=== PATIENT | male | born 1985 | race Two or more races ===

== ENCOUNTER 2024-11-11 22:11 | Inpatient (IN) | payer OTHER, SELFPAY ==
[2024-11-11] VITALS (7 sets, daily range): BP systolic 96–107; BP diastolic 12–71
[2024-11-11] MEDS: TYLENOL 650 MG PO (15:06)
[2024-11-11 15:10] LABS: % Basophils 1.2 % (0-2); % Eosinophils 0.6 % (0-6); % Immature Granulocytes 0.3 % (0-0.5); % Lymphocytes 24.6 % (20.5-51.1); % Monocytes 8.5 % (1.7-9.3); % Neutrophils 64.8 % (42.2-75.2); Absolute Lymphocytes 0.8 10^3/uL (1.2-3.4); Absolute Monocytes 0.3 10^3/uL (0.1-0.6); Absolute Neutrophils 2.1 10^3/uL (1.4-6.5); Hematocrit 39.1 % (39.0-52.0); Hemoglobin 14.1 g/dL (13.0-18.0); Mean Corp Hgb Conc. 36.1 g/dL (33.0-37.0); Mean Corpuscular Hgb 29.3 pg (27.0-31.0); Mean Corpuscular Volume 81.3 fL (80.0-94.0); Mean Platelet Volume 10.3 fL (7.4-10.4); Nucleated Red Blood Cells % 0 % (-); Platelet Count 162 10^3/uL (130-400); Red Blood Cell Count 4.81 10^6/uL (4.70-6.10); Red Cell Dist. Width 14.9 % (11.5-14.5); White Blood Cell Count 3.3 10^3/uL (4.8-10.8)
[2024-11-11 15:26] LABS: COVID-19 Antigen Negative (Negative)
[2024-11-11 15:28] LABS: Lactic Acid 1.8 mmol/L (0.7-2.0)
[2024-11-11 15:40] LABS: Troponin I < 0.012 ng/ml
[2024-11-11 15:45] LABS: Albumin 3.5 g/dl (3.5-5.0); Blood Urea Nitrogen 5 mg/dl (9-20); Carbon Dioxide 25 mmol/L (22-30); Total Bilirubin 0.8 mg/dl (0.2-1.3); Total Protein 7.7 g/dl (6.3-8.2); eGFR > 60.00
[2024-11-11 15:55] LABS: ALT (SGPT) 35 U/L (0-50); AST (SGOT) 35 U/L (17-59); Alkaline Phosphatase 83 U/L (38-126); Calcium 8.8 mg/dl (8.4-10.2); Chloride 102 mmol/L (98-107); Glucose 85 mg/dl (70-99); Potassium 3.8 mmol/L (3.5-5.1); Sodium 137 mmol/L (135-145)
--- NOTE | 2024-11-11 17:02 | ED.GENMED ---
History of Present Illness
<Samia Almonte ELECTROTYPE SERVICER - Last Filed: 11/12/24 15:08>
General
Chief Complaint: Pneumonia Symptoms
Source: patient and family
Exam Limitations: none
Time Seen by Provider: 11/11/24 16:32
Nursing documentation reviewed up to this point in time: agreed with
History of Present Illness
History of Present Illness:
39 yo male [place] only speaking with relative at bedside helping to interpret presents for shortness of breath, worse with exertion, chest pressure, feels like he can't take a deep breath. Fatigue, last few days has had a dry cough, fever.
He was seen at [facility] on 10/10 for a rash and DC'd from ED told he had 'Covid like symptoms' although tested Covid neg.
Followed up a week later at [facility] where there was a 'very mean [place] doctor' that reportedly told him all the [place] from [place] come and bring disease, she said he is very sick and should make arrangements as he will most likely
soon. She has him so scared he lost a lot of weight and doesn't feel like eating. He thinks he's dying.
He has records from 09/14/24 from [facility] with neg MMR results, negative flu, RSV and COVID results
He was given out pt lab slip for numerous non emergent tests that he hasn't done due to his fear from the doctor at the clinic
Past History
<Samia Almonte, ELECTROTYPE SERVICER - Last Filed: 11/12/24 15:08>
Past History
ED Past Medical History: None
ED Past Surgical History: None
Social History
Tobacco: Non-smoker
Alcohol: None
Personal:
Living: with family
Phy Exam
<Samia Almonte, ELECTROTYPE SERVICER - Last Filed: 11/12/24 15:08>
Physical Exam
Physical Exam:
GENERAL: No acute distress. A&Ox3.
CONSTITUTIONAL: Afebrile.
EYES: clear, conjunctivae normal
ENMT: moist mucus membranes, Pharynx nl
RESPIRATORY: Regular respirations, nonlabored, lungs clear.
CARDIOVASCULAR: Regular rate and rhythm, no murmurs, no rubs.
GI: Soft, nontender, normal BS
MUSCULOSKELETAL: Moves with ease. Well perfused. No edema
SKIN: Warm, dry, pink
PSYCH: Normal mood and affect. Well kept, interactive and appropriate
NEUROLOGIC: Awake, alert and oriented. No focal neurological deficits
Sepsis
<Samia Almonte, ELECTROTYPE SERVICER - Last Filed: 11/12/24 15:08>
Sepsis Screening
Sepsis Assessment: Sepsis Ruled Out
Sepsis Screen
Sepsis Screen: Sepsis Ruled Out
Date: 11/12/24
Time: 15:08
<Altaf Lozano Jr., PA-C - Last Filed: 11/12/24 18:24>
Sepsis Screen
Sepsis Screen: Sepsis Ruled Out
Date: 11/12/24
Time: 18:23
Course
<Samia Almonte, ELECTROTYPE SERVICER - Last Filed: 11/12/24 15:08>
Orders/Labs/Results
Orders:
Orders
11/11/24 14:41
EKG [Electrocardiogram (*1)] Urgent
Reason for Study: Chest Pain
11/11/24 14:45
CXR2 [CR Chest - 2 Views ] Urgent
Comment:
Reason For Exam: cough/chest pain
11/11/24 Dinner
Regular
At Your Request: Full Participation
11/11/24 15:02
CMP [Comprehensive Metabolic Panel] Urgent
COVID-19 Antigen Urgent
Source: Nasal Swab
Complete Blood Count/With Diff Urgent
Lactate Level [Lactic Acid] Urgent
Troponin I Urgent
Blood Culture Urgent
NATALI Source: Blood/Venous
Specimen Description:
Influenza A+B Rapid Molecular Urgent
NATALI Source: Nasal Swab
Specimen Description:
11/11/24 15:04
Acetaminophen [Tylenol] 650 mg .ROUTE .STK-MED ONE
11/11/24 15:05
Acetaminophen [Tylenol] 650 mg PO NOW STA
11/11/24 16:30
Add On- LAB Urgent
Tests Added?: BNP
11/11/24 17:14
CT Chest PE Study Urgent
Comment:
Reason For Exam: PATEL, SOB
11/11/24 17:19
Add On- LAB Urgent
Tests Added?: TSH
11/11/24 19:27
Add On- LAB Urgent
Tests Added?: tsh
11/11/24 20:11
NT-proBNP Routine
TSH Routine
11/11/24 21:09
Azithromycin 500 mg/250 ml [Zithromax Infusion] 500 mg in 250 ml IV NOW
CefTRIAXone [Rocephin] 2,000 mg IV NOW STA
11/11/24 21:35
Sterile Water [Sterile Water For Injection] 20 ml .ROUTE .STK-MED
11/11/24 22:00
Flush (0.9% Sodium Chloride) [Flush (Nss)] See Dose Instructions IV PER PROTOCOL
11/11/24 22:01
Admit/Transfer Patient As Directed
Co-Sign Provider:
Level of Care: Inpatient admission
Assign to:: Medical/Surgical
Physician / Group: kaylie,mauricio
Diagnosis: Sepsis secondary to bilateral pneumonia, acute leukopenia
Reason for Hospitalization: Sepsis secondary to bilateral pneumonia, acute leukopenia
Expected length of stay greater than two midnights?: Yes
ELOS- Estimated Length of Stay in days: 4
I certify the patient meets the requirements for IP care: Yes
Code Status As Directed
Resuscitation Status: Full Code
04/26/25 22:04
PRN Pain Medication Management As Directed
May give lesser potent ordered pain med per pt: Yes
preference::
Protocol:: Medication orders for pain may be administered in a
manner that supports deferring to patient preference
when the pt is:
- Requesting an ordered lesser potent pain medication.
Least to most potent pain medications are defined
as: acetaminophen < NSAID < tramadol < opioids
(morphine, oxycodone, hydromorphone).
- Requesting a lesser dose of the same medication IF
ORDERED.
- Requesting a less intrusive route of administration
if both routes are prescribed by the provider (PO <
IV).
11/11/24 22:05
PRN Pain Medication Management As Directed
May give lesser potent ordered pain med per pt: Yes
preference::
Protocol:: Medication orders for pain may be administered in a
manner that supports deferring to patient preference
when the pt is:
- Requesting an ordered lesser potent pain medication.
Least to most potent pain medications are defined
as: acetaminophen < NSAID < tramadol < opioids
(morphine, oxycodone, hydromorphone).
- Requesting a lesser dose of the same medication IF
ORDERED.
- Requesting a less intrusive route of administration
if both routes are prescribed by the provider (PO <
IV).
11/11/24 22:06
Blood Culture Urgent
NATALI Source: Blood/Venous
Specimen Description:
11/11/24 22:08
Consult Notification Routine
Specialty to Notify: Infectious Disease
Date consulting provider notified: 11/12/24
Time consulting provider notified: 08:51
Notified:: Provider
INFECTIOUS DISEASE CONSULT Routine
Consulting Provider: Gloria Frank
Was physician already notified: No
Reason for consult: Bilateral pneumonia
11/11/24 22:09
Consult Notification Routine
Specialty to Notify: Pulmonary
Date consulting provider notified: 11/12/24
Time consulting provider notified: 08:51
Notified:: Provider
PULMONARY CONSULT Routine
Consulting Provider: Nae Serna
Was physician already notified: No
Reason for consult: Bilateral pneumonia
11/11/24 22:58
0.9% Sodium Chloride 1000 ml [Nss] 1,000 ml IV 100 mls/hr
Acetaminophen [Tylenol] 650 mg PO Q4HPRN PRN
Ibuprofen [Motrin] 600 mg PO Q6HPRN PRN
Ondansetron Injectable [Zofran] 4 mg IV Q6HPRN PRN
11/11/24 22:58
Sputum Culture [Respiratory Culture/Gram Stain] Routine
NATALI Source: Sputum
Specimen Description:
Activity As Directed
Activity Level: As Tolerated
Vital Signs As Directed
Frequency: Per unit guidelines
Pulse Ox/spot Check [RESP] Routine
Quantity: 1
Pt Eval And Treat Routine
Activity Level: As Tolerated
DX Deep Vein Thrombosis Video Routine
11/12/24 05:57
Complete Blood Count/With Diff IN AM
Comprehensive Metabolic Panel IN AM
QuantiFERON-TB Gold Plus [S] IN AM
11/12/24 18:00
Enoxaparin Sodium [Lovenox] 40 mg SC QPM
11/12/24 22:00
Azithromycin 500 mg/250 ml [Zithromax Infusion] 500 mg in 250 ml IV Q24H
CefTRIAXone [Rocephin] 1,000 mg IV Q24H
11/13/24 06:00
Complete Blood Count/With Diff IN AM
Comprehensive Metabolic Panel IN AM
11/14/24 06:00
Complete Blood Count/With Diff IN AM
Comprehensive Metabolic Panel IN AM
11/14/24 11:00
DC Protocol for Telemetry ONCE
11/15/24 06:00
Complete Blood Count/With Diff IN AM
Comprehensive Metabolic Panel IN AM
Abnormal Lab Results
11/11/24
15:02
WBC 3.3 L 10^3/uL
(4.8-10.8)
RDW 14.9 H %
(11.5-14.5)
Absolute Lymphs (auto) 0.8 L 10^3/uL
(1.2-3.4)
BUN 5 L mg/dl
(9-20)
11/11/24 15:02
11/11/24 15:02
Vital Signs
Initial and Last Documented VS:
Initial Vital Signs
Temp Pulse Resp BP Pulse Ox
100.7 F H 98 20 107/70 98
11/11/24 14:33 11/11/24 14:33 11/11/24 14:33 11/11/24 14:33 11/11/24 14:33
Last Documented Vital Signs
Temp Pulse Resp BP Pulse Ox
97.6 F 89 24 89/62 94
11/12/24 15:40 11/12/24 16:05 11/12/24 16:05 11/12/24 15:40 11/12/24 16:05
<Brittney Calle MD - Last Filed: 11/11/24 17:52>
Orders/Labs/Results
Orders:
Orders
11/11/24 14:41
EKG [Electrocardiogram (*1)] Urgent
Reason for Study: Chest Pain
11/11/24 14:45
CXR2 [CR Chest - 2 Views ] Urgent
Comment:
Reason For Exam: cough/chest pain
11/11/24 Dinner
Regular
At Your Request: Full Participation
11/11/24 15:02
CMP [Comprehensive Metabolic Panel] Urgent
COVID-19 Antigen Urgent
Source: Nasal Swab
Complete Blood Count/With Diff Urgent
Lactate Level [Lactic Acid] Urgent
Troponin I Urgent
Blood Culture Urgent
NATALI Source: Blood/Venous
Specimen Description:
Influenza A+B Rapid Molecular Urgent
NATALI Source: Nasal Swab
Specimen Description:
11/11/24 15:04
Acetaminophen [Tylenol] 650 mg .ROUTE .STK-MED ONE
11/11/24 15:05
Acetaminophen [Tylenol] 650 mg PO NOW STA
11/11/24 16:30
Add On- LAB Urgent
Tests Added?: BNP
11/11/24 17:14
CT Chest PE Study Urgent
Comment:
Reason For Exam: PATEL, SOB
11/11/24 17:19
Add On- LAB Urgent
Tests Added?: TSH
11/11/24 19:27
Add On- LAB Urgent
Tests Added?: tsh
11/11/24 20:11
NT-proBNP Routine
TSH Routine
11/11/24 21:09
Azithromycin 500 mg/250 ml [Zithromax Infusion] 500 mg in 250 ml IV NOW
CefTRIAXone [Rocephin] 2,000 mg IV NOW STA
11/11/24 21:35
Sterile Water [Sterile Water For Injection] 20 ml .ROUTE .STK-MED
11/11/24 22:00
Flush (0.9% Sodium Chloride) [Flush (Nss)] See Dose Instructions IV PER PROTOCOL
11/11/24 22:01
Admit/Transfer Patient As Directed
Co-Sign Provider:
Level of Care: Inpatient admission
Assign to:: Medical/Surgical
Physician / Group: mauricio lott
Diagnosis: Sepsis secondary to bilateral pneumonia, acute leukopenia
Reason for Hospitalization: Sepsis secondary to bilateral pneumonia, acute leukopenia
Expected length of stay greater than two midnights?: Yes
ELOS- Estimated Length of Stay in days: 4
I certify the patient meets the requirements for IP care: Yes
Code Status As Directed
Resuscitation Status: Full Code
11/11/24 22:04
PRN Pain Medication Management As Directed
May give lesser potent ordered pain med per pt: Yes
preference::
Protocol:: Medication orders for pain may be administered in a
manner that supports deferring to patient preference
when the pt is:
- Requesting an ordered lesser potent pain medication.
Least to most potent pain medications are defined
as: acetaminophen < NSAID < tramadol < opioids
(morphine, oxycodone, hydromorphone).
- Requesting a lesser dose of the same medication IF
ORDERED.
- Requesting a less intrusive route of administration
if both routes are prescribed by the provider (PO <
IV).
11/11/24 22:05
PRN Pain Medication Management As Directed
May give lesser potent ordered pain med per pt: Yes
preference::
Protocol:: Medication orders for pain may be administered in a
manner that supports deferring to patient preference
when the pt is:
- Requesting an ordered lesser potent pain medication.
Least to most potent pain medications are defined
as: acetaminophen < NSAID < tramadol < opioids
(morphine, oxycodone, hydromorphone).
- Requesting a lesser dose of the same medication IF
ORDERED.
- Requesting a less intrusive route of administration
if both routes are prescribed by the provider (PO <
IV).
11/11/24 22:06
Blood Culture Urgent
NATALI Source: Blood/Venous
Specimen Description:
11/11/24 22:08
Consult Notification Routine
Specialty to Notify: Infectious Disease
Date consulting provider notified: 11/12/24
Time consulting provider notified: 08:51
Notified:: Provider
INFECTIOUS DISEASE CONSULT Routine
Consulting Provider: Gloria Frank
Was physician already notified: No
Reason for consult: Bilateral pneumonia
11/11/24 22:09
Consult Notification Routine
Specialty to Notify: Pulmonary
Date consulting provider notified: 11/12/24
Time consulting provider notified: 08:51
Notified:: Provider
PULMONARY CONSULT Routine
Consulting Provider: Nae Serna
Was physician already notified: No
Reason for consult: Bilateral pneumonia
11/11/24 22:58
0.9% Sodium Chloride 1000 ml [Nss] 1,000 ml IV 100 mls/hr
Acetaminophen [Tylenol] 650 mg PO Q4HPRN PRN
Ibuprofen [Motrin] 600 mg PO Q6HPRN PRN
Ondansetron Injectable [Zofran] 4 mg IV Q6HPRN PRN
11/11/24 22:58
Sputum Culture [Respiratory Culture/Gram Stain] Routine
NATALI Source: Sputum
Specimen Description:
Activity As Directed
Activity Level: As Tolerated
Vital Signs As Directed
Frequency: Per unit guidelines
Pulse Ox/spot Check [RESP] Routine
Quantity: 1
Pt Eval And Treat Routine
Activity Level: As Tolerated
DX Deep Vein Thrombosis Video Routine
11/12/24 05:57
Complete Blood Count/With Diff IN AM
Comprehensive Metabolic Panel IN AM
QuantiFERON-TB Gold Plus [S] IN AM
11/12/24 18:00
Enoxaparin Sodium [Lovenox] 40 mg SC QPM
11/12/24 22:00
Azithromycin 500 mg/250 ml [Zithromax Infusion] 500 mg in 250 ml IV Q24H
CefTRIAXone [Rocephin] 1,000 mg IV Q24H
11/13/24 06:00
Complete Blood Count/With Diff IN AM
Comprehensive Metabolic Panel IN AM
11/14/24 06:00
Complete Blood Count/With Diff IN AM
Comprehensive Metabolic Panel IN AM
11/14/24 11:00
DC Protocol for Telemetry ONCE
11/15/24 06:00
Complete Blood Count/With Diff IN AM
Comprehensive Metabolic Panel IN AM
Abnormal Lab Results
11/11/24
15:02
WBC 3.3 L 10^3/uL
(4.8-10.8)
RDW 14.9 H %
(11.5-14.5)
Absolute Lymphs (auto) 0.8 L 10^3/uL
(1.2-3.4)
BUN 5 L mg/dl
(9-20)
11/11/24 15:02
11/11/24 15:02
Vital Signs
Initial and Last Documented VS:
Initial Vital Signs
Temp Pulse Resp BP Pulse Ox
100.7 F H 98 20 107/70 98
11/11/24 14:33 11/11/24 14:33 11/11/24 14:33 11/11/24 14:33 11/11/24 14:33
Last Documented Vital Signs
Temp Pulse Resp BP Pulse Ox
97.6 F 89 24 89/62 94
11/12/24 15:40 11/12/24 16:05 11/12/24 16:05 11/12/24 15:40 11/12/24 16:05
<Altaf Lozano Jr., PA-C - Last Filed: 11/12/24 18:24>
Orders/Labs/Results
Orders:
Orders
11/11/24 14:41
EKG [Electrocardiogram (*1)] Urgent
Reason for Study: Chest Pain
11/11/24 14:45
CXR2 [CR Chest - 2 Views ] Urgent
Comment:
Reason For Exam: cough/chest pain
11/11/24 Dinner
Regular
At Your Request: Full Participation
11/11/24 15:02
CMP [Comprehensive Metabolic Panel] Urgent
COVID-19 Antigen Urgent
Source: Nasal Swab
Complete Blood Count/With Diff Urgent
Lactate Level [Lactic Acid] Urgent
Troponin I Urgent
Blood Culture Urgent
NATALI Source: Blood/Venous
Specimen Description:
Influenza A+B Rapid Molecular Urgent
NATALI Source: Nasal Swab
Specimen Description:
11/11/24 15:04
Acetaminophen [Tylenol] 650 mg .ROUTE .STK-MED ONE
11/11/24 15:05
Acetaminophen [Tylenol] 650 mg PO NOW STA
11/11/24 16:30
Add On- LAB Urgent
Tests Added?: BNP
11/11/24 17:14
CT Chest PE Study Urgent
Comment:
Reason For Exam: PATEL, SOB
11/11/24 17:19
Add On- LAB Urgent
Tests Added?: TSH
11/11/24 19:27
Add On- LAB Urgent
Tests Added?: tsh
11/11/24 20:11
NT-proBNP Routine
TSH Routine
11/11/24 21:09
Azithromycin 500 mg/250 ml [Zithromax Infusion] 500 mg in 250 ml IV NOW
CefTRIAXone [Rocephin] 2,000 mg IV NOW STA
11/11/24 21:35
Sterile Water [Sterile Water For Injection] 20 ml .ROUTE .STK-MED
11/11/24 22:00
Flush (0.9% Sodium Chloride) [Flush (Nss)] See Dose Instructions IV PER PROTOCOL
11/11/24 22:01
Admit/Transfer Patient As Directed
Co-Sign Provider:
Level of Care: Inpatient admission
Assign to:: Medical/Surgical
Physician / Group: mauricio lott
Diagnosis: Sepsis secondary to bilateral pneumonia, acute leukopenia
Reason for Hospitalization: Sepsis secondary to bilateral pneumonia, acute leukopenia
Expected length of stay greater than two midnights?: Yes
ELOS- Estimated Length of Stay in days: 4
I certify the patient meets the requirements for IP care: Yes
Code Status As Directed
Resuscitation Status: Full Code
11/11/24 22:04
PRN Pain Medication Management As Directed
May give lesser potent ordered pain med per pt: Yes
preference::
Protocol:: Medication orders for pain may be administered in a
manner that supports deferring to patient preference
when the pt is:
- Requesting an ordered lesser potent pain medication.
Least to most potent pain medications are defined
as: acetaminophen < NSAID < tramadol < opioids
(morphine, oxycodone, hydromorphone).
- Requesting a lesser dose of the same medication IF
ORDERED.
- Requesting a less intrusive route of administration
if both routes are prescribed by the provider (PO <
IV).
11/11/24 22:05
PRN Pain Medication Management As Directed
May give lesser potent ordered pain med per pt: Yes
preference::
Protocol:: Medication orders for pain may be administered in a
manner that supports deferring to patient preference
when the pt is:
- Requesting an ordered lesser potent pain medication.
Least to most potent pain medications are defined
as: acetaminophen < NSAID < tramadol < opioids
(morphine, oxycodone, hydromorphone).
- Requesting a lesser dose of the same medication IF
ORDERED.
- Requesting a less intrusive route of administration
if both routes are prescribed by the provider (PO <
IV).
11/11/24 22:06
Blood Culture Urgent
NATALI Source: Blood/Venous
Specimen Description:
11/11/24 22:08
Consult Notification Routine
Specialty to Notify: Infectious Disease
Date consulting provider notified: 11/12/24
Time consulting provider notified: 08:51
Notified:: Provider
INFECTIOUS DISEASE CONSULT Routine
Consulting Provider: Gloria Frank
Was physician already notified: No
Reason for consult: Bilateral pneumonia
11/11/24 22:09
Consult Notification Routine
Specialty to Notify: Pulmonary
Date consulting provider notified: 11/12/24
Time consulting provider notified: 08:51
Notified:: Provider
PULMONARY CONSULT Routine
Consulting Provider: Nae Serna
Was physician already notified: No
Reason for consult: Bilateral pneumonia
11/11/24 22:58
0.9% Sodium Chloride 1000 ml [Nss] 1,000 ml IV 100 mls/hr
Acetaminophen [Tylenol] 650 mg PO Q4HPRN PRN
Ibuprofen [Motrin] 600 mg PO Q6HPRN PRN
Ondansetron Injectable [Zofran] 4 mg IV Q6HPRN PRN
11/11/24 22:58
Sputum Culture [Respiratory Culture/Gram Stain] Routine
NATALI Source: Sputum
Specimen Description:
Activity As Directed
Activity Level: As Tolerated
Vital Signs As Directed
Frequency: Per unit guidelines
Pulse Ox/spot Check [RESP] Routine
Quantity: 1
Pt Eval And Treat Routine
Activity Level: As Tolerated
DX Deep Vein Thrombosis Video Routine
11/12/24 05:57
Complete Blood Count/With Diff IN AM
Comprehensive Metabolic Panel IN AM
QuantiFERON-TB Gold Plus [S] IN AM
11/12/24 18:00
Enoxaparin Sodium [Lovenox] 40 mg SC QPM
11/12/24 22:00
Azithromycin 500 mg/250 ml [Zithromax Infusion] 500 mg in 250 ml IV Q24H
CefTRIAXone [Rocephin] 1,000 mg IV Q24H
11/13/24 06:00
Complete Blood Count/With Diff IN AM
Comprehensive Metabolic Panel IN AM
11/14/24 06:00
Complete Blood Count/With Diff IN AM
Comprehensive Metabolic Panel IN AM
11/14/24 11:00
DC Protocol for Telemetry ONCE
11/15/24 06:00
Complete Blood Count/With Diff IN AM
Comprehensive Metabolic Panel IN AM
Abnormal Lab Results
11/11/24
15:02
WBC 3.3 L 10^3/uL
(4.8-10.8)
RDW 14.9 H %
(11.5-14.5)
Absolute Lymphs (auto) 0.8 L 10^3/uL
(1.2-3.4)
BUN 5 L mg/dl
(9-20)
11/11/24 15:02
11/11/24 15:02
Vital Signs
Initial and Last Documented VS:
Initial Vital Signs
Temp Pulse Resp BP Pulse Ox
100.7 F H 98 20 107/70 98
11/11/24 14:33 11/11/24 14:33 11/11/24 14:33 11/11/24 14:33 11/11/24 14:33
Last Documented Vital Signs
Temp Pulse Resp BP Pulse Ox
97.6 F 89 24 89/62 94
11/12/24 15:40 11/12/24 16:05 11/12/24 16:05 11/12/24 15:40 11/12/24 16:05
<Samia King Day, ELECTROTYPE SERVICER - Last Filed: 11/12/24 15:08>
MDM/Problems Addressed
Differential Diagnosis Includes:
dehydration, PNA, Covid
MDM/Problems Addressed:
39 yo male [place] only speaking with relative at bedside helping to interpret presents for shortness of breath, worse with exertion, chest pressure, feels like he can't take a deep breath. Fatigue, last few days has had a dry cough, fever.
He was seen at [facility] on 10/10 for a rash and DC'd from ED told he had 'Covid like symptoms' although tested Covid neg.
Followed up a week later at [facility] where there was a 'very mean [place] doctor' that reportedly told him all the [place] from his country come and bring disease, she said he is very sick and should make arrangements as he will most likely
soon. She has him so scared he lost a lot of weight and doesn't feel like eating. He thinks he's dying.
He has records from 09/14/24 from [facility] with neg MMR results, negative flu, RSV and COVID results
He was given out pt lab slip for numerous non emergent tests that he hasn't done due to his fear from the doctor at the clinic
Ct scan showing PNA, Hospitalist notified of admission
<Samia Almonte ELECTROTYPE SERVICER - Last Filed: 11/12/24 15:08>
*Critical Care Note
Total Time (30-74mins, 75-104mins- exclusive of procedures): Not Applicable
<Altaf Lozano Jr., PA-C - Last Filed: 11/12/24 18:24>
Update Note
Update Note:
2030: CT resulted with multifocal potential pneumonia. Patient was walked with hypoxia appeared very short of breath. Plan to admit for IV antibiotics and further monitoring and treatment.
ED Attending Note
<Samia Almonte ELECTROTYPE SERVICER - Last Filed: 11/12/24 15:08>
-
Portions of this chart may have been created with voice recognition software.� Occasional wrong word or��sound alike� substitutions may have occurred due to the inherent limitations of voice recognition software.
<Brittney Calle MD - Last Filed: 11/11/24 17:52>
ED Attending Note
Patient seen and examined by attending physician: Yes
I performed the substantive portion of visit, reviewed & personally made and approve the management plan that is documented in note by myself or GAMAL.: Yes
ED Attending Note:
39-year-old male who presents emergency department with lower chest discomfort for some time associated with cough and dyspnea for the last 3 days. He is noted to have a low-grade fever here. Patient has had sporadic primary care doctor care, did
have a recent workup regarding a rash with extensive negative testing. He has had unintentional weight loss. He states that he feels 'overall fine', with the exception of symptoms as stated above. History obtained via aerial photograph interpreter. Cousin at
bedside. Labs and chest x-ray noted, vital stable, patient well-appearing. Will check CT, likely discharge with close follow-up
Discharge Plan
Departure
Patient Disposition: Admit
Date of Disposition: 11/11/24
Time of Disposition: 21:15
Admit to: Telemetry
Admit to doctor: Meredith
Presentation/result/management discussed w/ accepting MD/DO: Hospitalist
Patient with high blood pressure during this ER visit?: No
Condition: Fair
Covid-19: Not Applicable
Discharge Problem:
Pneumonia
Interventions
Interventions:
*Risk Screen - Suicide Last Done: 11/11/24 14:33
*General Assessment Last Done: 11/11/24 21:00
*Neglect/Abuse Screening Last Done: 11/11/24 14:33
*ED- Fall Risk Assessment Last Done: 11/11/24 21:00
*ED COVID-19 Vaccine History Last Done: 11/11/24 14:33
*Nursing Disposition Last Done: 11/11/24 23:09
ED- Cardiac Assessment Last Done: 11/11/24 21:00
ED- Pulmonary Assessment Last Done: 11/11/24 21:00
Discharge Date and Time
Discharge Date/Time: 11/11/24 23:10
--- NOTE | 2024-11-11 21:24 | HPS.HSE ---
Family Physician
-
Family Physician: * NONE
Chief Complaint
-
Nonproductive cough with chills x 3 days
History of Present Illness
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 He is complaining of 3 days of nonproductive cough with chills he has been taking Tylenol and ibuprofen for
his chills. He denies headache, sore throat, chest pain, palpitations, weight loss, no night sweats, no abdominal pain no nausea vomiting diarrhea urinary symptoms rash or sick contacts. He is an active smoker 2 to 3 cigarettes/week he has no
other medical history. He has no surgical history.
Medical History
Past Medical History
Past Medical History: Reports Other
Additional Past Medical History:
Nicotine use
Past Surgical History: Reports None
Social History
Tobacco: Smoker (2 to 3 cigarettes a week)
Alcohol: None
Drug: None
Personal:
Living: With Family
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
Family History
Family History: Other (Mother, father, 1 brother all healthy , parents live in [place] brother lives in the [facility])
Allergies / Home Medications
Allergies reflects when Allergies were last updated in [employer].
Home Medications with original date entered in [employer]
Allergy/Medication List:
Allergies
Allergy/AdvReac Type Severity Reaction Status Date / Time
No Known Allergies Allergy Verified 11/11/24 14:41
Home Medications
Tylenol 650 mg PO Q6H PRN fever>100.4 11/11/24
ibuprofen 600 mg PO Q6H PRN fever breakthru 11/11/24
Review of Systems
-
History Source: Patient (Plus Belarusian English translation na)
Constitutional: Reports Fever and Chills
EENT: Denies Sore Throat or Runny Nose
Respiratory: Reports Cough (Nonproductive); Denies Trouble Breathing
Cardiac: Denies Chest Pain, Diaphoresis, Palpitations or Syncope
Abdomen/GI: Denies Abdominal Pain, Nausea, Vomiting, Diarrhea, Constipated or Bloody Stools
: Denies Dysuria, Flank Pain or Difficulty Voiding
Musculoskeletal: Denies Joint Pain or Edema
Skin: Denies Itching or Rash
Neurological: Denies Dizzy, Headache or Weakness
Endocrine: Reports No Symptoms
Hematologic/Lymphatic: Reports No Symptoms
Psych: Reports Calm
Physical Exam
Vital Signs
Vital Signs
Temp Pulse Resp BP Pulse Ox
100.7 F H 98 20 107/70 98
11/11/24 14:33 11/11/24 14:33 11/11/24 14:33 11/11/24 14:33 11/11/24 14:33
Physical Exam
General: Comfortable, Conversant, Fever and Chills; No Pain
HEENT: NormoCephalic, Anicteric, Moist mucous membranes, PERRLA, [place] Conjunctivae and No Ptosis; No Thrush or Pharyngeal Erythema
Respiratory: Rhonchi (Left lung diminished)
Cardiac: S1/S2 and Regular Rhythm; No Murmur, Rub, Gallop or Peripheral Edema
GI: Soft, Non Tender, Non Distended, Normal Bowel Sounds and No Hepatosplenomegaly
Rectal: Deferred by Provider
Genito-urinary: Deferred by me
Musculoskeletal: No Clubbing, No Cyanosis and No Edema
Skin: Warm and Dry; No Rash
Neuro: AO x 3, No Motor Deficits, Nonfocal/grossly intact, Cranial Nerves Intact and No Sensory Deficits; No Slurred Speech, Facial Droop, Tremors or Sedated
Psych: Calm
Laboratory Results
-
11/11/24 15:02
11/11/24 15:02
Laboratory Results
Lactic Acid 1.8 mmol/L (0.7-2.0) 11/11/24 15:02
Total Bilirubin 0.8 mg/dl (0.2-1.3) 11/11/24 15:02
AST 35 U/L (17-59) 11/11/24 15:02
ALT 35 U/L (0-50) 11/11/24 15:02
Alkaline Phosphatase 83 U/L (38-126) 11/11/24 15:02
Troponin I < 0.012 ng/ml 11/11/24 15:02
Impression/Plan
-
Impression/plan:
Admit to MedSurg
#Sepsis secondary to bilateral pneumonia
#Acute leukopenia
WBC 3.3, 100.7 F, HR 98, 107/70
COVID/influenza negative
98% RA
-Check quantitative gold test,(originally from [place] has been in [place] 2 [place])
-Sputum culture
- Blood cultures x 2
-IV NSS 100 cc/h
- IV Rocephin, IV Zithromax
- Tylenol as needed fever, Motrin as needed breakthrough fever
- Follow CBC, BMP, check quantitative gold
- Consult pulmonary, infectious disease
EK bpm, NSR, QTc 413 MS no previous EKGs
CT PE study:
1. Moderate amount of bilateral perihilar ground-glass opacity with axial interstitial thickening in the lower lobes. Diagnostic possibilities are (1) an acute inflammatory pneumonitis
(such as vaping-associated lung disease) or (2) viral or atypical bacterial pneumonia.
2. Small amount of subpleural airspace consolidation in the posterior and lateral basilar segments of the left lower lobe and mild subpleural airspace consolidation in the right lower lobe.
Diagnostic possibilities are (1) pneumonia, (2) subsegmental atelectasis, or (3) an inflammatory airspace consolidation.
3. Mildly decreased bilateral lung volumes.
4. Mild mediastinal and bilateral hilar lymphadenopathy.
#Nicotine use
Patient smokes 2 to 3 cigarettes a week
DVT prophylaxis
Subcu Lovenox
Full code
--- NOTE | 2024-11-11 21:25 | W.PN.UPDATE ---
Update Note
Progress Note Update
I could not get any information from the patient is Rwandan only speaker
Information gathered by chart review and speaking with the ER staff.
This note serves as an addendum to the H&P by library technician GAMAL Mohini MO
HPI
39M Rwandan only speaker with partial understanding of Croatian relative at bedside helping to interpret seen at ER:
- shortness of breath, worse with exertion, chest pressure, feels like he can't take a deep breath.
- Fatigue, last few days has had a dry cough, fever.
- He was seen at [facility] on 10/10 for a rash and DC'd from ED told he had 'Covid like symptoms' although tested Covid neg.
Of note: per ER GIFT OFFICER note
- Followed up a week later at [facility] where there was a 'very mean Rwandan doctor' that reportedly told him all the Russians from his country come and bring disease, she said he is very sick and should make arrangements as he will most likely
soon.
- She has him so scared he lost a lot of weight and doesn't feel like eating. He thinks he's dying.
- He was given out lab slip for numerous non emergent tests that he hasn't done due to his fear from the doctor at the clinic
Records from 09/14/24 from [facility] with neg MMR results, negative flu, RSV and COVID results
VS
11/11/24
14:33
Temp 100.7 F H
Pulse 98
Resp Rate 20
Blood pressure 107/70
SaO2 98
Oxygen Mode of Delivery Room air
Labs
PE
Gen: thin, not toxic
HEENT: NO ORAL mucosal THRUSH
Neck: supple
Lungs: CTA
Cor: RRR S1 S2
Abdomen: soft , NT , NG
DISK GRINDER: AAA
MS: no edema
Psych: preserved social skills
11/11/24 11/11/24
15:02 20:11
WBC 3.3 L
Hgb 14.1
Absolute Lymphs (auto) 0.8 L
BUN 5 L
Creatinine 0.7
eGFR > 60.00
Troponin I < 0.012
Bub-Z-Aaxcrqdmwso Pept 68.0
TSH 0.80
SARS-CoV-2 Antigen Negative
NEG Flu A & B
Pending covid
BCx sent
CXR
Moderate amount of bilateral perihilar ground-glass opacity which is predominantly located in the lower lobes and appears to surround increased interstitial markings. Diagnostic possibilities are (1) mild interstitial and alveolar cardiogenic
pulmonary edema, (2) viral pneumonia, (3) a mild inflammatory pneumonitis, or (4) mild subsegmental atelectasis secondary to low lung volumes.
CT Chest PE Study
1. Moderate amount of bilateral perihilar ground-glass opacity with axial interstitial thickening in the lower lobes. Diagnostic possibilities are (1) an acute inflammatory pneumonitis (such as vaping-associated lung disease) or (2) viral or
atypical bacterial pneumonia.
2. Small amount of subpleural airspace consolidation in the posterior and lateral basilar segments of the left lower lobe and mild subpleural airspace consolidation in the right lower lobe. Diagnostic possibilities are (1) pneumonia, (2)
subsegmental atelectasis, or (3) an inflammatory airspace consolidation.
3. Mildly decreased bilateral lung volumes.
4. Mild mediastinal and bilateral hilar lymphadenopathy.
NO PRIOR hospitalist admission:
ASSESSMENT & PLAN
Multifocal PNA - viral vs bacteria vs OI vs cryogenic organizing PNA
CTC suggest b/L perihilar ground-glass opacity with axial interstitial thickening in the lower lobes.
Noted Leucopenia and Lymphopenia
Of note: 09/14/24 Records from [facility]: neg MMR, NEG flu, RSV and COVID
Denied prior HX HIV, Denied risks for HIV
Current smoker and vapes
No oral thrush
Denied Wt loss, Denied night sweats
- check PCT
- To consider HIV test
- BC sent
- check LDH
- Quantiferon Gold
- Agree with empiric IV CFTX and Azithromycin
- Consult: Pul to evaluate for Bronch ( ? ) ID to evaluate atypical PNA or OI infection
DVT Px: LMWH
Full code
IP MS
[2024-11-11] MEDS: ROCEPHIN 2000 MG IV (21:54)
[2024-11-11] MEDS: ZITHROMAX INFUSION 250 IV (21:54)
[2024-11-12] MEDS: NSS 1000 IV ×3 (00:14→21:34)
[2024-11-12 06:00] VITALS: BMI 16.5
[2024-11-12 06:37] LABS: % Basophils 0.7 % (0-2); % Eosinophils 0.7 % (0-6); % Immature Granulocytes 0.3 % (0-0.5); % Lymphocytes 25.3 % (20.5-51.1); Absolute Lymphocytes 0.8 10^3/uL (1.2-3.4); Absolute Monocytes 0.3 10^3/uL (0.1-0.6); Absolute Neutrophils 1.9 10^3/uL (1.4-6.5); Hematocrit 33.1 % (39.0-52.0); Hemoglobin 11.3 g/dL (13.0-18.0); Mean Corp Hgb Conc. 34.1 g/dL (33.0-37.0); Mean Corpuscular Hgb 29.4 pg (27.0-31.0); Mean Platelet Volume 10.5 fL (7.4-10.4); Nucleated Red Blood Cells % 0 % (-); Platelet Count 158 10^3/uL (130-400); Red Blood Cell Count 3.85 10^6/uL (4.70-6.10); Red Cell Dist. Width 15.2 % (11.5-14.5)
--- NOTE | 2024-11-12 06:45 | PTCARENOTE ---
Lizeth RN informed this RN that she inquired pulp mill supervisor if patient needs a private room in which there was no need.
[2024-11-12 07:14] LABS: ALT (SGPT) 30 U/L (0-50); AST (SGOT) 35 U/L (17-59); Alkaline Phosphatase 76 U/L (38-126); Blood Urea Nitrogen 10 mg/dl (9-20); Calcium 8.1 mg/dl (8.4-10.2); Carbon Dioxide 28 mmol/L (22-30); Chloride 103 mmol/L (98-107); Estimated Creatinine Clearance 87 ml/min; Glucose 87 mg/dl (70-99); Potassium 4.1 mmol/L (3.5-5.1); Sodium 138 mmol/L (135-145); Total Bilirubin 0.5 mg/dl (0.2-1.3); Total Protein 6.8 g/dl (6.3-8.2); eGFR > 60.00
[2024-11-12 07:45] VITALS: BP 93/61
--- NOTE | 2024-11-12 08:59 | W.PN.HOSP.TC ---
Today's Communication/Plan
-
IV antibiotics. Pulmonary and ID consult
Assessment / Plan
Assessment / Plan
Physical exam:
General: Acutely ill
HEENT: Normocephalic, Atraumatic and Moist Mucous Membranes
Respiratory: Bilateral rhonchi; Negative Wheezes, or Rales
Cardiac: Regular Rhythm and S1/S2
GI: Soft, Nontender and Nondistended
Musculoskeletal: No Clubbing, No Cyanosis and No Edema
Neuro: Awake, Alert and Oriented
Psych: Calm
A/P:
#Sepsis secondary to bilateral pneumonia/hypoxia
#Acute leukopenia
WBC 3.3, 100.7 F, HR 98, 107/70
COVID/influenza negative
98% RA
-Check quantitative gold test,(originally from [place] has been in [place] 2 [place])
-Sputum culture
- Blood cultures x 2
-IV NSS 100 cc/h
- IV Rocephin, IV Zithromax
- Tylenol as needed fever, Motrin as needed breakthrough fever
- Follow CBC, BMP, check quantitative gold
- Consult pulmonary, infectious disease
- Discussed with pulmonary today and planning to do extensive rheumatological, infectious, and other etiology workup.
- Request old records as well
- Discussed with family at bedside
EK bpm, NSR, QTc 413 MS no previous EKGs
CT PE study:
1. Moderate amount of bilateral perihilar ground-glass opacity with axial interstitial thickening in the lower lobes. Diagnostic possibilities are (1) an acute inflammatory pneumonitis
(such as vaping-associated lung disease) or (2) viral or atypical bacterial pneumonia.
2. Small amount of subpleural airspace consolidation in the posterior and lateral basilar segments of the left lower lobe and mild subpleural airspace consolidation in the right lower lobe.
Diagnostic possibilities are (1) pneumonia, (2) subsegmental atelectasis, or (3) an inflammatory airspace consolidation.
3. Mildly decreased bilateral lung volumes.
4. Mild mediastinal and bilateral hilar lymphadenopathy.
#Nicotine use
Patient smokes 2 to 3 cigarettes a week
DVT prophylaxis
Subcu Lovenox
Full code
Total time spent on today's encounter was 52 minutes which included time spent in counseling the patient/family regarding diagnosis and treatment plan as listed above, goals of care, and symptom management. Case was discussed with nursing staff,
specialists, and care coordinators/case management. All labs and imaging personally reviewed by me. Remainder the time spent in detailed review of previous records, lab data, imaging, and other medical provider documentation.
Anticipated Discharge: > 48 hours
Subjective/Interval History
-
Date of Service: November 12, 2024
Complains of shortness of breath and cough. Afebrile today. Tmax 100.7 Fahrenheit yesterday. Still hypoxic, dropping to 86% on room air today. Back on supplemental oxygen.
Objective Data
-
Labs:
Laboratory Results
11/12/24
05:57
WBC 3.0 L
Hgb 11.3 L
Hct 33.1 L
Plt Count 158
Sodium 138
Potassium 4.1
Chloride 103
Carbon Dioxide 28
BUN 10
Creatinine 0.8
Glucose 87
Calcium 8.1 L
Total Bilirubin 0.5
AST 35
ALT 30
Alkaline Phosphatase 76
Vital Signs:
Vital Signs
Temp Pulse Resp BP Pulse Ox
99.6 F 86 18 93/61 99
11/12/24 07:45 11/12/24 07:45 11/12/24 07:45 11/12/24 07:45 11/12/24 07:45
I&O
11/11/24 11/12/24 11/13/24
06:59 06:59 06:59
Intake Total 900 / 900
Balance 900 / 900
--- NOTE | 2024-11-12 09:59 | PTCARENOTE ---
Pt c/o increased difficulty breathing. HOB raised, pulse ox=87% on RA, 2 L o2 placed. Pulse oox=95% on 2L nasal cannula. MD made aware.
[2024-11-12 10:43] VITALS: BP 120/71; BP 94/64; PULSE 84; PULSE 98; O2SAT 97
--- NOTE | 2024-11-12 13:43 | CON.ID ---
Addendum entered and electronically signed by Gloria Frank MD 11/13/24 09:34:
Patient is non-smoker. He never smoked nor vaped.
Original Note:
Consultation
-
Date/Time Consultation Requested: November 11, 20242208
Date/Time Consultation Performed: November 12, 2024 1345
Requesting Provider: JOB Jimenez
Performing Provider: Dr. Gloria Frank
Reason for Consultation: Bilateral pneumonia
Chief Complaint / Past History
Chief Complaint
Cough, weakness, fevers
History of Present Illness
Patient is Polish-speaking. History obtained with the help of medical practice administrator service via iPad. He is a 39-year-old male without past medical history presented to the hospital with 3-month history of illness, rash, and 3-day history of dry
cough. In the ER temperature 100.7. 98% RA. He is leukopenic, anemic. Chest CT: moderate amount of bilateral perihilar ground-glass opacity, small amt of subpleural consolidation, mild mediastinal and bilateral hilar LAD. COVID-negative.
Influenza negative. Blood culture negative to date. BNP normal. He is currently on ceftriaxone and azithromycin.
He is originally from [place] and came to the [facility] 3 years ago. He was doing well until August 2024 when he developed flulike symptoms, then he noticed red spots on his body. The rash is not pruritic. He did go to [facility] and was
told his lab work was fine and he was discharged. Of note, review of [facility] 09/13/24 lab: Measles IgG>300, IgM negative. The rash never resolved and remained stable. He continued to feel unwell with daily subjective fever for which he took
Tylenol or ibuprofen. The red spots hurt during febrile episodes. No pattern to the fever. He did not take his temperatures. No chills or sweats with these fevers. Complaining of malaise, myalgias, 'bone pain' all over his body. No specific
joint pains. He has poor appetite and lost 22 pounds over the past 3 months. Some nausea intermittently without vomiting. No diarrhea. No abdominal pain. No headache, sinus congestion, runny nose, or sore throat. No mouth lesions. The dry
cough occurred 3 days ago associated with dyspnea on exertion. He has difficulty taking deep breaths with chest pressure. 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 He has not been working for the past 2 months due to his illness. In [employer], he
worked for the [employer] department. No known tuberculosis exposure. He states he was never screened for tuberculosis. No animal exposure. No ill contacts. He denies HIV risk factors. He lives with his and 3 children. No travel outside of the
[place] the past 3 years. He does not garden. No pets.
Past History
Past Medical History: None
Past Surgical History: None
Allergy History:
No Known Allergies Allergy (Verified 11/11/24 14:41)
Medications Reviewed: Yes
Current Antibiotics:
Ceftriaxone
Azithromycin
Social History
Tobacco: Non-Smoker (Smokes 2-3 cigs/week and vapes)
Alcohol: None
Drug: None
Personal:
Living: With Family ( and 3 children)
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
Family History
Family History: Not Pertinent
Review of Systems
Review of Systems
General: Fever and Change in Appetite; Negative Chills
HEENT: Negative Lymphadenopathy, Stiff Neck, Sinus Problems, Headache or Pharyngitis
Cardiovascular: Dyspnea
Respiratory: Cough; Negative Sputum Production
Gasteroenterology: Weight Loss and Nausea; Negative Vomiting or Diarrhea
Genital / Urological: Negative Dysuria or Flank Pain
Endocrine: Weight Change, Weakness and Fatigue
Musculoskeletal: Myalgias; Negative Joint Pain or Joint Swelling
Skin / Hair / Nails: Lesions; Negative Pruritis
Neurological: Negative Dizziness
All systems: All other systems were reviewed and were negative
Vital Signs
Temp Pulse Resp BP Pulse Ox
99.6 F 87 20 93/61 98
11/12/24 07:45 11/12/24 11:38 11/12/24 11:38 11/12/24 07:45 11/12/24 11:38
Selected Entries
11/11/24
14:33
Temp 100.7 F H
Physical Exam
Physical Exam
Constitutional: No Acute Distress and Cachetic
Head: Other (No frontal or max or sinus tenderness)
Eyes: No Conjunctival Hemorrhage and Sclera Anicteric
Pharynx: Benign
Oral: Negative No Thrush or No Ulcers
Cardiovascular: Regular Rate and S1/S2; Negative Peripheral Edema
Pulmonary: Clear and Other (Poor respiratory effort); Negative Rhonchi
Gastrointestinal: Soft, Non Tender, Non Distended and Normal Bowel Sounds
Genito-Urinary: Negative Suprapubic Tenderness or CVA Tenderness
Extremities: Negative Edema
Musculoskeletal: Negative Joint Swelling, Joint Effusion or Spinal Tenderness
Skin: Other (Several scattered dark red/purplish papules of various sizes, irregular borders on BUE, thighs, upper back, chest)
Lab / Diagnostic Study Results
11/12/24 05:57
11/12/24 05:57
Abs Immat Gran (auto) 0.0 10^3/uL (0-0.05) 11/12/24 05:57
Absolute Neuts (auto) 1.9 10^3/uL (1.4-6.5) 11/12/24 05:57
Absolute Lymphs (auto) 0.8 10^3/uL (1.2-3.4) L 11/12/24 05:57
Absolute Monos (auto) 0.3 10^3/uL (0.1-0.6) 11/12/24 05:57
Absolute Basos (auto) 0.0 10^3/uL (0-0.2) 11/12/24 05:57
Immature Gran % 0.3 % (0-0.5) 11/12/24 05:57
Neutrophils % 62.0 % (42.2-75.2) 11/12/24 05:57
Lymphocytes % 25.3 % (20.5-51.1) 11/12/24 05:57
Monocytes % 11.0 % (1.7-9.3) H 11/12/24 05:57
Eosinophils % 0.7 % (0-6) 11/12/24 05:57
Basophils % 0.7 % (0-2) 11/12/24 05:57
Lactic Acid 1.8 mmol/L (0.7-2.0) 11/11/24 15:02
Microbiology Results
Micro:
11/12/24 05:58 Blood Culture - Pending
Blood/Venous
11/11/24 15:02 Influenza Types A & B (MARA) - Final
Nasal Swab Negative for Influenza A & B, NAAT
Negative results must be combined with clinical observations
and patient history.
Nucleic Acid Amplification test (NAAT)performed on the
[employer] platform.
11/11/24 15:02 Blood Culture - Pending
Blood/Venous
11/11/24 CXR: Moderate amount of bilateral perihilar ground-glass opacity which is predominantly located in the lower lobes and appears to surround increased interstitial markings. Diagnostic possibilities are (1) mild interstitial and alveolar
cardiogenic pulmonary edema, (2) viral pneumonia, (3) a mild inflammatory pneumonitis, or (4) mild subsegmental atelectasis secondary to low lung volumes.
11/11/[address]: Moderate amount of bilateral perihilar ground-glass opacity with axial interstitial thickening in the lower lobes. Diagnostic possibilities are (1) an acute inflammatory pneumonitis (such as vaping-associated lung disease) or (2)
viral or atypical bacterial pneumonia.
2. Small amount of subpleural airspace consolidation in the posterior and lateral basilar segments of the left lower lobe and mild subpleural airspace consolidation in the right lower lobe. Diagnostic possibilities are (1) pneumonia, (2)
subsegmental atelectasis, or (3) an inflammatory airspace consolidation.
3. Mildly decreased bilateral lung volumes.
4. Mild mediastinal and bilateral hilar lymphadenopathy.
Assessment / Plan
# Fevers x 3 months
# Violaceous raised papules skin lesions x 3 months
# Weight loss
# Kia-hilar ground-glass opacity, hilar adenopathy
# Leukopenia
# Anemia
# Polish immigrant
- Unclear unifying diagnosis at this time.
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
Skin biopsy will be helpful.
Perhaps consider Surgery to help obtain punch biopsy ( for path and bacterial/fungal/AFb cx) as does not have Dermatology service.
- Multiple labs pending.
- From ID standpoint, check HIV (pt verbally consented), syphilis serology, serum cryptococcus antigen, Bartonella (bacillary angiomatosis), Histoplasma Ag/CF.
--- NOTE | 2024-11-12 13:47 | CON.PUL ---
Consultation
Consultation Request
Date/Time Consultation Requested: 11/12/2024
Date/Time Consultation Performed: 11/12/2024
Requesting Provider: Dom Subramanian
Performing Provider: Nae Serna
Reason for Consultation: Shortness of breath
Medical History
-
Chief Complaint: Shortness of breath
History of Present Illness:
Patient is a 39-year-old Micronesian speaking male who presents to the hospital with 3 days of nonproductive cough, shortness of breath with some chills. Patient denies any sick contacts. No report currently history of runny nose, sore throat or upper
respiratory history tract symptoms. Patient says that he has not been able to bring any phlegm, no reported hemoptysis or pleuritic discomfort. Denies any recent exposure to mold, toxic fumes or gases, no reported recent history of smoking or
vaping or marijuana use. In the emergency room patient had a chest x-ray suggestive of interstitial pneumonia followed by a CT scan which was negative for any pulmonary embolism but showed diffuse bilateral centrilobular groundglass opacities with
mosaic pattern. Patient was admitted to the hospital and was started on Rocephin and Zithromax. Mild leukopenia was noted. Influenza AB screen as well as COVID-19 screen was negative.
Pulmonary consultation was requested for further input.
No significant past medical or surgical history. Reported skin rash in August 2024 requiring visit to [facility], with subsequent residual nodular lesions on her arm as well as chest. Records not available for review
Social history. Patient was born in [facility]. Growing up does not report any exposure to tuberculosis. He moved to [facility] about 2 years ago. 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 Denies any history of vaping, e-cigarette, or smoking
marijuana. Reports a very rare cigarette smoking on social occasions. No known exposure to toxic fumes or gases. Denies any work at pharmacy. Patient does not have any pets, no dogs no birds. does not recall if there is any mold where he lives.
no recent vaccination. patient does use a Hot Tub occasionally, last use was about 1 to 2 weeks ago. No reported illicit drug use.
No significant family history.
Allergies / Home Medications
Allergies
Allergy/AdvReac Type Severity Reaction Status Date / Time
No Known Allergies Allergy Verified 11/11/24 14:41
Home Medications
�Medication �Instructions �Recorded �Confirmed �Last Taken �Type
Tylenol 650 mg PO Q6H PRN fever>100.4 11/11/24 11/11/24 11/10/24 21:00 History
ibuprofen 600 mg PO Q6H PRN fever breakthru 11/11/24 11/11/24 Unknown History
Review of Systems
-
Hematologic/Lymphatic: Other (All 14 systems reviewed and negative except as stated above in the history of present illness.)
Vitals / Labs / Diagnostic Testing
Vital Signs
Temp Pulse Resp BP Pulse Ox
99.6 F 87 20 93/61 98
11/12/24 07:45 11/12/24 11:38 11/12/24 11:38 11/12/24 07:45 11/12/24 11:38
Lab Data
11/12/24 05:57
11/12/24 05:57
Microbiology
11/11/24 15:02 Nasal Swab Influenza Types A & B (MARA) - Final
Negative for Influenza A & B, NAAT
Negative results must be combined with clinical observations
and patient history.
Nucleic Acid Amplification test (NAAT)performed on the
[employer] NOW platform.
Diagnostic Testing:
Physical Exam
-
HEENT: Normocephalic
Cardiovascular: S1/S2
Respiratory: Rales and Other (Bilateral, bibasilar, inspiratory crackles noted. Otherwise no wheezing. Good air entry.)
GI: Soft and Non Distended
Neurology: Awake and Alert
Skin: Warm and Other (Nodular lesions noted in the right upper arm, anterior chest. Patient reports he had diffuse rash in 08/2024 which has since improved.)
General: Comfortable
Assessment
-
#1. Acute hypoxic respiratory failure with interstitial infiltrates. (patient dropped to 86% on room air, improved to mid 90's on supplemental O2)
- Infectious vs inflammatory pneumonitis.
- WBC normal, check Procalcitonin, Influenza A/B and COVID-19 negative. ID consult. Recommend extended viral panel. Dry cough, not producing any sputum. No obvious consolidation noted on imaging. Continue Rocephin and Azithromycin for now. Check HIV
(PJP less likely in immunocompetent hosts), Leukopenia noted.
- Considering centrilobular GGO, mosaic pattern on CT, Hypersensitivity Pneumonitis also in differential diagnosis. Reported use of Hot tub occasionally, last about 2 weeks ago. No birds or pets at home, no exposure to mold, no occupational
exposure, no reported marijuana or vaping.
- Also reported h.o skin rash in 08/2024 with residual nodular lesions on the upper arms and chest. Check connective tissue panel (RA, DEX, ANCA, Myositis panel), Hypersensitivity panel, ESR/CRP and Immunoglobulin levels. Eosinophil count is normal
- Check ABG and bedside spirometry
- Depending on the clinical course, might need Bronchoscopy and BAL
- BNP is normal. No clinical s/s of volume overload. Check ECHO, evaluate for pulmonary pressures
- Patient was seen at [facility] in August for skin rash and then later in September for shortness of breath, recommend obtaining records for review
Pulmonary service will continue to follow
Total time spent on this consultation/encounter __82__ minutes which includes review of history, physical exam, medications, laboratory data, personal review of imaging, extensive review of outpatient records, discussion with care team and
respiratory therapy.
Video lang interpreter service was used to communicate with the patient. Discussed case with the primary team and infectious disease service.
Data:
CT Chest 10/2024: 1. Moderate amount of bilateral perihilar ground-glass opacity with axial interstitial thickening in the lower lobes. Diagnostic possibilities are (1) an acute inflammatory pneumonitis (such as vaping-associated lung disease) or
(2) viral or atypical bacterial pneumonia.
2. Small amount of subpleural airspace consolidation in the posterior and lateral basilar segments of the left lower lobe and mild subpleural airspace consolidation in the right lower lobe. Diagnostic possibilities are (1) pneumonia, (2)
subsegmental atelectasis, or (3) an inflammatory airspace consolidation.
3. Mildly decreased bilateral lung volumes.
4. Mild mediastinal and bilateral hilar lymphadenopathy.
5. No PE
CXR 10/2024: Moderate amount of bilateral perihilar ground-glass opacity which is predominantly located in the lower lobes and appears to surround increased interstitial markings. Diagnostic possibilities are (1) mild interstitial and alveolar
cardiogenic pulmonary edema, (2) viral pneumonia, (3) a mild inflammatory pneumonitis, or (4) mild subsegmental atelectasis secondary to low lung volumes.
--- NOTE | 2024-11-12 14:20 | CM ---
Addendum entered by Joycelyn Blackman 11/12/24 14:36:
CM spoke with primary conact/brother in law, Pam Martinez via phone; he reported that patient lives with his , Ana and 3 children, ages 13,12, and 8
Explained to Pam that Met with patient at bedside; initial assessment completed with the assistance of [place] Livestock Feeder (Language Line)
NO Family Physician: patient given printed contact information for [facility]
Patient lives with family; multilevel home; living on 1st floor; 2 steps to enter
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
Declined offer for [employer] resource
NO DME
NO SNF or Home Health Utilization history
Brother will transport home
Plan: Discharge to home when medically stable; CM will monitor for needs/services
Addendum entered by Joycelyn Blackman 11/12/24 14:28:
Pharmacy verified: [facility] @ [address] [place] [address]
Original Note:
Met with patient at bedside; initial assessment completed with the assistance of [place]ese Livestock Feeder (Language Line)
NO Family Physician: patient given printed contact information for [facility]
Patient lives with family; multilevel home; living on 1st floor; 2 steps to enter
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
Declined offer for [employer] resource
NO DME
NO SNF or Home Health Utilization history
Brother will transport home
Plan: Discharge to home when medically stable; CM will monitor for needs/services
--- NOTE | 2024-11-12 14:40 | CM ---
Met with patient at bedside; initial assessment and case management consult completed via Video Safety Administrator device
Pharmacy verified: [facility] @ [address] [facility]
No Family Physician; provided printed information to contact and schedule an appointment with Family Medicine Residency Practice
CM also spoke with patient's primary contact/[id number]-[id number] via phone
Patient speaks Swedish
Patient lives on the 1st floor of a multilevel home with his , Ana, and 3 children ages 13,12, and 8. Two steps to enter home
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
NO DME
NO SNF or Home Health utilization history
Offered [employer] resource; he declined offer
Brother will transport home
Home Health for VN/PT recommended; referral sent to [facility] via [facility]
Plan: Discharge to home when medically stable
[2024-11-12 14:44] LABS: B.E. 2.6 mmol/L; HCO3 27.2 mmol/L (21-28); O2 Saturation % 99.9 % (94-98); PCO2 41 mmHg (35-48); PO2 133 mmHg (83-108); pH 7.43 (7.35-7.45)
[2024-11-12 15:40] VITALS: BP 89/62
[2024-11-12] MEDS: DUONEB 3 ML INH (15:53)
[2024-11-12] MEDS: LOVENOX SC (18:12)
[2024-11-12 19:01] LABS: Erythrocyte Sed Rate 88 mm/hour (0-20)
[2024-11-12 19:22] LABS: Procalcitonin < 0.05 ng/ml (0.0-0.25)
[2024-11-12 19:24] LABS: Creatine Phosphokinase 49 U/L (55-170)
[2024-11-12] MEDS: STERILE WATER FOR INJECTION 10 ML IV (21:36)
[2024-11-12] MEDS: ROCEPHIN 1000 MG IV (21:36)
[2024-11-12] MEDS: ZITHROMAX INFUSION 250 IV (21:38)
[2024-11-12 22:34] VITALS: BP 137/83
[2024-11-13 00:06] LABS: IgG 2269 mg/dl (700-1600); IgM 205 mg/dl (40-230)
[2024-11-13 00:19] LABS: IgA 995 mg/dl (70-400)
[2024-11-13 06:23] LABS: ALT (SGPT) 28 U/L (0-50); AST (SGOT) 32 U/L (17-59); Albumin 2.8 g/dl (3.5-5.0); Alkaline Phosphatase 71 U/L (38-126); Blood Urea Nitrogen 10 mg/dl (9-20); Calcium 8.1 mg/dl (8.4-10.2); Carbon Dioxide 27 mmol/L (22-30); Chloride 109 mmol/L (98-107); Estimated Creatinine Clearance 116 ml/min; Glucose 82 mg/dl (70-99); Potassium 4.3 mmol/L (3.5-5.1); Sodium 141 mmol/L (135-145); Total Bilirubin 0.5 mg/dl (0.2-1.3); Total Protein 6.4 g/dl (6.3-8.2); eGFR > 60.00
[2024-11-13 06:36] LABS: Hematocrit 34.6 % (39.0-52.0); Hemoglobin 11.6 g/dL (13.0-18.0); Mean Corp Hgb Conc. 33.5 g/dL (33.0-37.0); Mean Corpuscular Hgb 28.9 pg (27.0-31.0); Mean Corpuscular Volume 86.3 fL (80.0-94.0); Mean Platelet Volume 10.8 fL (7.4-10.4); Platelet Count 161 10^3/uL (130-400); Red Blood Cell Count 4.01 10^6/uL (4.70-6.10); Red Cell Dist. Width 15.3 % (11.5-14.5); White Blood Cell Count 2.2 10^3/uL (4.8-10.8)
[2024-11-13 07:38] VITALS: BP 97/64
--- NOTE | 2024-11-13 08:25 | W.PN.PUL3 ---
Today's Communication / Plan
-
Follow-up autoimmune + vasculitic panel
Hematology consulted given that he is now neutropenic and has been lymphopenic
Trend ANC + Hb
Transfuse if needed to keep Hb >7 g/dL and platelets >20k
Encouraged
Abx stopped as low likelihood of PNA
OOB as tolerated
Maintain SpO2 greater 90 - 94%
ID recommending biopsy of left upper extremity skin rash --> consider surgery consult to help obtain punch biopsy
Assessment
-
Assessment:
#Acute respiratory failure with hypoxia
#Neutropenia + lymphopenia
#Anemia (mild)
#Papular rash
#1. Acute hypoxic respiratory failure with interstitial infiltrates. (patient dropped to 86% on room air, improved to mid 90's on supplemental O2)
- Infectious vs inflammatory pneumonitis. - Considering centrilobular GGO, mosaic pattern on CT, Hypersensitivity Pneumonitis also in differential diagnosis. Reported use of Hot tub occasionally, last about 2 weeks ago. No birds or pets at home, no
exposure to mold, no occupational exposure, no reported marijuana or vaping.
- Also reported h.o skin rash in 08/2024 with residual nodular lesions on the upper arms and chest. Connective tissue panel pending (RA, DEX, ANCA, Myositis panel), Hypersensitivity panel, ESR/CRP and Immunoglobulin levels. Eosinophil count is normal
- WBC normal, Procalcitonin negative, Influenza A/B and COVID-19 negative. RV-panel negative. ID consult. Dry cough, not producing any sputum. No obvious consolidation noted on imaging.
- Check Mycoplasma serology
- ABx stopped per ID as no obvious clinical signs of pneumonia (s/p rocephin/Azithro x 2 days)
- ID recommends skin biopsy of skin lesions given possible neutrophilic dermatoses
- HIV pending (PJP less likely in immunocompetent hosts); also cryptococcal antigen, QuantiFERON and syphilis serology pending; ID added on Bartonella serology + histoplasma antibodies + Ag
- trend ANC as he is now neutropenic --> consider hematology consult
- Bedside spirometry shows a severe obstructive lung defect + severe restriction; poor effort on postbronchodilator testing. Start DuoNebs TID for now
- Depending on the clinical course, might need Bronchoscopy with BAL
- BNP is normal. No clinical s/s of volume overload. Echo checked on 11/13/2024 showing normal biventricular size/systolic function without regional WMA, with normal diastolic function and no significant valvular disease
- Patient was seen at [facility] in August 2024 for skin rash and then later in September for shortness of breath, recommend obtaining records for review
Pulmonary service will continue to follow
Total time spent today was 39 minutes for this encounter. Time includes reviewing laboratory test/imaging results, reviewing pertinent medical records, obtaining and reviewing medical history, performing an appropriate exam, ordering medications,
tests and procedures. Time also includes documentation of this encounter, coordinating patient care and communicating with other healthcare professionals. Total time does not include separately billed tests performed on this date of service.
Video chief marketing officer service was used to communicate with the patient. Discussed case with the primary team and answered all the patient's questions.
Data:
CT Chest 10/2024: 1. Moderate amount of bilateral perihilar ground-glass opacity with axial interstitial thickening in the lower lobes. Diagnostic possibilities are (1) an acute inflammatory pneumonitis (such as vaping-associated lung disease) or
(2) viral or atypical bacterial pneumonia.
2. Small amount of subpleural airspace consolidation in the posterior and lateral basilar segments of the left lower lobe and mild subpleural airspace consolidation in the right lower lobe. Diagnostic possibilities are (1) pneumonia, (2)
subsegmental atelectasis, or (3) an inflammatory airspace consolidation.
3. Mildly decreased bilateral lung volumes.
4. Mild mediastinal and bilateral hilar lymphadenopathy.
5. No PE
CXR 10/2024: Moderate amount of bilateral perihilar ground-glass opacity which is predominantly located in the lower lobes and appears to surround increased interstitial markings. Diagnostic possibilities are (1) mild interstitial and alveolar
cardiogenic pulmonary edema, (2) viral pneumonia, (3) a mild inflammatory pneumonitis, or (4) mild subsegmental atelectasis secondary to low lung volumes.
Echo 11/13/2024:
Normal biventricular size and systolic function without regional wall motion
abnormality.
Normal diastolic function.
No significant valvular disease.
Insufficient TR for estimation of PASP.
No prior study available for comparison.
Subjective Data
-
Date of Service:
Date of Service: November 13, 2024
Chief Complaint: Pulmonary Follow Up
Subjective:
Patient was seen and evaluated today at bedside. Currently saturating 98% on room air. [employer] director of corporate sales used for this encounter (chief marketing officer ID #: [id number]): Patient feels better today with improved shortness of breath although still feels winded
with activity. Has an intermittent cough mainly with movement. No bloody urine and no blood seen in cough. Still has red spots on his body, mainly his right arm, which he says started to come up after he developed a fever from the flu recently.
He currently denies chest pain, PRESCOTT, abdominal pain, nausea, fevers or chills.
Review of Systems
General: Other (Negative unless mentioned above)
Objective Data
Data Reviewed
Vital Signs / I&O / Oxygen:
Vital Signs
Temp Pulse Resp BP Pulse Ox
98.4 F 88 14 97/64 98
11/13/24 07:38 11/13/24 07:38 11/13/24 07:38 11/13/24 07:38 11/13/24 07:38
Intake and Output
11/12/24 11/13/24 11/14/24
06:59 06:59 06:59
Intake Total 900 / 900 3300 / 3300
Balance 900 / 900 3300 / 3300
SaO2 98
Nasal Cannula flow liters per 2
minute
Physical Exam
General: Respiratory Distress (negative), Comfortable, Chills (negative) and Sweats (negative)
HEENT: Normocephalic and Anicteric
Cardiovascular: S1-S2, Rub (negative) and Peripheral Edema (negative)
Respiratory: Wheeze (negative), Crackles (Bilateral), Rhonchi (negative), Non-Labored Respirations and Stridor (negative)
GI: Soft, Non Distended, Non Tender and Normal Bowel Sounds
Neurology: AO x 3 and Tremors (negative)
Skin: Warm, Dry, Cyanosis (negative) and Jaundice (negative)
Labs/Micro/Reports
Lab Data
11/13/24 05:16
11/13/24 05:16
Laboratory Results
11/12/24
14:35
pH 7.43
pCO2 41
pO2 133 H
HCO3 27.2
O2 Delivery Level
Microbiology
11/12/24 05:58 Blood/Venous Blood Culture - Preliminary
No Growth in 24 hours- Final report to follow
11/12/24 16:21 Nasalpharynx Influenza Type A (PCR) - Final
Not Detected
11/12/24 16:21 Nasalpharynx Influenza Type A (H1) (PCR) - Final
Not Detected
11/12/24 16:21 Nasalpharynx Influenza Type A (H3) (PCR) - Final
Not Detected
11/12/24 16:21 Nasalpharynx Influenza Type B (PCR) - Final
Not Detected
11/12/24 16:21 Nasalpharynx Resp Syncytial Virus Type A (PCR) - Final
Not Detected
11/12/24 16:21 Nasalpharynx Resp Syncytial Virus Type B (PCR) - Final
Not Detected
11/12/24 16:21 Nasalpharynx Adenovirus DNA (PCR) - Final
Not Detected
11/12/24 16:21 Nasalpharynx Human Metapneumovirus (PCR) - Final
Not Detected
11/12/24 16:21 Nasalpharynx Parainfluenza Virus Type 1 (PCR) - Final
Not Detected
11/12/24 16:21 Nasalpharynx Parainfluenza Virus Type 2 (PCR) - Final
Not Detected
11/12/24 16:21 Nasalpharynx Parainfluenza Virus Type 3 (PCR) - Final
Not Detected
11/12/24 16:21 Nasalpharynx Parainfluenza Virus Type 4 - Final
Not Detected
11/12/24 16:21 Nasalpharynx Rhinovirus (PCR) - Final
Not Detected
11/11/24 15:02 Blood/Venous Blood Culture - Preliminary
No Growth in 24 hours- Final report to follow
11/11/24 15:02 Nasal Swab Influenza Types A & B (MARA) - Final
Negative for Influenza A & B, NAAT
Negative results must be combined with clinical observations
and patient history.
Nucleic Acid Amplification test (NAAT)performed on the
[employer] platform.
[2024-11-13 08:35] LABS: % Basophils 0.9 % (0-2); % Eosinophils 3.7 % (0-6); % Immature Granulocytes 0.5 % (0-0.5); % Neutrophils 33.9 % (42.2-75.2); Absolute Eosinophils 0.1 10^3/uL (0-0.7); Absolute Monocytes 0.3 10^3/uL (0.1-0.6); Absolute Neutrophils 0.7 10^3/uL (1.4-6.5); Nucleated Red Blood Cells % 0 % (-)
[2024-11-13] MEDS: NSS 1000 IV (10:19)
[2024-11-13 11:04] VITALS: BP 92/70
--- NOTE | 2024-11-13 11:35 | PTCARENOTE ---
pt bp 92/70 asymptomatic. Md made aware via TT. no interventions at this time. will continue to monitor.
--- NOTE | 2024-11-13 12:13 | W.PN.ID1 ---
Date of Service
Date of Service: November 13, 2024
Today's Communication
See below.
Assessment / Plan
# Fevers x 3 months
# Violaceous raised papules skin lesions x 3 months
# Weight loss
# Kia-hilar ground-glass opacity, hilar adenopathy
# Neutropenia
# Anemia
# Salvadorean immigrant
- Unclear unifying diagnosis at this time.
- Procalcitonin negative - ruled out bacterial PNA.
DC further ceftriaxone and azithromycin.
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
Skin biopsy will be helpful.
Perhaps consider Surgery to help obtain punch biopsy ( for path and bacterial/fungal/AFb cx) as does not have Dermatology service.
- Multiple labs pending.
- HIV (pt verbally consented), syphilis serology, serum cryptococcus antigen, Bartonella (bacillary angiomatosis), Histoplasma Ag/CF pending.
- Consider Hem/Onc consult.
Chief Complaint
-: Fever and Other (Skin lesions)
Subjective / Review of Systems
Feels unwell, fatigued.
Vital Signs / Physical Exam
Vital Signs
Vital Signs
Temp Pulse Resp BP Pulse Ox
98.4 F 88 14 92/70 98
11/13/24 07:38 11/13/24 07:38 11/13/24 07:38 11/13/24 11:04 11/13/24 07:38
Physical Exam
Constitutional: Chronically Ill and Cachetic
Eyes: No Conjunctival Hemorrhage and Sclera Anicteric
Cardiovascular: Regular Rate and S1/S2
Pulmonary: Clear
Gastrointestinal: Soft, Non Tender, Non Distended and Normal Bowel Sounds
Extremities: Negative Edema
Skin: Other (Several scattered dark red/purplish papules of various sizes, irregular borders on BUE, thighs, upper back, chest)
Neurological: Awake and Alert
Objective Data
Lab Data
Lab Results
11/13/24 05:16
11/13/24 05:16
ESR 88 mm/hour (0-20) H 11/12/24 16:57
Estimated Creat Clear 116 ml/min 11/13/24 05:16
Lactic Acid 1.8 mmol/L (0.7-2.0) 11/11/24 15:02
Total Bilirubin 0.5 mg/dl (0.2-1.3) 11/13/24 05:16
AST 32 U/L (17-59) 11/13/24 05:16
ALT 28 U/L (0-50) 11/13/24 05:16
Alkaline Phosphatase 71 U/L (38-126) 11/13/24 05:16
C-Reactive Protein 15.10 mg/L (0.0-10.00) H 11/12/24 16:57
Most recent labs reviewed.
Micro Results:
11/12/24 05:58 Blood Culture - Preliminary
Blood/Venous No Growth in 24 hours- Final report to follow
11/12/24 16:21 Influenza Type A (PCR) - Final
Nasalpharynx Not Detected
Influenza Type A (H1) (PCR) - Final
Not Detected
Influenza Type A (H3) (PCR) - Final
Not Detected
Influenza Type B (PCR) - Final
Not Detected
Resp Syncytial Virus Type A (PCR) - Final
Not Detected
Resp Syncytial Virus Type B (PCR) - Final
Not Detected
Adenovirus DNA (PCR) - Final
Not Detected
Human Metapneumovirus (PCR) - Final
Not Detected
Parainfluenza Virus Type 1 (PCR) - Final
Not Detected
Parainfluenza Virus Type 2 (PCR) - Final
Not Detected
Parainfluenza Virus Type 3 (PCR) - Final
Not Detected
Parainfluenza Virus Type 4 - Final
Not Detected
Rhinovirus (PCR) - Final
Not Detected
11/11/24 15:02 Blood Culture - Preliminary
Blood/Venous No Growth in 24 hours- Final report to follow
11/11/24 15:02 Influenza Types A & B (MARA) - Final
Nasal Swab Negative for Influenza A & B, NAAT
Negative results must be combined with clinical observations
and patient history.
Nucleic Acid Amplification test (NAAT)performed on the
[employer] platform.
11/11/24 CXR: Moderate amount of bilateral perihilar ground-glass opacity which is predominantly located in the lower lobes and appears to surround increased interstitial markings. Diagnostic possibilities are (1) mild interstitial and alveolar
cardiogenic pulmonary edema, (2) viral pneumonia, (3) a mild inflammatory pneumonitis, or (4) mild subsegmental atelectasis secondary to low lung volumes.
11/11/[address]: Moderate amount of bilateral perihilar ground-glass opacity with axial interstitial thickening in the lower lobes. Diagnostic possibilities are (1) an acute inflammatory pneumonitis (such as vaping-associated lung disease) or (2)
viral or atypical bacterial pneumonia.
2. Small amount of subpleural airspace consolidation in the posterior and lateral basilar segments of the left lower lobe and mild subpleural airspace consolidation in the right lower lobe. Diagnostic possibilities are (1) pneumonia, (2)
subsegmental atelectasis, or (3) an inflammatory airspace consolidation.
3. Mildly decreased bilateral lung volumes.
4. Mild mediastinal and bilateral hilar lymphadenopathy.
Care Review
Plan reviewed with: Physician (Dr. Blum)
[2024-11-13 14:12] LABS: Rheumatoid Agglutinin Less Than 10 IU (<10 IU)
[2024-11-13 15:08] VITALS: BP 117/75
[2024-11-13 15:34] VITALS: BMI 16.5
--- NOTE | 2024-11-13 16:00 | CON.ONC ---
Consultation
-
Date Consultation Requested: 11/13/24
Date Consultation Performed: 11/13/24
Requesting Provider: Emiliano Blum
Performing Provider: Yoselin Villegas
Reason for Consultation: leukopenia/neutropenia
Impression
Impression
Leukopenia/neutropenia/lymphopenia, ESR 88, CRP 15.1
mild normocytic anemia
chinmay-hilar ground-glass opacity, hilar adenopathy
papular rash
Febrile illness Aug 2024 preceding papular rash
SOB
weight loss
Plan
Plan
Consider papule biposy
ID work up underway
autoimmune & vasuclitis panel pending
check iron studies, b12, folate, ferritin, LDH, retic
No role for GCSF at this time since hemodynamically stable
We discussed leukopenia, lymphopenia, neutropenia etiology can be broad including but not limited to medications, infections, autoimmune, nutrition, and malignancy.
If leukopenia/neutropenia/lymphopenia remains unexplained despite comprehensive evaluation then could consider outpatient bone marrow biopsy
Patient History
History of Present Illness
Entire consult done utilizing a [place] sign language interpreter [place], [place] [id number]
39yo M presented to ER with chills and non-productive cough. He reports cough and chills started 2 days prior to admission for which he was taking Tyenol and Iburprofen. He denies any other medication or supplements chronically. He denies any
prior cytopenias, chemotherapy, or malignancy. He does report that he had a 'febrile illness' that he thought was the flu in August 2024. He tells me that the symptoms were mild and resolved, however, subsequently he developed a rash and weight
loss. His rash started around August after the 'flu' and has worsened to include b/l upper extremities, left lower extremity, and back. At this point he has lost approximately 20lb since Aug 2024. He has remained in the [place] for the past 2-3 years
and denies sick contacts.
Clinically, he denies chest pain, palpitations, n/v/d/c or abdominal pain. He remains independent in ADLs.
Tmax 100.7F, no hypotension or hypoxia.
Past-Medical/Surgical History
PMH denies
PSH denies
Social never smoker, denes ETOH or recreational drug. 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 Lives with
Family; denies malignancy
Patient Medication
�Medication �Instructions �Recorded �Confirmed �Last Taken �Type
Tylenol 650 mg PO Q6H PRN fever>100.4 11/11/24 11/11/24 11/10/24 21:00 History
ibuprofen 600 mg PO Q6H PRN fever breakthru 11/11/24 11/11/24 Unknown History
Active Medications
Generic Name Dose Route Start Last Admin
Trade Name Freq PRN Reason Stop Dose Admin
Acetaminophen 650 mg 11/11/24 22:58
Acetaminophen 325 Mg Tablet PO 12/09/24 22:57
Q4HPRN PRN
mild pain/PRESCOTT/temp> 100.4F
Albuterol Sulfate 2.5 mg 11/12/24 16:25
Albuterol Nebs 2.5 Mg/3 Ml Ampul INH 11/14/24 23:00
R ONCE PFT PRN
PFT SPIROMETRY PROTOCOL
Protocol
Albuterol/Ipratropium 3 ml 11/12/24 10:53 11/12/24 15:53
Ipratropium 0.5/Albuterol 3 Mg (3 Ml Ampul) INH 3 ml
R Q4HPRN PRN Administration
sob or wheezing
Protocol
Albuterol/Ipratropium 3 ml 11/13/24 20:00
Ipratropium 0.5/Albuterol 3 Mg (3 Ml Ampul) INH
R TID LOIS
Protocol
Enoxaparin Sodium 40 mg 11/12/24 18:00 11/12/24 18:12
Enoxaparin Sodium 40 Mg/0.4 Ml Syringe SC 12/10/24 17:59 Not Given
QPM LOIS
Sodium Chloride 1,000 mls @ 100 mls/hr 11/11/24 22:58 11/13/24 10:19
Nss IV 1,000 mls
.Q10H LOIS Administration
Ibuprofen 600 mg 11/11/24 22:58
Ibuprofen 600 Mg Tablet PO 12/09/24 22:57
Q6HPRN PRN
fever breakthru
Ondansetron HCl 4 mg 11/11/24 22:58
Ondansetron 4 Mg/2 Ml Vial IV 12/09/24 22:57
Q6HPRN PRN
nausea and vomiting
Sodium Chloride 0 flush 11/11/24 22:00
Sodium Chloride 0.9% (Flush) Syringe IV 12/09/24 21:59
PER PROTOCOL LOIS
Review of Systems
-
ROS is notable for HPI, otherwise unremarkable
Physical Exam
-
General: No Apparent Distress and Cachetic
HEENT: Moist Mucous Membranes; Negative Jaundice
Cardiology: Normal Sinus Rhythm
Pulmonary: Clear
GI: Soft
Extremities: Pulses Present; Negative Edema
Neurology: Non Focal
Skin: Warm and Rash (Several scattered dark red/purplish papules of various sizes, irregular borders on BUE, thighs, upper back, chest)
Hematologic / Lymphatic: No Lymphadenopathy
Psych: Calm
Labs
Lab Results
WBC 2.2 10^3/uL (4.8-10.8) L* 11/13/24 05:16
RBC 4.01 10^6/uL (4.70-6.10) L 11/13/24 05:16
Hgb 11.6 g/dL (13.0-18.0) L 11/13/24 05:16
Hct 34.6 % (39.0-52.0) L 11/13/24 05:16
MCV 86.3 fL (80.0-94.0) 11/13/24 05:16
MCH 28.9 pg (27.0-31.0) 11/13/24 05:16
MCHC 33.5 g/dL (33.0-37.0) 11/13/24 05:16
RDW 15.3 % (11.5-14.5) H 11/13/24 05:16
Plt Count 161 10^3/uL (130-400) 11/13/24 05:16
MPV 10.8 fL (7.4-10.4) H 11/13/24 05:16
Abs Immat Gran (auto) 0.0 10^3/uL (0-0.05) 11/13/24 05:16
Absolute Neuts (auto) 0.7 10^3/uL (1.4-6.5) L* 11/13/24 05:16
Absolute Lymphs (auto) 1.0 10^3/uL (1.2-3.4) L 11/13/24 05:16
Absolute Monos (auto) 0.3 10^3/uL (0.1-0.6) 11/13/24 05:16
Absolute Eos (auto) 0.1 10^3/uL (0-0.7) 11/13/24 05:16
Absolute Basos (auto) 0.0 10^3/uL (0-0.2) 11/13/24 05:16
Immature Gran % 0.5 % (0-0.5) 11/13/24 05:16
Neutrophils % 33.9 % (42.2-75.2) L 11/13/24 05:16
Lymphocytes % 47.0 % (20.5-51.1) 11/13/24 05:16
Monocytes % 14.0 % (1.7-9.3) H 11/13/24 05:16
Eosinophils % 3.7 % (0-6) 11/13/24 05:16
Basophils % 0.9 % (0-2) 11/13/24 05:16
Creatinine 0.6 mg/dL (0.7-1.3) L 11/13/24 05:16
Vital Signs
Vital Signs
Temp Pulse Resp BP Pulse Ox
97.6 F 88 14 117/75 97
11/13/24 15:08 11/13/24 15:08 11/13/24 15:08 11/13/24 15:08 11/13/24 15:08
--- NOTE | 2024-11-13 16:25 | W.PN.HOSP.TC ---
Today's Communication/Plan
-
Observe off antibiotics
Follow additional ID serology.
Heme-onc evaluation.
Assessment / Plan
Assessment / Plan
Impression
Subjective shortness of breath without hypoxia.
Fever and chills for 3 months.
Blood sugars raised bipolar skin lesions over the last 3 months.
Significant weight loss.
Bilateral groundglass like opacities
Neutropenia with left shift.
Mild normocytic anemia
Tobacco smoker
Plan:
Nontoxic and hemodynamically stable upon presentation with no evidence of sepsis.
Stable respiratory status with no hypoxia at rest. Had not required supplemental oxygen
Appears chronically ill.
CT chest negative for pulmonary embolism, bilateral groundglass opacities.
Initial ID workup unrevealing with no evidence of ' conventional' bacterial infection. Negative procalcitonin.
Empiric antibiotics discontinued
Additional serologic workup including HIV syphilis serology, cryptococcal, Bartonella, histoplasma serology pending.
Hematology/oncology evaluation pending
Anticipated Discharge: 24 - 48 hours
Subjective/Interval History
-
Date of Service: November 13, 2024
Objective Data
-
Labs:
Laboratory Results
11/13/24
05:16
WBC 2.2 L*
Hgb 11.6 L
Hct 34.6 L
Plt Count 161
Sodium 141
Potassium 4.3
Chloride 109 H
Carbon Dioxide 27
BUN 10
Creatinine 0.6 L
Glucose 82
Calcium 8.1 L
Total Bilirubin 0.5
AST 32
ALT 28
Alkaline Phosphatase 71
Vital Signs:
Vital Signs
Temp Pulse Resp BP Pulse Ox
97.6 F 88 14 117/75 97
11/13/24 15:08 11/13/24 15:08 11/13/24 15:08 11/13/24 15:08 11/13/24 15:08
I&O
11/12/24 11/13/24 11/14/24
06:59 06:59 06:59
Intake Total 900 / 900 3300 / 3300
Balance 900 / 900 3300 / 3300
Physical Exam
-
General: Well Developed and No Apparent Distress
HEENT: Normocephalic, Atraumatic and Moist Mucous Membranes
Respiratory: Clear to Auscultation
Cardiac: Regular Rhythm and S1/S2; Negative Murmur, Rub or Gallop
GI: Soft, Nontender, Nondistended and Normal Bowel Sounds; Negative Organomegaly
Rectal: Deferred by Provider
Musculoskeletal: No Clubbing, No Cyanosis and No Edema
Skin: Negative Rash
Neuro: Nonfocal/Grossly Intact
[2024-11-13] MEDS: LOVENOX SC (18:22)
[2024-11-13 18:40] LABS: Urine Albumin Negative (Neg - Trace); Urine Bilirubin Negative (Negative); Urine Character Clear (Clear); Urine Color Yellow; Urine Glucose 1+ (Negative); Urine Ketone Negative (Negative); Urine Leukocyte Negative (Negative); Urine Nitrite Negative (Negative); Urine Occult Blood Negative (Negative); Urine Urobilinogen Negative (Neg - 1+); Urine pH 6.5 (5.0-9.0)
[2024-11-13 18:40] LABS: Iron 79 ug/dl (49-181)
[2024-11-13 18:49] LABS: Percent Saturation 33 % (20-50); Total Iron Binding Capacity 234 ug/dl (261-462)
[2024-11-13] MEDS: DUONEB 3 ML INH (19:44)
[2024-11-13 23:00] VITALS: BP 104/71
[2024-11-13] MEDS: NSS IV (23:49)
[2024-11-14 02:54] LABS: Quantiferon Mitogen minus NIL 2.67 IU/mL; Quantiferon NIL 0.21 IU/mL; Quantiferon TB Gold Plus Negative (Negative)
[2024-11-14 07:04] LABS: % Basophils 0.6 % (0-2); % Eosinophils 3.4 % (0-6); % Immature Granulocytes 0.3 % (0-0.5); % Monocytes 9.3 % (1.7-9.3); % Neutrophils 66.4 % (42.2-75.2); Absolute Eosinophils 0.1 10^3/uL (0-0.7); Absolute Lymphocytes 0.7 10^3/uL (1.2-3.4); Absolute Monocytes 0.3 10^3/uL (0.1-0.6); Absolute Neutrophils 2.4 10^3/uL (1.4-6.5); Hematocrit 37.7 % (39.0-52.0); Hemoglobin 12.7 g/dL (13.0-18.0); Mean Corp Hgb Conc. 33.7 g/dL (33.0-37.0); Mean Corpuscular Hgb 29.1 pg (27.0-31.0); Mean Corpuscular Volume 86.3 fL (80.0-94.0); Nucleated Red Blood Cells % 0 % (-); Platelet Count 189 10^3/uL (130-400); Red Blood Cell Count 4.37 10^6/uL (4.70-6.10); Red Cell Dist. Width 15.5 % (11.5-14.5); Reticulocyte Count 0.8 % (0.4-2.8); White Blood Cell Count 3.6 10^3/uL (4.8-10.8)
[2024-11-14] MEDS: DUONEB 3 ML INH ×3 (07:29→19:34)
[2024-11-14 07:31] VITALS: BP 100/70
[2024-11-14 07:59] LABS: ALT (SGPT) 36 U/L (0-50); AST (SGOT) 35 U/L (17-59); Albumin 3.2 g/dl (3.5-5.0); Alkaline Phosphatase 75 U/L (38-126); Blood Urea Nitrogen 10 mg/dl (9-20); Calcium 9.1 mg/dl (8.4-10.2); Carbon Dioxide 26 mmol/L (22-30); Chloride 109 mmol/L (98-107); Estimated Creatinine Clearance 116 ml/min; Glucose 93 mg/dl (70-99); LDH 405 U/L (120-246); Potassium 4.2 mmol/L (3.5-5.1); Sodium 143 mmol/L (135-145); Total Bilirubin 0.5 mg/dl (0.2-1.3); Total Protein 7.1 g/dl (6.3-8.2); eGFR > 60.00
--- NOTE | 2024-11-14 08:23 | W.PN.PUL3 ---
Today's Communication / Plan
-
Follow-up autoimmune + vasculitic panel
HIV is reactive - high suspicion for PCP pneumonia
Check and induced sputum and if little sputum can be obtained then will arrange for bronchoscopy this week
Hematology consulted given his leukopenia
Trend ANC + Hb
Transfuse if needed to keep Hb >7 g/dL and platelets >20k
Abx stopped as low likelihood of PNA
OOB as tolerated
Maintain SpO2 greater 90 - 94%
ID recommending biopsy of left upper extremity skin rash (Kaposi sarcoma lesions?) --> consider surgery consult to help obtain punch biopsy
Assessment
-
Assessment:
#Acute respiratory failure with hypoxia - high suspicion for PCP pneumonia given that HIV is reactive (confirmatory testing still pending)
#Leukoepnia with lymphopenia
#Anemia (mild)
#Papular rash (?kaposi sarcoma?)
#1. Acute hypoxic respiratory failure with interstitial infiltrates. (patient dropped to 86% on room air, improved to mid 90's on supplemental O2)
- Infectious vs inflammatory pneumonitis. - Considering centrilobular GGO, mosaic pattern on CT, Hypersensitivity Pneumonitis also in differential diagnosis. Reported use of Hot tub occasionally, last about 2 weeks ago. No birds or pets at home, no
exposure to mold, no occupational exposure, no reported marijuana or vaping.
- Also reported h/o skin rash in 08/2024 with residual nodular lesions on the upper arms and chest. Connective tissue panel pending (DEX, ANCA, Myositis panel - RF negative), Hypersensitivity panel, ESR/CRP and Immunoglobulin levels. Eosinophil
count is normal
- WBC normal, Procalcitonin negative, Influenza A/B and COVID-19 negative. RV-panel negative. ID consult. Dry cough, not producing any sputum. No obvious consolidation noted on imaging.
- HIV is reactive (testing returned reactive today on 11/14/2024 � HIV differentiation testing pending, and HIV PCR will be ordered by ID)
- follow up Mycoplasma serology
- ABx stopped per ID as no obvious clinical signs of pneumonia (s/p rocephin/Azithro x 2 days)
- ID recommends skin biopsy of skin lesions given possible neutrophilic dermatoses - kaposi sarcoma lesions?
- QuantiFERON + syphylis negative; Cryptococcal antigen + syphilis serology pending; ID added on Bartonella serology + histoplasma antibodies + Ag
- trend ANC as he was neutropenic on 11/13--> hematology consulted and recs appreciated
- Bedside spirometry from 11/12 shows a severe obstructive lung defect + severe restriction; poor effort on postbronchodilator testing. Started DuoNebs TID on 11/13 and he says it is helping his SOB
- Depending on the clinical course, might need Bronchoscopy with BAL, rui if sputum culture not able to be obtained even with induction with 3% NS
- BNP is normal. No clinical s/s of volume overload. Echo checked on 11/13/2024 showing normal biventricular size/systolic function without regional WMA, with normal diastolic function and no significant valvular disease
- Patient was seen at [facility] in August 2024 for skin rash and then later in September for shortness of breath, recommend obtaining records for review
Pulmonary service will continue to follow
Total time spent today was 41 minutes for this encounter. Time includes reviewing laboratory test/imaging results, reviewing pertinent medical records, obtaining and reviewing medical history, performing an appropriate exam, ordering medications,
tests and procedures. Time also includes documentation of this encounter, coordinating patient care and communicating with other healthcare professionals. Total time does not include separately billed tests performed on this date of service.
Video language interpreter service was used to communicate with the patient. Discussed case with the primary team and answered all the patient's questions.
Data:
CT Chest 10/2024: 1. Moderate amount of bilateral perihilar ground-glass opacity with axial interstitial thickening in the lower lobes. Diagnostic possibilities are (1) an acute inflammatory pneumonitis (such as vaping-associated lung disease) or
(2) viral or atypical bacterial pneumonia.
2. Small amount of subpleural airspace consolidation in the posterior and lateral basilar segments of the left lower lobe and mild subpleural airspace consolidation in the right lower lobe. Diagnostic possibilities are (1) pneumonia, (2)
subsegmental atelectasis, or (3) an inflammatory airspace consolidation.
3. Mildly decreased bilateral lung volumes.
4. Mild mediastinal and bilateral hilar lymphadenopathy.
5. No PE
CXR 10/2024: Moderate amount of bilateral perihilar ground-glass opacity which is predominantly located in the lower lobes and appears to surround increased interstitial markings. Diagnostic possibilities are (1) mild interstitial and alveolar
cardiogenic pulmonary edema, (2) viral pneumonia, (3) a mild inflammatory pneumonitis, or (4) mild subsegmental atelectasis secondary to low lung volumes.
Echo 11/13/2024:
Normal biventricular size and systolic function without regional wall motion
abnormality.
Normal diastolic function.
No significant valvular disease.
Insufficient TR for estimation of PASP.
No prior study available for comparison.
Subjective Data
-
Date of Service:
Date of Service: November 14, 2024
Chief Complaint: Pulmonary Follow Up
Subjective:
Patient was seen and evaluated at bedside. Summer Intern used for today's encounter (language interpreter ID #: [id number]). He is still feeling short of breath with activity otherwise he feels okay at rest. He has a sore throat. Coughing up small amounts of
blood in his saliva but otherwise he does not have a significant/bothersome cough. He is getting the nebulizers since yesterday and that is helping him feel a lot better. He currently denies PRESCOTT, nausea, fevers or chills.
Review of Systems
General: Other (Negative unless mentioned above)
Objective Data
Data Reviewed
Vital Signs / I&O / Oxygen:
Vital Signs
Temp Pulse Resp BP Pulse Ox
97.7 F 78 18 100/70 96
11/14/24 07:31 11/14/24 07:32 11/14/24 07:32 11/14/24 07:31 11/14/24 07:32
Intake and Output
11/13/24 11/14/24 11/15/24
06:59 06:59 06:59
Intake Total 3300 / 3300 600 / 600
Balance 3300 / 3300 600 / 600
SaO2 96
Nasal Cannula flow liters per 0
minute
Physical Exam
General: Respiratory Distress (negative), Comfortable, Chills (negative) and Sweats (negative)
HEENT: Normocephalic and Anicteric
Cardiovascular: S1-S2, Rub (negative) and Peripheral Edema (negative)
Respiratory: Wheeze (negative), Crackles (Left base), Rhonchi (negative), Non-Labored Respirations and Stridor (negative)
GI: Soft, Non Distended, Non Tender and Normal Bowel Sounds
Neurology: AO x 3 and Tremors (negative)
Skin: Warm, Dry, Cyanosis (negative) and Jaundice (negative)
Labs/Micro/Reports
Lab Data
11/14/24 06:35
11/14/24 06:35
Microbiology
11/12/24 05:58 Blood/Venous Blood Culture - Preliminary
No Growth in 48 hours- Final report to follow
11/11/24 15:02 Blood/Venous Blood Culture - Preliminary
No Growth in 48 hours- Final report to follow
11/12/24 16:21 Nasalpharynx Influenza Type A (PCR) - Final
Not Detected
11/12/24 16:21 Nasalpharynx Influenza Type A (H1) (PCR) - Final
Not Detected
11/12/24 16:21 Nasalpharynx Influenza Type A (H3) (PCR) - Final
Not Detected
11/12/24 16:21 Nasalpharynx Influenza Type B (PCR) - Final
Not Detected
11/12/24 16:21 Nasalpharynx Resp Syncytial Virus Type A (PCR) - Final
Not Detected
11/12/24 16:21 Nasalpharynx Resp Syncytial Virus Type B (PCR) - Final
Not Detected
11/12/24 16:21 Nasalpharynx Adenovirus DNA (PCR) - Final
Not Detected
11/12/24 16:21 Nasalpharynx Human Metapneumovirus (PCR) - Final
Not Detected
11/12/24 16:21 Nasalpharynx Parainfluenza Virus Type 1 (PCR) - Final
Not Detected
11/12/24 16:21 Nasalpharynx Parainfluenza Virus Type 2 (PCR) - Final
Not Detected
11/12/24 16:21 Nasalpharynx Parainfluenza Virus Type 3 (PCR) - Final
Not Detected
11/12/24 16:21 Nasalpharynx Parainfluenza Virus Type 4 - Final
Not Detected
11/12/24 16:21 Nasalpharynx Rhinovirus (PCR) - Final
Not Detected
11/11/24 15:02 Nasal Swab Influenza Types A & B (MARA) - Final
Negative for Influenza A & B, NAAT
Negative results must be combined with clinical observations
and patient history.
Nucleic Acid Amplification test (NAAT)performed on the
[employer] platform.
--- NOTE | 2024-11-14 08:48 | W.PN.ONC2 ---
Today's Communication / Plan
-
.
Impression
Impression
Leukopenia/neutropenia/lymphopenia -WBC improved to 3.6, ANC 2.4, ALC 700
ESR 88, CRP 15.1
mild normocytic anemia
elevated ferritin -acute phase reactant, elevated LDH non-specific
chinmay-hilar ground-glass opacity, hilar adenopathy
papular rash
Febrile illness Aug 2024 preceding papular rash
SOB
weight loss
Plan
Plan
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
no longer neutropenic
no unifying diagnosis
recommend skin bx of lesion
ID work up underway
autoimmune & vasculitis panel pending
f/u CT ab/pelvis
Continue follow up with ID, rheum, derm. Outpatient follow up with hematology if cytopenias persist without clear etiology.
Discussed with primary service
Subjective/Objective
Subjective
no new complaints
Vital Signs:
Vital Signs
Temp Pulse Resp BP Pulse Ox
97.7 F 78 18 100/70 96
11/14/24 07:31 11/14/24 07:32 11/14/24 07:32 11/14/24 07:31 11/14/24 07:32
Lab Results:
Laboratory Data
WBC 3.6 10^3/uL (4.8-10.8) L 11/14/24 06:35
Hgb 12.7 g/dL (13.0-18.0) L 11/14/24 06:35
Plt Count 189 10^3/uL (130-400) 11/14/24 06:35
eGFR > 60.00 11/14/24 06:35
Physical Exam
Several scattered dark red/purplish papules of various sizes, irregular borders on BUE, thighs, upper back, chest
HEENT: Moist Mucous Membranes; No Jaundice
Cardiology: Normal Sinus Rhythm
Pulmonary: Clear
GI: Soft
Extremities: Pulses Present; No Edema
Neuro: Non Focal
Orders
Orders
Orders From Last 24 Hours
11/13/24 16:16
Add On- LAB Routine
11/14/24 06:35
B12 [Vitamin B12] IN AM
Folate IN AM
LDH IN AM
Reticulocyte Count IN AM
[2024-11-14 08:52] LABS: Folate 4.3 ng/ml (2.76-20); Vitamin B12 344 pg/ml (239-931)
--- NOTE | 2024-11-14 08:52 | PN.CDI ---
CDI
- -
CDI:
Physician Documentation Request
Admit Date: 11/11/24 22:11
Dear Doctor Kulwant,
Please review the following and provide your response in the progress notes.
Clinical Indicators:
- Natural Science Manager note indicates severe protein calorie malnutrition
- Unintentional weight loss > 7.5% in 3 months
- Nutrient intake </= 75% estimated needs, >/= 1 month
- Moderate subcutaneous loss over rib cage
- Moderate muscle loss over calf, clavicle, temporal
Based on the above information and your assessment, which of the following most accurately represents the patient's nutritional status?
Severe protein calorie malnutrition
Other (please specify)
[place] Criteria ([facility] Hospitalist 2017)
2 or more criteria must be present for either
non severe or severe malnutrition
Note that the criteria differs related to the
presence of an acute or chronic illness
Acute Illness Chronic Illness
Energy Intake Non Severe: <75% for >7 days Non Severe: <75% for >1 month
Severe: <50% for >5 days Severe: <75% for >1 month
Weight Loss Non Severe: 1-2% over 1 week Non Severe: 5% over 1 month
5% over 1 month 7.5% over 3 months
7.5% over 3 months 10% over 6 months
1 year N/A 20% over 1 year
Severe: >2% over 1 week Severe: >5% over 1 month
>5% over 1 month >7.5% over 3 months
>7.5% over 3 months >10% over 6 months
1 year N/A >20% over 1 year
Body Fat Non Severe: Mild Decrease Non Severe: Mild Loss
Severe: Moderate Decrease Severe: Severe Loss
Muscle Mass Non Severe: Mild Decrease Non Severe: Mild Loss
Severe: Moderate Decrease Severe: Severe Loss
Fluid Accumulation Non Severe: Mild Accumulation Non Severe: Mild Accumulation
Severe: Moderate to severe Severe: Moderate to severe
accumulation accumulation
Reduced Insurance Executive Strength Non Severe: N/A Non Severe: N/A
Severe: Measurably reduced Severe: Measurably reduced
Additional criteria that can be used to Determine if Mild or Moderate Malnutrition ([employer]ck Manual 2018)
Mild Moderate Severe
Albumin gm/dl <3.0 gm/dl <2.5 gm/dl <2.0 gm/dl
Pre Albumin mg/dl <15 gm/dl <10 mg/dl <5.0 mg/dl
BMI <18.5 <17 <16
Use of terms such as suspected, likely, concern for, or probable (associated with a specific diagnosis that is being evaluated, monitored, or treated as if it exists) are acceptable and can be coded in the inpatient setting, when documented at the
time of discharge.
Thank you,
Lisset Rebolledo RN
CDI Specialist
Please use your independent medical judgment in providing your response.
--- NOTE | 2024-11-14 09:17 | PN.CDI ---
CDI
- -
CDI:
Physician Documentation Request
Admit Date: 11/11/24 22:11
Dear Doctor Kulwant,
Please review the following and provide your response in the progress notes.
Clinical Indicators:
- 11/13 Pulmonary 'Acute hypoxic respiratory failure with interstitial infiltrates'
- 'patient dropped to 86% on room air, improved to mid 90's on supplemental O2'
- 11/13 PN 'Stable respiratory status with no hypoxia at rest. Had not required supplemental oxygen'
- Documented VS 4-5L O2, pulse ox >94%
In an attempt to clarify potentially conflicting documentation, please clarify which of the following accurately represents the patient's respiratory status:
Acute hypoxic respiratory failure
Hypoxia
Other (please specify)
Additional information for Respiratory Failure:
Recognized criteria for Respiratory Failure (Source: [facility] Hospitalist May 2013)
ABGs: (1 or more) Symptoms Please indicate type if known
1. p)2 <60 or RA SPO2 <91% on RA 1. Tachypnea, SOB, dyspnea Hypoxic
2. pCO2 50 and pH <7.35 2. Use of accessory muscles Hypercapnic
3. pO2 decrease of pCO2 increase by 3. Pallor or cyanosis Hypoxic and Hypercapnic
10 mmHg from baseline if known 4. Anxiety or restlessness Unable to determine
5. Unable to speak in full sentences
Supplemental O2 of > 40% (5LPM) Intubation is not required
Use of terms such as suspected, likely, concern for, or probable (associated with a specific diagnosis that is being evaluated, monitored, or treated as if it exists) are acceptable and can be coded in the inpatient setting, when documented at the
time of discharge.
Thank you,
Lisset Rebolledo RN
CDI Specialist
Please use your independent medical judgment in providing your response.
[2024-11-14] MEDS: OMNIPAQUE 50 ML PO (11:46)
[2024-11-14 12:29] LABS: Vitamin D, 25-OH*** 33.1 ng/mL (30-80)
--- NOTE | 2024-11-14 13:41 | W.PN.ID1 ---
Date of Service
Date of Service: November 14, 2024
Today's Communication
Observe off abx.
Assessment / Plan
# Fevers x 3 months
# Violaceous raised papules skin lesions x 3 months
# Weight loss
# Kia-hilar ground-glass opacity, hilar adenopathy
# Leukopenia
# Transient neutropenia resolved spontaneously
# Anemia
# Immigrated from [place] 3 years ago
- Unclear unifying diagnosis at this time.
- Procalcitonin negative - ruled out bacterial PNA.
- Bcx's neg.
- TB screen negative ([facility])
- HIV (pt verbally consented), syphilis serology, serum cryptococcus antigen, Bartonella (bacillary angiomatosis), Histoplasma Ag/CF pending.
- For CT a/p per Hospitalist
- Outpatient Derm punch biopsy for path, bacterial/fungal/AFb cx
- Observe off abx.
Chief Complaint
-: Other (Skin lesions)
Vital Signs / Physical Exam
Vital Signs
Vital Signs
Temp Pulse Resp BP Pulse Ox
97.7 F 78 18 100/70 96
11/14/24 07:31 11/14/24 07:32 11/14/24 07:32 11/14/24 07:31 11/14/24 07:32
Physical Exam
Constitutional: Chronically Ill and Cachetic
Eyes: No Conjunctival Hemorrhage and Sclera Anicteric
Cardiovascular: Regular Rate and S1/S2
Pulmonary: Clear
Gastrointestinal: Soft, Non Tender, Non Distended and Normal Bowel Sounds
Extremities: Negative Edema
Skin: Other (Several scattered dark red/purplish papules of various sizes, irregular borders on BUE, thighs, upper back, chest)
Neurological: Awake and Alert
Objective Data
Lab Data
Lab Results
11/14/24 06:35
11/14/24 06:35
ESR 88 mm/hour (0-20) H 11/12/24 16:57
Estimated Creat Clear 116 ml/min 11/14/24 06:35
Lactic Acid 1.8 mmol/L (0.7-2.0) 11/11/24 15:02
Total Bilirubin 0.5 mg/dl (0.2-1.3) 11/14/24 06:35
AST 35 U/L (17-59) 11/14/24 06:35
ALT 36 U/L (0-50) 11/14/24 06:35
Alkaline Phosphatase 75 U/L (38-126) 11/14/24 06:35
C-Reactive Protein 15.10 mg/L (0.0-10.00) H 11/12/24 16:57
Most recent labs reviewed.
Micro Results:
11/12/24 05:58 Blood Culture - Preliminary
Blood/Venous No Growth in 48 hours- Final report to follow
11/11/24 15:02 Blood Culture - Preliminary
Blood/Venous No Growth in 48 hours- Final report to follow
11/12/24 16:21 Influenza Type A (PCR) - Final
Nasalpharynx Not Detected
Influenza Type A (H1) (PCR) - Final
Not Detected
Influenza Type A (H3) (PCR) - Final
Not Detected
Influenza Type B (PCR) - Final
Not Detected
Resp Syncytial Virus Type A (PCR) - Final
Not Detected
Resp Syncytial Virus Type B (PCR) - Final
Not Detected
Adenovirus DNA (PCR) - Final
Not Detected
Human Metapneumovirus (PCR) - Final
Not Detected
Parainfluenza Virus Type 1 (PCR) - Final
Not Detected
Parainfluenza Virus Type 2 (PCR) - Final
Not Detected
Parainfluenza Virus Type 3 (PCR) - Final
Not Detected
Parainfluenza Virus Type 4 - Final
Not Detected
Rhinovirus (PCR) - Final
Not Detected
11/11/24 15:02 Influenza Types A & B (MARA) - Final
Nasal Swab Negative for Influenza A & B, NAAT
Negative results must be combined with clinical observations
and patient history.
Nucleic Acid Amplification test (NAAT)performed on the
[employer] platform.
11/11/24 CXR: Moderate amount of bilateral perihilar ground-glass opacity which is predominantly located in the lower lobes and appears to surround increased interstitial markings. Diagnostic possibilities are (1) mild interstitial and alveolar
cardiogenic pulmonary edema, (2) viral pneumonia, (3) a mild inflammatory pneumonitis, or (4) mild subsegmental atelectasis secondary to low lung volumes.
11/11/[address]: Moderate amount of bilateral perihilar ground-glass opacity with axial interstitial thickening in the lower lobes. Diagnostic possibilities are (1) an acute inflammatory pneumonitis (such as vaping-associated lung disease) or (2)
viral or atypical bacterial pneumonia.
2. Small amount of subpleural airspace consolidation in the posterior and lateral basilar segments of the left lower lobe and mild subpleural airspace consolidation in the right lower lobe. Diagnostic possibilities are (1) pneumonia, (2)
subsegmental atelectasis, or (3) an inflammatory airspace consolidation.
3. Mildly decreased bilateral lung volumes.
4. Mild mediastinal and bilateral hilar lymphadenopathy.
Care Review
Plan reviewed with: Physician (Dr. Blum. )
--- NOTE | 2024-11-14 13:54 | W.PN.HOSP.TC ---
Today's Communication/Plan
-
Improving neutropenia
Follow additional ID serology.
Check TRISH and vitamin D level.
CT of the abdomen and pelvis.
Tentative plan is for discharge to follow-up with dermatology outpatient for skin lesion biopsy
Assessment / Plan
Assessment / Plan
Impression
Subjective shortness of breath without hypoxia.
Fever and chills for 3 months.
Blood sugars raised bipolar skin lesions over the last 3 months.
Significant weight loss.
Bilateral groundglass like opacities
Neutropenia with left shift.
Mild normocytic anemia
Tobacco smoker
Plan:
Nontoxic and hemodynamically stable upon presentation with no evidence of sepsis.
Stable respiratory status with no hypoxia at rest. Had not required supplemental oxygen
Appears chronically ill.
CT chest negative for pulmonary embolism, bilateral groundglass opacities.
Initial ID workup unrevealing with no evidence of ' conventional' bacterial infection. Negative procalcitonin.
Empiric antibiotics discontinued
Additional serologic workup including HIV syphilis serology, cryptococcal, Bartonella, histoplasma serology pending.
Hematology/oncology evaluation appreciated
Check TRISH and vitamin D level
Vascular serology pending
CT scan of the abdomen pelvis to assess for hepatosplenomegaly
Anticipated Discharge: 24 - 48 hours
Subjective/Interval History
-
Date of Service: November 14, 2024
Objective Data
-
Labs:
Laboratory Results
11/14/24
06:35
WBC 3.6 L
Hgb 12.7 L
Hct 37.7 L
Plt Count 189
Sodium 143
Potassium 4.2
Chloride 109 H
Carbon Dioxide 26
BUN 10
Creatinine 0.6 L
Glucose 93
Calcium 9.1
Total Bilirubin 0.5
AST 35
ALT 36
Alkaline Phosphatase 75
Vital Signs:
Vital Signs
Temp Pulse Resp BP Pulse Ox
97.7 F 78 18 100/70 96
11/14/24 07:31 11/14/24 07:32 11/14/24 07:32 11/14/24 07:31 11/14/24 07:32
I&O
11/13/24 11/14/24 11/15/24
06:59 06:59 06:59
Intake Total 3300 / 3300 600 / 600
Balance 3300 / 3300 600 / 600
Physical Exam
-
General: Well Developed and No Apparent Distress
HEENT: Normocephalic, Atraumatic and Moist Mucous Membranes
Respiratory: Clear to Auscultation
Cardiac: Regular Rhythm and S1/S2; Negative Murmur, Rub or Gallop
GI: Soft, Nontender, Nondistended and Normal Bowel Sounds; Negative Organomegaly
Rectal: Deferred by Provider
Musculoskeletal: No Clubbing, No Cyanosis and No Edema
Skin: Negative Rash
Neuro: Nonfocal/Grossly Intact
[2024-11-14 14:14] LABS: Syphilis/T. pallidum Ab Reflex Negative (Negative)
[2024-11-14 15:17] VITALS: BP 100/70
[2024-11-14 15:29] LABS: HIV Combo Reactive (Negative)
[2024-11-14] MEDS: SODIUM CHLORIDE 3% FOR INHALATION 1 VIAL INH (17:33)
[2024-11-14] MEDS: LOVENOX 40 MG SC (18:02)
[2024-11-14 20:20] LABS: Cryptococcus Antigen Negative (Negative)
[2024-11-14 23:00] VITALS: BP 96/63
[2024-11-15 01:22] LABS: ANA, IgG Reflex to HEp-2 None Detected (None Detected)
[2024-11-15 01:27] LABS: Myeloperoxidase Antibody 0 AU/mL (0-19); Serine Protease-3, IgG 1 AU/mL (0-19)
[2024-11-15 01:47] LABS: Mycoplasma pneumoniae-IgM 0.31 U/L (<=0.76)
[2024-11-15 07:22] VITALS: BP 104/67
[2024-11-15] MEDS: DUONEB 3 ML INH ×3 (08:08→19:47)
[2024-11-15] MEDS: TYLENOL 650 MG PO (08:38)
--- NOTE | 2024-11-15 09:13 | W.PN.PUL3 ---
Today's Communication / Plan
-
Follow-up autoimmune panel; ANCA panel negative
HIV is reactive - high suspicion for PCP pneumonia; follow up HIV PCR and CD4 count
Patient failed to bring up any phlegm from induced-sputum yesterday; will plan for bronchoscopy tomorrow with BAL and send for sputum culture, fungus culture, AFB + silver stain to evaluate for PCP
Hematology consulted given his leukopenia - WBC now normal
Transfuse if needed to keep Hb >7 g/dL and platelets >20k
Abx stopped as low likelihood of PNA
OOB as tolerated
Maintain SpO2 greater 90 - 94%
Pulmonary service will continue to follow along
Assessment
-
Assessment:
#Acute respiratory failure with hypoxia - high suspicion for PCP pneumonia given that HIV is reactive (confirmatory testing still pending)
#Leukoepnia with lymphopenia
#Anemia (mild)
#Papular rash (?kaposi sarcoma?)
#1. Acute hypoxic respiratory failure with interstitial infiltrates. (patient dropped to 86% on room air, improved to mid 90's on supplemental O2)
- Infectious vs inflammatory pneumonitis. - Considering centrilobular GGO, mosaic pattern on CT, Hypersensitivity Pneumonitis also in differential diagnosis. Reported use of Hot tub occasionally, last about 2 weeks ago. No birds or pets at home, no
exposure to mold, no occupational exposure, no reported marijuana or vaping.
- Also reported h/o skin rash in 08/2024 with residual nodular lesions on the upper arms and chest. Connective tissue panel pending (DEX, ANCA, Myositis panel - RF negative), Hypersensitivity panel, ESR/CRP and Immunoglobulin levels. Eosinophil
count is normal
- WBC now normal, Procalcitonin negative, Influenza A/B and COVID-19 negative. RV-panel negative. ID consult. Dry cough, not producing any sputum. No obvious consolidation noted on imaging.
- CXR today (11/15) shows worsening bibasilar PNA
- tried to do induced sputum testing on 11/14 but this was unsuccessful - will plan for bronchoscopy tomorrow with BAL to evaluate for PCP; follow up BD-glucan testing
- HIV is reactive (testing returned reactive today on 11/14/2024 � HIV differentiation testing pending, and HIV PCR will be ordered by ID)
- Mycoplasma IgM negative; IgG pending
- ABx stopped per ID as no obvious clinical signs of pneumonia (s/p rocephin/Azithro x 2 days)
- ID recommends skin biopsy of skin lesions given possible neutrophilic dermatoses - kaposi sarcoma lesions?
- QuantiFERON + syphylis negative; Cryptococcal antigen + syphilis serology also negative; ID added on Bartonella serology + histoplasma antibodies + Ag
- trend ANC as he was neutropenic on 11/13--> hematology consulted and recs appreciated
- Bedside spirometry from 11/12 shows a severe obstructive lung defect + severe restriction; poor effort on postbronchodilator testing. Started DuoNebs TID on 11/13 and he says it is helping his SOB
- BNP is normal. No clinical s/s of volume overload. Echo checked on 11/13/2024 showing normal biventricular size/systolic function without regional WMA, with normal diastolic function and no significant valvular disease
- Patient was seen at [facility] in August 2024 for skin rash and then later in September for shortness of breath, recommend obtaining records for review
Pulmonary service will continue to follow
Total time spent today was 38 minutes for this encounter. Time includes reviewing laboratory test/imaging results, reviewing pertinent medical records, obtaining and reviewing medical history, performing an appropriate exam, ordering medications,
tests and procedures. Time also includes documentation of this encounter, coordinating patient care and communicating with other healthcare professionals. Total time does not include separately billed tests performed on this date of service.
Video sports reporter service was used to communicate with the patient. Discussed case with the primary team and answered all the patient's questions.
Data:
CT Chest 10/2024: 1. Moderate amount of bilateral perihilar ground-glass opacity with axial interstitial thickening in the lower lobes. Diagnostic possibilities are (1) an acute inflammatory pneumonitis (such as vaping-associated lung disease) or
(2) viral or atypical bacterial pneumonia.
2. Small amount of subpleural airspace consolidation in the posterior and lateral basilar segments of the left lower lobe and mild subpleural airspace consolidation in the right lower lobe. Diagnostic possibilities are (1) pneumonia, (2)
subsegmental atelectasis, or (3) an inflammatory airspace consolidation.
3. Mildly decreased bilateral lung volumes.
4. Mild mediastinal and bilateral hilar lymphadenopathy.
5. No PE
CXR 11/11/2024: Moderate amount of bilateral perihilar ground-glass opacity which is predominantly located in the lower lobes and appears to surround increased interstitial markings. Diagnostic possibilities are (1) mild interstitial and alveolar
cardiogenic pulmonary edema, (2) viral pneumonia, (3) a mild inflammatory pneumonitis, or (4) mild subsegmental atelectasis secondary to low lung volumes.
CXR 11/15/2024: Findings suggesting moderate bibasilar pneumonia. Significantly progressed..
Echo 11/13/2024:
Normal biventricular size and systolic function without regional wall motion
abnormality.
Normal diastolic function.
No significant valvular disease.
Insufficient TR for estimation of PASP.
No prior study available for comparison.
Subjective Data
-
Date of Service:
Date of Service: November 15, 2024
Chief Complaint: Pulmonary Follow Up
Subjective:
Patient was seen and evaluated today at bedside. Kinyarwanda american sign language teacher used (sports reporter ID #: [id number]). Febrile this morning to 102.9 �F. Also more hypoxic and on 2 L/min nasal cannula. He is breathing comfortably when I saw him with no
chest pain, PRESCOTT, nausea, fevers or chills. He mainly complains that he is becoming increasingly more weak. Tried to do an induced sputum yesterday but he was unable to bring up any phlegm. HIV testing is reactive - confirmatory testing pending.
Review of Systems
General: Other (Negative unless mentioned above)
Objective Data
Data Reviewed
Vital Signs / I&O / Oxygen:
Vital Signs
Temp Pulse Resp BP Pulse Ox
102.9 F H 101 16 104/67 98
11/15/24 07:22 11/15/24 08:08 11/15/24 08:08 11/15/24 07:22 11/15/24 08:08
Intake and Output
11/14/24 11/15/24 11/16/24
06:59 06:59 06:59
Intake Total 600 / 600 840 / 840
Balance 600 / 600 840 / 840
SaO2 98
Nasal Cannula flow liters per 2
minute
Physical Exam
General: Respiratory Distress (negative), Comfortable, Chills (negative) and Sweats (negative)
HEENT: Normocephalic and Anicteric
Cardiovascular: S1-S2, Rub (negative) and Peripheral Edema (negative)
Respiratory: Wheeze (negative), Crackles (Left base), Rhonchi (negative), Non-Labored Respirations and Stridor (negative)
GI: Soft, Non Distended, Non Tender and Normal Bowel Sounds
Neurology: AO x 3 and Tremors (negative)
Skin: Warm, Dry, Cyanosis (negative) and Jaundice (negative)
Labs/Micro/Reports
Microbiology
11/12/24 05:58 Blood/Venous Blood Culture - Preliminary
No Growth in 72 hours- Final report to follow
11/11/24 15:02 Blood/Venous Blood Culture - Preliminary
No Growth in 72 hours- Final report to follow
11/12/24 16:21 Nasalpharynx Influenza Type A (PCR) - Final
Not Detected
11/12/24 16:21 Nasalpharynx Influenza Type A (H1) (PCR) - Final
Not Detected
11/12/24 16:21 Nasalpharynx Influenza Type A (H3) (PCR) - Final
Not Detected
11/12/24 16:21 Nasalpharynx Influenza Type B (PCR) - Final
Not Detected
11/12/24 16:21 Nasalpharynx Resp Syncytial Virus Type A (PCR) - Final
Not Detected
11/12/24 16:21 Nasalpharynx Resp Syncytial Virus Type B (PCR) - Final
Not Detected
11/12/24 16:21 Nasalpharynx Adenovirus DNA (PCR) - Final
Not Detected
11/12/24 16:21 Nasalpharynx Human Metapneumovirus (PCR) - Final
Not Detected
11/12/24 16:21 Nasalpharynx Parainfluenza Virus Type 1 (PCR) - Final
Not Detected
11/12/24 16:21 Nasalpharynx Parainfluenza Virus Type 2 (PCR) - Final
Not Detected
11/12/24 16:21 Nasalpharynx Parainfluenza Virus Type 3 (PCR) - Final
Not Detected
11/12/24 16:21 Nasalpharynx Parainfluenza Virus Type 4 - Final
Not Detected
11/12/24 16:21 Nasalpharynx Rhinovirus (PCR) - Final
Not Detected
--- NOTE | 2024-11-15 09:18 | W.PN.HOSP.TC ---
Today's Communication/Plan
-
ABG
Chest x-ray
N.p.o. postmidnight for bronc
Oxygen supplementation
Supportive care
Monitor closely off antibiotics
Assessment / Plan
Assessment / Plan
Impression
Acute hypoxic respiratory failure
Fever and chills for 3 months.
Skin rash/ violaceous raised lesions on the back and upper extremities
Significant weight loss. Protein calorie malnutrition with BMI of 16
Neutropenia with left shift
Mild normocytic anemia
HIV positive for preliminary serology
Bilateral groundglass like opacities in conjunction with above concern for PJP
Tobacco smoker
Plan:
HIV positive on preliminary serology
HIV staging has been ordered
Given persistent exertional dyspnea and hypoxia and above there is a reasonable concern for PJP.
Unable to produce sputum.
Noted with elevated LDH.
Diagnostic bronc scheduled for 11/16.
Beta-D glucan assay pending
Check ABG
Chest x-ray
Monitor closely pending bronchoscopy prior to initiation of treatment
Supplemental oxygen
Additional workup with CT of the chest consistent with bilateral groundglass opacities
CT of the abdomen pelvis with no acute abnormalities
Vasculitis serology
Additional ID serology pending
Raised violaceous rash will need skin biopsy. Reasonable concern for Kaposi's sarcoma if confirmed HIV positivity
Plan of care discussed with ID and pulmonary
Anticipated Discharge: > 48 hours
Subjective/Interval History
-
Date of Service: November 15, 2024
Objective Data
-
Labs:
Laboratory Results
11/15/24 11/15/24
08:52 09:15
WBC Pending
Hgb Pending
Hct Pending
Plt Count Pending
HCO3 Pending
Sodium Pending
Potassium Pending
Chloride Pending
Carbon Dioxide Pending
BUN Pending
Creatinine Pending
Glucose Pending
Calcium Pending
Total Bilirubin Pending
AST Pending
ALT Pending
Alkaline Phosphatase Pending
Vital Signs:
Vital Signs
Temp Pulse Resp BP Pulse Ox
102.9 F H 101 16 104/67 98
11/15/24 07:22 11/15/24 08:08 11/15/24 08:08 11/15/24 07:22 11/15/24 08:08
I&O
11/14/24 11/15/24 11/16/24
06:59 06:59 06:59
Intake Total 600 / 600 840 / 840
Balance 600 / 600 840 / 840
Physical Exam
-
General: Well Developed and No Apparent Distress
HEENT: Normocephalic, Atraumatic and Moist Mucous Membranes
Respiratory: Clear to Auscultation
Cardiac: Regular Rhythm and S1/S2; Negative Murmur, Rub or Gallop
GI: Soft, Nontender, Nondistended and Normal Bowel Sounds; Negative Organomegaly
Rectal: Deferred by Provider
Musculoskeletal: No Clubbing, No Cyanosis and No Edema
Skin: Negative Rash
Neuro: Nonfocal/Grossly Intact
[2024-11-15 09:23] LABS: % Basophils 0.4 % (0-2); % Eosinophils 1.2 % (0-6); % Immature Granulocytes 0.2 % (0-0.5); % Lymphocytes 16.7 % (20.5-51.1); % Monocytes 7.5 % (1.7-9.3); Absolute Eosinophils 0.1 10^3/uL (0-0.7); Absolute Lymphocytes 0.8 10^3/uL (1.2-3.4); Absolute Monocytes 0.4 10^3/uL (0.1-0.6); Absolute Neutrophils 3.7 10^3/uL (1.4-6.5); Hematocrit 36.4 % (39.0-52.0); Hemoglobin 12.3 g/dL (13.0-18.0); Mean Corp Hgb Conc. 33.8 g/dL (33.0-37.0); Mean Corpuscular Hgb 29.2 pg (27.0-31.0); Mean Corpuscular Volume 86.5 fL (80.0-94.0); Mean Platelet Volume 10.4 fL (7.4-10.4); Nucleated Red Blood Cells % 0 % (-); Platelet Count 212 10^3/uL (130-400); Red Blood Cell Count 4.21 10^6/uL (4.70-6.10); Red Cell Dist. Width 15.1 % (11.5-14.5)
[2024-11-15 09:29] LABS: ALT (SGPT) 54 U/L (0-50); AST (SGOT) 48 U/L (17-59); Albumin 3.5 g/dl (3.5-5.0); Alkaline Phosphatase 87 U/L (38-126); Blood Urea Nitrogen 8 mg/dl (9-20); Calcium 8.6 mg/dl (8.4-10.2); Carbon Dioxide 27 mmol/L (22-30); Chloride 101 mmol/L (98-107); Estimated Creatinine Clearance 99 ml/min; Glucose 98 mg/dl (70-99); Potassium 4.2 mmol/L (3.5-5.1); Sodium 138 mmol/L (135-145); Total Bilirubin 0.8 mg/dl (0.2-1.3); Total Protein 7.7 g/dl (6.3-8.2); eGFR > 60.00
[2024-11-15 10:46] LABS: B.E. 3.3 mmol/L; HCO3 26.8 mmol/L (21-28); O2 Saturation % 99.5 % (94-98); PCO2 36 mmHg (35-48); PO2 111 mmHg (83-108); pH 7.48 (7.35-7.45)
--- NOTE | 2024-11-15 10:49 | W.PN.ID1 ---
Date of Service
Date of Service: November 15, 2024
Today's Communication
See below.
Assessment / Plan
# Fevers x 3 months. Febrile now.
# Violaceous raised papules skin lesions x 3 months
# Weight loss
# Kia-hilar ground-glass opacity, hilar adenopathy
# Hypoxia with ambulation
# Leukopenia - spontaneously resolved
# Transient neutropenia resolved spontaneously
# Anemia
# Immigrated from [place] 3 years ago
- Unclear unifying diagnosis at this time.
- Procalcitonin negative - ruled out bacterial PNA.
- Bcx's neg.
- DEX, RF neg.
- TB screen negative ([facility])
- Syphilis neg.
- Serum crypto Ag neg.
-Bartonella (bacillary angiomatosis), Histoplasma Ag/CF pending
- HIV screen REACTIVE, awaiting confirmation.
Per patient, one sexual partner () in his lifetime. No IVDU. No hx transfusions.
- Ordered CD4 count, HIV viral load.
- IF HIV confirmed positive, skin lesions suggestive of Kaposi sarcoma. Tx is antiviral therapy.
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
Ordered beta-d glucan assay.
Failed induced sputum. Appreciate Pulm, for bronch tomorrow 10am
After bronch, will start empiric PJP tx with Bactrim DS 2 tabs po q8h and prednisone 40mg bid for A-a gradient 44 (>35)
-Send BAL for silver stain, PJP DFA reflex to PCR, AFB, fungal, bacterial cx's.
- Follow temps and oxygen status.
Chief Complaint
-: Other (Skin lesions)
Subjective / Review of Systems
Dr. Blum in room who helps with translation. Pt c/o SOB with activity. No SOB at rest. No significant cough. Failed induced sputum. Currently febrile.
Vital Signs / Physical Exam
Vital Signs
Vital Signs
Temp Pulse Resp BP Pulse Ox
102.9 F H 101 16 104/67 98
11/15/24 07:22 11/15/24 08:08 11/15/24 08:08 11/15/24 07:22 11/15/24 08:08
Physical Exam
Constitutional: Chronically Ill and Cachetic
Head: Other (No frontal or maxillary sinus tenderness)
Eyes: No Conjunctival Hemorrhage and Sclera Anicteric
Oropharyngeal: Negative Thrush
Cardiovascular: S1/S2 and Other (tachycardic)
Pulmonary: Clear
Gastrointestinal: Soft, Non Tender, Non Distended and Normal Bowel Sounds
Extremities: Negative Edema
Skin: Other (Several scattered dark red/purplish papules of various sizes, irregular borders on BUE, thighs, upper back, chest)
Neurological: Awake, Alert and AO x 3
Objective Data
Lab Data
Lab Results
11/15/24 08:52
11/15/24 08:52
ESR 88 mm/hour (0-20) H 11/12/24 16:57
Estimated Creat Clear 99 ml/min 11/15/24 08:52
Lactic Acid 1.8 mmol/L (0.7-2.0) 11/11/24 15:02
Total Bilirubin 0.8 mg/dl (0.2-1.3) 11/15/24 08:52
AST 48 U/L (17-59) 11/15/24 08:52
ALT 54 U/L (0-50) H 11/15/24 08:52
Alkaline Phosphatase 87 U/L (38-126) 11/15/24 08:52
C-Reactive Protein 15.10 mg/L (0.0-10.00) H 11/12/24 16:57
Most recent labs reviewed.
Micro Results:
11/12/24 05:58 Blood Culture - Preliminary
Blood/Venous No Growth in 72 hours- Final report to follow
11/11/24 15:02 Blood Culture - Preliminary
Blood/Venous No Growth in 72 hours- Final report to follow
11/12/24 16:21 Influenza Type A (PCR) - Final
Nasalpharynx Not Detected
Influenza Type A (H1) (PCR) - Final
Not Detected
Influenza Type A (H3) (PCR) - Final
Not Detected
Influenza Type B (PCR) - Final
Not Detected
Resp Syncytial Virus Type A (PCR) - Final
Not Detected
Resp Syncytial Virus Type B (PCR) - Final
Not Detected
Adenovirus DNA (PCR) - Final
Not Detected
Human Metapneumovirus (PCR) - Final
Not Detected
Parainfluenza Virus Type 1 (PCR) - Final
Not Detected
Parainfluenza Virus Type 2 (PCR) - Final
Not Detected
Parainfluenza Virus Type 3 (PCR) - Final
Not Detected
Parainfluenza Virus Type 4 - Final
Not Detected
Rhinovirus (PCR) - Final
Not Detected
11/11/24 15:02 Influenza Types A & B (MARA) - Final
Nasal Swab Negative for Influenza A & B, NAAT
Negative results must be combined with clinical observations
and patient history.
Nucleic Acid Amplification test (NAAT)performed on the
[employer] platform.
11/11/24 CXR: Moderate amount of bilateral perihilar ground-glass opacity which is predominantly located in the lower lobes and appears to surround increased interstitial markings. Diagnostic possibilities are (1) mild interstitial and alveolar
cardiogenic pulmonary edema, (2) viral pneumonia, (3) a mild inflammatory pneumonitis, or (4) mild subsegmental atelectasis secondary to low lung volumes.
11/11/[address]: Moderate amount of bilateral perihilar ground-glass opacity with axial interstitial thickening in the lower lobes. Diagnostic possibilities are (1) an acute inflammatory pneumonitis (such as vaping-associated lung disease) or (2)
viral or atypical bacterial pneumonia.
2. Small amount of subpleural airspace consolidation in the posterior and lateral basilar segments of the left lower lobe and mild subpleural airspace consolidation in the right lower lobe. Diagnostic possibilities are (1) pneumonia, (2)
subsegmental atelectasis, or (3) an inflammatory airspace consolidation.
3. Mildly decreased bilateral lung volumes.
4. Mild mediastinal and bilateral hilar lymphadenopathy.
11/15/24 CT a/p: Mild urinary bladder wall thickening, nonspecific. Recommend correlation with a urinalysis. No other acute inflammatory process identified in the abdomen or pelvis. Bibasilar pulmonary opacities again may reflect atelectasis or mild
pneumonia.
Care Review
Plan reviewed with: Physician (Drs. Blum and Estrada)
--- NOTE | 2024-11-15 13:58 | W.PN.UPDATE ---
Update Note
Progress Note Update
Heme/onc update:
Chart and labs reviewed with Dr. Faustin. Heme/onc was consulted and following for leukopenia/neutropenia/lymphocytopenia of unknown etiology. His WBC (3.3 on admission, teri of 2.2, and now 5.0 this AM) and neutrophils both normalized spontaneously.
His lymphocytopenia has persisted, in the setting of reactive HIV screen (confirmatory labs pending). Evaluation/management of possible HIV, kaposi sarcoma, PJP per primary team, ID, pulmonology. Given resolution of leukopenia/neutropenia and
explanation of persistent lymphocytopenia, heme/onc will sign off at this time. Please recall with questions.
[2024-11-15 15:03] VITALS: BP 92/62
--- NOTE | 2024-11-15 15:15 | CM ---
Met with patient at bedside
used [employer] voice and data technician - Lao language
discussed CM Role - patient does not have a PCP
Would need a PCP for home health
previous CM given information on residency program
Will give again since not seen in his room
scheduled Bronch tomorrow
on oxygen
PLAN: tbd, CM will continue to follow for needs, dispo planning
[2024-11-15] MEDS: LOVENOX SC (17:19)
[2024-11-15 23:00] VITALS: BP 91/58
[2024-11-16] VITALS (13 sets, daily range): BP systolic 94–117; BP diastolic 59–77
[2024-11-16] MEDS: TYLENOL 650 MG PO (00:24)
[2024-11-16 02:09] LABS: Mycoplasma pneumoniae IgG 0.12 U/L (<=0.09)
[2024-11-16] MEDS: DUONEB 3 ML INH ×2 (08:04→19:59)
--- NOTE | 2024-11-16 08:50 | W.PN.PUL3 ---
Today's Communication / Plan
-
Autoimmune panel negative and ANCA panel negative
HIV is reactive - high suspicion for PCP pneumonia; follow up HIV PCR and CD4 count
Patient failed to bring up any phlegm from induced-sputum yesterday; will plan for bronchoscopy today with BAL and send for bacterial culture, fungus culture, AFB + silver stain to evaluate for PCP
Hematology consulted given his leukopenia - WBC now normal
Transfuse if needed to keep Hb >7 g/dL and platelets >20k
Abx stopped as low likelihood of PNA
OOB as tolerated
Maintain SpO2 greater 90 - 94%
Pulmonary service will continue to follow along
Assessment
-
Assessment:
#Acute respiratory failure with hypoxia - high suspicion for PCP pneumonia given that HIV is reactive (confirmatory testing still pending)
#Leukoepnia with lymphopenia
#Anemia (mild)
#Papular rash (?kaposi sarcoma?)
#1. Acute hypoxic respiratory failure with interstitial infiltrates. (patient dropped to 86% on room air, improved to mid 90's on supplemental O2)
- Infectious vs inflammatory pneumonitis. - Considering centrilobular GGO, mosaic pattern on CT, Hypersensitivity Pneumonitis also in differential diagnosis. Reported use of Hot tub occasionally, last about 2 weeks ago. No birds or pets at home, no
exposure to mold, no occupational exposure, no reported marijuana or vaping.
- Also reported h/o skin rash in 08/2024 with residual nodular lesions on the upper arms and chest. Connective tissue panel negative (DEX, ANCA + RF), Hypersensitivity panel, ESR: 88, CRP: 15.1; Immunoglobulin levels were WNL. Eosinophil count is
normal
- WBC now normal, Procalcitonin negative, Influenza A/B and COVID-19 negative. RV-panel negative. ID consulted. Dry cough, not producing any sputum. No obvious consolidation noted on imaging.
- CXR on 11/15 showed worsening bibasilar PNA
- tried to do induced sputum testing on 11/14 but this was unsuccessful - will plan for bronchoscopy later this AM with BAL to evaluate for PCP; follow up BD-glucan testing
- HIV is reactive (testing returned reactive on 11/14/2024 � HIV differentiation testing pending, and HIV PCR will be ordered by ID)
- Mycoplasma IgM negative & IgG 0.12
- ABx stopped per ID as no obvious clinical signs of pneumonia (s/p rocephin/Azithro x 2 days)
- ID recommends skin biopsy of skin lesions given possible neutrophilic dermatoses - kaposi sarcoma lesions?
- QuantiFERON + syphylis negative; Cryptococcal antigen + syphilis serology also negative; ID added on Bartonella serology + histoplasma antibodies + Ag --> hiso serum Ag negative
- trend ANC as he was neutropenic on 11/13--> hematology consulted and recs appreciated - they have signed off as WBC normalized
- Bedside spirometry from 11/12 shows a severe obstructive lung defect + severe restriction; poor effort on postbronchodilator testing. Started DuoNebs TID on 11/13 and he says it is helping his SOB
- BNP is normal. No clinical s/s of volume overload. Echo checked on 11/13/2024 showing normal biventricular size/systolic function without regional WMA, with normal diastolic function and no significant valvular disease
- Patient was seen at [place] in August 2024 for skin rash and then later in September for shortness of breath, recommend obtaining records for review
Pulmonary service will continue to follow
Total time spent today was 41 minutes for this encounter. Time includes reviewing laboratory test/imaging results, reviewing pertinent medical records, obtaining and reviewing medical history, performing an appropriate exam, ordering medications,
tests and procedures. Time also includes documentation of this encounter, coordinating patient care and communicating with other healthcare professionals. Total time does not include separately billed tests performed on this date of service.
Video translator interpreter service was used to communicate with the patient. Discussed case with the primary team and answered all the patient's questions.
Data:
CT Chest 10/2024: 1. Moderate amount of bilateral perihilar ground-glass opacity with axial interstitial thickening in the lower lobes. Diagnostic possibilities are (1) an acute inflammatory pneumonitis (such as vaping-associated lung disease) or
(2) viral or atypical bacterial pneumonia.
2. Small amount of subpleural airspace consolidation in the posterior and lateral basilar segments of the left lower lobe and mild subpleural airspace consolidation in the right lower lobe. Diagnostic possibilities are (1) pneumonia, (2)
subsegmental atelectasis, or (3) an inflammatory airspace consolidation.
3. Mildly decreased bilateral lung volumes.
4. Mild mediastinal and bilateral hilar lymphadenopathy.
5. No PE
CXR 11/11/2024: Moderate amount of bilateral perihilar ground-glass opacity which is predominantly located in the lower lobes and appears to surround increased interstitial markings. Diagnostic possibilities are (1) mild interstitial and alveolar
cardiogenic pulmonary edema, (2) viral pneumonia, (3) a mild inflammatory pneumonitis, or (4) mild subsegmental atelectasis secondary to low lung volumes.
CXR 11/15/2024: Findings suggesting moderate bibasilar pneumonia. Significantly progressed..
Echo 11/13/2024:
Normal biventricular size and systolic function without regional wall motion
abnormality.
Normal diastolic function.
No significant valvular disease.
Insufficient TR for estimation of PASP.
No prior study available for comparison.
Subjective Data
-
Date of Service:
Date of Service: November 16, 2024
Chief Complaint: Pulmonary Follow Up
Subjective:
Patient was seen and evaluated this morning. Currently on room air breathing comfortably. Febrile yesterday evening to 100.6 �F. Video translator interpreter used today to discuss bronchoscopy procedure and to obtain consent with risks and benefits
discussed to translator interpreter ID #: [id number]
Review of Systems
General: Other (Negative unless mentioned above)
Objective Data
Data Reviewed
Vital Signs / I&O / Oxygen:
Vital Signs
Temp Pulse Resp BP Pulse Ox
98.5 F 78 16 99/65 97
11/16/24 07:16 11/16/24 08:06 11/16/24 08:06 11/16/24 07:16 11/16/24 08:06
Intake and Output
11/15/24 11/16/24 11/17/24
06:59 06:59 06:59
Intake Total 840 / 840
Balance 840 / 840
SaO2 97
Nasal Cannula flow liters per 1
minute
Physical Exam
General: Respiratory Distress (negative), Comfortable, Chills (negative) and Sweats (negative)
HEENT: Normocephalic and Anicteric
Cardiovascular: S1-S2, Rub (negative) and Peripheral Edema (negative)
Respiratory: Wheeze (negative), Crackles (Left base), Rhonchi (negative), Non-Labored Respirations and Stridor (negative)
GI: Soft, Non Distended, Non Tender and Normal Bowel Sounds
Neurology: AO x 3 and Tremors (negative)
Skin: Warm, Dry, Cyanosis (negative) and Jaundice (negative)
Labs/Micro/Reports
Lab Data
11/15/24 08:52
11/15/24 08:52
Laboratory Results
11/15/24
10:28
pH 7.48 H
pCO2 36
pO2 111 H
HCO3 26.8
O2 Delivery Level
Microbiology
11/12/24 05:58 Blood/Venous Blood Culture - Preliminary
No Growth in 4 days- Final report to follow
11/11/24 15:02 Blood/Venous Blood Culture - Preliminary
No Growth in 4 days- Final report to follow
[2024-11-16] MEDS: DELTASONE 40 MG PO ×2 (12:30→21:04)
[2024-11-16] MEDS: BACTRIM DS 800 MG/160 MG 2 TABLET PO ×3 (12:41→21:04)
--- NOTE | 2024-11-16 13:10 | W.PN.ID1 ---
Date of Service
Date of Service: November 16, 2024
Today's Communication
Start tx for suspected PJP pneumonia.
Assessment / Plan
# Fevers x 3 months.
# Violaceous raised papules skin lesions x 3 months
# Weight loss
# Kia-hilar ground-glass opacity, hilar adenopathy
# Hypoxia with ambulation
# Leukopenia - spontaneously resolved
# Transient neutropenia resolved spontaneously
# Anemia
# Immigrated from [place] 3 years ago
- Procalcitonin negative - ruled out bacterial PNA.
- Bcx's neg.
- DEX, RF neg.
- TB screen negative ([facility])
- Syphilis neg.
- Serum crypto Ag neg.
- Serum histo ag negative
- Histoplasma urine and serum complement fixation pending
-Bartonella (bacillary angiomatosis) pending
- HIV screen REACTIVE, awaiting confirmation.
Per patient, one sexual partner () in his lifetime. No IVDU. No hx transfusions.
- CD4 count pending, HIV viral load pending
- IF HIV confirmed positive, skin lesions suggestive of Kaposi sarcoma. Tx is antiviral therapy.
- 11/16 s/p bronchoscopy
BAL for silver stain, PJP DFA reflex to PCR, AFB, fungal, bacterial cx's in progress
- beta-d glucan assay pending
- start empiric PJP tx with Bactrim DS 2 tabs po q8h and prednisone 40mg bid (A-a gradient >3)
- Monitor potassium, renal function while on Bactrim.
- Follow temps, oxygen status.
Chief Complaint
-: Fever, Pneumonia and Other (Skin lesions)
Subjective / Review of Systems
Feels same.
Vital Signs / Physical Exam
Vital Signs
Vital Signs
Temp Pulse Resp BP Pulse Ox
98.1 F 92 18 99/66 98
11/16/24 12:29 11/16/24 12:29 11/16/24 12:29 11/16/24 12:29 11/16/24 12:29
Physical Exam
Constitutional: Chronically Ill and Cachetic
Head: Other (No frontal or maxillary sinus tenderness)
Eyes: No Conjunctival Hemorrhage and Sclera Anicteric
Oropharyngeal: Negative Thrush
Cardiovascular: S1/S2 and Other (tachycardic)
Pulmonary: Rales (bases)
Gastrointestinal: Soft, Non Tender, Non Distended and Normal Bowel Sounds
Extremities: Negative Edema
Skin: Other (Several scattered dark red/purplish papules of various sizes, irregular borders on BUE, thighs, upper back, chest)
Neurological: Awake, Alert and AO x 3
Objective Data
Lab Data
Lab Results
11/15/24 08:52
11/15/24 08:52
ESR 88 mm/hour (0-20) H 11/12/24 16:57
Estimated Creat Clear 99 ml/min 11/15/24 08:52
Lactic Acid 1.8 mmol/L (0.7-2.0) 11/11/24 15:02
Total Bilirubin 0.8 mg/dl (0.2-1.3) 11/15/24 08:52
AST 48 U/L (17-59) 11/15/24 08:52
ALT 54 U/L (0-50) H 11/15/24 08:52
Alkaline Phosphatase 87 U/L (38-126) 11/15/24 08:52
C-Reactive Protein 15.10 mg/L (0.0-10.00) H 11/12/24 16:57
Most recent labs reviewed.
Micro Results:
11/12/24 05:58 Blood Culture - Preliminary
Blood/Venous No Growth in 4 days- Final report to follow
11/11/24 15:02 Blood Culture - Preliminary
Blood/Venous No Growth in 4 days- Final report to follow
11/12/24 16:21 Influenza Type A (PCR) - Final
Nasalpharynx Not Detected
Influenza Type A (H1) (PCR) - Final
Not Detected
Influenza Type A (H3) (PCR) - Final
Not Detected
Influenza Type B (PCR) - Final
Not Detected
Resp Syncytial Virus Type A (PCR) - Final
Not Detected
Resp Syncytial Virus Type B (PCR) - Final
Not Detected
Adenovirus DNA (PCR) - Final
Not Detected
Human Metapneumovirus (PCR) - Final
Not Detected
Parainfluenza Virus Type 1 (PCR) - Final
Not Detected
Parainfluenza Virus Type 2 (PCR) - Final
Not Detected
Parainfluenza Virus Type 3 (PCR) - Final
Not Detected
Parainfluenza Virus Type 4 - Final
Not Detected
Rhinovirus (PCR) - Final
Not Detected
11/11/24 15:02 Influenza Types A & B (MARA) - Final
Nasal Swab Negative for Influenza A & B, NAAT
Negative results must be combined with clinical observations
and patient history.
Nucleic Acid Amplification test (NAAT)performed on the
[employer] platform.
11/11/24 CXR: Moderate amount of bilateral perihilar ground-glass opacity which is predominantly located in the lower lobes and appears to surround increased interstitial markings. Diagnostic possibilities are (1) mild interstitial and alveolar
cardiogenic pulmonary edema, (2) viral pneumonia, (3) a mild inflammatory pneumonitis, or (4) mild subsegmental atelectasis secondary to low lung volumes.
11/11/[address]: Moderate amount of bilateral perihilar ground-glass opacity with axial interstitial thickening in the lower lobes. Diagnostic possibilities are (1) an acute inflammatory pneumonitis (such as vaping-associated lung disease) or (2)
viral or atypical bacterial pneumonia.
2. Small amount of subpleural airspace consolidation in the posterior and lateral basilar segments of the left lower lobe and mild subpleural airspace consolidation in the right lower lobe. Diagnostic possibilities are (1) pneumonia, (2)
subsegmental atelectasis, or (3) an inflammatory airspace consolidation.
3. Mildly decreased bilateral lung volumes.
4. Mild mediastinal and bilateral hilar lymphadenopathy.
11/15/24 CT a/p: Mild urinary bladder wall thickening, nonspecific. Recommend correlation with a urinalysis. No other acute inflammatory process identified in the abdomen or pelvis. Bibasilar pulmonary opacities again may reflect atelectasis or mild
pneumonia.
Care Review
Plan reviewed with: Physician (Drs. Blum and Estrada)
--- NOTE | 2024-11-16 13:14 | CM ---
Patient for bronchoscopy today.
PT recommending home with physical therapy, however patient has no PCP.
Await f/u therapy notes.
Plan: home with possible outpatient therapy.
--- NOTE | 2024-11-16 14:25 | W.PN.HOSP.TC ---
Today's Communication/Plan
-
Await confirmatory HIV testing and bronchoscopy data.
Initiated on TMP�sulfa and prednisone
Oxygen supplementation.
Follow CBC and BMP
Assessment / Plan
Assessment / Plan
Impression
Acute hypoxic respiratory failure
Fever and chills for 3 months.
Skin rash/ violaceous raised lesions on the back and upper extremities
Significant weight loss. Protein calorie malnutrition with BMI of 16
Neutropenia with left shift
Mild normocytic anemia
HIV positive for preliminary serology
Bilateral groundglass like opacities in conjunction with above concern for PJP
Tobacco smoker
Plan:
HIV positive on preliminary serology
HIV staging has been ordered
Given persistent exertional dyspnea and hypoxia and above there is a reasonable concern for PJP.
Unable to produce sputum.
Noted with elevated LDH.
Diagnostic bronc scheduled for 11/16.
Beta-D glucan assay pending
Follow-up chest x-ray 11/15 with bibasilar infiltrates
Status post bronchoscopy with BAL lavage with silver stain.
Initiated on TMP�sulfa and prednisone on 11/16
Supplemental oxygen
Additional workup with CT of the chest consistent with bilateral groundglass opacities
CT of the abdomen pelvis with no acute abnormalities
Vasculitis serology
Additional ID serology pending
Raised violaceous rash will need skin biopsy. Reasonable concern for Kaposi's sarcoma if confirmed HIV positivity
Plan of care discussed with ID and pulmonary
Anticipated Discharge: > 48 hours
Subjective/Interval History
-
Date of Service: November 16, 2024
Objective Data
-
Vital Signs:
Vital Signs
Temp Pulse Resp BP Pulse Ox
98.1 F 92 18 99/66 98
11/16/24 12:29 11/16/24 12:29 11/16/24 12:29 11/16/24 12:29 11/16/24 12:29
I&O
11/15/24 11/16/24 11/17/24
06:59 06:59 06:59
Intake Total 840 / 840
Balance 840 / 840
Physical Exam
-
General: Well Developed and No Apparent Distress
HEENT: Normocephalic, Atraumatic and Moist Mucous Membranes
Respiratory: Clear to Auscultation
Cardiac: Regular Rhythm and S1/S2; Negative Murmur, Rub or Gallop
GI: Soft, Nontender, Nondistended and Normal Bowel Sounds; Negative Organomegaly
Rectal: Deferred by Provider
Musculoskeletal: No Clubbing, No Cyanosis and No Edema
Skin: Negative Rash
Neuro: Nonfocal/Grossly Intact
[2024-11-16 14:39] LABS: CD4 % of Cells Analyzed 3 % (32-64); CD4 Absolute Count 27 cells/uL (430-1800)
[2024-11-16 14:57] LABS: Brochalveolar Lavage Character Clear (Clear); Brochalveolar Lavage Color Colorless; Brochalveolar Lavage Volume 10 ml; Brochalveolar Lavage WBC 9900 cells/ml
[2024-11-16 15:01] LABS: BAL Lining Cells 34 %; BAL Lymphocytes 45 %; BAL Macrophages 6 %; BAL Neutrophils 15 %
[2024-11-16] MEDS: DUONEB INH (15:12)
[2024-11-16] MEDS: LOVENOX 40 MG SC (16:24)
--- NOTE | 2024-11-16 18:31 | PTCARENOTE ---
Patient came up to the nurses station and expressed that she would like for the doctor to not disclose any diagnose about patient to anyone except herself and his brother.
[2024-11-16 18:35] LABS: Vitamin D 1,25 Dihydroxy 71.2 pg/mL (19.9-79.3)
[2024-11-16 20:54] LABS: Angiotensin-1-converting Enzym 66 U/L (16-85)
[2024-11-17 01:19] LABS: HIV Serologic Interpretation Pos HIV-1 Ab; HIV-1 Antibody Positive (Negative); HIV-2 Antibody Negative (Negative)
[2024-11-17 06:54] LABS: % Lymphocytes 26.1 % (20.5-51.1); % Monocytes 6.3 % (1.7-9.3); % Neutrophils 67.6 % (42.2-75.2); Absolute Lymphocytes 0.6 10^3/uL (1.2-3.4); Absolute Monocytes 0.1 10^3/uL (0.1-0.6); Absolute Neutrophils 1.5 10^3/uL (1.4-6.5); Hematocrit 37.2 % (39.0-52.0); Hemoglobin 12.5 g/dL (13.0-18.0); Mean Corp Hgb Conc. 33.6 g/dL (33.0-37.0); Mean Corpuscular Hgb 29.1 pg (27.0-31.0); Mean Corpuscular Volume 86.5 fL (80.0-94.0); Mean Platelet Volume 10.5 fL (7.4-10.4); Nucleated Red Blood Cells % 0 % (-); Platelet Count 221 10^3/uL (130-400); Red Cell Dist. Width 15.3 % (11.5-14.5); White Blood Cell Count 2.2 10^3/uL (4.8-10.8)
[2024-11-17] MEDS: DUONEB 3 ML INH ×3 (07:22→19:56)
[2024-11-17 08:00] VITALS: BP 98/65
[2024-11-17] MEDS: DELTASONE 40 MG PO ×2 (08:39→22:02)
[2024-11-17] MEDS: BACTRIM DS 800 MG/160 MG 2 TABLET PO ×3 (08:41→22:02)
--- NOTE | 2024-11-17 08:50 | W.PN.PUL3 ---
Today's Communication / Plan
-
Autoimmune panel negative and ANCA panel negative
Bronchoscopy BAL silver stain positive for PCP --> Bactrim + prednisone started per ID
HIV�1 confirmed, viral load testing is pending
CD4 count is 27 � Biktarvy starting today per ID
Follow-up remaining cultures from bronchoscopy (NGTD)
Transfuse if needed to keep Hb >7 g/dL and platelets >20k
Abx stopped as low likelihood of bacterial PNA
OOB as tolerated
Maintain SpO2 greater 90 - 94%
Pulmonary service will continue to briefly follow along
Assessment
-
Assessment:
#Acute respiratory failure with hypoxia - due to PCP pneumonia
#HIV/AIDS (CD4 count: 27 on 11/15/2024)
#Leukoepnia with lymphopenia due to HIV
#Anemia (mild)
#Papular rash (?kaposi sarcoma?)
#1. Acute hypoxic respiratory failure with interstitial infiltrates. (patient dropped to 86% on room air, improved to mid 90's on supplemental O2)
- Due to PCP pneumonia - bronchoscopy silver stain BAL from 11/16/2024 was positive for PCP, + 1,3 beta D glucan is >500 pg/mL
- Now started on Bactrim DS 2 tabs TID per ID in addition to prednisone given that he is hypoxic
- Also reported h/o skin rash in 08/2024 with residual nodular lesions on the upper arms and chest. Connective tissue panel negative (DEX, ANCA + RF), Hypersensitivity panel, ESR: 88, CRP: 15.1; Immunoglobulin levels were WNL. Eosinophil count is
normal
- Procalcitonin negative, Influenza A/B and COVID-19 negative. RV-panel negative. ID consulted. Dry cough, not producing any sputum. No obvious consolidation noted on imaging.
- CXR on 11/15 showed worsening bibasilar PNA
- tried to do induced sputum testing on 11/14 but this was unsuccessful - s/p bronchoscopy on 11/16/2024
- HIV is positive (testing returned reactive on 11/14/2024 � HIV1 --> viral load testing is pending
- Being started on Biktarvy today
- Mycoplasma IgM negative & IgG 0.12
- ABx stopped per ID as no obvious clinical signs of pneumonia (s/p rocephin/Azithro x 2 days)
- ID recommends skin biopsy of skin lesions given possible neutrophilic dermatoses - kaposi sarcoma lesions?
- QuantiFERON + syphylis negative; Cryptococcal antigen + syphilis serology also negative; ID added on Bartonella serology + histoplasma antibodies + Ag --> hiso serum Ag negative, Bartonella antibodies negative
- trend ANC as he was neutropenic on 11/13--> hematology consulted and recs appreciated - they have signed off as WBC had normalized
- Bedside spirometry from 11/12 shows a severe obstructive lung defect + severe restriction; poor effort on postbronchodilator testing. Started DuoNebs TID on 11/13 and he says it is helping his SOB
- BNP is normal. No clinical s/s of volume overload. Echo checked on 11/13/2024 showing normal biventricular size/systolic function without regional WMA, with normal diastolic function and no significant valvular disease
- Patient was seen at [place] in August 2024 for skin rash and then later in September for shortness of breath, recommend obtaining records for review
Pulmonary service will continue to follow
Total time spent today was 37 minutes for this encounter. Time includes reviewing laboratory test/imaging results, reviewing pertinent medical records, obtaining and reviewing medical history, performing an appropriate exam, ordering medications,
tests and procedures. Time also includes documentation of this encounter, coordinating patient care and communicating with other healthcare professionals. Total time does not include separately billed tests performed on this date of service.
Video cable tool operator service was used to communicate with the patient. Discussed case with the primary team and answered all the patient's questions.
Data:
CT Chest 10/2024: 1. Moderate amount of bilateral perihilar ground-glass opacity with axial interstitial thickening in the lower lobes. Diagnostic possibilities are (1) an acute inflammatory pneumonitis (such as vaping-associated lung disease) or
(2) viral or atypical bacterial pneumonia.
2. Small amount of subpleural airspace consolidation in the posterior and lateral basilar segments of the left lower lobe and mild subpleural airspace consolidation in the right lower lobe. Diagnostic possibilities are (1) pneumonia, (2)
subsegmental atelectasis, or (3) an inflammatory airspace consolidation.
3. Mildly decreased bilateral lung volumes.
4. Mild mediastinal and bilateral hilar lymphadenopathy.
5. No PE
CXR 11/11/2024: Moderate amount of bilateral perihilar ground-glass opacity which is predominantly located in the lower lobes and appears to surround increased interstitial markings. Diagnostic possibilities are (1) mild interstitial and alveolar
cardiogenic pulmonary edema, (2) viral pneumonia, (3) a mild inflammatory pneumonitis, or (4) mild subsegmental atelectasis secondary to low lung volumes.
CXR 11/15/2024: Findings suggesting moderate bibasilar pneumonia. Significantly progressed..
Echo 11/13/2024:
Normal biventricular size and systolic function without regional wall motion
abnormality.
Normal diastolic function.
No significant valvular disease.
Insufficient TR for estimation of PASP.
No prior study available for comparison.
Subjective Data
-
Date of Service:
Date of Service: November 17, 2024
Chief Complaint: Pulmonary Follow Up
Objective Data
Data Reviewed
Vital Signs / I&O / Oxygen:
Vital Signs
Temp Pulse Resp BP Pulse Ox
97.9 F 91 18 98/65 100
11/17/24 08:00 11/17/24 08:00 11/17/24 08:00 11/17/24 08:00 11/17/24 08:00
Intake and Output
11/16/24 11/17/24 11/18/24
06:59 06:59 06:59
Intake Total 300 / 300
Output Total 600 / 600
Balance -300 / -300
SaO2 100
Nasal Cannula flow liters per 2
minute
Physical Exam
General: Respiratory Distress (negative), Comfortable, Chills (negative) and Sweats (negative)
HEENT: Normocephalic and Anicteric
Cardiovascular: S1-S2, Rub (negative) and Peripheral Edema (negative)
Respiratory: Wheeze (negative), Crackles (Left base), Rhonchi (negative), Non-Labored Respirations and Stridor (negative)
GI: Soft, Non Distended, Non Tender and Normal Bowel Sounds
Neurology: AO x 3 and Tremors (negative)
Skin: Warm, Dry, Cyanosis (negative) and Jaundice (negative)
Labs/Micro/Reports
Lab Data
11/17/24 06:16
11/17/24 07:54
Microbiology
11/12/24 05:58 Blood/Venous Blood Culture - Final
No Growth - Final Report
11/16/24 11:45 Bronch Left Lower Lobe Gram Stain - Preliminary
11/11/24 15:02 Blood/Venous Blood Culture - Final
No Growth - Final Report
11/16/24 11:45 Bronch Left Lower Lobe Fungal Culture - Preliminary
Culture in progress.
Positive cultures are reported as soon as detected.
Final report to follow in four to five weeks.
[2024-11-17 08:52] LABS: Blood Urea Nitrogen 17 mg/dl (9-20); Calcium 9.3 mg/dl (8.4-10.2); Carbon Dioxide 23 mmol/L (22-30); Chloride 104 mmol/L (98-107); Estimated Creatinine Clearance 77 ml/min; Glucose 146 mg/dl (70-99); Sodium 139 mmol/L (135-145); eGFR > 60.00
--- NOTE | 2024-11-17 10:54 | W.PN.ID1 ---
Date of Service
Date of Service: November 17, 2024
Today's Communication
- Patient expressed that she would like for the doctor to not disclose any diagnose about patient to anyone except herself (Bree) and his brother (Marina).
- start biktarvy
- continue bactrim and prednisone
Assessment / Plan
# Fevers x 3 months - resolved
# Violaceous raised papules skin lesions x 3 months
# Cachexia
# Kia-hilar ground-glass opacity, hilar adenopathy
# Hypoxia with ambulation and at rest
# Leukopenia - relapsed
# Transient neutropenia resolved spontaneously
# Anemia
# Immigrated from [place] 3 years ago
- Patient expressed that she would like for the doctor to not disclose any diagnose about patient to anyone except herself (Bree) and his brother (Marina).
- Procalcitonin negative - ruled out bacterial PNA; elevated IgG for M pneumoniae likely reflects prior infection
- Bcx's neg.
- DEX, RF neg.
- TB screen negative ([facility])
- Syphilis neg.
- Serum crypto Ag neg.
- Serum histo ag negative
- Histoplasma urine pending; serum complement fixation negative
- Bartonella (bacillary angiomatosis) pending
- AFB blood culture sent - abd CT without lymphadenopathy or HSM
- BAL prelim positive for PJP
- aspergillus, aureobasidium, micropolyspora and pigeon serum IgG were sent by pulmonary service - in progress
- HIV screen REACTIVE, awaiting confirmation with HIV NAAT - pending; will consider early treatment when diagnosis confirmed
Per patient, one sexual partner () in his lifetime. No IVDU. No hx transfusions. Patient is understandably upset, I do wonder about whether there was a break in infection prevention during a medical procedure such as vaccination in another
country.
- CD4 count 27, HIV viral load pending
- IF HIV confirmed positive, skin lesions suggestive of Kaposi sarcoma. Tx is antiviral therapy.
- start biktarvy
- 11/16 s/p bronchoscopy
BAL for silver stain, PJP DFA reflex to PCR, AFB, fungal, bacterial cx's in progress
- beta-d glucan assay strongly positive at >500, most suggestive of PJP given overall picture
- c/w empiric PJP tx with Bactrim DS 2 tabs po q8h and prednisone 40mg bid (A-a gradient >3)
- Monitor WBC count, potassium, renal function while on Bactrim.
- Follow temps, oxygen status.
Chief Complaint
-: Fever, Pneumonia and Other (Skin lesions)
Subjective / Review of Systems
fevers resolved, though patient does report he still had night sweats last night
mild hypotension noted this am
down to 2L NC, increased dyspnea
PJP testing prelim
'Patient came up to the nurses station and expressed that she would like for the doctor to not disclose any diagnose about patient to anyone except herself and his brother. '
Vital Signs / Physical Exam
Vital Signs
Vital Signs
Temp Pulse Resp BP Pulse Ox
97.9 F 91 18 98/65 100
11/17/24 08:00 11/17/24 08:00 11/17/24 08:00 11/17/24 08:00 11/17/24 08:00
Physical Exam
Constitutional: No Acute Distress, Chronically Ill and Cachetic
Cardiovascular: Regular Rate and S1/S2; Negative Murmur or Rub
Pulmonary: Clear and Symmetric; Negative Wheezes or Rales
Gastrointestinal: Soft, Non Tender, Non Distended and Normal Bowel Sounds
Skin: Warm, Dry and Rash (scattered dark red/purplish papules of various sizes, irregular borders on BL UE, thighs, upper back, chest)); Negative Jaundice
Neurological: Awake
Objective Data
Lab Data
Lab Results
11/17/24 06:16
11/17/24 07:54
ESR 88 mm/hour (0-20) H 11/12/24 16:57
Estimated Creat Clear 77 ml/min 11/17/24 07:54
Lactic Acid 1.8 mmol/L (0.7-2.0) 11/11/24 15:02
Total Bilirubin 0.8 mg/dl (0.2-1.3) 11/15/24 08:52
AST 48 U/L (17-59) 11/15/24 08:52
ALT 54 U/L (0-50) H 11/15/24 08:52
Alkaline Phosphatase 87 U/L (38-126) 11/15/24 08:52
C-Reactive Protein 15.10 mg/L (0.0-10.00) H 11/12/24 16:57
Most recent labs reviewed.
Laboratory Tests
11/13/24
05:16
M.pneumoniae IgG Titer 0.12 H
M.pneumoniae IgM Titer 0.31
Micro Results:
11/12/24 05:58 Blood Culture - Final
Blood/Venous No Growth - Final Report
11/16/24 11:45 Respiratory Culture - Pending
Bronch Left Lower Lobe Gram Stain - Preliminary
11/11/24 15:02 Blood Culture - Final
Blood/Venous No Growth - Final Report
11/16/24 11:45 Fungal Culture - Preliminary
Bronch Left Lower Lobe Culture in progress.
Positive cultures are reported as soon as detected.
Final report to follow in four to five weeks.
11/16/24 11:45 Acid Fast Bacilli Smear - Pending
Bronch Left Lower Lobe Acid Fast Bacilli Culture - Pending
11/12/24 16:21 Influenza Type A (PCR) - Final
Nasalpharynx Not Detected
Influenza Type A (H1) (PCR) - Final
Not Detected
Influenza Type A (H3) (PCR) - Final
Not Detected
Influenza Type B (PCR) - Final
Not Detected
Resp Syncytial Virus Type A (PCR) - Final
Not Detected
Resp Syncytial Virus Type B (PCR) - Final
Not Detected
Adenovirus DNA (PCR) - Final
Not Detected
Human Metapneumovirus (PCR) - Final
Not Detected
Parainfluenza Virus Type 1 (PCR) - Final
Not Detected
Parainfluenza Virus Type 2 (PCR) - Final
Not Detected
Parainfluenza Virus Type 3 (PCR) - Final
Not Detected
Parainfluenza Virus Type 4 - Final
Not Detected
Rhinovirus (PCR) - Final
Not Detected
11/11/24 15:02 Influenza Types A & B (MARA) - Final
Nasal Swab Negative for Influenza A & B, NAAT
Negative results must be combined with clinical observations
and patient history.
Nucleic Acid Amplification test (NAAT)performed on the
[employer] platform.
11/11/24 CXR: Moderate amount of bilateral perihilar ground-glass opacity which is predominantly located in the lower lobes and appears to surround increased interstitial markings. Diagnostic possibilities are (1) mild interstitial and alveolar
cardiogenic pulmonary edema, (2) viral pneumonia, (3) a mild inflammatory pneumonitis, or (4) mild subsegmental atelectasis secondary to low lung volumes.
11/11/[address]: Moderate amount of bilateral perihilar ground-glass opacity with axial interstitial thickening in the lower lobes. Diagnostic possibilities are (1) an acute inflammatory pneumonitis (such as vaping-associated lung disease) or (2)
viral or atypical bacterial pneumonia.
2. Small amount of subpleural airspace consolidation in the posterior and lateral basilar segments of the left lower lobe and mild subpleural airspace consolidation in the right lower lobe. Diagnostic possibilities are (1) pneumonia, (2)
subsegmental atelectasis, or (3) an inflammatory airspace consolidation.
3. Mildly decreased bilateral lung volumes.
4. Mild mediastinal and bilateral hilar lymphadenopathy.
11/15/24 CT a/p: Mild urinary bladder wall thickening, nonspecific. Recommend correlation with a urinalysis. No other acute inflammatory process identified in the abdomen or pelvis. Bibasilar pulmonary opacities again may reflect atelectasis or mild
pneumonia.
Care Review
Plan reviewed with: Physician (Dr Frank and Dr Blum - starting ARVs)
--- NOTE | 2024-11-17 13:44 | W.PN.HOSP.TC ---
Today's Communication/Plan
-
Ongoing workup for HIV/AIDS new diagnosis
PJP pneumonia treatment with TMP�sulfa and corticosteroids.
Oxygen supplementation
On multiple interviews investigating source, patient denies any potential exposure/contacts, procedures or blood transfusions.
Assessment / Plan
Assessment / Plan
Impression
Acute hypoxic respiratory failure
Fever and chills for 3 months.
Skin rash/ violaceous raised lesions on the back and upper extremities
Significant weight loss. Protein calorie malnutrition with BMI of 16
Neutropenia with left shift
Mild normocytic anemia
HIV positive for preliminary serology
Bilateral groundglass like opacities in conjunction with above concern for PJP
Tobacco smoker
Plan:
HIV positive with From typing pending viral load
CD4 count 27
Pending viral load and initiation of antiretroviral therapy
Given persistent exertional dyspnea and hypoxia and above there is a reasonable concern for PJP.
Unable to produce sputum.
Noted with elevated LDH.
Diagnostic [facility] scheduled for 11/16.
Beta-D glucan assay confirmatory
Follow-up chest x-ray 11/15 with bibasilar infiltrates
Status post bronchoscopy with BAL lavage with silver stain.
Initiated on TMP�sulfa and prednisone on 11/16
Supplemental oxygen
Additional workup with CT of the chest consistent with bilateral groundglass opacities
CT of the abdomen pelvis with no acute abnormalities
Vasculitis serology
Additional ID serology pending
Raised violaceous rash will need skin biopsy. Reasonable concern for Kaposi's sarcoma if confirmed HIV positivity
Plan of care discussed with ID and pulmonary
Anticipated Discharge: > 48 hours
Subjective/Interval History
-
Date of Service: November 17, 2024
Objective Data
-
Labs:
Laboratory Results
11/17/24 11/17/24
06:16 07:54
WBC 2.2 L*
Hgb 12.5 L
Hct 37.2 L
Plt Count 221
Sodium Cancelled 139
Potassium Cancelled 5.0
Chloride Cancelled 104
Carbon Dioxide Cancelled 23
BUN Cancelled 17
Creatinine Cancelled 0.9
Glucose Cancelled 146 H
Calcium Cancelled 9.3
Vital Signs:
Vital Signs
Temp Pulse Resp BP Pulse Ox
97.9 F 86 16 98/65 96
11/17/24 08:00 11/17/24 13:19 11/17/24 13:19 11/17/24 08:00 11/17/24 13:19
I&O
11/16/24 11/17/24 11/18/24
06:59 06:59 06:59
Intake Total 300 / 300
Output Total 600 / 600
Balance -300 / -300
Physical Exam
-
General: Well Developed and No Apparent Distress
HEENT: Normocephalic, Atraumatic and Moist Mucous Membranes
Respiratory: Clear to Auscultation
Cardiac: Regular Rhythm and S1/S2; Negative Murmur, Rub or Gallop
GI: Soft, Nontender, Nondistended and Normal Bowel Sounds; Negative Organomegaly
Rectal: Deferred by Provider
Musculoskeletal: No Clubbing, No Cyanosis and No Edema
Skin: Negative Rash
Neuro: Nonfocal/Grossly Intact
[2024-11-17] MEDS: BIKTARVY 50-200-25 MG TABLET 1 TABLET PO (15:27)
[2024-11-17 16:00] VITALS: BP 91/59
--- NOTE | 2024-11-17 16:49 | PTCARENOTE ---
patient continues with sob with little activity. reports 'Better at times', tolerating diet, positive Beta D Glucan. Dr. Blum made aware at 1045 this am, vss, will continue to monitor.
[2024-11-17] MEDS: LOVENOX SC (17:42)
[2024-11-17 23:00] VITALS: BP 107/69
[2024-11-18 04:46] LABS: HIV-1 Quan NAAT Interpretation Detected (Not Detected); HIV-1 Quant NAAT (copies/ml) 5100000 cpy/mL; HIV-1 Quant NAAT (log copy/mL) 6.71 log cpy/mL
[2024-11-18 06:38] LABS: % Basophils 0.1 % (0-2); % Immature Granulocytes 0.3 % (0-0.5); % Lymphocytes 6.1 % (20.5-51.1); % Monocytes 4.3 % (1.7-9.3); % Neutrophils 89.2 % (42.2-75.2); Absolute Lymphocytes 0.5 10^3/uL (1.2-3.4); Absolute Monocytes 0.3 10^3/uL (0.1-0.6); Absolute Neutrophils 6.9 10^3/uL (1.4-6.5); Hematocrit 34.7 % (39.0-52.0); Hemoglobin 11.9 g/dL (13.0-18.0); Mean Corp Hgb Conc. 34.3 g/dL (33.0-37.0); Mean Corpuscular Hgb 29.5 pg (27.0-31.0); Mean Corpuscular Volume 85.9 fL (80.0-94.0); Mean Platelet Volume 10.5 fL (7.4-10.4); Nucleated Red Blood Cells % 0 % (-); Platelet Count 251 10^3/uL (130-400); Red Blood Cell Count 4.04 10^6/uL (4.70-6.10); Red Cell Dist. Width 15.2 % (11.5-14.5); White Blood Cell Count 7.7 10^3/uL (4.8-10.8)
[2024-11-18 07:00] VITALS: BP 96/68
[2024-11-18 07:15] LABS: Blood Urea Nitrogen 19 mg/dl (9-20); Calcium 9.1 mg/dl (8.4-10.2); Carbon Dioxide 24 mmol/L (22-30); Chloride 104 mmol/L (98-107); Estimated Creatinine Clearance 87 ml/min; Glucose 146 mg/dl (70-99); Potassium 5.3 mmol/L (3.5-5.1); Sodium 139 mmol/L (135-145); eGFR > 60.00
[2024-11-18] MEDS: DUONEB 3 ML INH ×2 (07:34→13:18)
[2024-11-18] MEDS: BACTRIM DS 800 MG/160 MG 2 TABLET PO ×3 (08:10→21:27)
[2024-11-18] MEDS: BIKTARVY 50-200-25 MG TABLET 1 TABLET PO (08:10)
[2024-11-18] MEDS: DELTASONE 40 MG PO ×2 (08:10→21:27)
[2024-11-18 12:30] VITALS: BP 94/61; PULSE 87; O2SAT 96
[2024-11-18 12:32] VITALS: BP 94/61; PULSE 87; O2SAT 96
--- NOTE | 2024-11-18 13:58 | W.PN.HOSP.TC ---
Today's Communication/Plan
-
Continue Bactrim and prednisone
Plan for Biktarvy
Wean oxygen
Assessment / Plan
Assessment / Plan
#Acute hypoxemic respiratory failure
#Pneumocystis jiroveci pneumonia
-Status post diagnostic bronchoscopy on 11/16 with silver staining consistent with PJP
-Chest imaging with bilateral groundglass opacities, required up to 4 L O2 here
-Was started on oral Bactrim and prednisone with O2 requirements down to 1 to 2 L
-Will continue current regimen, trend CBC and temperature curve, trend BMP
-Wean oxygen for SpO2 goal >90%
-ID recommendations appreciated
#Newly diagnosed HIV
#Acquired immunodeficiency syndrome
-Unclear source of infection; adamantly denies extramarital affairs and IVDU
-Some concern that this may be iatrogenic from medical care [place] in the past
-CD4 count was 27, HIV-1 viral load 5,100,000; currently with PJP pneumonia as above
-Planning to start Biktarvy, Monitor for room immune reconstitution syndrome
-Patient's should receive testing
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
-DEX, ANCA, RF negative; low suspicion for vasculitis
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
-Treatment for Kaposi's sarcoma with antiretroviral therapy
#Tobacco use
-Encourage cessation
Diet: Regular
Precautions: Neutropenic
DVT prophylaxis: SQ Lovenox
CODE STATUS: Full code
Plan of care discussed with ID
Patient expressed that medical information should not be disclosed to any person besides herself (Bree) and the patient's brother (Marina)
Anticipated Discharge: > 48 hours
Subjective/Interval History
-
Date of Service: November 18, 2024
Seen and examined at the bedside. No acute events reported overnight. AFVSS this morning on low-level O2
States that his breathing is improving though still has exertional dyspnea. Continued to have cough. Denies fevers. HIV 1 viral load 5,100,000
Denies any new complaints. Mica Layer WS250 utilized
Objective Data
-
Labs:
Laboratory Results
11/18/24
06:19
WBC 7.7
Hgb 11.9 L
Hct 34.7 L
Plt Count 251
Sodium 139
Potassium 5.3 H
Chloride 104
Carbon Dioxide 24
BUN 19
Creatinine 0.8
Glucose 146 H
Calcium 9.1
Vital Signs:
Vital Signs
Temp Pulse Resp BP Pulse Ox
97.7 F 86 18 96/68 98
11/18/24 07:00 11/18/24 13:20 11/18/24 13:20 11/18/24 07:00 11/18/24 07:38
I&O
11/17/24 11/18/24 11/19/24
06:59 06:59 06:59
Intake Total 300 / 300 770 / 770
Output Total 600 / 600
Balance -300 / -300 770 / 770
Review of Systems
-
History Source: Patient
All other systems: Reviewed and negative
Physical Exam
-
General: Well Developed, No Apparent Distress, Comfortable and Cachectic
HEENT: Normocephalic, Atraumatic, Moist Mucous Membranes, Anicteric and Oxygen
Respiratory: Clear to Auscultation and Non Labored Respirations; Negative Accessory Resp Muscle Use
Cardiac: Regular Rhythm and S1/S2; Negative Murmur, Rub or Gallop
GI: Soft, Nontender, Nondistended and Normal Bowel Sounds
Musculoskeletal: No Clubbing, No Cyanosis and No Edema
Skin: Warm, Dry and Normal Turgor; Negative Rash
Neuro: AO x 3 and Nonfocal/Grossly Intact
Psych: Calm
Data Reviewed
-
Labs: Labs Reviewed by me and Discussed with Patient
[2024-11-18 15:00] VITALS: BP 108/71
[2024-11-18 15:01] LABS: Aspergillus fumigatus #1 Ab None Detected (None Detected); Aspergillus fumigatus #6 Ab None Detected (None Detected); Aureobasidium pullulans Ab None Detected (None Detected); Micropolyspora faeni Ab None Detected (None Detected); Pigeon Serum Ab None Detected (None Detected)
--- NOTE | 2024-11-18 16:50 | W.PN.PUL3 ---
Today's Communication / Plan
-
Autoimmune panel negative and ANCA panel negative
Bronchoscopy BAL silver stain positive for PCP --> Bactrim + prednisone started yesterday per ID
HIV�1 confirmed, viral load testing is elevated at 5,100,000
CD4 count is 27 � Biktarvy starting on 11/17 per ID
Follow-up remaining cultures from bronchoscopy (NGTD)
Transfuse if needed to keep Hb >7 g/dL and platelets >20k
Abx stopped after 11/12 as low likelihood of bacterial PNA
OOB as tolerated
Maintain SpO2 greater 90 - 94%, weaning down supplemental O2 flow rate as tolerated. Would check an ambulatory pulse oximetry prior to discharge.
Patient is stable on minimal supplemental oxygen, and remaining management is going to be directed predominately by Infectious Disease. Recommend his PCP to obtain repeat CXR in 4-6 weeks to assure his pneumonia is resolving/improving.
Our office is available if Pulmonary services are needed as an outpatient. No additional recommendations at this time. Pulmonary service will now sign off. Please reconsult if there are any additional questions/concerns, or if patient's
respiratory status deteriorates.
Assessment
-
Assessment:
#Acute respiratory failure with hypoxia - due to PCP pneumonia
#HIV/AIDS (CD4 count: 27 on 11/15/2024)
#Leukoepnia with lymphopenia due to HIV
#Anemia (mild)
#Papular rash (?kaposi sarcoma?)
#1. Acute hypoxic respiratory failure with interstitial infiltrates. (patient dropped to 86% on room air, improved to mid 90's on supplemental O2)
- Due to PCP pneumonia - bronchoscopy BAL silver stain from 11/16/2024 is positive for PC; also 1,3 beta D glucan is >500 pg/mL
- Started on Bactrim DS 2 tabs TID per ID in addition to prednisone given that he is hypoxic
- Also reported h/o skin rash in 08/2024 with residual nodular lesions on the upper arms and chest. Connective tissue panel negative (DEX, ANCA + RF), Hypersensitivity panel negeative, ESR: 88, CRP: 15.1; Immunoglobulin levels were WNL. Eosinophil
count is normal
- Procalcitonin negative, Influenza A/B and COVID-19 negative. RV-panel negative. ID consulted. Dry cough, not producing any sputum. No obvious consolidation noted on imaging.
- CXR on 11/15 showed worsening bibasilar PNA
- tried to do induced sputum testing on 11/14 but this was unsuccessful - s/p bronchoscopy on 11/16/2024
- HIV is positive (testing returned reactive on 11/14/2024 � HIV1 --> viral load testing is pending
- Started on Biktarvy on 11/17
- Mycoplasma IgM negative & Ig.12
- ABx stopped per ID as no obvious clinical signs of pneumonia (s/p rocephin/Azithro x 2 days)
- ID recommends skin biopsy of skin lesions given possible neutrophilic dermatoses - kaposi sarcoma lesions?
- QuantiFERON + syphylis negative; Cryptococcal antigen + syphilis serology also both negative; ID added on Bartonella serology + histoplasma antibodies + Ag --> hiso serum Ag negative, Bartonella antibodies negative
- trend ANC as he was neutropenic on 11/13--> hematology consulted and recs appreciated - they have signed off as WBC had normalized (ANC: [id number] today)
- Bedside spirometry from 11/12 shows a severe obstructive lung defect + severe restriction; poor effort on postbronchodilator testing. Started DuoNebs TID on 11/13 and he says it is helping his SOB
- BNP is normal. No clinical s/s of volume overload. Echo checked on 11/13/2024 showing normal biventricular size/systolic function without regional WMA, with normal diastolic function and no significant valvular disease
- Patient was seen at [place] in August 2024 for skin rash and then later in September for shortness of breath, recommend obtaining records for review
Patient is stable on minimal supplemental oxygen, and remaining management is going to be directed predominately by Infectious Disease. Would recommend his PCP to obtain repeat testing with CXR in 4-6 weeks. Our office is available if pulmonary
services are needed as an outpatient. No additional recommendations at this time. Pulmonary service will now sign off. Thank you for allowing us to be involved in the care of this patient. Please reconsult if there are any additional
questions/concerns, or if patient's respiratory status deteriorates.
Total time spent today was 29 minutes for this encounter. Time includes reviewing laboratory test/imaging results, reviewing pertinent medical records, obtaining and reviewing medical history, performing an appropriate exam, ordering medications,
tests and procedures. Time also includes documentation of this encounter, coordinating patient care and communicating with other healthcare professionals. Total time does not include separately billed tests performed on this date of service.
Video on site services specialist service was used to communicate with the patient. Discussed case with the primary team and answered all the patient's questions.
Data:
CT Chest 10/2024: 1. Moderate amount of bilateral perihilar ground-glass opacity with axial interstitial thickening in the lower lobes. Diagnostic possibilities are (1) an acute inflammatory pneumonitis (such as vaping-associated lung disease) or
(2) viral or atypical bacterial pneumonia.
2. Small amount of subpleural airspace consolidation in the posterior and lateral basilar segments of the left lower lobe and mild subpleural airspace consolidation in the right lower lobe. Diagnostic possibilities are (1) pneumonia, (2)
subsegmental atelectasis, or (3) an inflammatory airspace consolidation.
3. Mildly decreased bilateral lung volumes.
4. Mild mediastinal and bilateral hilar lymphadenopathy.
5. No PE
CXR 11/11/2024: Moderate amount of bilateral perihilar ground-glass opacity which is predominantly located in the lower lobes and appears to surround increased interstitial markings. Diagnostic possibilities are (1) mild interstitial and alveolar
cardiogenic pulmonary edema, (2) viral pneumonia, (3) a mild inflammatory pneumonitis, or (4) mild subsegmental atelectasis secondary to low lung volumes.
CXR 11/15/2024: Findings suggesting moderate bibasilar pneumonia. Significantly progressed..
Echo 11/13/2024:
Normal biventricular size and systolic function without regional wall motion
abnormality.
Normal diastolic function.
No significant valvular disease.
Insufficient TR for estimation of PASP.
No prior study available for comparison.
Subjective Data
-
Date of Service:
Date of Service: November 18, 2024
Chief Complaint: Pulmonary Follow Up
Subjective:
Patient seen earlier this afternoon (late note entry). Laundry Equipment Operator used for this encounter (on site services specialist ID #: [id number]). He is breathing comfortably on 2 L/min nasal cannula, saturating 99%. He still feels short of breath with activity but it is not
worsening. Endorses mild cough with activity. He overall feels better today. Denies chest pain, PRESCOTT, nausea, fevers or chills.
Review of Systems
General: Other (Negative unless mentioned above)
Objective Data
Data Reviewed
Vital Signs / I&O / Oxygen:
Vital Signs
Temp Pulse Resp BP Pulse Ox
97.7 F 89 20 96/68 98
11/18/24 07:00 11/18/24 07:38 11/18/24 07:38 11/18/24 07:00 11/18/24 07:38
Intake and Output
11/17/24 11/18/24 11/19/24
06:59 06:59 06:59
Intake Total 300 / 300 770 / 770
Output Total 600 / 600
Balance -300 / -300 770 / 770
SaO2 98
Nasal Cannula flow liters per 2
minute
Physical Exam
General: Respiratory Distress (negative), Comfortable, Chills (negative) and Sweats (negative)
HEENT: Normocephalic and Anicteric
Cardiovascular: S1-S2, Rub (negative) and Peripheral Edema (negative)
Respiratory: Wheeze (negative), Rhonchi (negative), Non-Labored Respirations, Stridor (negative) and Other (Coarse breath sounds heard bilaterally)
GI: Soft, Non Distended, Non Tender and Normal Bowel Sounds
Neurology: AO x 3 and Tremors (negative)
Skin: Warm, Dry, Cyanosis (negative) and Jaundice (negative)
Labs/Micro/Reports
Lab Data
11/18/24 06:19
11/18/24 06:19
Microbiology
11/16/24 11:45 Bronch Left Lower Lobe Respiratory Culture - Preliminary
11/16/24 11:45 Bronch Left Lower Lobe Gram Stain - Preliminary
11/12/24 05:58 Blood/Venous Blood Culture - Final
No Growth - Final Report
11/11/24 15:02 Blood/Venous Blood Culture - Final
No Growth - Final Report
11/16/24 11:45 Bronch Left Lower Lobe Fungal Culture - Preliminary
Culture in progress.
Positive cultures are reported as soon as detected.
Final report to follow in four to five weeks.
[2024-11-18] MEDS: LOVENOX SC (17:47)
[2024-11-18 23:26] VITALS: BP 91/62
[2024-11-19] MEDS: DUONEB INH (01:12)
[2024-11-19 07:00] VITALS: BP 99/64
[2024-11-19] MEDS: DUONEB 3 ML INH ×3 (08:01→20:36)
[2024-11-19] MEDS: BACTRIM DS 800 MG/160 MG 2 TABLET PO ×3 (08:27→22:06)
[2024-11-19] MEDS: DELTASONE 40 MG PO ×2 (08:27→22:06)
[2024-11-19] MEDS: BIKTARVY 50-200-25 MG TABLET 1 TABLET PO (08:35)
[2024-11-19 08:53] LABS: Blood Urea Nitrogen 19 mg/dl (9-20); Calcium 9.3 mg/dl (8.4-10.2); Carbon Dioxide 25 mmol/L (22-30); Chloride 104 mmol/L (98-107); Estimated Creatinine Clearance 87 ml/min; Glucose 111 mg/dl (70-99); Potassium 5.3 mmol/L (3.5-5.1); Sodium 136 mmol/L (135-145); eGFR > 60.00
[2024-11-19 09:01] LABS: % Basophils 0.1 % (0-2); % Immature Granulocytes 0.3 % (0-0.5); % Lymphocytes 6.5 % (20.5-51.1); % Monocytes 5.6 % (1.7-9.3); % Neutrophils 87.5 % (42.2-75.2); Absolute Lymphocytes 0.6 10^3/uL (1.2-3.4); Absolute Monocytes 0.5 10^3/uL (0.1-0.6); Absolute Neutrophils 8.2 10^3/uL (1.4-6.5); Hematocrit 32.8 % (39.0-52.0); Hemoglobin 11.2 g/dL (13.0-18.0); Mean Corp Hgb Conc. 34.1 g/dL (33.0-37.0); Mean Corpuscular Hgb 28.9 pg (27.0-31.0); Mean Corpuscular Volume 84.8 fL (80.0-94.0); Mean Platelet Volume 10.4 fL (7.4-10.4); Nucleated Red Blood Cells % 0 % (-); Platelet Count 264 10^3/uL (130-400); Red Blood Cell Count 3.87 10^6/uL (4.70-6.10); Red Cell Dist. Width 15.1 % (11.5-14.5); White Blood Cell Count 9.3 10^3/uL (4.8-10.8)
[2024-11-19] MEDS: LOKELMA 10 GRAM PO (12:10)
--- NOTE | 2024-11-19 14:26 | W.PN.HOSP.TC ---
Today's Communication/Plan
-
Continue Biktarvy
Continue Bactrim 3 times daily and prednisone taper
Check C. difficile, stool culture, stool O&P
Monitor for immune reconstitution
Neutropenic precautions
Lokelma/low K diet
Assessment / Plan
Assessment / Plan
#Acute hypoxemic respiratory failure
#Pneumocystis jiroveci pneumonia
-Status post diagnostic bronchoscopy on 11/16 with silver staining consistent with PJP
-Chest imaging with bilateral groundglass opacities, required up to 4 L O2 here
-Was started on oral Bactrim and prednisone with O2 requirements down to 1 to 2 L
-Will continue current regimen, trend CBC and temperature curve, trend BMP
-Wean oxygen for SpO2 goal >90%
-ID recommendations appreciated
#Newly diagnosed HIV
#Acquired immunodeficiency syndrome
-Unclear source of infection; adamantly denies extramarital affairs and IVDU
-Some concern that this may be iatrogenic from medical care [place] in the past
-CD4 count was 27, HIV-1 viral load 5,100,000; currently with PJP pneumonia as above
-Continue Biktarvy, Monitor for room immune reconstitution syndrome
-Patient's and any children should receive testing
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
-DEX, ANCA, RF negative; low suspicion for vasculitis
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
-Treatment for Kaposi's sarcoma with antiretroviral therapy
#Diarrhea and abdomen pain
-Has had 1 episode of watery stool over the last day, some tenderness to LLQ palpation today
-With his immunosuppression he is at high risk for opportunistic infections as well as regular community infection
-Spoke with ID, question if this could be related to Biktarvy and not infectious finding
-Will check C. difficile, stool cultures, stool O&P for completeness
-Continue to monitor
#Tobacco use
-Encourage cessation
#Hyperkalemia
-Potassium 5.3 this morning, secondary to Bactrim
-Start Lokelma x1 dose and low potassium diet
-Continue to monitor BMP
Diet: Regular
Precautions: Neutropenic
DVT prophylaxis: SQ Lovenox
CODE STATUS: Full code
Plan of care discussed with ID
Patient expressed that medical information should not be disclosed to any person besides herself (Bree) and the patient's brother (Marina)
Anticipated Discharge: > 48 hours
Subjective/Interval History
-
Date of Service: November 19, 2024
Seen and examined at the bedside. Proofsheet Corrector [id number] utilized.
No events reported overnight. AFVSS today
States he did have 1 episode of watery diarrhea, some mild abdomen pain this morning
Objective Data
-
Labs:
Laboratory Results
11/19/24
08:21
WBC 9.3
Hgb 11.2 L
Hct 32.8 L
Plt Count 264
Sodium 136
Potassium 5.3 H
Chloride 104
Carbon Dioxide 25
BUN 19
Creatinine 0.8
Glucose 111 H
Calcium 9.3
Vital Signs:
Vital Signs
Temp Pulse Resp BP Pulse Ox
97.5 F 80 16 99/64 96
11/19/24 07:00 11/19/24 07:00 11/19/24 08:04 11/19/24 07:00 11/19/24 08:04
I&O
11/18/24 11/19/24 11/20/24
06:59 06:59 06:59
Intake Total 770 / 770 1530 / 1530
Balance 770 / 770 1530 / 1530
Review of Systems
-
History Source: Patient
All other systems: Reviewed and negative
Physical Exam
-
General: Well Developed, Well Nourished, No Apparent Distress and Cachectic
HEENT: Normocephalic, Atraumatic, Moist Mucous Membranes and Anicteric
Respiratory: Clear to Auscultation and Non Labored Respirations; Negative Accessory Resp Muscle Use
Cardiac: Regular Rhythm and S1/S2; Negative Murmur, Rub or Gallop
GI: Soft, Nondistended, Normal Bowel Sounds and Tender (LLQ tenderness, no peritoneal sign)
Musculoskeletal: No Clubbing, No Cyanosis and No Edema
Skin: Warm, Dry and Normal Turgor; Negative Rash
Neuro: AO x 3 and Nonfocal/Grossly Intact
Data Reviewed
-
Labs: Labs Reviewed by me, Discussed with Physician (Infectious disease) and Discussed with Patient
[2024-11-19 15:00] VITALS: BP 101/61
--- NOTE | 2024-11-19 15:45 | RESPNOTE ---
patient's SpO2 96% on 2L. RA trial- patient maintained 92-93% on RA after 20minutes. discussed with patient with pelt inspector that oxygen will stay off for now but will continue to check SpO2.
[2024-11-19] MEDS: LOVENOX SC (16:40)
--- NOTE | 2024-11-19 22:37 | W.PN.UPDATE ---
Update Note
Progress Note Update
Asked to evaluate patient for painful mouth. On evaluation, white patches noted on tongue and throat, appears to be oral candidiasis. Ordered nystatin 5 ml PO swish and swallow QID starting tonight.
[2024-11-19 23:00] VITALS: BP 99/67
[2024-11-19] MEDS: MYCOSTATIN ORAL SUSPENSION 5 ML PO (23:37)
[2024-11-20 07:00] LABS: % Basophils 0.1 % (0-2); % Immature Granulocytes 0.7 % (0-0.5); % Lymphocytes 5.3 % (20.5-51.1); % Monocytes 5.4 % (1.7-9.3); % Neutrophils 88.5 % (42.2-75.2); Absolute Immature Granulocytes 0.1 10^3/uL (0-0.05); Absolute Lymphocytes 0.4 10^3/uL (1.2-3.4); Absolute Monocytes 0.4 10^3/uL (0.1-0.6); Absolute Neutrophils 6.7 10^3/uL (1.4-6.5); Hematocrit 34.2 % (39.0-52.0); Hemoglobin 11.7 g/dL (13.0-18.0); Mean Corp Hgb Conc. 34.2 g/dL (33.0-37.0); Mean Corpuscular Volume 84.9 fL (80.0-94.0); Mean Platelet Volume 10.2 fL (7.4-10.4); Nucleated Red Blood Cells % 0 % (-); Platelet Count 306 10^3/uL (130-400); Red Blood Cell Count 4.03 10^6/uL (4.70-6.10); Red Cell Dist. Width 14.6 % (11.5-14.5); White Blood Cell Count 7.6 10^3/uL (4.8-10.8)
[2024-11-20] MEDS: DUONEB 3 ML INH ×3 (07:20→20:04)
[2024-11-20 07:25] LABS: ALT (SGPT) 106 U/L (0-50); AST (SGOT) 53 U/L (17-59); Albumin 3.8 g/dl (3.5-5.0); Alkaline Phosphatase 85 U/L (38-126); Blood Urea Nitrogen 21 mg/dl (9-20); Carbon Dioxide 23 mmol/L (22-30); Chloride 101 mmol/L (98-107); Estimated Creatinine Clearance 87 ml/min; Glucose 136 mg/dl (70-99); Potassium 4.9 mmol/L (3.5-5.1); Sodium 137 mmol/L (135-145); Total Bilirubin 0.6 mg/dl (0.2-1.3); Total Protein 7.8 g/dl (6.3-8.2); eGFR > 60.00
[2024-11-20 07:35] VITALS: BP 96/66
[2024-11-20] MEDS: DELTASONE 40 MG PO ×2 (09:27→21:40)
[2024-11-20] MEDS: BACTRIM DS 800 MG/160 MG 2 TABLET PO ×3 (09:27→21:39)
[2024-11-20] MEDS: MYCOSTATIN ORAL SUSPENSION 5 ML PO (09:30)
[2024-11-20] MEDS: BIKTARVY 50-200-25 MG TABLET 1 TABLET PO (10:03)
--- NOTE | 2024-11-20 12:13 | W.PN.ID1 ---
Date of Service
Date of Service: November 20, 2024
Today's Communication
- c/w PJP tx with Bactrim DS 2 tabs po q8h x 21 days
- c/w prednisone 40mg bid x 5 days total (today is final day), then prednisone 40 mg PO qday x5 days then prednisone 20 mg PO qday x11 days
- Monitor WBC count, potassium, renal function at least weekly while on high dose bactrim
- Low K diet at home
- start fluconazole 200 mg PO qday x 3 weeks (a bit beyond the completion of steroid taper)
- - started biktarvy - I put in script for biktarvy x30 days plus one refill however we have learned biktarvy is tier three, I will assess what other ARVs might be tier one for the patient
Assessment / Plan
# AIDS/HIV
# Fevers x 3 months - resolved
# Presumptive PJP Pneumonia
# Suspected [place] Violaceous raised papules skin lesions x 3 months
# Cachexia
# Hypoxia with ambulation and at rest
# Leukopenia - resolved
# Oral/possibly esophageal Thrush
# Transient neutropenia resolved spontaneously
# Anemia
# Immigrated from [place] 3 years ago
- Patient expressed that she would like for the doctor to not disclose any diagnose about patient to anyone except herself (Bree) and his brother (Marina).
- Procalcitonin negative
- TB screen negative ([facility])
- Syphilis neg.
- Serum crypto Ag neg.
- Serum histo ag negative
- Histoplasma urine pending; serum complement fixation negative
- Bartonella (bacillary angiomatosis) pending
- AFB blood culture reorded - abd CT without lymphadenopathy or HSM
- BAL prelim positive for PJP
- aspergillus, aureobasidium, micropolyspora and pigeon serum IgG were sent by pulmonary service - in progress
- white plaques and painful tongue noted
- HIV screen REACTIVE, with confirmation with HIV NAAT
Per patient, one sexual partner () in his lifetime. No IVDU. No hx transfusions. Patient is understandably upset, I do wonder about whether there was a break in infection prevention during a medical procedure such as vaccination in another
country.
- CD4 count 27, HIV viral load 5,000,000
- skin lesions suggestive of Kaposi sarcoma. Tx is antiviral therapy.
- started biktarvy - I put in script for biktarvy x30 days plus one refill however we have learned biktarvy is tier three, I will assess what other ARVs might be tier one for the patient
- I do not recommend additional prophylaxis such as for MAC at this time, patient will follow up with Dr Frank
- 11/16 s/p bronchoscopy
BAL fluid consistent with PJP on GMS fungal stain, PJP DFA reflex to PCR positive
- pleural fluid for AFB, fungal cx's in progress
- beta-d glucan assay strongly positive at >500, most suggestive of PJP given overall picture
- c/w PJP tx with Bactrim DS 2 tabs po q8h x 21 days
- c/w prednisone 40mg bid x 5 days total (today is final day), then prednisone 40 mg PO qday x5 days then prednisone 20 mg PO qday x11 days
- Monitor WBC count, potassium, renal function at least weekly while on high dose bactrim
- Low K diet at home
- start fluconazole 200 mg PO qday x 3 weeks (a bit beyond the completion of steroid taper)
- Follow temps, oxygen status.
- follow up with Dr Frank in 2-3 weeks
nonbillable note, I was not able to examine patient today
Chief Complaint
-: Fever, Pneumonia and Other (Skin lesions, AIDS)
Subjective / Review of Systems
remains afebrile
bp overall stable
now saturating well on room air
no events reported by nursing staff
Vital Signs / Physical Exam
Vital Signs
Vital Signs
Temp Pulse Resp BP Pulse Ox
97.9 F 84 16 96/66 97
11/20/24 07:35 11/20/24 07:35 11/20/24 07:35 11/20/24 07:35 11/20/24 08:15
Objective Data
Lab Data
Lab Results
11/20/24 06:33
11/20/24 06:33
ESR 88 mm/hour (0-20) H 11/12/24 16:57
Estimated Creat Clear 87 ml/min 11/20/24 06:33
Lactic Acid 1.8 mmol/L (0.7-2.0) 11/11/24 15:02
Total Bilirubin 0.6 mg/dl (0.2-1.3) 11/20/24 06:33
AST 53 U/L (17-59) 11/20/24 06:33
ALT 106 U/L (0-50) H 11/20/24 06:33
Alkaline Phosphatase 85 U/L (38-126) 11/20/24 06:33
C-Reactive Protein 15.10 mg/L (0.0-10.00) H 11/12/24 16:57
Most recent labs reviewed.
Micro Results:
11/16/24 11:45 Acid Fast Bacilli Smear - Preliminary
Bronch Left Lower Lobe Acid Fast Bacilli Culture - Preliminary
11/16/24 11:45 Respiratory Culture - Final
Bronch Left Lower Lobe Gram Stain - Final
11/12/24 05:58 Blood Culture - Final
Blood/Venous No Growth - Final Report
11/11/24 15:02 Blood Culture - Final
Blood/Venous No Growth - Final Report
11/16/24 11:45 Fungal Culture - Preliminary
Bronch Left Lower Lobe Culture in progress.
Positive cultures are reported as soon as detected.
Final report to follow in four to five weeks.
11/12/24 16:21 Influenza Type A (PCR) - Final
Nasalpharynx Not Detected
Influenza Type A (H1) (PCR) - Final
Not Detected
Influenza Type A (H3) (PCR) - Final
Not Detected
Influenza Type B (PCR) - Final
Not Detected
Resp Syncytial Virus Type A (PCR) - Final
Not Detected
Resp Syncytial Virus Type B (PCR) - Final
Not Detected
Adenovirus DNA (PCR) - Final
Not Detected
Human Metapneumovirus (PCR) - Final
Not Detected
Parainfluenza Virus Type 1 (PCR) - Final
Not Detected
Parainfluenza Virus Type 2 (PCR) - Final
Not Detected
Parainfluenza Virus Type 3 (PCR) - Final
Not Detected
Parainfluenza Virus Type 4 - Final
Not Detected
Rhinovirus (PCR) - Final
Not Detected
11/11/24 15:02 Influenza Types A & B (MARA) - Final
Nasal Swab Negative for Influenza A & B, NAAT
Negative results must be combined with clinical observations
and patient history.
Nucleic Acid Amplification test (NAAT)performed on the
[employer] platform.
11/11/24 CXR: Moderate amount of bilateral perihilar ground-glass opacity which is predominantly located in the lower lobes and appears to surround increased interstitial markings. Diagnostic possibilities are (1) mild interstitial and alveolar
cardiogenic pulmonary edema, (2) viral pneumonia, (3) a mild inflammatory pneumonitis, or (4) mild subsegmental atelectasis secondary to low lung volumes.
11/11/[address]: Moderate amount of bilateral perihilar ground-glass opacity with axial interstitial thickening in the lower lobes. Diagnostic possibilities are (1) an acute inflammatory pneumonitis (such as vaping-associated lung disease) or (2)
viral or atypical bacterial pneumonia.
2. Small amount of subpleural airspace consolidation in the posterior and lateral basilar segments of the left lower lobe and mild subpleural airspace consolidation in the right lower lobe. Diagnostic possibilities are (1) pneumonia, (2)
subsegmental atelectasis, or (3) an inflammatory airspace consolidation.
3. Mildly decreased bilateral lung volumes.
4. Mild mediastinal and bilateral hilar lymphadenopathy.
11/15/24 CT a/p: Mild urinary bladder wall thickening, nonspecific. Recommend correlation with a urinalysis. No other acute inflammatory process identified in the abdomen or pelvis. Bibasilar pulmonary opacities again may reflect atelectasis or mild
pneumonia.
[2024-11-20] MEDS: MYCOSTATIN ORAL SUSPENSION PO (14:11)
--- NOTE | 2024-11-20 14:46 | CM ---
CM met with Tobias to discuss discharge plans. Pt speaks [place], so interpretation line utilized to discuss plan for [facility]. Otonielvin advised that his younger brother would be able to drive him to an appointment. CM to
assist with coordinating appointment at [facility] when ready for discharge.
Plan: Discharge to home with [facility].
[2024-11-20] MEDS: DIFLUCAN 200 MG PO (15:24)
[2024-11-20 15:25] VITALS: BP 91/69
[2024-11-20] MEDS: LOVENOX SC (15:59)
--- NOTE | 2024-11-20 17:19 | W.PN.HOSP.TC ---
Today's Communication/Plan
-
Continue Bactrim and prednisone taper.
Home O2 assessment.
Continue antiretroviral therapy
Discharge planning
Assessment / Plan
Assessment / Plan
#Acute hypoxemic respiratory failure
#Pneumocystis jiroveci pneumonia
-Status post diagnostic bronchoscopy on 11/16 with silver staining consistent with PJP
-Chest imaging with bilateral groundglass opacities, required up to 4 L O2 here
-Was started on oral Bactrim and prednisone with O2 requirements down to 1 to 2 L
-Will continue current regimen, trend CBC and temperature curve, trend BMP
-Wean oxygen for SpO2 goal >90%
-ID recommendations appreciated
#Newly diagnosed HIV
#Acquired immunodeficiency syndrome
-Unclear source of infection; adamantly denies extramarital affairs and IVDU
-Some concern that this may be iatrogenic from medical care [place] in the past
-CD4 count was 27, HIV-1 viral load 5,100,000; currently with PJP pneumonia as above
-Continue Biktarvy, Monitor for room immune reconstitution syndrome
-Patient's and any children should receive testing
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
-DEX, ANCA, RF negative; low suspicion for vasculitis
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
-Treatment for Kaposi's sarcoma with antiretroviral therapy
#Diarrhea and abdomen pain
-Has had 1 episode of watery stool over the last day, some tenderness to LLQ palpation today
-With his immunosuppression he is at high risk for opportunistic infections as well as regular community infection
-Spoke with ID, question if this could be related to Biktarvy and not infectious finding
-Will check C. difficile, stool cultures, stool O&P for completeness
-Continue to monitor
#Tobacco use
-Encourage cessation
#Hyperkalemia
-Potassium 5.3 this morning, secondary to Bactrim
-Start Lokelma x1 dose and low potassium diet
-Continue to monitor BMP
Diet: Regular
Precautions: Neutropenic
DVT prophylaxis: SQ Lovenox
CODE STATUS: Full code
Plan of care discussed with ID
Patient expressed that medical information should not be disclosed to any person besides herself (Bree) and the patient's brother (Marina)
Anticipated Discharge: 24 - 48 hours
Subjective/Interval History
-
Date of Service: November 20, 2024
Objective Data
-
Labs:
Laboratory Results
11/20/24
06:33
WBC 7.6
Hgb 11.7 L
Hct 34.2 L
Plt Count 306
Sodium 137
Potassium 4.9
Chloride 101
Carbon Dioxide 23
BUN 21 H
Creatinine 0.8
Glucose 136 H
Calcium 9.0
Total Bilirubin 0.6
AST 53
ALT 106 H
Alkaline Phosphatase 85
Vital Signs:
Vital Signs
Temp Pulse Resp BP Pulse Ox
97.8 F 90 18 91/69 97
11/20/24 15:25 11/20/24 15:25 11/20/24 15:25 11/20/24 15:25 11/20/24 15:25
I&O
11/19/24 11/20/24 11/21/24
06:59 06:59 06:59
Intake Total 1530 / 1530 1919
Balance 1530 / 1530 1919
Physical Exam
-
General: Well Developed and No Apparent Distress
HEENT: Normocephalic, Atraumatic and Moist Mucous Membranes
Respiratory: Clear to Auscultation
Cardiac: Regular Rhythm and S1/S2; Negative Murmur, Rub or Gallop
GI: Soft, Nontender, Nondistended and Normal Bowel Sounds; Negative Organomegaly
Rectal: Deferred by Provider
Musculoskeletal: No Clubbing, No Cyanosis and No Edema
Skin: Negative Rash
Neuro: Nonfocal/Grossly Intact
[2024-11-20 23:48] VITALS: BP 106/68
[2024-11-21 07:35] VITALS: BP 101/68
[2024-11-21] MEDS: DUONEB 3 ML INH ×2 (07:35→13:16)
[2024-11-21] MEDS: BIKTARVY 50-200-25 MG TABLET 1 TABLET PO (09:00)
[2024-11-21] MEDS: BACTRIM DS 800 MG/160 MG 2 TABLET PO ×2 (09:00→15:45)
[2024-11-21] MEDS: DELTASONE 40 MG PO (09:00)
[2024-11-21] MEDS: DIFLUCAN 200 MG PO (09:00)
[2024-11-21 10:17] LABS: Blood Urea Nitrogen 24 mg/dl (9-20); Carbon Dioxide 19 mmol/L (22-30); Chloride 102 mmol/L (98-107); Estimated Creatinine Clearance 77 ml/min; Glucose 180 mg/dl (70-99); Potassium 4.8 mmol/L (3.5-5.1); Sodium 134 mmol/L (135-145); eGFR > 60.00
[2024-11-21 11:43] LABS: Hepatitis B Surface Antigen Negative (Negative)
[2024-11-21 12:01] LABS: Hepatitis A Antibody, Total Positive (Negative); Hepatitis B Core Ab, Total Negative (Negative); Hepatitis B Surface Antibody Negative; Hepatitis C Antibody Negative (Negative)
--- NOTE | 2024-11-21 12:16 | W.PN.ID1 ---
Date of Service
Date of Service: November 21, 2024
Today's Communication
switch to atripla on dc
c/w bactrim/prednisone/fluconazole as listed
low K diet at home
weekly cbc and BMP for the next 2 weeks while on the high dose bactrim
follow up with Dr Frank in 2-3 weeks.
Assessment / Plan
# AIDS/HIV
# Fevers x 3 months - resolved
# Presumptive PJP Pneumonia
# Suspected [place] Violaceous raised papules skin lesions x 3 months
# Cachexia
# Hypoxia with ambulation
# Oral/possibly esophageal Thrush
# Transient neutropenia resolved spontaneously
# Anemia
# Immigrated from [place] 3 years ago
- Patient expressed that she would like for the doctor to not disclose any diagnose about patient to anyone except herself (Bree) and his brother (Marina).
- Procalcitonin negative
- TB screen negative ([facility])
- Syphilis neg.
- Serum crypto Ag neg.
- Serum histo ag negative
- Histoplasma urine pending; serum complement fixation negative
- Bartonella (bacillary angiomatosis) pending
- AFB blood culture reorded - abd CT without lymphadenopathy or HSM
- BAL prelim positive for PJP
- aspergillus, aureobasidium, micropolyspora and pigeon serum IgG were sent by pulmonary service - in progress
- white plaques and painful tongue noted
- HIV screen REACTIVE, with confirmation with HIV NAAT
Per patient, one sexual partner () in his lifetime. No IVDU. No hx transfusions. Patient is understandably upset, I do wonder about whether there was a break in infection prevention during a medical procedure such as vaccination in another
country.
- CD4 count 27, HIV viral load 5,000,000
- skin lesions suggestive of Kaposi sarcoma. Tx is antiviral therapy.
- reviewed drug formulary for patient, Atripla is fully covered by his insurance, Biktarvy may be an option with a prescription assistance card from [employer] however it will take time to set up and i am not certain that the patient will be able to
navigate this process as he is still rather overwhelmed. I have reviewed the risks of atripla with patient including most commonly vivid dreams, also possible irritability, nervousness etc and encouarged him to call our office if he is struggling.
Explained that atripla should be taken on an empty stomach. Initial QTc was 413, now on fluconazole QTc 420, should be able to tolerate the atripla even with the fluconazole. On dc will switch patient to atripla (nonformulary here); he was not
interested in trying for prescription assistance with biktarvy, but if he has side effects he may reconsider.
- I do not recommend additional prophylaxis such as for MAC at this time, patient will follow up with Dr Frank
- 11/16 s/p bronchoscopy
BAL fluid consistent with PJP on GMS fungal stain, PJP DFA reflex to PCR positive
- pleural fluid for AFB, fungal cx's in progress
- beta-d glucan assay strongly positive at >500, most suggestive of PJP given overall picture
- c/w PJP tx with Bactrim DS 2 tabs po q8h x 21 days
- c/w prednisone 40mg bid x 5 days total (today is final day), then prednisone 40 mg PO qday x5 days then prednisone 20 mg PO qday x11 days
- Monitor WBC count, potassium, renal function at least weekly while on high dose bactrim
- Low K diet at home
- start fluconazole 200 mg PO qday through 12/13
- Follow temps, oxygen status.
- follow up with Dr Frank in 2-3 weeks; should also follow up with Dr Frank which will be arranged with our office, children to follow up with Lauryn WHITE at [facility].
Chief Complaint
-: Fever, Pneumonia and Other (Skin lesions, AIDS)
Subjective / Review of Systems
afebrile
bp stable
remains on room air
no events recorded by nursing overnight
extended discussion about 40 minutes with jewel sorter [id number] in [facility]; patients main concern was modes of viral transmission, also reviewed potential AEs and need for follow up as below.
Vital Signs / Physical Exam
Vital Signs
Vital Signs
Temp Pulse Resp BP Pulse Ox
97.9 F 88 16 101/68 97
11/21/24 07:35 11/21/24 07:37 11/21/24 07:37 11/21/24 07:35 11/21/24 10:06
Physical Exam
Constitutional: No Acute Distress
Cardiovascular: Regular Rate and S1/S2; Negative Murmur or Rub
Pulmonary: Clear and Symmetric; Negative Wheezes or Rales
Gastrointestinal: Soft, Non Tender, Non Distended and Normal Bowel Sounds
Skin: Warm, Dry and Rash (scattered, nontender violaceous papulaes on the arms); Negative Jaundice
Objective Data
Lab Data
Lab Results
11/20/24 06:33
11/21/24 08:48
ESR 88 mm/hour (0-20) H 11/12/24 16:57
Estimated Creat Clear 77 ml/min 11/21/24 08:48
Lactic Acid 1.8 mmol/L (0.7-2.0) 11/11/24 15:02
Total Bilirubin 0.6 mg/dl (0.2-1.3) 11/20/24 06:33
AST 53 U/L (17-59) 11/20/24 06:33
ALT 106 U/L (0-50) H 11/20/24 06:33
Alkaline Phosphatase 85 U/L (38-126) 11/20/24 06:33
C-Reactive Protein 15.10 mg/L (0.0-10.00) H 11/12/24 16:57
Most recent labs reviewed.
Micro Results:
11/20/24 16:18 AFB Blood Culture - Pending
Blood/Venous
11/16/24 11:45 Fungal Culture - Preliminary
Bronch Left Lower Lobe Culture in progress.
Positive cultures are reported as soon as detected.
Final report to follow in four to five weeks.
11/16/24 11:45 Acid Fast Bacilli Smear - Preliminary
Bronch Left Lower Lobe Acid Fast Bacilli Culture - Preliminary
11/16/24 11:45 Respiratory Culture - Final
Bronch Left Lower Lobe Gram Stain - Final
11/12/24 05:58 Blood Culture - Final
Blood/Venous No Growth - Final Report
11/11/24 15:02 Blood Culture - Final
Blood/Venous No Growth - Final Report
11/12/24 16:21 Influenza Type A (PCR) - Final
Nasalpharynx Not Detected
Influenza Type A (H1) (PCR) - Final
Not Detected
Influenza Type A (H3) (PCR) - Final
Not Detected
Influenza Type B (PCR) - Final
Not Detected
Resp Syncytial Virus Type A (PCR) - Final
Not Detected
Resp Syncytial Virus Type B (PCR) - Final
Not Detected
Adenovirus DNA (PCR) - Final
Not Detected
Human Metapneumovirus (PCR) - Final
Not Detected
Parainfluenza Virus Type 1 (PCR) - Final
Not Detected
Parainfluenza Virus Type 2 (PCR) - Final
Not Detected
Parainfluenza Virus Type 3 (PCR) - Final
Not Detected
Parainfluenza Virus Type 4 - Final
Not Detected
Rhinovirus (PCR) - Final
Not Detected
11/11/24 15:02 Influenza Types A & B (MARA) - Final
Nasal Swab Negative for Influenza A & B, NAAT
Negative results must be combined with clinical observations
and patient history.
Nucleic Acid Amplification test (NAAT)performed on the
[employer] platform.
11/11/24 CXR: Moderate amount of bilateral perihilar ground-glass opacity which is predominantly located in the lower lobes and appears to surround increased interstitial markings. Diagnostic possibilities are (1) mild interstitial and alveolar
cardiogenic pulmonary edema, (2) viral pneumonia, (3) a mild inflammatory pneumonitis, or (4) mild subsegmental atelectasis secondary to low lung volumes.
11/11/[address]: Moderate amount of bilateral perihilar ground-glass opacity with axial interstitial thickening in the lower lobes. Diagnostic possibilities are (1) an acute inflammatory pneumonitis (such as vaping-associated lung disease) or (2)
viral or atypical bacterial pneumonia.
2. Small amount of subpleural airspace consolidation in the posterior and lateral basilar segments of the left lower lobe and mild subpleural airspace consolidation in the right lower lobe. Diagnostic possibilities are (1) pneumonia, (2)
subsegmental atelectasis, or (3) an inflammatory airspace consolidation.
3. Mildly decreased bilateral lung volumes.
4. Mild mediastinal and bilateral hilar lymphadenopathy.
11/15/24 CT a/p: Mild urinary bladder wall thickening, nonspecific. Recommend correlation with a urinalysis. No other acute inflammatory process identified in the abdomen or pelvis. Bibasilar pulmonary opacities again may reflect atelectasis or mild
pneumonia.
Care Review
Plan reviewed with: Physician (coordinated discharge scripts) and Other (Pharmacy- checked out of pocket costs)
--- NOTE | 2024-11-21 14:06 | W.DS.TRANS ---
DC Summary - Toxicology Teacher
-
Discharge Instructions:
Discharge Diagnosis/Procedures HIV/AIDS
PJP pneumonia
Trush
Diet Other diet
Additional Diets 4 gm potassium
Blood Work BMP, CBC weekly
Instructions:
Stand-Alone Forms:
Changes to Home Medications: Yes
Discharge Medications:
DC Medications w/original date entered in [employer]
Tylenol 650 mg PO Q6H PRN fever>100.4 11/11/24
efavirenz 600 mg-emtricitabine 200 mg-tenofovir disoprox 300 mg tablet 1 tab PO HS #30 tabs 11/21/24
fluconazole 200 mg tablet 200 mg PO DAILY #21 tabs 11/21/24
prednisone 20 mg tablet 40 mg (2 x 20 mg) PO DAILY #21 tabs 11/21/24
sulfamethoxazole 800 mg-trimethoprim 160 mg tablet 2 tab PO TID #120 tabs 11/21/24
Home Medication Changes
all of above
Pending Results: No
[2024-11-21 14:16] VITALS: BP 102/69; PULSE 92; O2SAT 95
--- NOTE | 2024-11-21 14:45 | CM ---
met with patient along with hospitalist
appointment made with pcp Dr. Johny Thomas
[address] [place] [id number]
cm called [employer] insurance & stated that this was PCP elected, although per office patient never seen in office.
Spoke with Edwina at Dr. Thomas's office & appointment made for 11/23/24 at 1pm
attorney law clerk will print out chart information for patient
PLAN: Home, follow up appt made with PCP Dr. Johny Thomas
brother to transport
[2024-11-21 15:42] VITALS: BP 125/74
== END 2024-11-21 15:48 | disposition home or self-care (01) | DRG 974 ==
LOC: 3 WEST ACU 22:11
PROVIDERS: Clinical Nurse Specialist Family Health; Hospitalist; Internal Medicine; Internal Medicine Critical Care Medicine; Nurse Practitioner Acute Care; Student in an Organized Health Care Education/Training Program; ADMITTING PHYSICIAN Internal Medicine; ATTENDING PHYSICIAN Internal Medicine; CONSULT PHYSICIAN Internal Medicine; CONSULT PHYSICIAN Internal Medicine Infectious Disease; EMERGENCY PHYSICIAN Emergency Medicine; OTHER PHYSICIAN Internal Medicine Hematology & Oncology
PROC: 0B9J8ZX Drainage of Left Lower Lung Lobe, Via Natural or Artificial Opening Endoscopic, Diagnostic (ICD-10-PCS; 2024-11-16)
PROC: 0B9D8ZX Drainage of Right Middle Lung Lobe, Via Natural or Artificial Opening Endoscopic, Diagnostic (ICD-10-PCS; 2024-11-16)
DX: B20 Human immunodeficiency virus [HIV] disease (principal); J96.01 Acute respiratory failure with hypoxia; A41.89 Other specified sepsis; E46 Unspecified protein-calorie malnutrition; J98.11 Atelectasis; Z68.1 Body mass index [BMI] 19.9 or less, adult; R64 Cachexia; C46.0 Kaposi's sarcoma of skin; B59 Pneumocystosis; F17.210 Nicotine dependence, cigarettes, uncomplicated; D64.9 Anemia, unspecified; D70.9 Neutropenia, unspecified; R23.8 Other skin changes; B37.0 Candidal stomatitis; L98.2 Febrile neutrophilic dermatosis [Sweet]; R19.7 Diarrhea, unspecified; E87.5 Hyperkalemia; R59.0 Localized enlarged lymph nodes; Z60.3 Acculturation difficulty; Z11.52 Encounter for screening for COVID-19
CPT/HCPCS: 88312; 36600; 71046; 71275; 74177; 80048; 80053; 81003; 82164; 82306; 82550; 82607; 82652; 82728; 82746; 82784; 82805; 83516; 83540; 83550; 83605; 83615; 83880; 84145; 84443; 84484; 85025; 85045; 85652; 86038; 86140; 86331; 86361; 86430; 86480; 86606; 86701; 86702; 86704; 86706; 86708; 86738; 86780; 86803; 87015; 87040; 87070; 87102; 87116; 87205; 87327; 87340; 87389; 87502; 87536; 87633; 87811; 88112; 89051; 93005; 93306; 94060; 94640; 96374; 96375; 97116; 97162; 97166; 97530; 99285; Q9967

== ENCOUNTER 2024-12-26 22:10 | Inpatient (IN) | payer OTHER, SELFPAY ==
[2024-12-26] VITALS (8 sets, daily range): BP systolic 112–128; BP diastolic 70–93; BMI 17.4
--- NOTE | 2024-12-26 18:50 | ED.GENMED ---
History of Present Illness
General
Chief Complaint: Cardiac Symptoms
Source: patient, family and product mgr
Time Seen by Provider: 12/26/24 18:49
History of Present Illness
History of Present Illness:
39-year-old male onset of myalgias chest pain short of breath yesterday. Mostly left-sided chest pain. Worse with twisting and turning. Not truly pleuritic. Has been constant since yesterday. History of HIV. On medications.
Past History
Past History
ED Past Medical History: Other (HIV/AIDS. Pneumonia. Possible Kaposi's sarcoma)
ED Past Surgical History: None
Social History
Tobacco: Non-smoker
Alcohol: None
Personal:
Living: with family
Review of Systems
Review of Systems
All Other Systems: Not applicable
ABD/GI: Reports no symptoms
Phy Exam
Physical Exam
Physical Exam:
GENERAL: Alert and oriented in no apparent distress
EYE: Orbits normal.
NECK: Supple, no significant adenopathy.
ENT: Pharynx without erythema
CARDIAC: Tachycardic and regular no murmur
LUNGS: Coarse breath sounds mostly in the left base. Seems to have increased pain with the active sitting up twisting or turning.
ABDOMEN: Soft, without focal tenderness or distention
NEUROLOGICAL: Alert and oriented , grossly non-focal
SKIN: Warm and dry, multiple discrete skin lesions. No petechia or purpura
MUSCULOSKELETAL: No edema,no deformity.Good color
PSYCH: Normal and appropriate interaction.
Course
Orders/Labs/Results
Orders:
Orders
12/26/24 17:27
EKG [Electrocardiogram (*1)] Urgent
Reason for Study: Chest Pain
EKG- Treatment ONCE
12/26/24 18:31
Electrocardiogram (*1) Urgent
Reason for Study: Chest Pain
Cardiac Monitoring- Treatment ONCE
EKG- Treatment ONCE
IV Insert/Care/Rem.- Treatment PRN
O2 Therapy [RESP] Urgent
Titrate/Wean O2 to maintain O2 sat greater than (%): 90
Special Instructions: Maintain sats >/=90%
Pulse Ox/spot Check [RESP] Urgent
Quantity: 1
Special Instructions: ON ROOM AIR
12/26/24 18:44
COVID-19 Antigen Urgent
Source: Nasal Swab
Complete Blood Count/With Diff Urgent
Comprehensive Metabolic Panel Urgent
Troponin I Urgent
Influenza A+B Rapid Molecular Urgent
NATALI Source: Nasal Swab
Specimen Description:
12/26/24 19:05
CT Chest PE Study Urgent
Comment:
Reason For Exam: Left-sided chest pain/short of breath
12/26/24 20:21
Urinalysis Reflex To Culture Urgent
Date Specimen was Collected: 12/26/24
Time Specimen was Collected: 20:20
12/26/24 20:34
Heparin 4,400 units IV NOW STA
Nursing to Place Non Medication Order As Directed
Physician Order: PTT 6 hours after initial start of Heparin infusion
Above order entered?: Yes
12/26/24 20:40
PTT Urgent
Comment: Obtain baseline before beginning heparin infusion if not already collected
12/26/24 20:45
Heparin 22036 Units/250 ml 25,000 units in 250 ml IV PER PROTOCOL
Weight to be used for heparin protocol in kilograms (kg):: 55
Protocol:: DVT/PE
PTT Goal Range to be used:: PTT 73 to 111 seconds
Order type:: Initial
INITIAL Infusion Dose (UNITS/KG/hr) & then follow protocol:: 18 units/kg/hr
Infusion Dose in UNITS/hr & then follow protocol (UNITS/hr):: 1,000
INFUSION RATE in mL/hr & then follow protocol (mL/hr):: 10
For DVT/PE algorithm, re-bolus for low PTT?: Yes
PTT less than or equal to 64 seconds:: Re-bolus 80 units/kg (max 10,000units). Increase by 200 units/hr
(+ 2mL/hr)
PTT 64.1 to 72.9 seconds:: Re-bolus 40 units/kg (max 5,000 units). Increase by 100 units/hr
(+ 1mL/hr)
PTT 73 to 111 seconds:: Target Range. No change in rate.
PTT 111.1 to 130.9 seconds:: Decrease rate by 100 units/hr (- 1 mL/hr)
PTT 131 to 199.9 seconds:: HOLD for 1 hr. Then decrease by 200 units/hr (- 2mL/hr)
PTT greater than or equal to 200 seconds:: HOLD for 2 hrs & Notify Provider. Then decrease by 200 units/hr
(- 2mL/hr)
Lab follow-up:: Each change, PTT q6h until 2 consecutive are therapeutic. Then
PTT daily.
12/26/24 20:49
Heparin 4,400 units IV PRN PRN
12/26/24 20:50
Heparin 2,200 units IV PRN PRN
12/26/24 21:22
Admit/Transfer Patient As Directed
Co-Sign Provider:
Level of Care: Inpatient admission
Assign to:: IMU- Intermediate Care
Physician / Group: [email or web address]
Diagnosis: acute PE plus or minus immune reconstitution inflammatory syndrome
Reason for Hospitalization: acute PE plus or minus immune reconstitution inflammatory syndrome
AIDS
Recent HX PJP PNA
Expected length of stay greater than two midnights?: Yes
ELOS- Estimated Length of Stay in days: 4
I certify the patient meets the requirements for IP care: Yes
12/26/24 21:24
Code Status As Directed
Resuscitation Status: Full Code
12/26/24 22:00
Flush (0.9% Sodium Chloride) [Flush (Nss)] See Dose Instructions IV PER PROTOCOL
12/27/24 03:00
PTT Routine
Abnormal Lab Results
12/26/24
18:44
RBC 3.93 L 10^6/uL
(4.70-6.10)
Hgb 12.1 L g/dL
(13.0-18.0)
Hct 34.5 L %
(39.0-52.0)
RDW 16.1 H %
(11.5-14.5)
Absolute Monos (auto) 1.1 H 10^3/uL
(0.1-0.6)
Lymphocytes % 16.6 L %
(20.5-51.1)
Monocytes % 14.4 H %
(1.7-9.3)
Sodium 131 L mmol/L
(135-145)
Glucose 122 H mg/dl
(70-99)
ALT 53 H U/L
(0-50)
12/26/24 18:44
12/26/24 18:44
Vital Signs
Initial and Last Documented VS:
Initial Vital Signs
Temp Pulse Resp BP Pulse Ox
99.9 F 132 18 118/85 94
12/26/24 17:22 12/26/24 17:22 12/26/24 17:22 12/26/24 17:22 12/26/24 17:22
Last Documented Vital Signs
Temp Pulse Resp BP Pulse Ox
98.6 F 114 24 121/79 95
12/26/24 21:40 12/26/24 21:30 12/26/24 19:30 12/26/24 21:00 12/26/24 21:30
MDM/Problems Addressed
Differential Diagnosis Includes:
Very atypical chest pain for cardiac etiology. Pneumonia PE pneumothorax on the differential. Workup in progress. CT scan pending.
*Radiology
Radiology exam reviewed: radiology read reviewed (Pulmonary emboli left lower lobe and segmental. No right heart strain.)
*Pulse Oximetry
Patient hypoxic: no (94%)
*EKG
Interpreted by ED Provider?: Yes
Interpretation: abnormal
Comparison EKG: changes noted
Heart Rate: 108
Rate: tachycardiac
Rhythm: sinus
[place]: normal axis
Interval: normal interval
QRS Pattern: normal QRS
Ischemia: no ischemia
*Critical Care Note
Total Time (30-74mins, 75-104mins- exclusive of procedures): Not Applicable
Data Reviewed
Review of Other/Old Records Reveals: Labs, Records, Radiology Studies and Discharge Summary
Update Note
Update Note:
Patient she is needing well. Blood pressure stable. Heart rate minimally tachycardic. Moderate burden. Will heparinize for now. Patient updated.
ED Attending Note
-
Portions of this chart may have been created with voice recognition software.� Occasional wrong word or��sound alike� substitutions may have occurred due to the inherent limitations of voice recognition software.
Discharge Plan
Departure
Patient Disposition: Admit
Date of Disposition: 12/26/24
Time of Disposition: 20:35
Presentation/result/management discussed w/ accepting MD/DO: Hospitalist
Discharge Problem:
Pulmonary emboli, Pulmonary nodules, History of HIV
Prescriptions:
No Action
Tylenol
650 mg PO Q6H PRN (Reason: fever>100.4)
fluconazole 200 mg Tablet
200 mg PO DAILY Qty: 21 0RF
sulfamethoxazole-trimethoprim 800-160 mg Tablet
2 tab PO TID Qty: 120 0RF
prednisone 20 mg tablet
40 mg PO DAILY Qty: 21 0RF
Rx Instructions:
40 mg daily for 5 days
20 mg daily for 11 days
xpmtksxey-dnytmjlsivla-xpjnbap 600-200-300 mg tablet
1 tab PO HS Qty: 30 1RF
Referrals:
UNKNOWN - PT DOES,NOT KNOW [Family Provider]
Interventions
Interventions:
*Risk Screen - Suicide Last Done: 12/26/24 17:24
*General Assessment Last Done: 12/26/24 17:24
*Neglect/Abuse Screening Last Done: 12/26/24 17:24
*ED COVID-19 Vaccine History Last Done: 12/26/24 17:24
ED- Cardiac Assessment Last Done: 12/26/24 18:53
ED- Pulmonary Assessment Last Done: 12/26/24 18:53
Discharge Date and Time
Print Language: VIETNAMESE
[2024-12-26 19:00] LABS: % Basophils 0.8 % (0-2); % Eosinophils 0.1 % (0-6); % Immature Granulocytes 0.4 % (0-0.5); % Lymphocytes 16.6 % (20.5-51.1); % Monocytes 14.4 % (1.7-9.3); % Neutrophils 67.7 % (42.2-75.2); Absolute Basophils 0.1 10^3/uL (0-0.2); Absolute Lymphocytes 1.2 10^3/uL (1.2-3.4); Absolute Monocytes 1.1 10^3/uL (0.1-0.6); Absolute Neutrophils 4.9 10^3/uL (1.4-6.5); Hematocrit 34.5 % (39.0-52.0); Hemoglobin 12.1 g/dL (13.0-18.0); Mean Corp Hgb Conc. 35.1 g/dL (33.0-37.0); Mean Corpuscular Hgb 30.8 pg (27.0-31.0); Mean Corpuscular Volume 87.8 fL (80.0-94.0); Mean Platelet Volume 8.8 fL (7.4-10.4); Nucleated Red Blood Cells % 0 % (-); Platelet Count 312 10^3/uL (130-400); Red Blood Cell Count 3.93 10^6/uL (4.70-6.10); Red Cell Dist. Width 16.1 % (11.5-14.5); White Blood Cell Count 7.3 10^3/uL (4.8-10.8)
[2024-12-26 19:10] LABS: ALT (SGPT) 53 U/L (0-50); AST (SGOT) 56 U/L (17-59); Albumin 3.6 g/dl (3.5-5.0); Alkaline Phosphatase 124 U/L (38-126); Blood Urea Nitrogen 10 mg/dl (9-20); Calcium 8.8 mg/dl (8.4-10.2); Carbon Dioxide 26 mmol/L (22-30); Chloride 99 mmol/L (98-107); Estimated Creatinine Clearance 95 ml/min; Glucose 122 mg/dl (70-99); Potassium 4.1 mmol/L (3.5-5.1); Sodium 131 mmol/L (135-145); Total Bilirubin 0.3 mg/dl (0.2-1.3); eGFR > 60.00
[2024-12-26 19:14] LABS: COVID-19 Antigen Negative (Negative)
[2024-12-26 19:22] LABS: Troponin I 0.019 ng/ml
[2024-12-26 20:44] LABS: Urine Albumin Negative (Neg - Trace); Urine Bilirubin Negative (Negative); Urine Character Clear (Clear); Urine Color Yellow; Urine Glucose Negative (Negative); Urine Ketone Negative (Negative); Urine Leukocyte Negative (Negative); Urine Nitrite Negative (Negative); Urine Occult Blood Negative (Negative); Urine Specific Gravity 1.005 (<1.030); Urine Urobilinogen Negative (Neg - 1+)
[2024-12-26] MEDS: HEPARIN 4400 UNITS IV (20:57)
[2024-12-26] MEDS: HEPARIN 25000 UNITS/250 ML IV (21:02)
[2024-12-26 21:03] LABS: APTT 29.2 Sec (23.4-35.0)
--- NOTE | 2024-12-26 21:10 | HPS.HSE ---
Family Physician
-
Family Physician: NOT KNOW UNKNOWN - PT DOES
Chief Complaint
-
onset of myalgias, chest pain, short of breath
History of Present Illness
39M Newly Dxed HX HIV, AIDS, PJP PNA , Oral thrush, pw onset of myalgias, chest pain, short of breath yesterday.
- Mostly left-sided chest pain.
- CP worse with twisting and turning.
- Not truly pleuritic.
- Has been constant since yesterday.
last CD4 was 27
- report compliance with atripla, bactrim/prednisone/fluconazole
Medical History
Past Medical History
Past Medical History: Reports Other
Additional Past Medical History:
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
Past Surgical History: Reports None
Social History
Tobacco: Smoker (2 to 3 cigarettes a week)
Alcohol: None
Drug: None
Personal:
Living: With Family
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
Family History
Family History: Other (Mother, father, 1 brother all healthy , parents live in [place] brother lives in the [facility])
Allergies / Home Medications
Allergies reflects when Allergies were last updated in [employer].
Home Medications with original date entered in [employer]
Allergy/Medication List:
Allergies
Allergy/AdvReac Type Severity Reaction Status Date / Time
No Known Allergies Allergy Verified 11/11/24 14:41
Home Medications
Tylenol 650 mg PO
Allergies
Allergy/AdvReac Type Severity Reaction Status Date / Time
No Known Allergies Allergy Verified 12/26/24 17:25
Home Medications
Tylenol 650 mg PO Q6H PRN fever>100.4 11/11/24
efavirenz 600 mg-emtricitabine 200 mg-tenofovir disoprox 300 mg tablet 1 tab PO HS #30 tabs 11/21/24
fluconazole 200 mg tablet 200 mg PO DAILY #21 tabs 11/21/24
prednisone 20 mg tablet 40 mg (2 x 20 mg) PO DAILY #21 tabs 11/21/24
sulfamethoxazole 800 mg-trimethoprim 160 mg tablet 2 tab PO TID #120 tabs 11/21/24
Review of Systems
-
Constitutional: Reports No Symptoms
EENT: Reports No Symptoms
Respiratory: Reports See HPI and Trouble Breathing
Cardiac: Reports Chest Pain
Abdomen/GI: Reports No Symptoms
: Reports No Symptoms
Musculoskeletal: Reports No Symptoms
Skin: Reports No Symptoms
Neurological: Reports No Symptoms
Endocrine: Reports No Symptoms
Hematologic/Lymphatic: Reports No Symptoms
Psych: Reports No Symptoms
Physical Exam
Vital Signs
Vital Signs
Temp Pulse Resp BP Pulse Ox
99.9 F 105 24 121/79 95
12/26/24 17:22 12/26/24 21:00 12/26/24 19:30 12/26/24 21:00 12/26/24 21:00
Physical Exam
General: Well Developed, Well Nourished and No Apparent Distress
HEENT: NormoCephalic, Moist mucous membranes and Atraumatic
Respiratory: Clear
Cardiac: S1/S2 and Regular Rhythm; No Murmur or Rub
GI: Soft, Non Tender, Non Distended and Normal Bowel Sounds; No Organomegaly
Rectal: Deferred by Provider
Musculoskeletal: No Clubbing, No Cyanosis and No Edema
Skin: No Rash
Neuro: Nonfocal/grossly intact
Laboratory Results
-
12/26/24 18:44
12/26/24 18:44
Laboratory Results
APTT 29.2 Sec (23.4-35.0) 12/26/24 20:40
Total Bilirubin 0.3 mg/dl (0.2-1.3) 12/26/24 18:44
AST 56 U/L (17-59) 12/26/24 18:44
ALT 53 U/L (0-50) H 12/26/24 18:44
Alkaline Phosphatase 124 U/L (38-126) 12/26/24 18:44
Troponin I 0.019 ng/ml 12/26/24 18:44
Data Reviewed
-
CT Scan: Report Reviewed by me
Lab Data: Labs Reviewed by me
Old Records: Reviewed
Impression/Plan
-
11/20/24 12/26/24
06:33 18:44
WBC 7.6 7.3
Hgb 11.7 L 12.1 L
Plt Count 306 312
Neutrophils % 88.5 H 67.7
Lymphocytes % 5.3 L 16.6 L
Monocytes % 5.4 14.4 H
12/26/24 CT Chest PE Study
- Prominent pulmonary emboli within left lower lobe lobar and segmental pulmonary arteries.
- No overt CT evidence for right heart strain.
- Scattered tiny bilateral pulmonary nodules, overall slightly progressed from prior
- Findings are most suggestive of infectious/inflammatory etiologies. If the patient is considered high risk, an optional follow-up noncontrast CT chest can be obtained in 12 months. The [facility] Pulmonary Nodule Advisory Board will be
notified.
11/15/24 CT A/P:
- Mild urinary bladder wall thickening, nonspecific.
- Recommend correlation with a urinalysis. No other acute inflammatory process identified in the abdomen or pelvis. Bibasilar pulmonary opacities again may reflect atelectasis or mild pneumonia.
11/11/[address]:
1. Moderate amount of bilateral perihilar ground-glass opacity with axial interstitial thickening in the lower lobes.
Dxtic possibilities are (1) an acute inflammatory pneumonitis (such as vaping-associated lung disease) or (2) viral or atypical bacterial pneumonia.
2. Small amount of subpleural airspace consolidation in the posterior and lateral basilar segments of the left lower lobe and mild subpleural airspace consolidation in the right lower lobe.
Diagnostic possibilities are (1) pneumonia, (2) subsegmental atelectasis, or (3) an inflammatory airspace consolidation.
3. Mildly decreased bilateral lung volumes.
4. Mild mediastinal and bilateral hilar lymphadenopathy.
11/11/24 CXR:
Moderate amount of bilateral perihilar ground-glass opacity which is predominantly located in the lower lobes and appears to surround increased interstitial markings. Diagnostic possibilities are (1) mild interstitial and alveolar cardiogenic
pulmonary edema, (2) viral pneumonia, (3) a mild inflammatory pneumonitis, or (4) mild subsegmental atelectasis secondary to low lung volumes.
Last hospitalist admission:
ASSESSMENT & PLAN
Pending Rx reconciliationon
SIRS clinical features ( (tachycardic , tachypnea)
Possible multifactorial origins due to acute PE plus IRIS ( immune reconstitution inflammatory syndrome)
Acute PE within LLL and segmental pulmonary arteries.
Adequate Oxygenation without O2 support
- agree with Heparin gtt
- Pul consult
Concerning for IRIS (immune reconstitution inflammatory syndrome)
POS Risks s( advanced HIV disease with a low pretreatment CD4 27 + clinical manifestations consistent SIRS + ART initiation and the onset of clinical features of illness within a few months)
- c/w Antiretroviral therapy (ART)
- to consider glucocorticoids
- to consider to resume Bactrim
- ID consult
HX PJP s/p Bactrim and PO prednisone
- No longer on PO bactrim and PO Prednisone
- s/p bronchoscopy on 11/16 with silver staining consistent with PJP
- PRN O2 keep POx
Recently diagnosed HIV complicated by AIDS ( Recent PJP PNA, suspected [place] )
- CD4 count was 27
- HIV-1 VL 5,100,000
- NEG ( DEX, ANCA, RF ) - low suspicion for vasculitis on last admission
- cont with ART
Tobacco use
- Encourage cessation
DVT prophylaxis: on Heparin gtt
Full Code:
IMU
[2024-12-27] VITALS (13 sets, daily range): BP systolic 101–126; BP diastolic 70–89; BMI 16.3; BMI 17.4
--- NOTE | 2024-12-27 00:05 | PTCARENOTE ---
Received patient from ED, ED RN states patient with increased work of breathing, increased s/s of pain, and diaphoresis since verbal report given. RN called JOB Daugherty to assess. Video refrigerating oiler obtained and connected with ID [id number] for
Venezuelan translation as patient primarily Venezuelan speaking, only understanding a few words in greenlandic. Spouse present at bedside as well. Patient confirms pain 9/10 to chest, shoulder, and back; is sharp and increases with movement, relieved with
rest. PRN Tylenol offered, patient declined at this time. Pox 90-92% on RA, COMPUTATIONAL BIOLOGIST placed order for O2 n/c to keep sats >92. Patient placed on 2L o2, pox increased to 98%. Patient aao x3, RN reviewed orientation to room and use of call bridges.
Instructed patient to call RN prior to getting oob, understanding verbalized. Urinal provided, patient verbalizes understanding of use.
Patients confirms patient see's Dr. Johny Thomas #[phone] for HIV management and reports he is his primary doctor. Patient states that his current medication causes insomnia, anxiety, fear among other symptoms and Dr. Thomas was
planning to change medication however has not done so yet. Confirmed with COMPUTATIONAL BIOLOGIST, patient, and spouse, that pharmacy does not carry patients current HIV medication, and requested family bring to hospital. Understanding verbalized.
Patient has heparin gtt at 1000u/10ml/hr, next PPT ordered. Call bridges within reach, will continue to monitor patient closely.
[2024-12-27] MEDS: TYLENOL 650 MG PO ×3 (01:40→21:00)
--- NOTE | 2024-12-27 01:45 | PTCARENOTE ---
Patient urinated 600ml yellow urine in urinal while in bed. HR increased to 150's at that time, recovered to 110's shortly after. Patient moaning in pain, patient accepted rn offer for prn tylenol. PRN tylenol administered per order. RN contacted RT
for treatment as well. Will continue to monitor.
[2024-12-27] MEDS: DUONEB 3 ML INH ×2 (02:07→07:36)
[2024-12-27 03:13] LABS: Hematocrit 34.4 % (39.0-52.0); Hemoglobin 11.8 g/dL (13.0-18.0); Mean Corp Hgb Conc. 34.3 g/dL (33.0-37.0); Mean Corpuscular Volume 87.5 fL (80.0-94.0); Mean Platelet Volume 8.9 fL (7.4-10.4); Platelet Count 297 10^3/uL (130-400); Red Blood Cell Count 3.93 10^6/uL (4.70-6.10); Red Cell Dist. Width 16.2 % (11.5-14.5); White Blood Cell Count 8.6 10^3/uL (4.8-10.8)
[2024-12-27 03:26] LABS: APTT 54.6 Sec (23.4-35.0)
[2024-12-27 03:39] LABS: ALT (SGPT) 69 U/L (0-50); AST (SGOT) 64 U/L (17-59); Albumin 3.5 g/dl (3.5-5.0); Alkaline Phosphatase 135 U/L (38-126); Blood Urea Nitrogen 9 mg/dl (9-20); Calcium 8.5 mg/dl (8.4-10.2); Carbon Dioxide 24 mmol/L (22-30); Chloride 100 mmol/L (98-107); Estimated Creatinine Clearance 108 ml/min; Glucose 129 mg/dl (70-99); Potassium 3.8 mmol/L (3.5-5.1); Sodium 133 mmol/L (135-145); Total Bilirubin 0.5 mg/dl (0.2-1.3); Total Protein 6.9 g/dl (6.3-8.2); eGFR > 60.00
[2024-12-27] MEDS: HEPARIN 4400 UNITS IV (03:45)
--- NOTE | 2024-12-27 06:03 | PTCARENOTE ---
Patient observed with increased comfort after duoneb earlier this morning. At this time patient confirms pain, requesting duoneb again. RN sent tt to RT with request.
[2024-12-27] MEDS: DIFLUCAN 200 MG PO (08:07)
--- NOTE | 2024-12-27 08:22 | PTCARENOTE ---
Assumed care of patient at beginning of this shift from previous RN with O2 2l n/c in use; resp therapist able to wean to room air with POx currently 94%. Initial temp 102.6; tylenol administered as per prn order. Heparin infusing at 1200 units/hr.
Pending consults (ID and pumlonary) notified via TT and order completed. See worklist for full assessment and vital signs.
--- NOTE | 2024-12-27 09:50 | W.PN.HOSP.TC ---
Today's Communication/Plan
-
.
Assessment / Plan
Assessment / Plan
1. SIRS without source
- Tachycardia and tachypnea in an immunocompromise patient
- Consider whether this could be due to acute pulmonary embolus, immune reconstitution inflammatory syndrome, acute infection
- BCx x 2
- Given abdominal pain, CT Abdomen and Pelvis w/ IV/oral contrast today
- Check CPK, Lactic Acid, Amylase, Lipase (r/o rhabdo, lactic acidosis, pancreatitis from ART)
2. Acute Pulmonary Embolus
- CT chest (12/26): Prominent pulmonary emboli within the left lower lobar and segmental pulmonary arteries. No overt CT evidence for right heart strain. Scattered tiny bilateral pulmonary nodules, overall slightly progressed from prior. Findings
are most suggestive of infectious/inflammatory etiologies.
- Patient on Heparin Drip
- Vascular US (12/27): no sonographic evidence for lower extremity venous thrombosis
- Await Pulmonary Reccomendations
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
- Risk factors: Advanced HIV disease, low pretreatment, CD4 27, clinical manifestations consistent with serous, recent ART initiation
- Continue antiretroviral therapy
- Appreciate ID
4. Recent pneumocystis pneumonia
- 11/16 BAL with positive silver stain and direct fluorescent antibody
- Completed course of treatment, resume secondary prophylaxis with Bactrim
- Appreciate ID Reccs
- Commented on CT: Scan may look worse as immune function improves on ART
5. Urinary Incontinence
- Bladder Scan
6. Oral Candidiasis
- Appreciate ID reccs
- Avoid fluconazole with elevated transaminases, Nystatin s/s okay
- CMP in AM
Full Code
Diet: Regular
DVT PPx: Currently on Heparin Drip
Anticipated Discharge: > 48 hours
Subjective/Interval History
-
Date of Service: December 27, 2024
Language Line Agent [id number] (Emirati)
Patient states that he has had cough (non productive) yesterday and today. Also complains of pain that is exacerbated by any sort of movement. This started in the chest area but now migrating lower.
Notably admitted last month and dx/tx PCP PNA, but no cough since then, only yesterday and today.
No fever. Denies diarrhea, abdominal pain, nausea, rash, leg swelling, calf pain.
Lesions on leg started around the time of last admission for pneumonia.
Objective Data
-
Labs:
Laboratory Results
12/27/24 12/27/24
03:03 09:45
WBC 8.6
Hgb 11.8 L
Hct 34.4 L
Plt Count 297
APTT 54.6 H Pending
Sodium 133 L
Potassium 3.8
Chloride 100
Carbon Dioxide 24
BUN 9
Creatinine 0.7
Glucose 129 H
Calcium 8.5
Total Bilirubin 0.5
AST 64 H
ALT 69 H
Alkaline Phosphatase 135 H
Vital Signs:
Vital Signs
Temp Pulse Resp BP Pulse Ox
102.6 F H 108 24 124/84 92
12/27/24 07:05 12/27/24 08:00 12/27/24 08:00 12/27/24 08:00 12/27/24 08:47
I&O
12/26/24 12/27/24 12/28/24
06:59 06:59 06:59
Intake Total 240 / 240
Output Total 600 / 600
Balance -360 / -360
Review of Systems
-
History Source: Patient
Constitutional: Reports No Symptoms
Respiratory: Reports Cough
Cardiac: Reports Chest Pain (worse with movement)
Abdomen/GI: Reports Abdominal Pain (worse with movement)
Physical Exam
-
General: No Apparent Distress, Conversant and Cachectic
HEENT: Normocephalic, Atraumatic and Anicteric
Respiratory: Other (Tachypneic)
Cardiac: Regular Rhythm, S1/S2 and Tachycardic
GI: Other (Diffusely tender, mild)
Musculoskeletal: No Clubbing, No Cyanosis and No Edema
Skin: Lesions (Scattered violaceous papules/nodules)
Neuro: Awake and Alert
Psych: Calm
Data Reviewed
-
Diagnostic Radiology: Image personally visualized and interpreted and Report Reviewed by me
CT Scan: Report Reviewed by me
Labs: Labs Reviewed by me
--- NOTE | 2024-12-27 09:53 | CON.ID ---
Consultation
-
Date/Time Consultation Requested: December 26, 2024 2331
Date/Time Consultation Performed: December 27, 2024 0900
Requesting Provider: Dr. Milton Jenkins
Performing Provider: Dr. Gloria Frank
Reason for Consultation: HIV, PE
Chief Complaint / Past History
Chief Complaint
Chest pain, shortness of breath, muscle pain.
History of Present Illness
Patient speaks Albanian. Interview obtained with [employer] field technician service number [id number]. He is a 39-year-old male well-known to me with AIDS who presented to the hospital December 26, 2024 due to acute onset of chest pain, shortness of breath.
Mr. Malik was recently hospitalized from November 11 to November 21 when he presented with approximate 3-month history of fever, skin lesions, weight loss. 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
silver stain and PJP DFA. He was also diagnosed with AIDS CD4 27, viral load 5 million. Patient noted to have Kaposi's sarcoma skin lesions. Also with oral and esophageal thrush. Patient was started on Bactrim double strength 2 tablets 3 times daily
plus prednisone to complete 21 days. He was placed on fluconazole for thrush. Biktarvy initiated. Upon discharge however his Medicaid insurance did not cover Biktarvy. Insurance covered Atripla without co-pay. I saw him in office follow-up December 06,
2024. His pharmacy had to order the a Atripla and therefore he did not start Atripla until December 01. He completed the 21-day course of Bactrim and prednisone for PJP pneumonia then transition to secondary prophylaxis Bactrim double strength 1 tab
daily until CD4 count more than 200 for at least 3 months. The fluconazole was also extended for residual Amber esophagitis. Patient has been feeling better overall. Respiratory symptoms have resolved. He had less fatigue and was active with
his normal day daily living. However, 2 days ago, he developed sudden onset of severe chest pain especially the left side with associated shortness of breath. Positive weakness. No cough. He presented to the ER December 26. Chest CT showed PE left
lower lobe without right heart strain. There are scattered tiny bilateral pulmonary nodules overall slightly progressed from previous. He is currently on heparin drip. Last night he spiked a fever 102. Patient complains of severe pain on his
chest. Pain worse with movement. Denies chills. Denies calf pain. No nausea or vomiting or diarrhea. She denies abdominal pain. He complains of urinary weak stream and feels his bladder not completely empty when he voids. No dysuria or flank
pain. He was compliant with the Atripla and prophylactic Bactrim. He did not bring his a Atripla with him. Patient states he still has neurological side effects from the Atripla with inability to sleep and increased anxiety. Dysphagia has
resolved. He noted more skin lesions on his chest. Appetite has not improved, but stable.
Past History
Additional Past Medical History:
HIV dx'd 11/12/2024, Edmar CD4 27 (3%), viral load 5,100,000.�
� � Atripla�since 12/01/24 (insurance coverage issue)
Pneumocystis jiroveci pneumonia 10/2024; BAL silver stain +, PJP DFA +
Kaposi's sarcoma of skin (10/2024)
Rachana-esophageal thrush (10/2024)
Screening labs
Quantiferon-TB Gold plus: neg (11/12/24)
Serum Cryptococcus Ag neg (11/13/24)
Syphilis serology neg (11/13/24)
Hep C Ab neg (11/21/24)
HeBs Ab neg, HBs Ag neg, HBc Ab neg
�
Immunizations
Hepatitis A immune by lab (11/21/24)
Measles immune; IgG more than 300 (09/12/24).
Past Surgical History: None
Allergy History:
No Known Allergies Allergy (Verified 12/26/24 17:25)
Medications Reviewed: Yes
Current Antibiotics:
none
Social History
Tobacco: Non-Smoker
Alcohol: None
Drug: None
Personal:
Living: With Family
Employment: Not Employed
Family History
Family History: Not Pertinent
Review of Systems
Review of Systems
General: Negative Change in Appetite
HEENT: Negative Stiff Neck, Sinus Problems, Headache or Pharyngitis
Cardiovascular: Chest Pain and Dyspnea; Negative Edema
Respiratory: Negative Cough or Sputum Production
Gasteroenterology: Negative Nausea, Vomiting or Diarrhea
Genital / Urological: Negative Dysuria or Flank Pain
Endocrine: Weakness
Musculoskeletal: Myalgias
Skin / Hair / Nails: Lesions
Neurological: Negative Dizziness
Psychological: Sleep Changes
All systems: All other systems were reviewed and were negative
Vital Signs
Temp Pulse Resp BP Pulse Ox
102.6 F H 108 24 124/84 92
12/27/24 07:05 12/27/24 08:00 12/27/24 08:00 12/27/24 08:00 12/27/24 08:47
Physical Exam
Physical Exam
Constitutional: No Acute Distress and Cachetic
Head: Other (no frontal or maxillary sinus tenderness)
Eyes: No Conjunctival Hemorrhage and Sclera Anicteric
Oral: Thrush (tongue)
Cardiovascular: S1/S2 and Other (tachycardic)
Pulmonary: Other (poor respiratory effort)
Gastrointestinal: Soft, Tender (Diffuse, more LUQ), Non Distended and Normal Bowel Sounds
Genito-Urinary: Negative Suprapubic Tenderness or CVA Tenderness
Skin: Other (Scattered purplish papules/nodules, arms, chest, flank, thighs)
Neurological: AO x 3
Lab / Diagnostic Study Results
12/27/24 03:03
12/27/24 03:03
Abs Immat Gran (auto) 0.0 10^3/uL (0-0.05) 12/26/24 18:44
Absolute Neuts (auto) 4.9 10^3/uL (1.4-6.5) 12/26/24 18:44
Absolute Lymphs (auto) 1.2 10^3/uL (1.2-3.4) 12/26/24 18:44
Absolute Monos (auto) 1.1 10^3/uL (0.1-0.6) H 12/26/24 18:44
Absolute Basos (auto) 0.1 10^3/uL (0-0.2) 12/26/24 18:44
Immature Gran % 0.4 % (0-0.5) 12/26/24 18:44
Neutrophils % 67.7 % (42.2-75.2) 12/26/24 18:44
Lymphocytes % 16.6 % (20.5-51.1) L 12/26/24 18:44
Monocytes % 14.4 % (1.7-9.3) H 12/26/24 18:44
Eosinophils % 0.1 % (0-6) 12/26/24 18:44
Basophils % 0.8 % (0-2) 12/26/24 18:44
Microbiology Results
Micro:
12/26/24 18:44 Influenza Types A & B (MARA) - Final
Nasal Swab Negative for Influenza A & B, NAAT
Negative results must be combined with clinical observations
and patient history.
Nucleic Acid Amplification test (NAAT)performed on the
[employer] platform.
12/26/24 CT Chest: Prominent pulmonary emboli within left lower lobe lobar and segmental pulmonary arteries. No overt CT evidence for right heart strain. Scattered tiny bilateral pulmonary nodules, overall slightly progressed from prior. Findings
are most suggestive of infectious/inflammatory etiologies. If the patient is considered high risk, an optional follow-up noncontrast CT chest can be obtained in 12 months. The [facility] Pulmonary Nodule Advisory Board will be notified.
Assessment / Plan
# Recent new diagnosis of AIDS
-CD4 27 (3%), VL >5,000,000
-On Atripla since 12/01/24 (insurance coverage issue)
- Psychiatric effects of Atripla -> DC
- Start Biktarvy 1 tab qd.
Of note, outpatient application for [employer] [facility] Biktarvy has been approved; waiting for delivery.
- Check HIV viral load in am.
# Recent PJP pneumonia
- 11/16 Bronch: + silver stain, PJP DFA; rare, usual resp silvana, AFB neg to date,
- Completed course of treatment
- Resume secondary prophylaxis Bactrim DS 1 tab daily until CD4>200 for 3 months or more.
- CT scan: slight progression of pulm nodules. CT scan may look worse as immune function improves on ART.
# Acute PE
- Suspect from AIDS.
- for repeat CT a/p to assess for malignancy
- Agree with peripheral vascular US
- Anticoagulation
# Fever
- Suspect due to PE
- Check blood cx's x 2.
# Severe pain chest and abd
- CT a/p with contrast
- Check CK, lactic acid, amylase, lipase, in case of rhabdo, lactic acidosis, pancreatitis from Atripla
# Urinary incontinence
- Bladder scan for urinary retention
# Oral candidiasis
- Avoid fluconazole due to elevated AST/ALT
- Ordered Nystatin swish and swallow for now
- Follow LFT's
Care Review
Plan reviewed with: Physician (Dr. Manohar Jenkins and resident team)
[2024-12-27 10:09] LABS: APTT 119.9 Sec (23.4-35.0)
[2024-12-27] MEDS: BACTRIM DS 800 MG/160 MG 1 TABLET PO (10:56)
[2024-12-27] MEDS: BIKTARVY 50-200-25 MG TABLET 1 TABLET PO (10:56)
[2024-12-27 11:01] LABS: Lipase 186 U/L (23-300)
--- NOTE | 2024-12-27 11:16 | CON.PUL ---
Consultation
Consultation Request
Date/Time Consultation Requested: 12/27/24
Date/Time Consultation Performed: 12/27/24
Performing Provider: Param
Reason for Consultation: PE
Medical History
-
History of Present Illness:
Patient is a 39 year old M with history of recently diagnosed HIV/AIDS, PCP PNA history treated with Bactrim, presenting to ER with SOB. CTA noted new PE. History obtained with lang interpreter. He denies any prior history of PE, or known lung
disease. He denies smoking despite records. Still having chest pain with breathing. CT reviewed, he is placed on IV heparin.
Past Medical History
Past Medical History: Other (see list below)
Social History
Tobacco: Non-smoker
Alcohol: None
Drug: None
Family History
Family History: Reviewed & Not Pertinent
Allergies / Home Medications
Allergies
Allergy/AdvReac Type Severity Reaction Status Date / Time
No Known Allergies Allergy Verified 12/26/24 17:25
Home Medications
�Medication �Instructions �Recorded �Confirmed �Last Taken �Type
Tylenol 650 mg PO Q6H PRN fever>100.4 11/11/24 11/11/24 11/10/24 21:00 History
efavirenz 600 mg-emtricitabine 200 1 tab PO HS #30 tabs 11/21/24 Unknown Rx
mg-tenofovir disoprox 300 mg tablet
fluconazole 200 mg tablet 200 mg PO DAILY #21 tabs 11/21/24 Unknown Rx
prednisone 20 mg tablet 40 mg PO DAILY INFLAMMATION 12/27/24 Unknown History
sulfamethoxazole 800 2 tab PO TID Infection 12/27/24 Unknown History
mg-trimethoprim 160 mg tablet
Review of Systems
-
History Source: Patient
All other systems: Negative unless noted
Vitals / Labs / Diagnostic Testing
Vital Signs
Temp Pulse Resp BP Pulse Ox
98.9 F 109 24 124/84 96
12/27/24 11:09 12/27/24 10:00 12/27/24 10:00 12/27/24 08:00 12/27/24 10:00
Lab Data
12/27/24 03:03
12/27/24 03:03
Laboratory Results
12/26/24 12/27/24 12/27/24
20:40 03:03 09:49
APTT 29.2 54.6 H 119.9 H
Microbiology
12/26/24 18:44 Nasal Swab Influenza Types A & B (MARA) - Final
Negative for Influenza A & B, NAAT
Negative results must be combined with clinical observations
and patient history.
Nucleic Acid Amplification test (NAAT)performed on the
[employer] platform.
Diagnostic Testing:
Physical Exam
-
HEENT: Normocephalic, Anicteric and Moist Mucous Membranes
Cardiovascular: S1/S2 and Regular Rhythm
Respiratory: Clear and Non-Labored Respirations
GI: Soft, Non Distended and Non Tender
Neurology: Awake, Alert, Oriented and No Motor Deficits
Skin: Warm, Dry and Good Color
General: Comfortable, Poor Appetite and Other (thin appearing)
Assessment
-
Patient is a 39 year old M with history of recently diagnosed HIV/AIDS, PCP PNA history treated with Bactrim, presenting to ER with SOB. CTA noted new PE. History obtained with lang interpreter. He denies any prior history of PE, or known lung
disease. He denies smoking despite records. Still having chest pain with breathing. CT reviewed, he is placed on IV heparin. We are consulted for eval.
Acute respiratory failure with hypoxia
Acute PE
Hyponatremia mild
Mild transaminitis
SOB
Conditions present RN DOCUMENTATION
HIV/AIDS (CD4 count: 27 on 11/15/2024)--new diagnosis
Anemia (mild)
Kaposi sarcoms
History of PJP Pneumonia
Cachexia with severe protein calorie malnutrition
Esophageal candidiasis
Plan
He is currently 92% on RA, on arrival in ER placed on 2L NC
Does not use home O2
No prior known history of lung disease in past, prior to HIV diagnosis
History of PCP pneumonia - bronchoscopy BAL silver stain from 11/16/2024 is positive for PC; also 1,3 beta D glucan is >500 pg/mL
Placed on on Bactrim DS 2 tabs TID per ID in addition to prednisone
Also reported h/o skin rash in 08/2024 with residual nodular lesions on the upper arms and chest.
Connective tissue panel negative (DEX, ANCA + RF), Hypersensitivity panel negative, ESR: 88, CRP: 15.1; Immunoglobulin levels were WNL. Eosinophil count is normal
AIDS defining illnesses noted
ID is consulted for evaluation/treatment
CTA showing PE, he is placed on IV heparin
We discussed transition to PO OAC when able
Unclear provoking incident for this, HIV is known to have increased risk of VTE
May need lifelong preventative dosing
Prior Bedside spirometry from 11/12 shows a severe obstructive lung defect + severe restriction; poor effort on postbronchodilator testing.
Denies any SOB at this time, has chest pain likely due to PE
Will need OP FU which we reviewed and placed in chart
Echo checked on 11/13/2024 showing normal biventricular size/systolic function without regional WMA, with normal diastolic function and no significant valvular disease
Negative trop on arrival
Video lang interpreter service was used to communicate with the patient. Discussed case with the primary team and answered all the patient's questions.
We will follow
Data:
CT Chest 12/26/24- Prominent pulmonary emboli within left lower lobe lobar and segmental pulmonary arteries. No overt CT evidence for right heart strain. Scattered tiny bilateral pulmonary nodules, overall slightly progressed from prior. Findings are
most suggestive of infectious/inflammatory etiologies. If the patient is considered high risk, an optional follow-up noncontrast CT chest can be obtained in [address] Chest 10/2024: 1. Moderate amount of bilateral perihilar ground-glass opacity with axial interstitial thickening in the lower lobes. Diagnostic possibilities are (1) an acute inflammatory pneumonitis (such as vaping-associated lung disease) or
(2) viral or atypical bacterial pneumonia.
2. Small amount of subpleural airspace consolidation in the posterior and lateral basilar segments of the left lower lobe and mild subpleural airspace consolidation in the right lower lobe. Diagnostic possibilities are (1) pneumonia, (2)
subsegmental atelectasis, or (3) an inflammatory airspace consolidation.
3. Mildly decreased bilateral lung volumes.
4. Mild mediastinal and bilateral hilar lymphadenopathy.
5. No PE
CXR 11/11/2024: Moderate amount of bilateral perihilar ground-glass opacity which is predominantly located in the lower lobes and appears to surround increased interstitial markings. Diagnostic possibilities are (1) mild interstitial and alveolar
cardiogenic pulmonary edema, (2) viral pneumonia, (3) a mild inflammatory pneumonitis, or (4) mild subsegmental atelectasis secondary to low lung volumes.
CXR 11/15/2024: Findings suggesting moderate bibasilar pneumonia. Significantly progressed..
Echo 11/13/2024: Normal biventricular size and systolic function without regional wall motion abnormality. Normal diastolic function. No significant valvular disease. Insufficient TR for estimation of PASP. No prior study available for comparison.
Total time spent on this consultation _75__ minutes which includes review of history, physical exam, medications, llaboratory data, personal review of imaging, extensive review of outpatient records, and discussions with care team.
[2024-12-27] MEDS: OMNIPAQUE 50 ML PO (11:31)
[2024-12-27] MEDS: MYCOSTATIN ORAL SUSPENSION PO (12:39)
[2024-12-27 12:44] LABS: Lactic Acid 0.6 mmol/L (0.7-2.0)
[2024-12-27 14:04] LABS: Amylase 140 U/L (30-110); Creatine Phosphokinase 36 U/L (55-170)
--- NOTE | 2024-12-27 14:43 | CM ---
Tuvaluan speaking patient with Hx HIV/AIDS, recent PCP PNA with Dx SIRS, Acute Pulmonary Embolus, concern for IRIS. O2 2L. Receiving Heparin gtt. PT Screen; No skilled PT needed. Per nurse; A/O, assist 1 for mobility.
Spoke with [place]on, patient's brother in law;
the patient resides with his & 3 children in a first floor apartment with 2 outside steps.
He was independent in ADLs and ambulation.
The patient has no DME or prior VN.
PCP - Johny Thomas
[facility]armacy - [facility]
CM continuing to follow.
Plan follow patient's O2 needs.
Plan home.
--- NOTE | 2024-12-27 16:36 | PTCARENOTE ---
Addendum entered by Yajaira Obregon RN 12/27/24 17:08:
TT sent to Dr Jenkins and to Dr Akbar. Pic of EKG sent to Dr Akbar who is currently seeing patient. After EKG obtained, came into room. Patient then pointed to epigastric area, however he had pointed to L chest prior. BP 113/82, HR 121, T 100.2.
Per Dr Jenkins via TT, instructed to ask resident to order oxy as chest pain is from PE. This message was forwarded to Dr Akbar.
Original Note:
Patient taken to CT scan; just returned accompanied by this RN. TT sent to Dr Jenkins re: disconnecting heparin drip for scan as patient only has one IV site. Ok to disconnect heparin for scan per Dr Jenkins. Unable to obtain access for bloodwork. On
return from CT scan, VAT RN to draw.
Patient c/o CP per exhaust worker line. EKG ordered per protocol
[2024-12-27 17:23] LABS: APTT 65.1 Sec (23.4-35.0)
[2024-12-27] MEDS: ROXICODONE 5 MG PO ×2 (17:31→21:21)
[2024-12-27] MEDS: MYCOSTATIN ORAL SUSPENSION 5 ML PO ×2 (17:32→21:01)
[2024-12-27 17:36] LABS: Troponin I 0.015 ng/ml
[2024-12-27] MEDS: HEPARIN 2200 UNITS IV (17:47)
[2024-12-27] MEDS: HEPARIN 25000 UNITS/250 ML IV (17:50)
--- NOTE | 2024-12-27 21:50 | PTCARENOTE ---
Tuft Machine Operator used for patient assessment. RN also printed out Frank-Dickson FACES pain scale and reviewed with patient, spouse and freelance interpreter/translator. Patient c/o pain 6/10 to chest and abdomen. PRN medication administered along with PRN tylenol for temp 101.8
orally. Patient aaox3, questions answered for patient and spouse. RN instructed patient to use call bridges for assistance standing to use urinal. Patient and spouse verbalize understanding. asks if she is able to assist patient as needed. RN
agrees but instructs patient and spouse that patient should sit on bed at anytime with any worsening symptoms, increased pain, or sob. Also instructed patient and spouse to call RN post urination so that we may document urine output. Understanding
verbalized by both parties. Patients spouse provided medication from home for HIV. RN called pharmacy and spoke with pharmacist, medication sent for profiling. Patient currently resting in bed at this time, call bridges within reach. Will continue to
monitor closely.
[2024-12-28] VITALS (9 sets, daily range): BP systolic 100–119; BP diastolic 66–83
[2024-12-28 00:03] LABS: APTT 115.7 Sec (23.4-35.0)
[2024-12-28 00:11] LABS: Troponin I 0.014 ng/ml
[2024-12-28] MEDS: NON-FORMULARY ITEM 1 TABLET PO (05:08)
[2024-12-28] MEDS: ROXICODONE 10 MG PO (05:08)
[2024-12-28 06:19] LABS: % Basophils 0.6 % (0-2); % Immature Granulocytes 0.5 % (0-0.5); % Lymphocytes 9.6 % (20.5-51.1); % Monocytes 12.9 % (1.7-9.3); % Neutrophils 76.4 % (42.2-75.2); Absolute Basophils 0.1 10^3/uL (0-0.2); Absolute Immature Granulocytes 0.1 10^3/uL (0-0.05); Absolute Lymphocytes 1.4 10^3/uL (1.2-3.4); Absolute Monocytes 1.9 10^3/uL (0.1-0.6); Hematocrit 35.4 % (39.0-52.0); Hemoglobin 12.2 g/dL (13.0-18.0); Mean Corp Hgb Conc. 34.5 g/dL (33.0-37.0); Mean Corpuscular Hgb 30.8 pg (27.0-31.0); Mean Corpuscular Volume 89.4 fL (80.0-94.0); Mean Platelet Volume 9.1 fL (7.4-10.4); Nucleated Red Blood Cells % 0 % (-); Platelet Count 324 10^3/uL (130-400); Red Blood Cell Count 3.96 10^6/uL (4.70-6.10); Red Cell Dist. Width 15.9 % (11.5-14.5); White Blood Cell Count 14.4 10^3/uL (4.8-10.8)
[2024-12-28 06:29] LABS: APTT 56.7 Sec (23.4-35.0)
[2024-12-28 06:31] LABS: ALT (SGPT) 53 U/L (0-50); AST (SGOT) 32 U/L (17-59); Albumin 3.5 g/dl (3.5-5.0); Alkaline Phosphatase 137 U/L (38-126); Blood Urea Nitrogen 12 mg/dl (9-20); Calcium 8.8 mg/dl (8.4-10.2); Carbon Dioxide 27 mmol/L (22-30); Chloride 96 mmol/L (98-107); Estimated Creatinine Clearance 79 ml/min; Glucose 109 mg/dl (70-99); Potassium 4.4 mmol/L (3.5-5.1); Sodium 131 mmol/L (135-145); Total Bilirubin 0.7 mg/dl (0.2-1.3); Total Protein 7.1 g/dl (6.3-8.2); eGFR > 60.00
[2024-12-28] MEDS: HEPARIN 4400 UNITS IV (07:18)
[2024-12-28] MEDS: DIFLUCAN 200 MG PO (08:02)
[2024-12-28] MEDS: TYLENOL 650 MG PO ×2 (08:02→15:59)
[2024-12-28] MEDS: BACTRIM DS 800 MG/160 MG 1 TABLET PO (08:02)
[2024-12-28] MEDS: MYCOSTATIN ORAL SUSPENSION 5 ML PO (08:02)
[2024-12-28] MEDS: BIKTARVY 50-200-25 MG TABLET 1 TABLET PO (08:46)
--- NOTE | 2024-12-28 08:57 | W.PN.PUL3 ---
Today's Communication / Plan
-
Transition to OAC per team, CM following for pricing/coverage
PT eval if needed
Pain control per team
Outpatient FU recommended, we will arrange
Discharge planning otherwise per team
Assessment
-
Patient is a 39 year old M with history of recently diagnosed HIV/AIDS, PCP PNA history treated with Bactrim, presenting to ER with SOB. CTA noted new PE. History obtained with ramp attendant. He denies any prior history of PE, or known lung
disease. He denies smoking despite records. Still having chest pain with breathing. CT reviewed, he is placed on IV heparin. We are consulted for eval.
Acute respiratory failure with hypoxia
Acute PE
Hyponatremia mild
Mild transaminitis
SOB
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
HIV/AIDS (CD4 count: 27 on 11/15/2024)--new diagnosis
Anemia (mild)
Kaposi sarcoms
History of PJP Pneumonia
Cachexia with severe protein calorie malnutrition
Esophageal candidiasis
Plan
He is currently 92% on RA, on arrival in ER placed on 2L NC--weaned to off
Does not use home O2
No prior known history of lung disease in past, prior to HIV diagnosis
History of PCP pneumonia - bronchoscopy BAL silver stain from 11/16/2024 is positive for PC; also 1,3 beta D glucan is >500 pg/mL
Placed on on Bactrim DS 2 tabs TID per ID in addition to prednisone
Also reported h/o skin rash in 08/2024 with residual nodular lesions on the upper arms and chest.
Connective tissue panel negative (DEX, ANCA + RF), Hypersensitivity panel negative, ESR: 88, CRP: 15.1; Immunoglobulin levels were WNL. Eosinophil count is normal
AIDS defining illnesses noted
ID is consulted for evaluation/treatment
CTA showing PE, he is placed on IV heparin
We discussed transition to PO OAC when able
Unclear provoking incident for this, HIV is known to have increased risk of VTE
May need lifelong preventative dosing
Transition to OAC per team
Pain management per team, on oxy
Tylenol PRN
Prior Bedside spirometry from 11/12 shows a severe obstructive lung defect + severe restriction; poor effort on postbronchodilator testing.
Denies any SOB at this time, has chest pain likely due to PE
Will need OP FU which we reviewed and placed in chart
Echo checked on 11/13/2024 showing normal biventricular size/systolic function without regional WMA, with normal diastolic function and no significant valvular disease
Negative trop on arrival
He notes that he is 'unable to get OOB' when asked if he would like PT and rehab eval he said 'my can pick me up to go home'
Video ramp attendant service was used to communicate with the patient. Discussed case with the primary team and answered all the patient's questions.
Hopeful discharge planning per team
Data:
CT Chest 12/26/24- Prominent pulmonary emboli within left lower lobe lobar and segmental pulmonary arteries. No overt CT evidence for right heart strain. Scattered tiny bilateral pulmonary nodules, overall slightly progressed from prior. Findings are
most suggestive of infectious/inflammatory etiologies. If the patient is considered high risk, an optional follow-up noncontrast CT chest can be obtained in [address] Chest 10/2024: 1. Moderate amount of bilateral perihilar ground-glass opacity with axial interstitial thickening in the lower lobes. Diagnostic possibilities are (1) an acute inflammatory pneumonitis (such as vaping-associated lung disease) or
(2) viral or atypical bacterial pneumonia.
2. Small amount of subpleural airspace consolidation in the posterior and lateral basilar segments of the left lower lobe and mild subpleural airspace consolidation in the right lower lobe. Diagnostic possibilities are (1) pneumonia, (2)
subsegmental atelectasis, or (3) an inflammatory airspace consolidation.
3. Mildly decreased bilateral lung volumes.
4. Mild mediastinal and bilateral hilar lymphadenopathy.
5. No PE
CXR 11/11/2024: Moderate amount of bilateral perihilar ground-glass opacity which is predominantly located in the lower lobes and appears to surround increased interstitial markings. Diagnostic possibilities are (1) mild interstitial and alveolar
cardiogenic pulmonary edema, (2) viral pneumonia, (3) a mild inflammatory pneumonitis, or (4) mild subsegmental atelectasis secondary to low lung volumes.
CXR 11/15/2024: Findings suggesting moderate bibasilar pneumonia. Significantly progressed..
Echo 11/13/2024: Normal biventricular size and systolic function without regional wall motion abnormality. Normal diastolic function. No significant valvular disease. Insufficient TR for estimation of PASP. No prior study available for comparison.
Total time spent on this consultation _51__ minutes which includes review of history, physical exam, medications, llaboratory data, personal review of imaging, extensive review of outpatient records, and discussions with care team.
Subjective Data
-
Date of Service:
Date of Service: December 28, 2024
Chief Complaint: Pulmonary Follow Up
Subjective:
ROS obtained with ramp attendant
No new events ON, stable on RA
Still has back pain/chest pain, better when he was sleeping
Feels he cannot 'move' or 'get out of bed'
Objective Data
Data Reviewed
Vital Signs / I&O / Oxygen:
Vital Signs
Temp Pulse Resp BP Pulse Ox
99.5 F 99 16 100/73 95
12/28/24 03:00 12/28/24 02:00 12/28/24 02:00 12/28/24 02:00 12/28/24 02:00
Intake and Output
12/27/24 12/28/24 12/29/24
06:59 06:59 06:59
Intake Total 240 / 240
Output Total 600 / 600 1000 / 1000
Balance -360 / -360 -1000 / -1000
SaO2 95
Nasal Cannula flow liters per 2
minute
Physical Exam
General: Comfortable, Poor Appetite and Other (thin appearing, NAD)
HEENT: Normocephalic, Anicteric and Moist Mucous Membranes
Cardiovascular: S1-S2 and Regular Rhythm
Respiratory: Clear and Non-Labored Respirations
GI: Soft, Non Distended and Non Tender
Neurology: Awake, Alert, Oriented and No Motor Deficits
Skin: Warm, Dry, Good Color and Other (sarcomas noted)
Labs/Micro/Reports
Lab Data
12/28/24 05:55
12/28/24 05:55
Laboratory Results
12/27/24 12/27/24 12/27/24
09:49 17:01 23:35
APTT 119.9 H 65.1 H 115.7 H
12/28/24
05:55
APTT 56.7 H
Microbiology
12/26/24 18:44 Nasal Swab Influenza Types A & B (MARA) - Final
Negative for Influenza A & B, NAAT
Negative results must be combined with clinical observations
and patient history.
Nucleic Acid Amplification test (NAAT)performed on the
[employer].
--- NOTE | 2024-12-28 09:33 | W.PN.HOSP.TC ---
Today's Communication/Plan
-
.
Assessment / Plan
Assessment / Plan
1. SIRS without source
- Tachycardia and tachypnea in an immunocompromise patient
- Consider whether this could be due to acute pulmonary embolus, immune reconstitution inflammatory syndrome, acute infection
- BCx x 2
- CT Abdomen and Pelvis (12/28): no abdominal abnormality; LLL pneumonia
- Check CPK, Lactic Acid, Amylase, Lipase (r/o rhabdo, lactic acidosis, pancreatitis from ART): all negative
2. Acute Pulmonary Embolus
- CT chest (12/26): Prominent pulmonary emboli within the left lower lobar and segmental pulmonary arteries. No overt CT evidence for right heart strain. Scattered tiny bilateral pulmonary nodules, overall slightly progressed from prior. Findings
are most suggestive of infectious/inflammatory etiologies.
- Patient on Heparin Drip, will need financial evaluation of outpatient DOACs
- Vascular US (12/27): no sonographic evidence for lower extremity venous thrombosis
- Appreciate Pulmonary Reccomendations:
- Continue Bactrim;
- May need lifelong a/c
- Outpatient pulm f/u
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
- Risk factors: Advanced HIV disease, low pretreatment, CD4 27, clinical manifestations consistent with serous, recent ART initiation
- Continue antiretroviral therapy
- Transitioned to Biktarvy given better side effect profile (LFTs)
- Appreciate ID
- Start Prednisone 20mg daily
4. Recent pneumocystis pneumonia
- 11/16 BAL with positive silver stain and direct fluorescent antibody
- Completed course of treatment, resume secondary prophylaxis with Bactrim
- Appreciate ID Reccs
- Commented on CT: Scan may look worse as immune function improves on ART
5. Urinary Incontinence
- Bladder Scan
6. Oral Candidiasis
- Appreciate ID reccs
- Avoid fluconazole with elevated transaminases, Nystatin s/s okay
- CMP in AM
7. Pulmonary Nodules
- As seen on CT Chest
- 4 mm right apical subpleural pulmonary nodule (series 401, image 12), not seen previously.
- 3 mm subpleural anterior right upper lobe nodule (image 27), not seen previously.
- 4 mm right upper lobe nodule (image 48), likely stable.
- 3 mm subpleural anterior left upper lobe nodule (image 26), likely stable.
- 4 mm subpleural anterior left upper lobe nodule (image 34), slightly progressed.
- Additional tiny 3 mm subpleural left upper lobe nodules (images 36, 37 and 40), progressed.
- Differential includes Kaposi Sarcoma vs. Lymphoma vs. Opportunisitic Infection; lit review done, lesions less than 1cm more likely represents opportunistic infection (possible for PCP pneumonia to present this way but rare)
Downgrade to Tele
Full Code
Diet: Regular
DVT PPx: Currently on Heparin Drip
Anticipated Discharge: 24 - 48 hours
Subjective/Interval History
-
Date of Service: December 28, 2024
Language Line [id number]
Patient seen and examined while resting in bed. Patient states he continues to have anterior chest and left shoulder pain that is worse with movement and described as sharp and stabbing. Also hurts with deep breath. Denies cough or radiation. Denies
abdominal pain. Notes difficulty voiding x 2 months, says once he starts going to bathroom feels as if he cannot finish. Denies hematuria.
Objective Data
-
Labs:
Laboratory Results
12/27/24 12/28/24 12/28/24
23:35 05:55 13:00
WBC 14.4 H
Hgb 12.2 L
Hct 35.4 L
Plt Count 324
APTT 115.7 H 56.7 H Pending
Sodium 131 L
Potassium 4.4
Chloride 96 L
Carbon Dioxide 27
BUN 12
Creatinine 0.9
Glucose 109 H
Calcium 8.8
Total Bilirubin 0.7
AST 32
ALT 53 H
Alkaline Phosphatase 137 H
Vital Signs:
Vital Signs
Temp Pulse Resp BP Pulse Ox
102.9 F H 99 16 100/73 95
12/28/24 07:09 12/28/24 02:00 12/28/24 02:00 12/28/24 02:00 12/28/24 02:00
I&O
12/27/24 12/28/24 12/29/24
06:59 06:59 06:59
Intake Total 240 / 240
Output Total 600 / 600 1000 / 1000
Balance -360 / -360 -1000 / -1000
Review of Systems
-
History Source: Patient
Constitutional: Reports Fever (overnight) and Other (diaphoresis)
Respiratory: Reports Pleurisy; Denies Cough
Cardiac: Reports No Symptoms
Abdomen/GI: Reports No Symptoms; Denies Abdominal Pain, Nausea, Vomiting or Diarrhea
Genitourinary: Reports Difficulty Voiding
Skin: Reports Other (lesions)
Neuro: Reports Other (sleeping well, but hazy memory)
Physical Exam
-
General: Sweats and Conversant
HEENT: Normocephalic, Atraumatic and Anicteric
Respiratory: Clear to Auscultation and Other (tachypnic)
Cardiac: Tachycardic
GI: Soft and Nontender
Musculoskeletal: No Edema
Skin: Warm and Lesions
Neuro: Awake, Alert and Oriented
Psych: Calm and Other (notes some brain fog)
Data Reviewed
-
CT Scan: Report Reviewed by me and Discussed with Patient
Medical Tests (Nuc Med, Echo etc): Report Reviewed by me and Discussed with Patient
Labs: Labs Reviewed by me and Discussed with Patient
--- NOTE | 2024-12-28 09:49 | PTCARENOTE ---
Pt Austrian/Polish speaking - mill stenciler used to communicate. Pt febrile this morning - is diaphoretic and tachycardic in 110s. Still c/o L side chest pain that is worse w/ breathing/movement. Hospitalist team and ID in to reevaluate this morning.
Chest pain r/t PE and inflammation. Pt ok for transfer to TELE.
[2024-12-28] MEDS: DELTASONE 20 MG PO (10:12)
--- NOTE | 2024-12-28 11:05 | W.PN.ID1 ---
Date of Service
Date of Service: December 28, 2024
Today's Communication
Start prednisone 20mg po qd.
Assessment / Plan
# Recent new diagnosis of AIDS
-CD4 27 (3%), VL >5,000,000
-On Atripla since 12/01/24 (insurance coverage issue)
- Psychiatric effects of Atripla -> DC
- Continue Biktarvy 1 tab qd.
outpatient application for [employer] Advanced Access Biktarvy has been approved; waiting for delivery.
- HIV viral load pending
# Recent PJP pneumonia
- 11/16 Bronch: + silver stain, PJP DFA; rare, usual resp silvana, AFB neg to date,
- Completed course of treatment
- Continue secondary prophylaxis Bactrim DS 1 tab daily until CD4>200 for 3 months or more.
- CT scan: slight progression of pulm nodules. CT scan may look worse as immune function improves on ART.
# Immune reconstitution inflammatory syndrome (IRIS)
# Fever persists
# Leukocytosis
- Check blood cx's x 2 pending.
- UA neg
-CT a/p unremarkable
- Suspect IRIS likely contributing to fevers, increase in Kaposi sarcoma lesions, progression of pulm infiltrates (PJP), and probable chest pain
-Search for IRIS unmasking OI. 11/16 BAL AFB neg. Repeat AFB blood cx, serum crypto antigen.
- Start prednisone 20mg qd.
# Acute PE
- Suspect from AIDS.
- peripheral vascular US negative
- Anticoagulation
# Urinary incontinence
- Bladder scan for urinary retention
# Oral candidiasis
- Continue fluconazole
# Kaposi's sarcoma
- Continue ART Biktarvy.
Chief Complaint
-: Fever
Subjective / Review of Systems
[id number] [facility] product ambassador service translated. Slept well overnight. Continues to have significant left side chest pain associated with inspiration and with movement. Continues to c/o of not emptying bladder.
No N/V/abd pain/diarrhea. No cough.
Vital Signs / Physical Exam
Vital Signs
Vital Signs
Temp Pulse Resp BP Pulse Ox
102.9 F H 114 18 105/71 92
12/28/24 07:09 12/28/24 08:00 12/28/24 08:00 12/28/24 08:00 12/28/24 09:44
Physical Exam
Constitutional: Non-toxic and Cachetic
Eyes: No Conjunctival Hemorrhage and Sclera Anicteric
Cardiovascular: S1/S2 (tachycardic)
Pulmonary: Clear (anteriorly)
Gastrointestinal: Soft, Non Tender, Non Distended and Normal Bowel Sounds
Extremities: Negative Edema
Skin: Other (Scattered purplish papular/nodular lesions BUE, BLE, chest, flank.)
Neurological: AO x 3; Negative Meningeal Signs
Objective Data
Lab Data
Lab Results
12/28/24 05:55
12/28/24 05:55
APTT 56.7 Sec (23.4-35.0) H 12/28/24 05:55
Estimated Creat Clear 79 ml/min 12/28/24 05:55
Lactic Acid 0.6 mmol/L (0.7-2.0) L 12/27/24 12:14
Total Bilirubin 0.7 mg/dl (0.2-1.3) 12/28/24 05:55
AST 32 U/L (17-59) 12/28/24 05:55
ALT 53 U/L (0-50) H 12/28/24 05:55
Alkaline Phosphatase 137 U/L (38-126) H 12/28/24 05:55
Amylase 140 U/L (30-110) H 12/27/24 03:03
Most recent labs reviewed.
Micro Results:
12/27/24 17:01 Blood Culture - Pending
Blood/Venous
12/27/24 12:14 Blood Culture - Pending
Blood/Venous
12/26/24 18:44 Influenza Types A & B (MARA) - Final
Nasal Swab Negative for Influenza A & B, NAAT
Negative results must be combined with clinical observations
and patient history.
Nucleic Acid Amplification test (NAAT)performed on the
[employer] platform.
12/26/24 CT Chest: Prominent pulmonary emboli within left lower lobe lobar and segmental pulmonary arteries. No overt CT evidence for right heart strain. Scattered tiny bilateral pulmonary nodules, overall slightly progressed from prior. Findings
are most suggestive of infectious/inflammatory etiologies. If the patient is considered high risk, an optional follow-up noncontrast CT chest can be obtained in 12 months. The [facility] Pulmonary Nodule Advisory Board will be notified.
Care Review
Plan reviewed with: Physician (Dr. Manohar Jenkins and team.)
--- NOTE | 2024-12-28 11:31 | PN.CDI ---
CDI
- -
CDI:
Physician Documentation Request
Admit Date: 12/26/24 22:10
Dear Doctor Denise,
Please review the following and provide your response in the progress notes.
Clinical Indicators:
Height: 5 ft 10 inches
Weight:113
BMI: 16.3
Other Clinical Notes:RD note states 'BMI assessment: underweight (<18.5)
Please provide an associated diagnosis related to the abnormal BMI:
BMI < or = to 19
Underweight
Weight Loss
Cachectic
Anorexia
- BMI is not significant
- Other
Use of terms such as suspected, likely, concern for, or probable (associated with a specific diagnosis that is being evaluated, monitored, or treated as if it exists) are acceptable and can be coded in the inpatient setting, when documented at the
time of discharge.
Thank you,
Fidelia Madera RN, BSN
CDI Specialist
tiger text
Please use your independent medical judgment in providing your response.
--- NOTE | 2024-12-28 12:31 | CM ---
Patient seen at bedside in IMU prior to transition to [facility]. Patient plan is unchanged home with family. Patient not on O2 at this time. CM will continue to follow for discharge planning needs.
Plan; home with family
--- NOTE | 2024-12-28 13:00 | PTCARENOTE ---
Patient refused PTT lab draw. Attempted to use research engineer marine equipment services to educate on importance of lab draw, patient still refusing. Notified covering provider.
[2024-12-28] MEDS: LOVENOX 50 MG SC (15:59)
[2024-12-28] MEDS: ROXICODONE 5 MG PO (16:18)
--- NOTE | 2024-12-28 16:23 | W.PN.UPDATE ---
Update Note
Progress Note Update
I saw and evaluated the patient. I reviewed the resident�s note and agree with findings and plan as documented in the resident�s note.
1. Left lower lobe PE submassive-CT chest PE reviewed and emboli within left lower lobe and segmental pulmonary arteries. Normal venous Doppler. Patient does not want to undergo frequent bladder checks/PTT, changing heparin drip to Lovenox.
Bridging patient on warfarin with concern of insurance coverage for DOAC. Will ask case folder tomorrow to check co-pay/accessibility to DOACs
2. HIV/AIDS -patient have recent diagnosis in November of HIV with pneumocystis pneumonia as AIDS defining illness. CD4 count of 27. Patient has been started on Atripla with this has been changed to Biktarvy due to concern of psychiatric side effects
. 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 Started prednisone 20 mg daily per ID recommendation.
3. PCP pneumonia -this was diagnosed with bronchoscopy again silver stain. Serology positive as well. Patient to be started back on Bactrim double strength 1 tablet daily close CD4 count greater than 200 for 3 months per ID recommendation.
4. Abdominal pain/transaminitis -LFTs trended down. CT abdomen pelvis did not show any structural problems with liver parenchyma.
5. Fever episode -question of this related to VTE versu IRIS. Continue symptomatic care, provide called back if needed
6. Urinary incontinence -check bladder scan to rule out retention. Symptoms described as possible urgency versus obstructive in nature. Questioning if patient have HIV myelopathy.
7. Oral candidiasis -patient is maintained on fluconazole.
8. Kaposi's sarcoma -patient have diffuse skin lesions in line with diagnosis of Kaposi's sarcoma. This is a clinical diagnosis and not based on skin biopsy result
9. Diffuse pulmonary nodules -patient had few pulmonary nodules on CT scan, question to be Kaposi's sarcoma as well.
Discussed with ID
Total time spent 60 minutes
[2024-12-28] MEDS: COUMADIN 2.5 MG PO (18:19)
[2024-12-29] VITALS (9 sets, daily range): BP systolic 106–120; BP diastolic 66–79; PULSE 100; O2SAT 99
[2024-12-29] MEDS: TYLENOL 650 MG PO (02:57)
[2024-12-29] MEDS: LOVENOX 50 MG SC ×2 (04:41→16:01)
[2024-12-29 07:27] LABS: Hematocrit 36.1 % (39.0-52.0); Hemoglobin 12.3 g/dL (13.0-18.0); Mean Corp Hgb Conc. 34.1 g/dL (33.0-37.0); Mean Corpuscular Hgb 30.2 pg (27.0-31.0); Mean Corpuscular Volume 88.7 fL (80.0-94.0); Mean Platelet Volume 9.4 fL (7.4-10.4); Platelet Count 349 10^3/uL (130-400); Red Blood Cell Count 4.07 10^6/uL (4.70-6.10); Red Cell Dist. Width 15.9 % (11.5-14.5); White Blood Cell Count 15.3 10^3/uL (4.8-10.8)
[2024-12-29 07:45] LABS: INR 1.19; PT 15.4 Sec (11.4-14.6)
[2024-12-29 08:26] LABS: ALT (SGPT) 42 U/L (0-50); AST (SGOT) 26 U/L (17-59); Albumin 3.6 g/dl (3.5-5.0); Alkaline Phosphatase 135 U/L (38-126); Blood Urea Nitrogen 15 mg/dl (9-20); Calcium 9.3 mg/dl (8.4-10.2); Carbon Dioxide 22 mmol/L (22-30); Chloride 97 mmol/L (98-107); Estimated Creatinine Clearance 79 ml/min; Glucose 101 mg/dl (70-99); Potassium 4.8 mmol/L (3.5-5.1); Sodium 131 mmol/L (135-145); Total Bilirubin 0.6 mg/dl (0.2-1.3); Total Protein 7.4 g/dl (6.3-8.2); eGFR > 60.00
--- NOTE | 2024-12-29 09:15 | W.PN.PUL3 ---
Today's Communication / Plan
-
Transitioned to OAC per team
Encouraged OOB/PT
OP FU recommended, reviewed with patient, info placed in chart
Discharge planning per team once INR at goal
We will sign off at this time, please call with questions
Assessment
-
Patient is a 39 year old M with history of recently diagnosed HIV/AIDS, PCP PNA history treated with Bactrim, presenting to ER with SOB. CTA noted new PE. History obtained with broadband technician. He denies any prior history of PE, or known lung
disease. He denies smoking despite records. Still having chest pain with breathing. CT reviewed, he is placed on IV heparin. We are consulted for eval.
Acute respiratory failure with hypoxia
Acute PE
Hyponatremia mild
Mild transaminitis
SOB
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
HIV/AIDS (CD4 count: 27 on 11/15/2024)--new diagnosis
Anemia (mild)
Kaposi sarcoms
History of PJP Pneumonia
Cachexia with severe protein calorie malnutrition
Esophageal candidiasis
Plan
He is currently 92% on RA, on arrival in ER placed on 2L NC--weaned to off
Does not use home O2
No prior known history of lung disease in past, prior to HIV diagnosis
History of PCP pneumonia - bronchoscopy BAL silver stain from 11/16/2024 is positive for PC; also 1,3 beta D glucan is >500 pg/mL
Placed on on Bactrim DS 2 tabs TID per ID in addition to prednisone
Also reported h/o skin rash in 08/2024 with residual nodular lesions on the upper arms and chest.
Connective tissue panel negative (DEX, ANCA + RF), Hypersensitivity panel negative, ESR: 88, CRP: 15.1; Immunoglobulin levels were WNL. Eosinophil count is normal
AIDS defining illnesses noted
ID is consulted for evaluation/treatment
CTA showing PE, he is placed on IV heparin
We discussed transition to PO OAC when able
Unclear provoking incident for this, HIV is known to have increased risk of VTE
May need lifelong preventative dosing
Transition to OAC per team
Pain management per team, on oxy
Tylenol PRN
Prior Bedside spirometry from 11/12 shows a severe obstructive lung defect + severe restriction; poor effort on postbronchodilator testing.
Denies any SOB at this time, has chest pain likely due to PE
Will need OP FU which we reviewed and placed in chart
Echo checked on 11/13/2024 showing normal biventricular size/systolic function without regional WMA, with normal diastolic function and no significant valvular disease
Negative trop on arrival
He notes that he is 'unable to get OOB' when asked if he would like PT and rehab eval he said 'my can pick me up to go home'
Video broadband technician service was used to communicate with the patient. Discussed case with the primary team and answered all the patient's questions.
Hopeful discharge planning per team
Data:
CT Chest 12/26/24- Prominent pulmonary emboli within left lower lobe lobar and segmental pulmonary arteries. No overt CT evidence for right heart strain. Scattered tiny bilateral pulmonary nodules, overall slightly progressed from prior. Findings are
most suggestive of infectious/inflammatory etiologies. If the patient is considered high risk, an optional follow-up noncontrast CT chest can be obtained in [address] Chest 10/2024: 1. Moderate amount of bilateral perihilar ground-glass opacity with axial interstitial thickening in the lower lobes. Diagnostic possibilities are (1) an acute inflammatory pneumonitis (such as vaping-associated lung disease) or
(2) viral or atypical bacterial pneumonia.
2. Small amount of subpleural airspace consolidation in the posterior and lateral basilar segments of the left lower lobe and mild subpleural airspace consolidation in the right lower lobe. Diagnostic possibilities are (1) pneumonia, (2)
subsegmental atelectasis, or (3) an inflammatory airspace consolidation.
3. Mildly decreased bilateral lung volumes.
4. Mild mediastinal and bilateral hilar lymphadenopathy.
5. No PE
CXR 11/11/2024: Moderate amount of bilateral perihilar ground-glass opacity which is predominantly located in the lower lobes and appears to surround increased interstitial markings. Diagnostic possibilities are (1) mild interstitial and alveolar
cardiogenic pulmonary edema, (2) viral pneumonia, (3) a mild inflammatory pneumonitis, or (4) mild subsegmental atelectasis secondary to low lung volumes.
CXR 11/15/2024: Findings suggesting moderate bibasilar pneumonia. Significantly progressed..
Echo 11/13/2024: Normal biventricular size and systolic function without regional wall motion abnormality. Normal diastolic function. No significant valvular disease. Insufficient TR for estimation of PASP. No prior study available for comparison.
Total time spent on this consultation _41__ minutes which includes review of history, physical exam, medications, llaboratory data, personal review of imaging, extensive review of outpatient records, and discussions with care team.
Subjective Data
-
Date of Service:
Date of Service: December 29, 2024
Chief Complaint: Pulmonary Follow Up
Subjective:
No new changes, remains stable on RA
Objective Data
Data Reviewed
Vital Signs / I&O / Oxygen:
Vital Signs
Temp Pulse Resp BP Pulse Ox
98.1 F 99 14 119/78 95
12/29/24 08:08 12/29/24 08:08 12/29/24 08:08 12/29/24 08:08 12/29/24 08:08
Intake and Output
12/28/24 12/29/24 12/30/24
06:59 06:59 06:59
Intake Total 480 / 480 480 / 480
Output Total 1000 / 1000 700 / 700 450 / 450
Balance -1000 / -1000 -220 / -220 30 / 30
SaO2 95
Nasal Cannula flow liters per 2
minute
Physical Exam
General: Comfortable, Poor Appetite and Other (thin appearing, NAD)
HEENT: Normocephalic, Anicteric and Moist Mucous Membranes
Cardiovascular: S1-S2 and Regular Rhythm
Respiratory: Clear and Non-Labored Respirations
GI: Soft, Non Distended and Non Tender
Neurology: Awake, Alert, Oriented and No Motor Deficits
Skin: Warm, Dry, Good Color and Other (sarcomas noted)
Labs/Micro/Reports
Lab Data
12/29/24 07:11
12/29/24 07:11
Laboratory Results
12/28/24 12/29/24
19:16 07:11
PT 15.4 H
INR 1.19
APTT Cancelled
Microbiology
12/27/24 17:01 Blood/Venous Blood Culture - Preliminary
No Growth in 24 hours- Final report to follow
12/27/24 12:14 Blood/Venous Blood Culture - Preliminary
No Growth in 24 hours- Final report to follow
12/26/24 18:44 Nasal Swab Influenza Types A & B (MARA) - Final
Negative for Influenza A & B, NAAT
Negative results must be combined with clinical observations
and patient history.
Nucleic Acid Amplification test (NAAT)performed on the
[employer] platform.
[2024-12-29] MEDS: BACTRIM DS 800 MG/160 MG 1 TABLET PO (09:39)
[2024-12-29] MEDS: DELTASONE 20 MG PO (09:39)
[2024-12-29] MEDS: BIKTARVY 50-200-25 MG TABLET 1 TABLET PO (09:39)
[2024-12-29] MEDS: DIFLUCAN 200 MG PO (09:39)
--- NOTE | 2024-12-29 10:12 | W.PN.ID1 ---
Date of Service
Date of Service: December 29, 2024
Today's Communication
See below.
Assessment / Plan
# Recent new diagnosis of AIDS 10/2024
-CD4 27 (3%), VL >5,000,000
-On Atripla since 12/01/24 (insurance coverage issue)
- Psychiatric effects of Atripla -> DC
- Continue Biktarvy 1 tab qd.
outpatient application for [employer] Advanced Access Biktarvy has been approved; waiting for delivery.
- HIV viral load pending
# Possible relapse PJP vs partially treated
# Recent PJP pneumonia 11/10
- 11/16 Bronch: + silver stain, PJP DFA; rare, usual resp silvana, AFB neg to date,
- Possible pt not following correct instructions on abx due to language barrier.
- I called his pharmacy: pt filled the prophylactic Bactrim DS 1 tab qd on 12/14. He was discharged home on Bactrim DS 2 q8 enough through 12/11. Also I showed him pictures of Bactrim and he states he does not recall taking any of dose 2 q8. He
was taking 'triangular shaped' pills.
- CT scan: slight progression of pulm nodules and LLL infiltrate. ?IRIS vs relapse PJP PNA.
- Hendricks with Bactrim DS 2 tabs po q8 x 21d. Increase prednisone to 40 mg daily.
- Monitor K+ and renal fucntion while on bactrim.
# Fevers persist
-DDX: Immune reconstitution inflammatory syndrome (IRIS) vs relapse PJP PNA vs bacterial PNA, vs other, vs all of the above
- Leukocytosis trending up on prednisone (d2)
- Check blood cx's x 2 negative to date
- UA neg
-CT a/p unremarkable. LLL infiltrate progressed.
-Search for IRIS unmasking OI.
11/16 BAL AFB neg.
11/20 AFb blood cx neg
11/13 Serum CRAG neg, syphilis neg
- 12/29 Repeat AFB blood cx, serum crypto antigen pending
Toxo IgG pending
-Continue prednisone (d2) for IRIS. Increase dose to 20mg daily.
- Restart PJP treatment (see above)
- Check Urine Legionella and strep pneumo ag
- Start ceftriaxone for possible CAP
Will consider adding azithromycin or doxycycline if not clinical response.
- Trend Fever, WBC.
# Acute PE
# Severe left chest pain -no better on anticoagulation
- Suspect hypercoagulable state from AIDS.
- peripheral vascular US negative
- On Coumadin.
- MONITOR INR CLOSELY WHILE ON HIGH DOSE BACTRIM + COUMADIN
# Urinary incontinence
- Bladder scan- no retention
# Oral candidiasis
- Continue fluconazole
# Kaposi's sarcoma
-Increase # of lesions due to IRIS
- Continue ART Biktarvy.
Chief Complaint
-: Fever
Subjective / Review of Systems
[id number] [facility] field staff service translating. No improvement. Continues to have fever and sweats. Continues to have severe left chest pain. He is suffering. No cough or SOB. No PRESCOTT.
Vital Signs / Physical Exam
Vital Signs
Vital Signs
Temp Pulse Resp BP Pulse Ox
98.1 F 99 14 119/78 95
12/29/24 08:08 12/29/24 08:08 12/29/24 08:08 12/29/24 08:08 12/29/24 08:08
Physical Exam
Constitutional: Acutely Ill
Eyes: Sclera Anicteric
Cardiovascular: S1/S2 (tachycardic)
Pulmonary: Other (poor respiratory effort)
Gastrointestinal: Soft, Tender, Non Distended and Normal Bowel Sounds
Genito-Urinary: Negative CVA Tenderness
Extremities: Negative Edema
Skin: Other (Scattered purplish papular/nodular lesions BUE, BLE, chest, flank.)
Neurological: AO x 3; Negative Meningeal Signs
Objective Data
Lab Data
Lab Results
12/29/24 07:11
12/29/24 07:11
PT 15.4 Sec (11.4-14.6) H 12/29/24 07:11
INR 1.19 12/29/24 07:11
APTT Cancelled 12/28/24 19:16
Estimated Creat Clear 79 ml/min 12/29/24 07:11
Lactic Acid 0.6 mmol/L (0.7-2.0) L 12/27/24 12:14
Total Bilirubin 0.6 mg/dl (0.2-1.3) 12/29/24 07:11
AST 26 U/L (17-59) 12/29/24 07:11
ALT 42 U/L (0-50) 12/29/24 07:11
Alkaline Phosphatase 135 U/L (38-126) H 12/29/24 07:11
Amylase 140 U/L (30-110) H 12/27/24 03:03
Most recent labs reviewed.
Micro Results:
12/29/24 07:11 AFB Blood Culture - Pending
Blood/Venous
12/27/24 17:01 Blood Culture - Preliminary
Blood/Venous No Growth in 24 hours- Final report to follow
12/27/24 12:14 Blood Culture - Preliminary
Blood/Venous No Growth in 24 hours- Final report to follow
12/26/24 18:44 Influenza Types A & B (MARA) - Final
Nasal Swab Negative for Influenza A & B, NAAT
Negative results must be combined with clinical observations
and patient history.
Nucleic Acid Amplification test (NAAT)performed on the
[email or web address] platform.
12/26/24 CT Chest: Prominent pulmonary emboli within left lower lobe lobar and segmental pulmonary arteries. No overt CT evidence for right heart strain. Scattered tiny bilateral pulmonary nodules, overall slightly progressed from prior. Findings
are most suggestive of infectious/inflammatory etiologies. If the patient is considered high risk, an optional follow-up noncontrast CT chest can be obtained in 12 months. The [facility] Pulmonary Nodule Advisory Board will be notified.
12/27/24 CT a/p with IV and po contrast: No significant acute abnormality identified in the abdomen or pelvis, as described above. Probable left lower lobe pneumonia, progressed. Trace left pleural effusion.
--- NOTE | 2024-12-29 12:23 | W.PN.HOSP.TC ---
Addendum entered and electronically signed by Oscar Walker DO, Resident 12/29/24 13:45:
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
Addendum entered and electronically signed by Milton Jenkins MD 12/29/24 13:40:
I saw and evaluated the patient. I reviewed the resident�s note and agree with findings and plan as documented in the resident�s note.
I saw and evaluated the patient. I reviewed the resident�s note and agree with findings and plan as documented in the resident�s note.
1. Left lower lobe PE submassive-CT chest PE reviewed and emboli within left lower lobe and segmental pulmonary arteries. Normal venous Doppler. Patient does not want to undergo frequent bladder checks/PTT, changing heparin drip to Lovenox.
Bridging patient on warfarin with concern of insurance coverage for DOAC. Will ask director case tomorrow to check co-pay/accessibility to DOACs
2. HIV/AIDS -patient have recent diagnosis in November of HIV with pneumocystis pneumonia as AIDS defining illness. CD4 count of 27. Patient has been started on Atripla with this has been changed to Biktarvy due to concern of psychiatric side effects
. 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 S ID. 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
3. PJP pneumonia -this was diagnosed with bronchoscopy again silver stain. Serology positive as well. Patient apparently may not have taken the Bactrim course that was supposed to be taken from previous admission. ID started patient again on
treatment dose of Bactrim.
4. Abdominal pain/transaminitis -LFTs trended down. CT abdomen pelvis did not show any structural problems with liver parenchyma.
5. Fever episode -question of this related to VTE versu IRIS. Continue symptomatic care, provide called back if needed
6. Urinary incontinence -check bladder scan to rule out retention. Symptoms described as possible urgency versus obstructive in nature. Questioning if patient have HIV myelopathy.
7. Oral candidiasis -patient is maintained on fluconazole.
8. Kaposi's sarcoma -patient have diffuse skin lesions in line with diagnosis of Kaposi's sarcoma. This is a clinical diagnosis and not based on skin biopsy result
9. Diffuse pulmonary nodules -patient had few pulmonary nodules on CT scan, question to be Kaposi's sarcoma as well.
Total time spent : 52 mins
Original Note:
Today's Communication/Plan
-
.
Assessment / Plan
Assessment / Plan
1. SIRS without source
- Tachycardia and tachypnea in an immunocompromise patient
- Consider whether this could be due to acute pulmonary embolus, immune reconstitution inflammatory syndrome, acute infection
- BCx x 2; no growth in 48 hours; pending AFB blood culture
- CT Abdomen and Pelvis (12/28): no abdominal abnormality; LLL pneumonia
- Check CPK, Lactic Acid, Amylase, Lipase (r/o rhabdo, lactic acidosis, pancreatitis from ART): all negative
2. Acute Pulmonary Embolus
- CT chest (12/26): Prominent pulmonary emboli within the left lower lobar and segmental pulmonary arteries. No overt CT evidence for right heart strain. Scattered tiny bilateral pulmonary nodules, overall slightly progressed from prior. Findings
are most suggestive of infectious/inflammatory etiologies.
- Patient on Heparin Drip, will need financial evaluation of outpatient DOACs
- 12/28: patient being transitioned to warfarin with Lovenox bridge
- Vascular US (12/27): no sonographic evidence for lower extremity venous thrombosis
- Appreciate Pulmonary Reccomendations:
- Continue Bactrim;
- Monitor K/Cr
- May need lifelong a/c
- Outpatient pulm f/u
- Daily INR
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
- Risk factors: Advanced HIV disease, low pretreatment, CD4 27, clinical manifestations consistent with serous, recent ART initiation
- Continue antiretroviral therapy
- Transitioned to Biktarvy given better side effect profile (LFTs)
- Appreciate ID
- Continue Prednisone 20mg daily
4. Recent pneumocystis pneumonia
- 11/16 BAL with positive silver stain and direct fluorescent antibody
- Completed course of treatment, resume secondary prophylaxis with Bactrim
- Appreciate ID Reccs
- Commented on CT: Scan may look worse as immune function improves on ART
5. Urinary Incontinence
- Bladder Scan Protocol
6. Oral Candidiasis
- Appreciate ID reccs
- Avoid fluconazole with elevated transaminases, Nystatin s/s okay
- CMP in AM
7. Pulmonary Nodules
- As seen on CT Chest
- 4 mm right apical subpleural pulmonary nodule (series 401, image 12), not seen previously.
- 3 mm subpleural anterior right upper lobe nodule (image 27), not seen previously.
- 4 mm right upper lobe nodule (image 48), likely stable.
- 3 mm subpleural anterior left upper lobe nodule (image 26), likely stable.
- 4 mm subpleural anterior left upper lobe nodule (image 34), slightly progressed.
- Additional tiny 3 mm subpleural left upper lobe nodules (images 36, 37 and 40), progressed.
- Differential includes Kaposi Sarcoma vs. Lymphoma vs. Opportunisitic Infection; lit review done, lesions less than 1cm more likely represents opportunistic infection (possible for PCP pneumonia to present this way but rare)
Downgrade to Tele
Full Code
Diet: Regular
DVT PPx: Currently on Heparin Drip
Anticipated Discharge: 24 - 48 hours
Subjective/Interval History
-
Date of Service: December 29, 2024
Language Line: [id number]
Patient seen and examined while resting in bed. Patient states that his pain level is similar to yesterday. Also endorses decreased appetite, but no nausea/vomiting. He also states that pain is fine when he is relaxing, but gets worse whenever he
moves.
Objective Data
-
Labs:
Laboratory Results
12/29/24
07:11
WBC 15.3 H
Hgb 12.3 L
Hct 36.1 L
Plt Count 349
PT 15.4 H
INR 1.19
Sodium 131 L
Potassium 4.8
Chloride 97 L
Carbon Dioxide 22
BUN 15
Creatinine 0.9
Glucose 101 H
Calcium 9.3
Total Bilirubin 0.6
AST 26
ALT 42
Alkaline Phosphatase 135 H
Vital Signs:
Vital Signs
Temp Pulse Resp BP Pulse Ox
100.4 F H 114 12 107/73 100
12/29/24 11:16 12/29/24 11:16 12/29/24 11:16 12/29/24 11:16 12/29/24 11:51
I&O
12/28/24 12/29/24 12/30/24
06:59 06:59 06:59
Intake Total 480 / 480 480 / 480
Output Total 1000 / 1000 700 / 700 450 / 450
Balance -1000 / -1000 -220 / -220 30 / 30
Review of Systems
-
History Source: Patient
Cardiac: Reports Chest Pain (worse with movement)
Abdomen/GI: Reports Abdominal Pain (worse with movement); Denies Nausea or Vomiting
Neuro: Reports No Symptoms
Physical Exam
-
General: Sweats, Conversant, Appears Chronically Ill and Cachectic
HEENT: Normocephalic, Atraumatic and Anicteric
Respiratory: Non Labored Respirations and Other (tachypnic)
Cardiac: Regular Rhythm and Tachycardic
GI: Tender (diffuse)
Musculoskeletal: No Clubbing, No Cyanosis and No Edema
Skin: Lesions
Neuro: Awake, Alert and Oriented
Psych: Calm
Data Reviewed
-
Labs: Labs Reviewed by me and Discussed with Patient
[2024-12-29] MEDS: ROCEPHIN 2000 MG IV (12:40)
[2024-12-29] MEDS: STERILE WATER FOR INJECTION 20 ML IV (12:40)
[2024-12-29] MEDS: TORADOL 15 MG IV (12:40)
[2024-12-29] MEDS: BACTRIM DS 800 MG/160 MG 2 TABLET PO ×2 (13:34→21:25)
--- NOTE | 2024-12-29 15:01 | CM ---
CM reviewed chart, reviewed with nurse, patient on IV antibiotics. Plan remains home with family when stable. CM will continue to follow for all discharge planning needs.
Plan; home with family when stable.
[2024-12-29] MEDS: COUMADIN 2.5 MG PO (17:09)
[2024-12-29 19:54] LABS: CD4 % of Cells Analyzed 7 % (32-64); CD4 Absolute Count 87 cells/uL (430-1800)
[2024-12-29] MEDS: MIRALAX 17 GRAMS PO (21:33)
[2024-12-29] MEDS: ROXICODONE 10 MG PO (21:33)
[2024-12-30 02:54] LABS: HIV-1 Quan NAAT Interpretation Detected (Not Detected); HIV-1 Quant NAAT (copies/ml) 4530 cpy/mL; HIV-1 Quant NAAT (log copy/mL) 3.66 log cpy/mL
[2024-12-30 03:26] VITALS: BP 119/83
[2024-12-30] MEDS: LOVENOX 50 MG SC ×2 (04:26→15:15)
[2024-12-30] MEDS: BACTRIM DS 800 MG/160 MG 2 TABLET PO ×3 (05:49→21:15)
[2024-12-30 07:11] LABS: Hematocrit 32.8 % (39.0-52.0); Hemoglobin 11.2 g/dL (13.0-18.0); Mean Corp Hgb Conc. 34.1 g/dL (33.0-37.0); Mean Corpuscular Hgb 29.9 pg (27.0-31.0); Mean Corpuscular Volume 87.7 fL (80.0-94.0); Mean Platelet Volume 9.8 fL (7.4-10.4); Platelet Count 359 10^3/uL (130-400); Red Blood Cell Count 3.74 10^6/uL (4.70-6.10); Red Cell Dist. Width 15.9 % (11.5-14.5); White Blood Cell Count 9.7 10^3/uL (4.8-10.8)
[2024-12-30 07:24] LABS: ALT (SGPT) 71 U/L (0-50); AST (SGOT) 54 U/L (17-59); Albumin 3.3 g/dl (3.5-5.0); Alkaline Phosphatase 139 U/L (38-126); Blood Urea Nitrogen 19 mg/dl (9-20); Calcium 8.8 mg/dl (8.4-10.2); Carbon Dioxide 22 mmol/L (22-30); Chloride 98 mmol/L (98-107); Estimated Creatinine Clearance 71 ml/min; Glucose 95 mg/dl (70-99); Potassium 4.5 mmol/L (3.5-5.1); Sodium 129 mmol/L (135-145); Total Bilirubin 0.4 mg/dl (0.2-1.3); Total Protein 6.6 g/dl (6.3-8.2); eGFR > 60.00
[2024-12-30 07:52] VITALS: BP 127/76
[2024-12-30 08:02] LABS: INR 1.45; PT 17.9 Sec (11.4-14.6)
[2024-12-30] MEDS: DIFLUCAN 200 MG PO (09:09)
[2024-12-30] MEDS: BIKTARVY 50-200-25 MG TABLET 1 TABLET PO (09:09)
[2024-12-30] MEDS: DELTASONE 40 MG PO (09:10)
[2024-12-30] MEDS: SENOKOT-S 1 TABLET PO (09:21)
[2024-12-30] MEDS: DULCOLAX 10 MG PO (11:32)
[2024-12-30] MEDS: ROCEPHIN 2000 MG IV (11:32)
[2024-12-30] MEDS: PROTONIX 40 MG PO (11:32)
[2024-12-30] MEDS: STERILE WATER FOR INJECTION 20 ML IV (11:32)
[2024-12-30 11:56] VITALS: BP 108/66
--- NOTE | 2024-12-30 12:28 | W.PN.ID1 ---
Date of Service
Date of Service: December 30, 2024
Today's Communication
Continue current antibiotics, antivirals. Follow clinically.
Assessment / Plan
# Recent new diagnosis of Advanced HIV / AIDS (10/2024)
-CD4 27 (3%), VL >5,000,000
-On Atripla since 12/01/24 (insurance coverage issue)
- Psychiatric effects of Atripla -> DC'ed
- Continue Biktarvy 1 tab qd.
- outpatient application for [employer] Biktarvy has been approved; waiting for delivery.
- 12/28/24 HIV viral load 4530 // CD4 abs 87, 7%
# Possible relapse PJP vs partially treated
# Recent PJP pneumonia 11/10
- 11/16 Bronch: + silver stain, PJP DFA; rare, usual resp silvana, AFB neg to date,
- Possible pt not following correct instructions on abx due to language barrier.
- Dr. Frank called his pharmacy: pt filled the prophylactic Bactrim DS 1 tab qd on 12/14.
He was discharged home on Bactrim DS 2 q8 enough through 12/11.
He was shown pictures of Bactrim and he states he does not recall taking any of dose 2 q8. He was taking 'triangular shaped' pills.
- CT scan: slight progression of pulm nodules and LLL infiltrate. ?IRIS vs relapse PJP PNA.
- Continue Bactrim DS 2 tabs po q8 x 21d. Prednisone increased to 40 mg daily.
- Monitor K+ and renal function while on bactrim.
# Fevers persist
-DDX: Immune reconstitution inflammatory syndrome (IRIS) vs relapse PJP PNA vs bacterial PNA, vs other, vs all of the above
- Leukocytosis trending up on prednisone (d#3)
- Check blood cx's x 2 negative to date
- UA neg
-CT a/p unremarkable. LLL infiltrate progressed.
-Search for IRIS unmasking OI.
11/16 BAL AFB neg.
11/20 AFb blood cx neg
11/13 Serum CRAG neg, syphilis neg
- 12/29 Repeat AFB blood cx, serum crypto antigen pending
Toxo IgG pending
-Continue prednisone (d2) for IRIS. Increase dose to 20mg daily.
- Restart PJP treatment (see above)
- Check Urine Legionella and strep pneumo ag
- Start ceftriaxone for possible CAP
Will consider adding azithromycin or doxycycline if not clinical response.
- Trend Fever, WBC.
# Acute PE
# Severe left chest pain -no better on anticoagulation
- Suspect hypercoagulable state from AIDS.
- peripheral vascular US negative
- On Coumadin.
- MONITOR INR CLOSELY WHILE ON HIGH DOSE BACTRIM + COUMADIN
# Urinary incontinence
- Bladder scan- no retention
# Oral candidiasis
- Continue fluconazole
# Kaposi's sarcoma
-Increase # of lesions due to IRIS
- Continue ART Biktarvy.
Chief Complaint
-: Fever
Subjective / Review of Systems
Temperature curve improving.
Vital Signs / Physical Exam
Vital Signs
Vital Signs
Temp Pulse Resp BP Pulse Ox
99.8 F 80 20 108/66 96
12/30/24 11:56 12/30/24 11:56 12/30/24 11:56 12/30/24 11:56 12/30/24 11:56
Physical Exam
Constitutional: Acutely Ill
Cardiovascular: S1/S2; Negative S3/S4
Pulmonary: Other (poor respiratory effort)
Gastrointestinal: Soft, Tender, Non Distended and Normal Bowel Sounds
Genito-Urinary: Negative CVA Tenderness
Extremities: Negative Edema
Psychological: Calm
Objective Data
Lab Data
Lab Results
12/30/24 06:27
12/30/24 06:27
PT 17.9 Sec (11.4-14.6) H 12/30/24 06:27
INR 1.45 12/30/24 06:27
APTT Cancelled 12/28/24 19:16
Estimated Creat Clear 71 ml/min 12/30/24 06:27
Lactic Acid 0.6 mmol/L (0.7-2.0) L 12/27/24 12:14
Total Bilirubin 0.4 mg/dl (0.2-1.3) 12/30/24 06:27
AST 54 U/L (17-59) 12/30/24 06:27
ALT 71 U/L (0-50) H 12/30/24 06:27
Alkaline Phosphatase 139 U/L (38-126) H 12/30/24 06:27
Amylase 140 U/L (30-110) H 12/27/24 03:03
Most recent labs reviewed.
Micro Results:
12/27/24 12:14 Blood Culture - Preliminary
Blood/Venous No Growth in 72 hours- Final report to follow
12/27/24 17:01 Blood Culture - Preliminary
Blood/Venous No Growth in 48 hours- Final report to follow
12/29/24 15:20 Legionella Urinary Antigen - Final
Urine Negative for Legionella pneumophila Serogroup 1 antigen.
A negative result does not rule out the possiblity of
Legionella infection due to other serogroups or species of
Legionella. Clinical correlation is recommended.
Streptococcus pneumoniae Antigen (M - Final
Negative for Streptococcus pneumoniae antigen.
A negative result does not exclude infection with
Streptococcus pneumoniae. Clinical correlation is
recommended.
12/29/24 07:11 AFB Blood Culture - Pending
Blood/Venous
12/26/24 18:44 Influenza Types A & B (MARA) - Final
Nasal Swab Negative for Influenza A & B, NAAT
Negative results must be combined with clinical observations
and patient history.
Nucleic Acid Amplification test (NAAT)performed on the
Lateral SV platform.
12/26/24 CT Chest: Prominent pulmonary emboli within left lower lobe lobar and segmental pulmonary arteries. No overt CT evidence for right heart strain. Scattered tiny bilateral pulmonary nodules, overall slightly progressed from prior. Findings
are most suggestive of infectious/inflammatory etiologies. If the patient is considered high risk, an optional follow-up noncontrast CT chest can be obtained in 12 months. The [facility] Pulmonary Nodule Advisory Board will be notified.
12/27/24 CT a/p with IV and po contrast: No significant acute abnormality identified in the abdomen or pelvis, as described above. Probable left lower lobe pneumonia, progressed. Trace left pleural effusion.
--- NOTE | 2024-12-30 14:39 | W.PN.HOSP.TC ---
Today's Communication/Plan
-
Maintained on Lovenox/warfarin bridge
Rocephin added to regimen by ID
Prednisone dose increased yesterday
Laxatives for constipation
Assessment / Plan
Assessment / Plan
1. Left lower lobe PE submassive-CT chest PE reviewed and emboli within left lower lobe and segmental pulmonary arteries. Normal venous Doppler. Patient does not want to undergo frequent bladder checks/PTT, changing heparin drip to Lovenox.
Bridging patient on warfarin with concern of insurance coverage for DOAC. Will ask family service caseworker tomorrow to check co-pay/accessibility to DOACs
2. HIV/AIDS -patient have recent diagnosis in November of HIV with pneumocystis pneumonia as AIDS defining illness. CD4 count of 27. Patient has been started on Atripla with this has been changed to Biktarvy due to concern of psychiatric side effects
. 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 Rocephin has been added to regimen as well.
3. PJP pneumonia -this was diagnosed with bronchoscopy again silver stain. Serology positive as well. Patient apparently may not have taken the Bactrim course that was supposed to be taken from previous admission. ID started patient again on
treatment dose of Bactrim.
4. Abdominal pain/transaminitis -LFTs trended down. CT abdomen pelvis did not show any structural problems with liver parenchyma. Patient also some constipation and last bowel movement on Wednesday. Starting on laxatives if adding to patient
abdominal pain
5. Fever episode -question of this related to VTE versu IRIS. Continue symptomatic care, provide called back if needed
6. Urinary incontinence -check bladder scan to rule out retention. Symptoms described as possible urgency versus obstructive in nature. Questioning if patient have HIV myelopathy.
7. Oral candidiasis -patient is maintained on fluconazole.
8. Kaposi's sarcoma -patient have diffuse skin lesions in line with diagnosis of Kaposi's sarcoma. This is a clinical diagnosis and not based on skin biopsy result
9. Diffuse pulmonary nodules -patient had few pulmonary nodules on CT scan, question to be Kaposi's sarcoma as well.
Anticipated Discharge: 24 - 48 hours
Subjective/Interval History
-
Date of Service: December 30, 2024
Denies having any problems overnight
Continues to have some fever/chills
Abdominal pain is better
Appetite is poor
Objective Data
-
Labs:
Laboratory Results
12/30/24
06:27
WBC 9.7
Hgb 11.2 L
Hct 32.8 L
Plt Count 359
PT 17.9 H
INR 1.45
Sodium 129 L
Potassium 4.5
Chloride 98
Carbon Dioxide 22
BUN 19
Creatinine 1.0
Glucose 95
Calcium 8.8
Total Bilirubin 0.4
AST 54
ALT 71 H
Alkaline Phosphatase 139 H
Vital Signs:
Vital Signs
Temp Pulse Resp BP Pulse Ox
99.8 F 80 20 108/66 96
12/30/24 11:56 12/30/24 11:56 12/30/24 11:56 12/30/24 11:56 12/30/24 11:56
I&O
12/29/24 12/30/24 12/31/24
06:59 06:59 06:59
Intake Total 480 / 480 1680 / 1680
Output Total 700 / 700 450 / 450
Balance -220 / -220 1230 / 1230
Review of Systems
-
Respiratory: Reports No Symptoms
Cardiac: Reports No Symptoms
Abdomen/GI: Reports No Symptoms
Physical Exam
-
General: Appears Chronically Ill and Cachectic
HEENT: Negative Oxygen
Respiratory: Other (tachypnic)
Cardiac: Regular Rhythm, S1/S2 and Tachycardic
Skin: Lesions
Neuro: Awake, Alert and Oriented
Psych: Calm
[2024-12-30 15:18] VITALS: BP 107/72
[2024-12-30] MEDS: CITROMA 300 ML PO (16:11)
[2024-12-30] MEDS: COUMADIN 2.5 MG PO (17:24)
[2024-12-30 19:33] VITALS: BP 104/76
[2024-12-30] MEDS: TORADOL 15 MG IV (21:15)
[2024-12-30 22:26] LABS: Cryptococcus Antigen Negative (Negative)
[2024-12-30 23:31] VITALS: BP 96/60
[2024-12-31] MEDS: LOVENOX 50 MG SC (03:48)
[2024-12-31 03:59] VITALS: BP 98/64
[2024-12-31 04:10] LABS: Toxoplasma gondii Ab, IgG <3.0 IU/mL (<=8.8)
[2024-12-31] MEDS: BACTRIM DS 800 MG/160 MG 2 TABLET PO ×3 (06:31→21:57)
[2024-12-31] MEDS: TORADOL 15 MG IV (06:38)
[2024-12-31 06:41] LABS: Hematocrit 34.5 % (39.0-52.0); Hemoglobin 11.9 g/dL (13.0-18.0); Mean Corp Hgb Conc. 34.5 g/dL (33.0-37.0); Mean Corpuscular Hgb 30.2 pg (27.0-31.0); Mean Corpuscular Volume 87.6 fL (80.0-94.0); Mean Platelet Volume 9.8 fL (7.4-10.4); Platelet Count 396 10^3/uL (130-400); Red Blood Cell Count 3.94 10^6/uL (4.70-6.10); Red Cell Dist. Width 15.9 % (11.5-14.5); White Blood Cell Count 7.6 10^3/uL (4.8-10.8)
[2024-12-31 06:50] LABS: INR 1.87; PT 21.7 Sec (11.4-14.6)
[2024-12-31 07:07] VITALS: BP 106/70
[2024-12-31 07:07] LABS: ALT (SGPT) 185 U/L (0-50); AST (SGOT) 155 U/L (17-59); Albumin 3.3 g/dl (3.5-5.0); Alkaline Phosphatase 226 U/L (38-126); Blood Urea Nitrogen 26 mg/dl (9-20); Calcium 8.8 mg/dl (8.4-10.2); Carbon Dioxide 24 mmol/L (22-30); Chloride 98 mmol/L (98-107); Estimated Creatinine Clearance 79 ml/min; Glucose 128 mg/dl (70-99); Potassium 4.6 mmol/L (3.5-5.1); Sodium 132 mmol/L (135-145); Total Bilirubin 0.4 mg/dl (0.2-1.3); Total Protein 6.8 g/dl (6.3-8.2); eGFR > 60.00
[2024-12-31] MEDS: PROTONIX 40 MG PO (10:08)
[2024-12-31] MEDS: DIFLUCAN 200 MG PO (10:08)
[2024-12-31] MEDS: DELTASONE 40 MG PO (10:08)
[2024-12-31] MEDS: BIKTARVY 50-200-25 MG TABLET 1 TABLET PO (10:16)
[2024-12-31 11:13] VITALS: BP 109/76
--- NOTE | 2024-12-31 12:09 | CM ---
human resources project manager reviewed patient's chart and called patient insurance to check on cost of Eliquis [phone] and cost of Eliquis is zero copay per day. Physician made aware.
Plan; Home when stable.
--- NOTE | 2024-12-31 12:45 | W.PN.HOSP.TC ---
Addendum entered and electronically signed by Milton Jenkins MD 12/31/24 13:35:
Add onto diagnosis
Cachectic
Original Note:
Today's Communication/Plan
-
see note
Assessment / Plan
Assessment / Plan
1. Left lower lobe PE submassive-CT chest PE reviewed and emboli within left lower lobe and segmental pulmonary arteries. Normal venous Doppler. Patient does not want to undergo frequent bladder checks/PTT, changing heparin drip to Lovenox.
Patient was being bridged to warfarin for outpatient therapy although no co-pay for Eliquis, changed patient to be started on Eliquis from today in the evening. Lovenox to be discontinued.
2. HIV/AIDS -patient have recent diagnosis in November of HIV with Pneumocystis pneumonia as AIDS defining illness. CD4 count of 27. Patient has been started on Atripla with this has been changed to Biktarvy due to concern of psychiatric side effects
. 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 Rocephin has been added to regimen as well.
Patient has been afebrile for 48 hours. Patient wanted to discuss with ID that he will do well to get the supply of Biktarvy and a follow-up with ID in the office
3. PJP pneumonia -this was diagnosed with bronchoscopy again silver stain. Serology positive as well. Patient apparently may not have taken the Bactrim course that was supposed to be taken from previous admission. ID started patient again on
treatment dose of Bactrim, of which patient will have to finish a 21-day course, see ID note.
4. Abdominal pain/transaminitis -LFTs trended down. CT abdomen pelvis did not show any structural problems with liver parenchyma. Patient also some constipation and last bowel movement on Wednesday. No clear explanation for the pain. Continue
symptomatic care
5. Urinary incontinence - no urinary retention on bladder scan. Symptoms described as possible urgency. Questioning if patient have HIV myelopathy causing urinary symptoms.
7. Oral candidiasis -patient is maintained on fluconazole.
8. Kaposi's sarcoma -patient have diffuse skin lesions in line with diagnosis of Kaposi's sarcoma. This is a clinical diagnosis and not based on skin biopsy result
9. Diffuse pulmonary nodules -patient had few pulmonary nodules on CT scan, question to be Kaposi's sarcoma as well.
Total time spent : 53mins
Lengthy discussion and counseling of patient done with language line used today regarding patient current HIV state/blood clot. All questions answered.
Anticipated Discharge: 24 - 48 hours
Subjective/Interval History
-
Date of Service: December 31, 2024
Patient has been fever free for last 48 hours
Subjectively feeling better
Patient seemed to be in good spirits today and more communicative
Objective Data
-
Labs:
Laboratory Results
12/31/24
06:09
WBC 7.6
Hgb 11.9 L
Hct 34.5 L
Plt Count 396
PT 21.7 H
INR 1.87
Sodium 132 L
Potassium 4.6
Chloride 98
Carbon Dioxide 24
BUN 26 H
Creatinine 0.9
Glucose 128 H
Calcium 8.8
Total Bilirubin 0.4
AST 155 H
ALT 185 H
Alkaline Phosphatase 226 H
Vital Signs:
Vital Signs
Temp Pulse Resp BP Pulse Ox
97.5 F 73 18 109/76 95
12/31/24 11:13 12/31/24 11:13 12/31/24 11:13 12/31/24 11:13 12/31/24 11:13
I&O
12/30/24 12/31/24 01/01/25
06:59 06:59 06:59
Intake Total 1680 / 1680 720 / 720
Output Total 450 / 450
Balance 1230 / 1230 720 / 720
Review of Systems
-
Respiratory: Reports No Symptoms
Cardiac: Reports No Symptoms
Abdomen/GI: Reports Abdominal Pain; Denies Nausea or Vomiting
Physical Exam
-
General: Appears Chronically Ill and Cachectic
HEENT: Negative Oxygen
Respiratory: Clear to Auscultation; Negative Wheezes
Cardiac: Regular Rhythm and S1/S2; Negative Murmur
GI: Soft, Nontender and Nondistended
Skin: Other (diffuse kaposi sarcoma)
Neuro: Awake, Alert and Oriented
Psych: Calm
[2024-12-31] MEDS: STERILE WATER FOR INJECTION 20 ML IV (13:14)
[2024-12-31] MEDS: ROCEPHIN 2000 MG IV (13:14)
[2024-12-31 15:42] VITALS: BP 104/72
[2024-12-31] MEDS: ELIQUIS 10 MG PO (19:55)
[2024-12-31 20:09] VITALS: BP 114/78
[2024-12-31 23:32] VITALS: BP 119/74
[2025-01-01 03:56] VITALS: BP 101/70
[2025-01-01] MEDS: BACTRIM DS 800 MG/160 MG 2 TABLET PO ×3 (06:08→21:07)
[2025-01-01 07:00] VITALS: BP 108/71
[2025-01-01] MEDS: ELIQUIS 10 MG PO ×2 (08:15→19:57)
[2025-01-01] MEDS: DIFLUCAN 200 MG PO (08:15)
[2025-01-01] MEDS: PROTONIX 40 MG PO (08:16)
[2025-01-01] MEDS: DELTASONE 40 MG PO (08:16)
[2025-01-01] MEDS: BIKTARVY 50-200-25 MG TABLET 1 TABLET PO (08:22)
[2025-01-01] MEDS: STERILE WATER FOR INJECTION 20 ML IV (12:09)
[2025-01-01] MEDS: ROCEPHIN 2000 MG IV (12:09)
[2025-01-01] MEDS: ROXICODONE 5 MG PO (13:01)
--- NOTE | 2025-01-01 14:16 | W.PN.HOSP.TC ---
Today's Communication/Plan
-
Abx
monitor LFTs
ID consulted - await medication delivery
Assessment / Plan
Assessment / Plan
1. Left lower lobe PE submassive-CT chest PE reviewed and emboli within left lower lobe and segmental pulmonary arteries. Normal venous Doppler. Patient does not want to undergo frequent bladder checks/PTT, changing heparin drip to Lovenox.
Patient was being bridged to warfarin for outpatient therapy although no co-pay for Eliquis, changed patient to be started on Eliquis.
2. HIV/AIDS -patient have recent diagnosis in November of HIV with Pneumocystis pneumonia as AIDS defining illness. CD4 count of 27. Patient has been started on Atripla with this has been changed to Biktarvy due to concern of psychiatric side effects
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 Rocephin has been added to regimen as well. Patient
has been afebrile. Patient wanted to discuss with ID that he will do well to get the supply of Biktarvy and a follow-up with ID in the office. Awaiting delivery
3. PJP pneumonia -this was diagnosed with bronchoscopy again silver stain. Serology positive as well. Patient apparently may not have taken the Bactrim course that was supposed to be taken from previous admission. ID started patient again on
treatment dose of Bactrim, of which patient will have to finish a 21-day course, see ID note. - Continue Bactrim DS 2 tabs po q8 x 21d. Prednisone increased to 40 mg daily. Started ceftriaxone for possible CAP.
4. Abdominal pain/transaminitis -LFTs. CT abdomen pelvis did not show any structural problems with liver parenchyma. Patient also some constipation and last bowel movement on Wednesday. No clear explanation for the pain. Continue symptomatic care.
monitor with new meds, most likely DILI v HIV; hep panel neg 11/21/24
5. Urinary incontinence - no urinary retention on bladder scan. Symptoms described as possible urgency. Questioning if patient have HIV myelopathy causing urinary symptoms.
7. Oral candidiasis -patient is maintained on fluconazole.
8. Kaposi's sarcoma -patient have diffuse skin lesions in line with diagnosis of Kaposi's sarcoma. This is a clinical diagnosis and not based on skin biopsy result
9. Diffuse pulmonary nodules -patient had few pulmonary nodules on CT scan, question to be Kaposi's sarcoma as well.
10. Hyponatremia, 2/2 to HIV/AIDS - SIADH - monitor
11. Transaminitis -
Total time spent : 55mins;
Total time spent on today's encounter was 55 minutes which included time spent in counseling the patient/family regarding diagnosis and treatment plan as listed above, goals of care, and symptom management. Case was discussed with nursing staff,
specialists, and care coordinators/case management. All labs and imaging personally reviewed by me. Remainder the time spent in detailed review of previous records, lab data, imaging, and other medical provider documentation.
Anticipated Discharge: Today
Subjective/Interval History
-
Date of Service: January 01, 2025
No events overnight
Objective Data
-
Vital Signs:
Vital Signs
Temp Pulse Resp BP Pulse Ox
97.7 F 75 16 108/71 94
01/01/25 07:00 01/01/25 07:00 01/01/25 07:00 01/01/25 07:00 01/01/25 07:00
I&O
12/31/24 01/01/25 01/02/25
06:59 06:59 06:59
Intake Total 720 / 720 240 / 240
Balance 720 / 720 240 / 240
Review of Systems
-
History Source: Patient
All other systems: Not reviewed unless documented
Physical Exam
-
General: Appears Chronically Ill and Cachectic
HEENT: Negative Oxygen
Respiratory: Clear to Auscultation; Negative Wheezes
Cardiac: Regular Rhythm and S1/S2; Negative Murmur
GI: Soft, Nontender and Nondistended
Skin: Other (diffuse kaposi sarcoma)
Neuro: Awake, Alert and Oriented
Psych: Calm
Data Reviewed
-
CT Scan: Report Reviewed by me
Ultrasound: Report Reviewed by me
Labs: Labs Reviewed by me and Discussed with Patient
[2025-01-01 15:09] VITALS: BP 117/82
--- NOTE | 2025-01-01 16:19 | W.PN.ID1 ---
Date of Service
Date of Service: January 01, 2025
Today's Communication
See below.
Assessment / Plan
# Advanced HIV / AIDS ( dx'd 10/2024)
-CD4 27 (3%), VL >5,000,000
-On Atripla since 12/01/24 (insurance coverage issue)
- Psychiatric effects of Atripla -> DC'ed
- Robust response to ART. VL decreased from 5 x 10^6 to 5 x 10^3 within a month
- Repeat CD4 87 (7%). CD4 Will take several months to improve to >200
- Continue Biktarvy 1 tab qd.
- Outpatient application for [employer] Biktarvy has been approved; waiting for delivery to ID office.
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
# Recent PJP pneumonia 11/10
- 11/16 Bronch: + silver stain, PJP DFA; rare, usual resp silvana, AFB neg to date,
- Possible pt not following correct instructions on abx due to language barrier.
There was a gap between finishing PJP treatment and starting secondary prophylaxis
- CT scan: slight progression of pulm nodules and LLL infiltrate. ?IRIS vs relapse PJP PNA.
- Continue Bactrim DS 2 tabs po q8 x 21d through 01/18/25, then Bactrim DS 1 tab daily
- Monitor K+ and renal function while on bactrim.
# Fevers resolved
-DDX: Immune reconstitution inflammatory syndrome (IRIS) vs relapse PJP PNA vs bacterial PNA, vs other, vs all of the above
- blood cx's x 2 negative to date
- UA neg
-CT a/p unremarkable. LLL infiltrate progressed.
-Unlikely IRIS unmasking OI.
11/16 BAL AFB neg.
11/20 AFb blood cx neg
11/13 Serum CRAG neg, syphilis neg
12/29 repeat serum crypto ag negative
12/29 Repeat AFB blood cx pending
Toxo IgG negative
-Continue prednisone 40mg po daily through 01/07/25 then 20mg po qd through 01/07/25 then 20mg po daily through 01/18/25, then 10mg qd through 12/24 for IRIS.
- Continue ceftriaxone (d4 of 7) for now possible CAP
# Acute PE
- Suspect hypercoagulable state from AIDS.
- peripheral vascular US negative
- On Eliquis
# Elevated LFT's - ? due to Bactrim
# Oral candidiasis - resolved
- Discontinue fluconazole
- Follow elevated LFT's off fluconazole
# Kaposi's sarcoma
-Increase # of lesions due to IRIS
- Continue ART Biktarvy.
Chief Complaint
-: Fever
Subjective / Review of Systems
[id number] [place] documentum consultant at service.
Pt feeling slightly better. Fever resolved. Still with sweats.
Chest pain still present but not as severe as previous.
Appetite same.
Vital Signs / Physical Exam
Vital Signs
Vital Signs
Temp Pulse Resp BP Pulse Ox
97.5 F 90 18 117/82 98
01/01/25 15:09 01/01/25 15:09 01/01/25 15:09 01/01/25 15:09 01/01/25 15:09
Physical Exam
Constitutional: Acutely Ill
Head: Other
Eyes: Sclera Anicteric
Oropharyngeal: Thrush (resolved)
Cardiovascular: Regular Rate and S1/S2
Pulmonary: Rales (Left base crackles)
Gastrointestinal: Soft, Tender (upper abdomen), Non Distended and Normal Bowel Sounds
Genito-Urinary: Negative CVA Tenderness
Extremities: Negative Edema
Skin: Rash (Scattered purple papules/nodules stable); Negative Jaundice
Neurological: AO x 3
Objective Data
Lab Data
Lab Results
12/31/24 06:09
12/31/24 06:09
PT 21.7 Sec (11.4-14.6) H 12/31/24 06:09
INR 1.87 12/31/24 06:09
APTT Cancelled 12/28/24 19:16
Estimated Creat Clear 79 ml/min 12/31/24 06:09
Lactic Acid 0.6 mmol/L (0.7-2.0) L 12/27/24 12:14
Total Bilirubin 0.4 mg/dl (0.2-1.3) 12/31/24 06:09
AST 155 U/L (17-59) H 12/31/24 06:09
ALT 185 U/L (0-50) H 12/31/24 06:09
Alkaline Phosphatase 226 U/L (38-126) H 12/31/24 06:09
Amylase 140 U/L (30-110) H 12/27/24 03:03
Most recent labs reviewed.
Micro Results:
12/27/24 12:14 Blood Culture - Final
Blood/Venous No Growth - Final Report
12/27/24 17:01 Blood Culture - Preliminary
Blood/Venous No Growth in 4 days- Final report to follow
12/29/24 07:11 AFB Blood Culture - Preliminary
Blood/Venous
12/29/24 15:20 Legionella Urinary Antigen - Final
Urine Negative for Legionella pneumophila Serogroup 1 antigen.
A negative result does not rule out the possiblity of
Legionella infection due to other serogroups or species of
Legionella. Clinical correlation is recommended.
Streptococcus pneumoniae Antigen (M - Final
Negative for Streptococcus pneumoniae antigen.
A negative result does not exclude infection with
Streptococcus pneumoniae. Clinical correlation is
recommended.
12/26/24 18:44 Influenza Types A & B (MARA) - Final
Nasal Swab Negative for Influenza A & B, NAAT
Negative results must be combined with clinical observations
and patient history.
Nucleic Acid Amplification test (NAAT)performed on the
[employer] platform.
12/26/24 CT Chest: Prominent pulmonary emboli within left lower lobe lobar and segmental pulmonary arteries. No overt CT evidence for right heart strain. Scattered tiny bilateral pulmonary nodules, overall slightly progressed from prior. Findings
are most suggestive of infectious/inflammatory etiologies. If the patient is considered high risk, an optional follow-up noncontrast CT chest can be obtained in 12 months. The Pulmonary Nodule Advisory Board will be notified.
12/27/24 CT a/p with IV and po contrast: No significant acute abnormality identified in the abdomen or pelvis, as described above. Probable left lower lobe pneumonia, progressed. Trace left pleural effusion.
Care Review
Plan reviewed with: Physician (Dr. Arriaga)
[2025-01-01 23:48] VITALS: BP 115/68
[2025-01-02] MEDS: BACTRIM DS 800 MG/160 MG 2 TABLET PO ×3 (05:16→21:29)
[2025-01-02 08:00] VITALS: BP 116/85
[2025-01-02 08:22] LABS: ALT (SGPT) 139 U/L (0-50); AST (SGOT) 48 U/L (17-59); Albumin 3.5 g/dl (3.5-5.0); Alkaline Phosphatase 184 U/L (38-126); Blood Urea Nitrogen 16 mg/dl (9-20); Carbon Dioxide 23 mmol/L (22-30); Chloride 97 mmol/L (98-107); Estimated Creatinine Clearance 88 ml/min; Glucose 108 mg/dl (70-99); Potassium 5.1 mmol/L (3.5-5.1); Sodium 129 mmol/L (135-145); Total Bilirubin 0.3 mg/dl (0.2-1.3); Total Protein 7.1 g/dl (6.3-8.2); eGFR > 60.00
[2025-01-02] MEDS: ELIQUIS 10 MG PO ×2 (08:27→19:18)
[2025-01-02] MEDS: DELTASONE 40 MG PO (08:28)
[2025-01-02] MEDS: PROTONIX 40 MG PO (08:28)
[2025-01-02 08:42] LABS: % Basophils 0.2 % (0-2); % Immature Granulocytes 0.9 % (0-0.5); % Lymphocytes 6.8 % (20.5-51.1); % Monocytes 16.2 % (1.7-9.3); % Neutrophils 75.9 % (42.2-75.2); Absolute Immature Granulocytes 0.1 10^3/uL (0-0.05); Absolute Lymphocytes 0.4 10^3/uL (1.2-3.4); Absolute Monocytes 0.9 10^3/uL (0.1-0.6); Absolute Neutrophils 4.1 10^3/uL (1.4-6.5); Hematocrit 36.4 % (39.0-52.0); Hemoglobin 12.4 g/dL (13.0-18.0); Mean Corp Hgb Conc. 34.1 g/dL (33.0-37.0); Mean Corpuscular Volume 88.1 fL (80.0-94.0); Mean Platelet Volume 9.6 fL (7.4-10.4); Nucleated Red Blood Cells % 0 % (-); Platelet Count 498 10^3/uL (130-400); Red Blood Cell Count 4.13 10^6/uL (4.70-6.10); Red Cell Dist. Width 15.5 % (11.5-14.5); White Blood Cell Count 5.4 10^3/uL (4.8-10.8)
[2025-01-02] MEDS: DULCOLAX 10 MG PO (08:48)
[2025-01-02 09:10] LABS: Hepatitis B Surface Antigen Negative (Negative)
[2025-01-02 09:15] LABS: Hepatitis B Core Ab, IgM Negative (Negative)
[2025-01-02] MEDS: BIKTARVY 50-200-25 MG TABLET 1 TABLET PO (09:17)
[2025-01-02 09:28] LABS: Hepatitis A Antibody, Total Positive (Negative); Hepatitis B Core Ab, Total Negative (Negative); Hepatitis B Surface Antibody Negative; Hepatitis C Antibody Negative (Negative)
[2025-01-02 09:37] VITALS: BP 116/82; O2SAT 95
[2025-01-02] MEDS: ROCEPHIN 2000 MG IV (11:46)
[2025-01-02] MEDS: STERILE WATER FOR INJECTION 20 ML IV (11:46)
--- NOTE | 2025-01-02 13:17 | CM ---
CM reviewed chart, reviewed with nurse. Patient seen bedside, waiting for for delivery of medication to ID office. Plan remains home no needs. CM will continue to follow for all discharge planning needs.
Plan; home no needs
--- NOTE | 2025-01-02 13:26 | W.PN.ID1 ---
Date of Service
Date of Service: January 02, 2025
Today's Communication
Continue current plan.
Assessment / Plan
# Advanced HIV / AIDS ( dx'd 10/2024)
-CD4 27 (3%), VL >5,000,000
-On Atripla since 12/01/24 (insurance coverage issue)
- Psychiatric effects of Atripla -> DC'ed
- Robust response to ART. VL decreased from 5 x 10^6 to 5 x 10^3 within a month
- Repeat CD4 87 (7%). CD4 Will take several months to improve to >200
- Continue Biktarvy 1 tab qd.
- Outpatient application for [employer] Advanced Access Biktarvy has been approved
Biktarvy delivery enroute to ID office.
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
# Recent PJP pneumonia 11/10
- 11/16 Bronch: + silver stain, PJP DFA; rare, usual resp silvana, AFB neg to date,
- Possible pt not following correct instructions on abx due to language barrier.
There was a gap between finishing PJP treatment and starting secondary prophylaxis
- CT scan: slight progression of pulm nodules and LLL infiltrate. ?IRIS vs relapse PJP PNA.
- Continue Bactrim DS 2 tabs po q8 x 21d through 01/18/25, then Bactrim DS 1 tab daily
- Monitor K+ and renal function while on bactrim.
# Fevers resolved
-DDX: Immune reconstitution inflammatory syndrome (IRIS) vs relapse PJP PNA vs bacterial PNA, vs other, vs all of the above
- blood cx's x 2 negative to date
- UA neg
-CT a/p unremarkable. LLL infiltrate progressed.
-Unlikely IRIS unmasking OI.
11/16 BAL AFB neg.
11/20 AFb blood cx neg
11/13 Serum CRAG neg, syphilis neg
12/29 repeat serum crypto ag negative
12/29 Repeat AFB blood cx pending
Toxo IgG negative
-Continue prednisone 40mg po daily through 01/07/25 then 20mg po qd through 01/07/25 then 20mg po daily through 01/18/25, then 10mg qd through 12/24 for IRIS.
- Continue ceftriaxone (d5 of 7) for now possible CAP
# Acute PE
- Suspect hypercoagulable state from AIDS.
- peripheral vascular US negative
- On Eliquis
# Elevated LFT's
- Improved off fluconazole
# Oral candidiasis - resolved
- Discontinued fluconazole
# Kaposi's sarcoma
-Increase # of lesions due to IRIS
- Continue ART Biktarvy.
Chief Complaint
-: Fever
Subjective / Review of Systems
Continues to feel better. No new complaints.
Vital Signs / Physical Exam
Vital Signs
Vital Signs
Temp Pulse Resp BP Pulse Ox
97.7 F 85 16 116/85 99
01/02/25 08:00 01/02/25 08:00 01/02/25 08:00 01/02/25 08:00 01/02/25 08:30
Physical Exam
Constitutional: Acutely Ill
Eyes: No Conjunctival Hemorrhage and Sclera Anicteric
Oropharyngeal: Negative Thrush
Cardiovascular: Regular Rate and S1/S2
Pulmonary: Rales (Left base crackles)
Gastrointestinal: Soft, Tender (upper abdomen), Non Distended and Normal Bowel Sounds
Genito-Urinary: Negative CVA Tenderness
Extremities: Negative Edema
Skin: Rash (Scattered purple papules/nodules stable)
Neurological: AO x 3
Objective Data
Lab Data
Lab Results
01/02/25 07:21
01/02/25 07:21
PT 21.7 Sec (11.4-14.6) H 12/31/24 06:09
INR 1.87 12/31/24 06:09
APTT Cancelled 12/28/24 19:16
Estimated Creat Clear 88 ml/min 01/02/25 07:21
Lactic Acid 0.6 mmol/L (0.7-2.0) L 12/27/24 12:14
Total Bilirubin 0.3 mg/dl (0.2-1.3) 01/02/25 07:21
AST 48 U/L (17-59) 01/02/25 07:21
ALT 139 U/L (0-50) H 01/02/25 07:21
Alkaline Phosphatase 184 U/L (38-126) H 01/02/25 07:21
Amylase 140 U/L (30-110) H 12/27/24 03:03
Most recent labs reviewed.
Micro Results:
12/27/24 17:01 Blood Culture - Final
Blood/Venous No Growth - Final Report
12/27/24 12:14 Blood Culture - Final
Blood/Venous No Growth - Final Report
12/29/24 07:11 AFB Blood Culture - Preliminary
Blood/Venous
12/29/24 15:20 Legionella Urinary Antigen - Final
Urine Negative for Legionella pneumophila Serogroup 1 antigen.
A negative result does not rule out the possiblity of
Legionella infection due to other serogroups or species of
Legionella. Clinical correlation is recommended.
Streptococcus pneumoniae Antigen (M - Final
Negative for Streptococcus pneumoniae antigen.
A negative result does not exclude infection with
Streptococcus pneumoniae. Clinical correlation is
recommended.
12/26/24 18:44 Influenza Types A & B (MARA) - Final
Nasal Swab Negative for Influenza A & B, NAAT
Negative results must be combined with clinical observations
and patient history.
Nucleic Acid Amplification test (NAAT)performed on the
[employer] platform.
12/26/24 CT Chest: Prominent pulmonary emboli within left lower lobe lobar and segmental pulmonary arteries. No overt CT evidence for right heart strain. Scattered tiny bilateral pulmonary nodules, overall slightly progressed from prior. Findings
are most suggestive of infectious/inflammatory etiologies. If the patient is considered high risk, an optional follow-up noncontrast CT chest can be obtained in 12 months. The [facility] Pulmonary Nodule Advisory Board will be notified.
12/27/24 CT a/p with IV and po contrast: No significant acute abnormality identified in the abdomen or pelvis, as described above. Probable left lower lobe pneumonia, progressed. Trace left pleural effusion.
--- NOTE | 2025-01-02 14:47 | W.PN.HOSP.TC ---
Today's Communication/Plan
-
Abx, antiviral
monitor LFTs
ID consulted - await medication delivery
Assessment / Plan
Assessment / Plan
# Left lower lobe PE submassive-CT chest PE reviewed and emboli within left lower lobe and segmental pulmonary arteries. Normal venous Doppler. Patient does not want to undergo frequent bladder checks/PTT, changing heparin drip to Lovenox. Patient
was being bridged to warfarin for outpatient therapy although no co-pay for Eliquis, changed patient to be started on Eliquis.
# HIV/AIDS -patient have recent diagnosis in November of HIV with Pneumocystis pneumonia as AIDS defining illness. CD4 count of 27. Patient has been started on Atripla with this has been changed to Biktarvy due to concern of psychiatric side effects
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 Rocephin has been added to regimen as well. Patient
has been afebrile. Patient wanted to discuss with ID that he will do well to get the supply of Biktarvy and a follow-up with ID in the office. Awaiting delivery
# PJP pneumonia -this was diagnosed with bronchoscopy again silver stain. Serology positive as well. Patient apparently may not have taken the Bactrim course that was supposed to be taken from previous admission. ID started patient again on
treatment dose of Bactrim, of which patient will have to finish a 21-day course, see ID note. - Continue Bactrim DS 2 tabs po q8 x 21d. Prednisone increased to 40 mg daily. Started ceftriaxone for possible CAP.
#CAP pneumonia- cont ceftriaxone 11/22
# Abdominal pain/transaminitis -LFTs. CT abdomen pelvis did not show any structural problems with liver parenchyma. Patient also some constipation and last bowel movement on Wednesday. No clear explanation for the pain. Continue symptomatic care.
monitor with new meds, most likely DILI v HIV; hep panel neg 11/21/24
# Urinary incontinence - no urinary retention on bladder scan. Symptoms described as possible urgency. Questioning if patient have HIV myelopathy causing urinary symptoms.
# Oral candidiasis -patient is maintained on fluconazole.
# Kaposi's sarcoma -patient have diffuse skin lesions in line with diagnosis of Kaposi's sarcoma. This is a clinical diagnosis and not based on skin biopsy result
# Diffuse pulmonary nodules -patient had few pulmonary nodules on CT scan, question to be Kaposi's sarcoma as well.
# Hyponatremia, 2/2 to HIV/AIDS - SIADH - monitor
Total time spent on today's encounter was 51 minutes which included time spent in counseling the patient/family regarding diagnosis and treatment plan as listed above, goals of care, and symptom management. Case was discussed with nursing staff,
specialists, and care coordinators/case management. All labs and imaging personally reviewed by me. Remainder the time spent in detailed review of previous records, lab data, imaging, and other medical provider documentation.
Anticipated Discharge: 24 - 48 hours
Subjective/Interval History
-
Date of Service: January 02, 2025
no acute events
Objective Data
-
Labs:
Laboratory Results
01/02/25
07:21
WBC 5.4
Hgb 12.4 L
Hct 36.4 L
Plt Count 498 H D
Sodium 129 L
Potassium 5.1
Chloride 97 L
Carbon Dioxide 23
BUN 16
Creatinine 0.8
Glucose 108 H
Calcium 9.0
Total Bilirubin 0.3
AST 48
ALT 139 H
Alkaline Phosphatase 184 H
Vital Signs:
Vital Signs
Temp Pulse Resp BP Pulse Ox
97.7 F 85 16 116/85 99
01/02/25 08:00 01/02/25 08:00 01/02/25 08:00 01/02/25 08:00 01/02/25 08:30
I&O
01/01/25 01/02/25 01/03/25
06:59 06:59 06:59
Intake Total 240 / 240 1140 / 1140
Balance 240 / 240 1140 / 1140
Review of Systems
-
History Source: Patient
All other systems: Not reviewed unless documented
Physical Exam
-
General: Appears Chronically Ill and Cachectic
HEENT: Negative Oxygen
Respiratory: Clear to Auscultation; Negative Wheezes
Cardiac: Regular Rhythm and S1/S2; Negative Murmur
GI: Soft, Nontender and Nondistended
Skin: Other (diffuse kaposi sarcoma)
Neuro: Awake, Alert and Oriented
Psych: Calm
Data Reviewed
-
CT Scan: Report Reviewed by me
Ultrasound: Report Reviewed by me
Labs: Labs Reviewed by me and Discussed with Patient
[2025-01-02 15:00] VITALS: BP 108/71
[2025-01-02 23:04] VITALS: BP 107/75
--- NOTE | 2025-01-03 04:19 | DOWNTIME ---
Addendum entered by Alexsandra Guerrero RN 01/03/25 14:16:
Downtime was 01/03/2025 from 0100 to 01/03/2025 at 0415
Original Note:
There was a [employer] Epic [employer]st Downtime on 01/02/2025 from 0100 to 01/03/2025 at 0415. Downtime documentation of patient's care, including medication administrations, has been reconciled in the electronic record per guidelines. Refer to the
patient's paper chart under the miscellaneous tab to see printed paper medication records and downtime forms.
[2025-01-03] MEDS: BACTRIM DS 800 MG/160 MG 2 TABLET PO ×3 (05:05→21:23)
[2025-01-03 07:19] VITALS: BP 112/79
[2025-01-03 08:02] LABS: Hematocrit 39.6 % (39.0-52.0); Hemoglobin 13.4 g/dL (13.0-18.0); Mean Corp Hgb Conc. 33.8 g/dL (33.0-37.0); Mean Corpuscular Hgb 29.8 pg (27.0-31.0); Mean Corpuscular Volume 88.2 fL (80.0-94.0); Mean Platelet Volume 9.6 fL (7.4-10.4); Platelet Count 535 10^3/uL (130-400); Red Blood Cell Count 4.49 10^6/uL (4.70-6.10); Red Cell Dist. Width 15.5 % (11.5-14.5); White Blood Cell Count 5.2 10^3/uL (4.8-10.8)
[2025-01-03 08:27] LABS: ALT (SGPT) 118 U/L (0-50); AST (SGOT) 35 U/L (17-59); Albumin 3.7 g/dl (3.5-5.0); Alkaline Phosphatase 188 U/L (38-126); Blood Urea Nitrogen 17 mg/dl (9-20); Calcium 9.2 mg/dl (8.4-10.2); Carbon Dioxide 18 mmol/L (22-30); Chloride 101 mmol/L (98-107); Estimated Creatinine Clearance 64 ml/min; Glucose 103 mg/dl (70-99); Potassium 4.9 mmol/L (3.5-5.1); Sodium 132 mmol/L (135-145); Total Bilirubin 0.4 mg/dl (0.2-1.3); Total Protein 7.5 g/dl (6.3-8.2); eGFR > 60.00
[2025-01-03] MEDS: DELTASONE 40 MG PO (08:29)
[2025-01-03] MEDS: PROTONIX 40 MG PO (08:30)
[2025-01-03] MEDS: ELIQUIS 10 MG PO ×2 (08:30→20:10)
[2025-01-03] MEDS: ROXICODONE 5 MG PO (08:50)
[2025-01-03] MEDS: PEPCID 40 MG PO (12:13)
[2025-01-03] MEDS: STERILE WATER FOR INJECTION 20 ML IV (12:14)
[2025-01-03] MEDS: ROCEPHIN 2000 MG IV (12:14)
[2025-01-03] MEDS: BIKTARVY 50-200-25 MG TABLET 1 TABLET PO (12:28)
--- NOTE | 2025-01-03 13:05 | W.PN.ID1 ---
Date of Service
Date of Service: January 03, 2025
Today's Communication
Continue current management
Assessment / Plan
# Advanced HIV / AIDS ( dx'd 10/2024)
-CD4 27 (3%), VL >5,000,000
-On Atripla since 12/01/24 (insurance coverage issue)
- Psychiatric effects of Atripla -> DC'ed
- Robust response to ART. VL decreased from 5 x 10^6 to 5 x 10^3 within a month
- Repeat CD4 87 (7%). CD4 Will take several months to improve to >200
- Continue Biktarvy 1 tab qd.
- Outpatient application for [employer] Advanced Access Biktarvy has been approved
Awaiting Biktarvy deliver =y to ID office.
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
# Recent PJP pneumonia 11/10
- 11/16 Bronch: + silver stain, PJP DFA; rare, usual resp silvana, AFB neg to date,
- Possible pt not following correct instructions on abx due to language barrier.
There was a gap between finishing PJP treatment and starting secondary prophylaxis
- CT scan: slight progression of pulm nodules and LLL infiltrate. ?IRIS vs relapse PJP PNA.
- Continue Bactrim DS 2 tabs po q8 x 21d through 01/18/25, then Bactrim DS 1 tab daily
- Monitor K+ and renal function while on bactrim.
# Fevers resolved
-DDX: Immune reconstitution inflammatory syndrome (IRIS) vs relapse PJP PNA vs bacterial PNA, vs other, vs all of the above
- blood cx's x 2 negative to date
- UA neg
-CT a/p unremarkable. LLL infiltrate progressed.
-Unlikely IRIS unmasking OI.
11/16 BAL AFB neg.
11/20 AFb blood cx neg
11/13 Serum CRAG neg, syphilis neg
12/29 repeat serum crypto ag negative
12/29 Repeat AFB blood cx pending
Toxo IgG negative
-Continue prednisone 40mg po daily through 01/07/25 then 20mg po daily through 01/17/25, then 10mg qd through 01/22 for IRIS.
- Continue ceftriaxone (d6 of 7) for now possible CAP
# Acute PE
- Suspect hypercoagulable state from AIDS.
- peripheral vascular US negative
- On Eliquis
# Elevated LFT's
- Improved off fluconazole
# Oral candidiasis - resolved
- Discontinued fluconazole
# Kaposi's sarcoma
-Increase # of lesions due to IRIS
- Continue ART Biktarvy.
Chief Complaint
-: Other (AIDS, PE)
Subjective / Review of Systems
Has residual pain right lower chest and across back
Vital Signs / Physical Exam
Vital Signs
Vital Signs
Temp Pulse Resp BP Pulse Ox
98.4 F 84 18 112/79 98
01/03/25 07:19 01/03/25 07:19 01/03/25 07:19 01/03/25 07:19 01/03/25 07:19
Physical Exam
Constitutional: No Acute Distress and Comfortable
Eyes: No Conjunctival Hemorrhage and Sclera Anicteric
Oropharyngeal: Negative Thrush
Cardiovascular: Regular Rate and S1/S2
Pulmonary: Rales (Left base crackles)
Gastrointestinal: Soft, Tender (right upper abdomen), Non Distended and Normal Bowel Sounds
Genito-Urinary: Negative CVA Tenderness
Extremities: Negative Edema
Musculoskeletal: Negative Spinal Tenderness
Skin: Rash (Scattered purple papules/nodules stable)
Neurological: AO x 3
Objective Data
Lab Data
Lab Results
01/03/25 07:44
01/03/25 07:44
PT 21.7 Sec (11.4-14.6) H 12/31/24 06:09
INR 1.87 12/31/24 06:09
APTT Cancelled 12/28/24 19:16
Estimated Creat Clear 64 ml/min 01/03/25 07:44
Lactic Acid 0.6 mmol/L (0.7-2.0) L 12/27/24 12:14
Total Bilirubin 0.4 mg/dl (0.2-1.3) 01/03/25 07:44
AST 35 U/L (17-59) 01/03/25 07:44
ALT 118 U/L (0-50) H 01/03/25 07:44
Alkaline Phosphatase 188 U/L (38-126) H 01/03/25 07:44
Amylase 140 U/L (30-110) H 12/27/24 03:03
Most recent labs reviewed.
Micro Results:
12/27/24 17:01 Blood Culture - Final
Blood/Venous No Growth - Final Report
12/27/24 12:14 Blood Culture - Final
Blood/Venous No Growth - Final Report
12/29/24 07:11 AFB Blood Culture - Preliminary
Blood/Venous
12/29/24 15:20 Legionella Urinary Antigen - Final
Urine Negative for Legionella pneumophila Serogroup 1 antigen.
A negative result does not rule out the possiblity of
Legionella infection due to other serogroups or species of
Legionella. Clinical correlation is recommended.
Streptococcus pneumoniae Antigen (M - Final
Negative for Streptococcus pneumoniae antigen.
A negative result does not exclude infection with
Streptococcus pneumoniae. Clinical correlation is
recommended.
12/26/24 18:44 Influenza Types A & B (MARA) - Final
Nasal Swab Negative for Influenza A & B, NAAT
Negative results must be combined with clinical observations
and patient history.
Nucleic Acid Amplification test (NAAT)performed on the
[employer] platform.
12/26/24 CT Chest: Prominent pulmonary emboli within left lower lobe lobar and segmental pulmonary arteries. No overt CT evidence for right heart strain. Scattered tiny bilateral pulmonary nodules, overall slightly progressed from prior. Findings
are most suggestive of infectious/inflammatory etiologies. If the patient is considered high risk, an optional follow-up noncontrast CT chest can be obtained in 12 months. The [facility] Pulmonary Nodule Advisory Board will be notified.
12/27/24 CT a/p with IV and po contrast: No significant acute abnormality identified in the abdomen or pelvis, as described above. Probable left lower lobe pneumonia, progressed. Trace left pleural effusion.
Care Review
Plan reviewed with: Physician (Dr. Arriaga)
--- NOTE | 2025-01-03 14:02 | W.PN.HOSP.TC ---
Today's Communication/Plan
-
Abx, antiviral
monitor LFTs
ID consulted - await medication delivery
Assessment / Plan
Assessment / Plan
# Left lower lobe PE submassive-CT chest PE reviewed and emboli within left lower lobe and segmental pulmonary arteries. Normal venous Doppler. Patient does not want to undergo frequent bladder checks/PTT, changing heparin drip to Lovenox. Patient
was being bridged to warfarin for outpatient therapy although no co-pay for Eliquis, changed patient to be started on Eliquis.
# HIV/AIDS -patient have recent diagnosis in November of HIV with Pneumocystis pneumonia as AIDS defining illness. CD4 count of 27. Patient has been started on Atripla with this has been changed to Biktarvy due to concern of psychiatric side effects
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 Rocephin has been added to regimen as well. Patient
has been afebrile. Patient wanted to discuss with ID that he will do well to get the supply of Biktarvy and a follow-up with ID in the office. Awaiting delivery
# PJP pneumonia -this was diagnosed with bronchoscopy again silver stain. Serology positive as well. Patient apparently may not have taken the Bactrim course that was supposed to be taken from previous admission. ID started patient again on
treatment dose of Bactrim, of which patient will have to finish a 21-day course, see ID note. - Continue Bactrim DS 2 tabs po q8 x 21d. Prednisone increased to 40 mg daily. Started ceftriaxone for possible CAP.
#CAP pneumonia- cont ceftriaxone 12/23
# Abdominal pain/transaminitis -LFTs. CT abdomen pelvis did not show any structural problems with liver parenchyma. Patient also some constipation and last bowel movement on Wednesday. No clear explanation for the pain. Continue symptomatic care.
monitor with new meds, most likely DILI v HIV; hep panel neg 11/21/24
# Urinary incontinence - no urinary retention on bladder scan. Symptoms described as possible urgency. Questioning if patient have HIV myelopathy causing urinary symptoms.
# Oral candidiasis -patient is maintained on fluconazole.
# Kaposi's sarcoma -patient have diffuse skin lesions in line with diagnosis of Kaposi's sarcoma. This is a clinical diagnosis and not based on skin biopsy result
# Diffuse pulmonary nodules -patient had few pulmonary nodules on CT scan, question to be Kaposi's sarcoma as well.
# Hyponatremia, 2/2 to HIV/AIDS - SIADH - monitor
Anticipated Discharge: 24 - 48 hours
Subjective/Interval History
-
Date of Service: January 03, 2025
no acute events, some gerd symptoms
Objective Data
-
Labs:
Laboratory Results
01/03/25
07:44
WBC 5.2
Hgb 13.4
Hct 39.6
Plt Count 535 H
Sodium 132 L
Potassium 4.9
Chloride 101
Carbon Dioxide 18 L
BUN 17
Creatinine 1.1
Glucose 103 H
Calcium 9.2
Total Bilirubin 0.4
AST 35
ALT 118 H
Alkaline Phosphatase 188 H
Vital Signs:
Vital Signs
Temp Pulse Resp BP Pulse Ox
98.4 F 84 18 112/79 98
01/03/25 07:19 01/03/25 07:19 01/03/25 07:19 01/03/25 07:19 01/03/25 07:19
I&O
01/02/25 01/03/25 01/04/25
06:59 06:59 06:59
Intake Total 1140 / 1140 0 / 0
Balance 1140 / 1140 0 / 0
Review of Systems
-
History Source: Patient
All other systems: Not reviewed unless documented
Data Reviewed
-
CT Scan: Report Reviewed by me
Ultrasound: Report Reviewed by me
Labs: Labs Reviewed by me and Discussed with Patient
[2025-01-03 15:27] VITALS: BP 110/76
[2025-01-03 23:18] VITALS: BP 112/75
[2025-01-04] MEDS: BACTRIM DS 800 MG/160 MG 2 TABLET PO ×3 (05:31→22:06)
[2025-01-04 07:30] VITALS: BP 107/76
[2025-01-04 07:46] LABS: Hematocrit 36.5 % (39.0-52.0); Hemoglobin 12.3 g/dL (13.0-18.0); Mean Corp Hgb Conc. 33.7 g/dL (33.0-37.0); Mean Corpuscular Hgb 29.6 pg (27.0-31.0); Mean Corpuscular Volume 87.7 fL (80.0-94.0); Mean Platelet Volume 9.1 fL (7.4-10.4); Platelet Count 590 10^3/uL (130-400); Red Blood Cell Count 4.16 10^6/uL (4.70-6.10); Red Cell Dist. Width 15.6 % (11.5-14.5); White Blood Cell Count 5.6 10^3/uL (4.8-10.8)
[2025-01-04 08:10] LABS: ALT (SGPT) 86 U/L (0-50); AST (SGOT) 24 U/L (17-59); Albumin 3.6 g/dl (3.5-5.0); Alkaline Phosphatase 151 U/L (38-126); Blood Urea Nitrogen 16 mg/dl (9-20); Carbon Dioxide 21 mmol/L (22-30); Chloride 100 mmol/L (98-107); Estimated Creatinine Clearance 88 ml/min; Glucose 96 mg/dl (70-99); Potassium 5.1 mmol/L (3.5-5.1); Sodium 129 mmol/L (135-145); Total Bilirubin 0.4 mg/dl (0.2-1.3); Total Protein 7.2 g/dl (6.3-8.2); eGFR > 60.00
[2025-01-04] MEDS: DELTASONE 40 MG PO (08:25)
[2025-01-04] MEDS: BIKTARVY 50-200-25 MG TABLET 1 TABLET PO (08:25)
[2025-01-04] MEDS: ELIQUIS 10 MG PO ×2 (08:25→19:38)
[2025-01-04] MEDS: PEPCID 40 MG PO (08:25)
[2025-01-04] MEDS: PROTONIX 40 MG PO (08:26)
[2025-01-04] MEDS: ROCEPHIN 2000 MG IV (12:06)
[2025-01-04] MEDS: STERILE WATER FOR INJECTION 20 ML IV (12:06)
--- NOTE | 2025-01-04 12:45 | CM ---
CM reviewed chart, reviewed with Hospitalist, awaiting delivery of medication to ID office. Patient plan remains discharge home. CM will continue to follow for all discharge planning needs.
Plan; home no needs, await medication delivery
--- NOTE | 2025-01-04 14:19 | W.PN.HOSP.TC ---
Today's Communication/Plan
-
Abx, antiviral
monitor LFTs
ID consulted - await medication delivery
Assessment / Plan
Assessment / Plan
# Left lower lobe PE submassive-CT chest PE reviewed and emboli within left lower lobe and segmental pulmonary arteries. Normal venous Doppler. Patient does not want to undergo frequent bladder checks/PTT, changing heparin drip to Lovenox. Patient
was being bridged to warfarin for outpatient therapy although no co-pay for Eliquis, changed patient to be started on Eliquis.
# HIV/AIDS -patient have recent diagnosis in November of HIV with Pneumocystis pneumonia as AIDS defining illness. CD4 count of 27. Patient has been started on Atripla with this has been changed to Biktarvy due to concern of psychiatric side effects
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 Rocephin has been added to regimen as well. Patient
has been afebrile. Patient wanted to discuss with ID that he will do well to get the supply of Biktarvy and a follow-up with ID in the office. Awaiting delivery
# PJP pneumonia -this was diagnosed with bronchoscopy again silver stain. Serology positive as well. Patient apparently may not have taken the Bactrim course that was supposed to be taken from previous admission. ID started patient again on
treatment dose of Bactrim, of which patient will have to finish a 21-day course, see ID note. - Continue Bactrim DS 2 tabs po q8 x 21d through 01/18/25, then Bactrim DS 1 tab daily. Prednisone increased to 40 mg daily. Continue prednisone 40mg po
daily through 01/07/25 then 20mg po daily through 01/17/25, then 10mg qd through 01/22 for IRIS.
#CAP pneumonia- cont ceftriaxone 01/22
# Abdominal pain/transaminitis -LFTs. CT abdomen pelvis did not show any structural problems with liver parenchyma. Patient also some constipation and last bowel movement on Wednesday. No clear explanation for the pain. Continue symptomatic care.
monitor with new meds, most likely DILI v HIV; hep panel neg 11/21/24
# Urinary incontinence - no urinary retention on bladder scan. Symptoms described as possible urgency. Questioning if patient have HIV myelopathy causing urinary symptoms.
# Oral candidiasis -patient is maintained on fluconazole.
# Kaposi's sarcoma -patient have diffuse skin lesions in line with diagnosis of Kaposi's sarcoma. This is a clinical diagnosis and not based on skin biopsy result
# Diffuse pulmonary nodules -patient had few pulmonary nodules on CT scan, question to be Kaposi's sarcoma as well.
# Hyponatremia, 2/ to HIV/AIDS - SIADH - monitor
Anticipated Discharge: 24 - 48 hours
Subjective/Interval History
-
Date of Service: January 04, 2025
no acute events
Objective Data
-
Labs:
Laboratory Results
01/04/25
07:33
WBC 5.6
Hgb 12.3 L
Hct 36.5 L
Plt Count 590 H
Sodium 129 L
Potassium 5.1
Chloride 100
Carbon Dioxide 21 L
BUN 16
Creatinine 0.8
Glucose 96
Calcium 9.0
Total Bilirubin 0.4
AST 24
ALT 86 H
Alkaline Phosphatase 151 H
Vital Signs:
Vital Signs
Temp Pulse Resp BP Pulse Ox
97.8 F 87 18 107/76 96
01/04/25 07:30 01/04/25 07:30 01/04/25 07:30 01/04/25 07:30 01/04/25 08:00
I&O
01/03/25 01/04/25 01/05/25
06:59 06:59 06:59
Intake Total 0 / 0 960 / 960
Balance 0 / 0 960 / 960
Review of Systems
-
History Source: Patient
All other systems: Not reviewed unless documented
Physical Exam
-
General: Appears Chronically Ill and Cachectic
HEENT: Negative Oxygen
Respiratory: Clear to Auscultation; Negative Wheezes
Cardiac: Regular Rhythm and S1/S2; Negative Murmur
GI: Soft, Nontender and Nondistended
Skin: Other (diffuse kaposi sarcoma)
Neuro: Awake, Alert and Oriented
Psych: Calm
Data Reviewed
-
CT Scan: Report Reviewed by me
Ultrasound: Report Reviewed by me
Labs: Labs Reviewed by me and Discussed with Patient
[2025-01-04 15:25] VITALS: BP 106/76
[2025-01-04 23:38] VITALS: BP 106/72
[2025-01-05] MEDS: BACTRIM DS 800 MG/160 MG 2 TABLET PO ×3 (06:09→21:44)
[2025-01-05 07:03] VITALS: BP 111/80
[2025-01-05 08:03] LABS: Hematocrit 38.1 % (39.0-52.0); Hemoglobin 13.2 g/dL (13.0-18.0); Mean Corp Hgb Conc. 34.6 g/dL (33.0-37.0); Mean Corpuscular Hgb 29.9 pg (27.0-31.0); Mean Corpuscular Volume 86.4 fL (80.0-94.0); Mean Platelet Volume 8.9 fL (7.4-10.4); Platelet Count 544 10^3/uL (130-400); Red Blood Cell Count 4.41 10^6/uL (4.70-6.10); Red Cell Dist. Width 15.5 % (11.5-14.5); White Blood Cell Count 4.4 10^3/uL (4.8-10.8)
[2025-01-05 08:44] LABS: ALT (SGPT) 83 U/L (0-50); AST (SGOT) 34 U/L (17-59); Albumin 3.7 g/dl (3.5-5.0); Alkaline Phosphatase 149 U/L (38-126); Blood Urea Nitrogen 17 mg/dl (9-20); Carbon Dioxide 20 mmol/L (22-30); Chloride 99 mmol/L (98-107); Estimated Creatinine Clearance 88 ml/min; Glucose 91 mg/dl (70-99); Potassium 4.8 mmol/L (3.5-5.1); Sodium 129 mmol/L (135-145); Total Bilirubin 0.4 mg/dl (0.2-1.3); Total Protein 7.3 g/dl (6.3-8.2); eGFR > 60.00
[2025-01-05] MEDS: PEPCID 40 MG PO (08:46)
[2025-01-05] MEDS: PROTONIX 40 MG PO (08:46)
[2025-01-05] MEDS: DELTASONE 40 MG PO (08:46)
[2025-01-05] MEDS: BIKTARVY 50-200-25 MG TABLET 1 TABLET PO (08:46)
[2025-01-05] MEDS: ELIQUIS 10 MG PO ×2 (08:46→20:14)
--- NOTE | 2025-01-05 11:42 | W.PN.ID1 ---
Date of Service
Date of Service: January 05, 2025
Today's Communication
See below.
Assessment / Plan
# Advanced HIV / AIDS ( dx'd 10/2024)
-CD4 27 (3%), VL >5,000,000
-On Atripla since 12/01/24 (insurance coverage issue)
- Psychiatric effects of Atripla -> DC'ed
- Robust response to ART. VL decreased from 5 x 10^6 to 5 x 10^3 within a month
- Repeat CD4 87 (7%). CD4 Will take several months to improve to >200
- Continue Biktarvy 1 tab qd.
- Outpatient application for [employer] Advanced Access Biktarvy has been approved
Awaiting Biktarvy delivery to ID office .
- Discussed with patient regarding dc home and resume the home Atripla until Biktarvy available.
Pt agreeable. He states he can tolerate the psychiatric side effects from Atripla temporarily.
- He has follow-up appt with me 01/22/25 at 9:00 am. Hopefully Biktarvy will be available then.
[id number] pending. If Biktarvy falls through, will consider abacavir/TDF/3TC based on insurance coverage.
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
# Recent PJP pneumonia 11/10
- 11/16 Bronch: + silver stain, PJP DFA; rare, usual resp silvana, AFB neg to date,
- Possible pt not following correct instructions on abx due to language barrier.
There was a gap between finishing PJP treatment and starting secondary prophylaxis
- CT scan: slight progression of pulm nodules and LLL infiltrate. ?IRIS vs relapse PJP PNA.
- Continue Bactrim DS 2 tabs po q8 x 21d through 01/18/25, then Bactrim DS 1 tab daily
- Monitor K+ and renal function while on bactrim.
# Fevers resolved
-DDX: Immune reconstitution inflammatory syndrome (IRIS) vs relapse PJP PNA vs bacterial PNA, vs other, vs all of the above
- blood cx's x 2 negative to date
- UA neg
-CT a/p unremarkable. LLL infiltrate progressed.
-Unlikely IRIS unmasking OI.
11/16 BAL AFB neg.
11/20 AFb blood cx neg
11/13 Serum CRAG neg, syphilis neg
12/29 repeat serum crypto ag negative
12/29 Repeat AFB blood cx pending
Toxo IgG negative
-Continue prednisone 40mg po daily through 01/07/25 then 20mg po daily through 01/17/25, then 10mg qd through 01/22 for IRIS.
- Continue ceftriaxone (d7 of ) for now possible CAP
# Acute PE
- Suspect hypercoagulable state from AIDS.
- peripheral vascular US negative
- On Eliquis
# RUQ and R flank pain
- Agree with RUQ and renal US.
# Elevated LFT's
- Improved (off fluconazole)
# Odynophagia
- Suspect esophageal candidiasis
- Resume fluconazole 200mg po daily.
- Follow LFT's
# Kaposi's sarcoma
-Increase # of lesions due to IRIS
- Continue ART
Chief Complaint
-: Other (AIDS, PE)
Subjective / Review of Systems
Urdu [employer] [id number].
c/o esophagus pain when eating solids.
c/o thorax pain in the back worse at night, daytime OK
Let chest pain resolving.
Right lower chest pain still present.
c/o constipation unless he takes stool softener.
No urine sxs.
Vital Signs / Physical Exam
Vital Signs
Vital Signs
Temp Pulse Resp BP Pulse Ox
98.2 F 88 18 111/80 98
01/05/25 07:03 01/05/25 07:03 01/05/25 07:03 01/05/25 07:03 01/05/25 08:00
Physical Exam
Constitutional: No Acute Distress and Comfortable
Head: Other (No frontal or maxillary sinus tenderness)
Eyes: No Conjunctival Hemorrhage and Sclera Anicteric
Cardiovascular: Regular Rate and S1/S2
Pulmonary: Clear
Gastrointestinal: Soft, Tender (RUQ), Non Distended and Normal Bowel Sounds
Genito-Urinary: CVA Tenderness (right upper flank)
Extremities: Negative Edema
Skin: Other (Stable purple papules and nodule lesions)
Neurological: AO x 3
Objective Data
Lab Data
Lab Results
01/05/25 07:51
01/05/25 07:51
PT 21.7 Sec (11.4-14.6) H 12/31/24 06:09
INR 1.87 12/31/24 06:09
APTT Cancelled 12/28/24 19:16
Estimated Creat Clear 88 ml/min 01/05/25 07:51
Lactic Acid 0.6 mmol/L (0.7-2.0) L 12/27/24 12:14
Total Bilirubin 0.4 mg/dl (0.2-1.3) 01/05/25 07:51
AST 34 U/L (17-59) 01/05/25 07:51
ALT 83 U/L (0-50) H 01/05/25 07:51
Alkaline Phosphatase 149 U/L (38-126) H 01/05/25 07:51
Amylase 140 U/L (30-110) H 12/27/24 03:03
Most recent labs reviewed.
Micro Results:
12/27/24 17:01 Blood Culture - Final
Blood/Venous No Growth - Final Report
12/27/24 12:14 Blood Culture - Final
Blood/Venous No Growth - Final Report
06/13/25 07:11 AFB Blood Culture - Preliminary
Blood/Venous
12/29/24 15:20 Legionella Urinary Antigen - Final
Urine Negative for Legionella pneumophila Serogroup 1 antigen.
A negative result does not rule out the possiblity of
Legionella infection due to other serogroups or species of
Legionella. Clinical correlation is recommended.
Streptococcus pneumoniae Antigen (M - Final
Negative for Streptococcus pneumoniae antigen.
A negative result does not exclude infection with
Streptococcus pneumoniae. Clinical correlation is
recommended.
12/26/24 18:44 Influenza Types A & B (MARA) - Final
Nasal Swab Negative for Influenza A & B, NAAT
Negative results must be combined with clinical observations
and patient history.
Nucleic Acid Amplification test (NAAT)performed on the
[employer] platform.
12/26/24 CT Chest: Prominent pulmonary emboli within left lower lobe lobar and segmental pulmonary arteries. No overt CT evidence for right heart strain. Scattered tiny bilateral pulmonary nodules, overall slightly progressed from prior. Findings
are most suggestive of infectious/inflammatory etiologies. If the patient is considered high risk, an optional follow-up noncontrast CT chest can be obtained in 12 months. The [facility] Pulmonary Nodule Advisory Board will be notified.
12/27/24 CT a/p with IV and po contrast: No significant acute abnormality identified in the abdomen or pelvis, as described above. Probable left lower lobe pneumonia, progressed. Trace left pleural effusion.
Care Review
Plan reviewed with: Physician (Dr. Arriaga)
[2025-01-05] MEDS: STERILE WATER FOR INJECTION 20 ML IV (12:17)
[2025-01-05] MEDS: ROCEPHIN 2000 MG IV (12:17)
[2025-01-05] MEDS: DIFLUCAN 200 MG PO (12:17)
[2025-01-05 13:00] LABS: Lipase 675 U/L (23-300)
--- NOTE | 2025-01-05 14:17 | W.PN.HOSP.TC ---
Today's Communication/Plan
-
RUQ and Renal Sono
Speech eval
Fluconazole
Bactrim, Pred
Assessment / Plan
Assessment / Plan
# Left lower lobe PE submassive-CT chest PE reviewed and emboli within left lower lobe and segmental pulmonary arteries. Normal venous Doppler. Patient does not want to undergo frequent bladder checks/PTT, changing heparin drip to Lovenox. Patient
was being bridged to warfarin for outpatient therapy although no co-pay for Eliquis, changed patient to be started on Eliquis.
# HIV/AIDS -patient have recent diagnosis in November of HIV with Pneumocystis pneumonia as AIDS defining illness. CD4 count of 27. Patient has been started on Atripla with this has been changed to Biktarvy due to concern of psychiatric side effects
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 Rocephin has been added to regimen as well. Patient
has been afebrile. Patient wanted to discuss with ID that he will do well to get the supply of Biktarvy and a follow-up with ID in the office. Awaiting delivery; ID Discussed with patient regarding dc home and resume the home Atripla until
Biktarvy available. He is agreeable. He states he can tolerate the psychiatric side effects from Atripla temporarily.
# PJP pneumonia -this was diagnosed with bronchoscopy again silver stain. Serology positive as well. Patient apparently may not have taken the Bactrim course that was supposed to be taken from previous admission. ID started patient again on
treatment dose of Bactrim, of which patient will have to finish a 21-day course, see ID note. - Continue Bactrim DS 2 tabs po q8 x 21d through 01/18/25, then Bactrim DS 1 tab daily. Prednisone increased to 40 mg daily. Continue prednisone 40mg po
daily through 01/07/25 then 20mg po daily through 01/17/25, then 10mg qd through 01/22 for IRIS.
#CAP pneumonia- Completed ceftriaxone 01/22
#Odynophagia�restarted fluconazole; speech eval
#RUQ tenderness, B/l Lower back pain - RUQ US; Renal US; Back pain most likely MSK. Pain control
# Abdominal pain/transaminitis -LFTs. CT abdomen pelvis did not show any structural problems with liver parenchyma. Patient also some constipation and last bowel movement on Wednesday. No clear explanation for the pain. Continue symptomatic care.
monitor with new meds, most likely DILI v HIV; hep panel neg 11/21/24
# Urinary incontinence - no urinary retention on bladder scan. Symptoms described as possible urgency. Questioning if patient have HIV myelopathy causing urinary symptoms.
# Oral candidiasis -patient is maintained on fluconazole.
# Kaposi's sarcoma -patient have diffuse skin lesions in line with diagnosis of Kaposi's sarcoma. This is a clinical diagnosis and not based on skin biopsy result
# Diffuse pulmonary nodules -patient had few pulmonary nodules on CT scan, question to be Kaposi's sarcoma as well.
# Hyponatremia, 2/ to HIV/AIDS - SIADH - monitor
Anticipated Discharge: 24 - 48 hours
Subjective/Interval History
-
Date of Service: January 05, 2025
Send right upper quadrant tenderness as well as bilateral back pain
Objective Data
-
Labs:
Laboratory Results
01/05/25
07:51
WBC 4.4 L
Hgb 13.2
Hct 38.1 L
Plt Count 544 H
Sodium 129 L
Potassium 4.8
Chloride 99
Carbon Dioxide 20 L
BUN 17
Creatinine 0.8
Glucose 91
Calcium 9.0
Total Bilirubin 0.4
AST 34
ALT 83 H
Alkaline Phosphatase 149 H
Vital Signs:
Vital Signs
Temp Pulse Resp BP Pulse Ox
98.2 F 88 18 111/80 98
01/05/25 07:03 01/05/25 07:03 01/05/25 07:03 01/05/25 07:03 01/05/25 08:00
I&O
01/04/25 01/05/25 01/06/25
06:59 06:59 06:59
Intake Total 960 / 960 1140 / 1140 240 / 240
Balance 960 / 960 1140 / 1140 240 / 240
Review of Systems
-
History Source: Patient
All other systems: Not reviewed unless documented
Data Reviewed
-
CT Scan: Report Reviewed by me
Ultrasound: Report Reviewed by me
Labs: Labs Reviewed by me and Discussed with Patient
--- NOTE | 2025-01-05 15:26 | CM ---
CM reviewed chart, plan for speech evaluation. Plan now discharge home with resumption of Atripla until Biktarvy available. Patient plan home no needs. CM will continue to follow for all discharge planning needs.
Plan; return home with family when medically stable
[2025-01-05 15:35] VITALS: BP 103/70
--- NOTE | 2025-01-05 15:59 | PTOTSP ---
Dysphagia Evaluation
No signs of oral/pharyngeal dysphagia or aspiration. Patient reported odynophagia with solids and 'coughing up' blood 20-40 minutes after PO intake this admission. Per chart review, concern for oral and esophageal candidiasis noted.
Recommend:
1. Regular solids (pick softer/moister foods for comfort), Thin Liquids
2. Medications as best tolerated
3. Strategies: pick soft/moist foods, use sauces/gravies to moisten foods, stay up for 30 minutes after PO intake
4. Consider GI consult
[2025-01-05 23:15] VITALS: BP 116/77
[2025-01-06] MEDS: BACTRIM DS 800 MG/160 MG 2 TABLET PO ×3 (06:00→20:55)
[2025-01-06 07:56] VITALS: BP 117/71
[2025-01-06] MEDS: BIKTARVY 50-200-25 MG TABLET 1 TABLET PO (08:49)
[2025-01-06] MEDS: DELTASONE 40 MG PO (08:50)
[2025-01-06] MEDS: ELIQUIS 10 MG PO ×2 (08:50→20:55)
[2025-01-06] MEDS: DIFLUCAN 200 MG PO (08:50)
[2025-01-06] MEDS: PROTONIX 40 MG PO (08:50)
[2025-01-06] MEDS: PEPCID 40 MG PO (08:50)
[2025-01-06 09:12] LABS: Hematocrit 35.3 % (39.0-52.0); Hemoglobin 12.1 g/dL (13.0-18.0); Mean Corp Hgb Conc. 34.3 g/dL (33.0-37.0); Mean Corpuscular Hgb 30.3 pg (27.0-31.0); Mean Corpuscular Volume 88.3 fL (80.0-94.0); Mean Platelet Volume 9.1 fL (7.4-10.4); Platelet Count 530 10^3/uL (130-400); Red Cell Dist. Width 15.8 % (11.5-14.5); White Blood Cell Count 4.7 10^3/uL (4.8-10.8)
[2025-01-06 09:45] LABS: ALT (SGPT) 71 U/L (0-50); AST (SGOT) 27 U/L (17-59); Albumin 3.2 g/dl (3.5-5.0); Alkaline Phosphatase 146 U/L (38-126); Blood Urea Nitrogen 20 mg/dl (9-20); Calcium 8.5 mg/dl (8.4-10.2); Carbon Dioxide 21 mmol/L (22-30); Chloride 100 mmol/L (98-107); Estimated Creatinine Clearance 79 ml/min; Glucose 82 mg/dl (70-99); Potassium 4.7 mmol/L (3.5-5.1); Sodium 129 mmol/L (135-145); Total Bilirubin 0.3 mg/dl (0.2-1.3); Total Protein 6.3 g/dl (6.3-8.2); eGFR > 60.00
[2025-01-06] MEDS: ROCEPHIN 2000 MG IV (12:30)
[2025-01-06] MEDS: STERILE WATER FOR INJECTION 20 ML IV (12:30)
--- NOTE | 2025-01-06 12:51 | W.PN.HOSP.TC ---
Today's Communication/Plan
-
monitor for esophagitis
ID recs
Assessment / Plan
Assessment / Plan
# Left lower lobe PE submassive-CT chest PE reviewed and emboli within left lower lobe and segmental pulmonary arteries. Normal venous Doppler. Patient does not want to undergo frequent bladder checks/PTT, changing heparin drip to Lovenox. Patient
was being bridged to warfarin for outpatient therapy although no co-pay for Eliquis, changed patient to be started on Eliquis.
# HIV/AIDS -patient have recent diagnosis in November of HIV with Pneumocystis pneumonia as AIDS defining illness. CD4 count of 27. Patient has been started on Atripla with this has been changed to Biktarvy due to concern of psychiatric side effects
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 Rocephin has been added to regimen as well. Patient
has been afebrile. Patient wanted to discuss with ID that he will do well to get the supply of Biktarvy and a follow-up with ID in the office. Awaiting delivery; ID Discussed with patient regarding dc home and resume the home Atripla until
Biktarvy available. He is agreeable. He states he can tolerate the psychiatric side effects from Atripla temporarily.
# PJP pneumonia -this was diagnosed with bronchoscopy again silver stain. Serology positive as well. Patient apparently may not have taken the Bactrim course that was supposed to be taken from previous admission. ID started patient again on
treatment dose of Bactrim, of which patient will have to finish a 21-day course, see ID note. - Continue Bactrim DS 2 tabs po q8 x 21d through 01/18/25, then Bactrim DS 1 tab daily. Prednisone increased to 40 mg daily. Continue prednisone 40mg po
daily through 01/07/25 then 20mg po daily through 01/17/25, then 10mg qd through 01/22 for IRIS.
#CAP pneumonia- Completed ceftriaxone 01/22
#Odynophagia�restarted fluconazole; if no improvement then dx include CMV or HSV esophagitis v pill induced esohagitis
#RUQ tenderness, B/l Lower back pain - RUQ US and Renal US unremarkable; Most likely MSK and IRIS Supportive care
#Subtle rounded region of mild increased echotexture along the posterior margin of the lateral segment of left lobe of the liver, as described - appears benign fatty infiltration - f/u outpatient
# Abdominal pain/transaminitis -LFTs. CT abdomen pelvis did not show any structural problems with liver parenchyma. Patient also some constipation and last bowel movement on Wednesday. No clear explanation for the pain. Continue symptomatic care.
monitor with new meds, most likely DILI v HIV; hep panel neg 11/21/24
# Urinary incontinence - no urinary retention on bladder scan. Symptoms described as possible urgency. Questioning if patient have HIV myelopathy causing urinary symptoms.
# Oral candidiasis -patient is maintained on fluconazole.
# Kaposi's sarcoma -patient have diffuse skin lesions in line with diagnosis of Kaposi's sarcoma. This is a clinical diagnosis and not based on skin biopsy result
# Diffuse pulmonary nodules -patient had few pulmonary nodules on CT scan, question to be Kaposi's sarcoma as well.
# Hyponatremia, 2/2 to HIV/AIDS - SIADH - monitor
DVT ppx- Eliquis
Anticipated Discharge: Within 24 hours
Subjective/Interval History
-
Date of Service: January 06, 2025
Abdominal pain improved, bilateral back pain still present, mild.
Objective Data
-
Labs:
Laboratory Results
01/06/25
08:23
WBC 4.7 L
Hgb 12.1 L
Hct 35.3 L
Plt Count 530 H
Sodium 129 L
Potassium 4.7
Chloride 100
Carbon Dioxide 21 L
BUN 20
Creatinine 0.9
Glucose 82
Calcium 8.5
Total Bilirubin 0.3
AST 27
ALT 71 H
Alkaline Phosphatase 146 H
Vital Signs:
Vital Signs
Temp Pulse Resp BP Pulse Ox
98.2 F 76 16 117/71 95
01/06/25 07:56 01/06/25 07:56 01/06/25 07:56 01/06/25 07:56 01/06/25 07:56
I&O
01/05/25 01/06/25 01/07/25
06:59 06:59 06:59
Intake Total 1140 / 1140 1680 / 1680
Balance 1140 / 1140 1680 / 1680
Review of Systems
-
History Source: Patient
All other systems: Not reviewed unless documented
Data Reviewed
-
CT Scan: Report Reviewed by me
Ultrasound: Report Reviewed by me
Labs: Labs Reviewed by me and Discussed with Patient
--- NOTE | 2025-01-06 14:26 | W.PN.ID1 ---
Date of Service
Date of Service: January 06, 2025
Today's Communication
See below.
Assessment / Plan
# LLL Acute PE, present on admission
- Suspect hypercoagulable state from AIDS.
- peripheral vascular US negative
- On Eliquis
# New hemoptysis
- ? from PE vs hemorrhage from anticoagulation
- Doubt infectious esophagitis as no complaints of pain
- Possible progression of PE while on Eliquis to right side
- For CTA per hospitalist
# Advanced HIV / AIDS ( dx'd 10/2024)
-CD4 27 (3%), VL >5,000,000
-On Atripla since 12/01/24 (insurance coverage issue)
- Psychiatric effects of Atripla -> DC'ed
- Robust response to ART. VL decreased from 5 x 10^6 to 5 x 10^3 within a month
- Repeat CD4 87 (7%). CD4 Will take several months to improve to >200
- Continue Biktarvy 1 tab qd.
- Outpatient application for [employer] Advanced Access Biktarvy has been approved
Awaiting Biktarvy delivery to ID office .
- Discussed with patient regarding dc home and resume the home Atripla until Biktarvy available.
Pt agreeable. He states he can tolerate the psychiatric side effects from Atripla temporarily.
- He has follow-up appt with me 01/22/25 at 9:00 am. Hopefully Biktarvy will be available then.
[id number] pending. If Biktarvy falls through, will consider abacavir/TDF/3TC based on insurance coverage.
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
# Recent PJP pneumonia 11/10
- 11/16 Bronch: + silver stain, PJP DFA; rare, usual resp silvana, AFB neg to date,
- Possible pt not following correct instructions on abx due to language barrier.
There was a gap between finishing PJP treatment and starting secondary prophylaxis
- CT scan: slight progression of pulm nodules and LLL infiltrate. ?IRIS vs relapse PJP PNA.
- Continue Bactrim DS 2 tabs po q8 x 21d through 01/18/25, then Bactrim DS 1 tab daily
- Monitor K+ and renal function while on bactrim.
# Fevers resolved
-DDX: Immune reconstitution inflammatory syndrome (IRIS) vs relapse PJP PNA vs bacterial PNA, vs other, vs all of the above
- blood cx's x 2 negative to date
- UA neg
-CT a/p unremarkable. LLL infiltrate progressed.
-Unlikely IRIS unmasking OI.
11/16 BAL AFB neg.
11/20 AFb blood cx neg
11/13 Serum CRAG neg, syphilis neg
12/29 repeat serum crypto ag negative
12/29 Repeat AFB blood cx pending
Toxo IgG negative
-Continue prednisone 40mg po daily through 01/07/25 then 20mg po daily through 01/17/25, then 10mg qd through 01/22 for IRIS.
- Continue ceftriaxone (d7 of ) for now possible CAP
# Recent oral thrush and esophageal candidiasis
- Continue fluconazole 200mg po daily for now.
- Follow LFT's
# Kaposi's sarcoma
-Increase # of lesions due to IRIS
- Continue ART
Chief Complaint
-: Other (AIDS, PE)
Subjective / Review of Systems
No esophagus pain, but still spitting up blood, no phlegm.sputum. No cough.
Vital Signs / Physical Exam
Vital Signs
Vital Signs
Temp Pulse Resp BP Pulse Ox
98.2 F 76 16 117/71 95
01/06/25 07:56 01/06/25 07:56 01/06/25 07:56 01/06/25 07:56 01/06/25 07:56
Physical Exam
Constitutional: No Acute Distress and Cachetic
Head: Other (No frontal or maxillary sinus tenderness)
Eyes: No Conjunctival Hemorrhage and Sclera Anicteric
Cardiovascular: Regular Rate and S1/S2
Pulmonary: Clear
Gastrointestinal: Soft, Tender (RUQ), Non Distended and Normal Bowel Sounds
Genito-Urinary: CVA Tenderness (right upper flank)
Extremities: Negative Edema
Skin: Other (Stable purple papules and nodule lesions)
Neurological: AO x 3
Objective Data
Lab Data
Lab Results
01/06/25 08:23
01/06/25 08:23
PT 21.7 Sec (11.4-14.6) H 12/31/24 06:09
INR 1.87 12/31/24 06:09
APTT Cancelled 12/28/24 19:16
Estimated Creat Clear 79 ml/min 01/06/25 08:23
Lactic Acid 0.6 mmol/L (0.7-2.0) L 12/27/24 12:14
Total Bilirubin 0.3 mg/dl (0.2-1.3) 01/06/25 08:23
AST 27 U/L (17-59) 01/06/25 08:23
ALT 71 U/L (0-50) H 01/06/25 08:23
Alkaline Phosphatase 146 U/L (38-126) H 01/06/25 08:23
Amylase 140 U/L (30-110) H 12/27/24 03:03
Most recent labs reviewed.
Micro Results:
12/27/24 17:01 Blood Culture - Final
Blood/Venous No Growth - Final Report
12/27/24 12:14 Blood Culture - Final
Blood/Venous No Growth - Final Report
12/29/24 07:11 AFB Blood Culture - Preliminary
Blood/Venous
12/29/24 15:20 Legionella Urinary Antigen - Final
Urine Negative for Legionella pneumophila Serogroup 1 antigen.
A negative result does not rule out the possiblity of
Legionella infection due to other serogroups or species of
Legionella. Clinical correlation is recommended.
Streptococcus pneumoniae Antigen (M - Final
Negative for Streptococcus pneumoniae antigen.
A negative result does not exclude infection with
Streptococcus pneumoniae. Clinical correlation is
recommended.
12/26/24 18:44 Influenza Types A & B (MARA) - Final
Nasal Swab Negative for Influenza A & B, NAAT
Negative results must be combined with clinical observations
and patient history.
Nucleic Acid Amplification test (NAAT)performed on the
[employer] platform.
01/06/25 ABD US: Mild layering, mobile gallbladder sludge. No cholelithiasis. No sonographic evidence of acute cholecystitis. No bile duct dilatation. Subtle rounded region of mild increased echotexture along the posterior margin of the lateral
segment of left lobe of the liver, as described.
01/05/25 CXR: Moderate-sized dense airspace consolidation in the basilar segments of the left lower lobe most consistent with an ACUTE LEFT LOWER LOBE PULMONARY INFARCT secondary to left lower lobe pulmonary arterial embolic disease.Mild airspace
consolidation in the posterior basilar right lower lobe (either acute pulmonary infarct or atelectasis)
12/26/24 CT Chest: Prominent pulmonary emboli within left lower lobe lobar and segmental pulmonary arteries. No overt CT evidence for right heart strain. Scattered tiny bilateral pulmonary nodules, overall slightly progressed from prior. Findings
are most suggestive of infectious/inflammatory etiologies. If the patient is considered high risk, an optional follow-up noncontrast CT chest can be obtained in 12 months. The Pulmonary Nodule Advisory Board will be notified.
12/27/24 CT a/p with IV and po contrast: No significant acute abnormality identified in the abdomen or pelvis, as described above. Probable left lower lobe pneumonia, progressed. Trace left pleural effusion.
Care Review
Plan reviewed with: Physician (Dr. Arriaga)
[2025-01-06 15:33] VITALS: BP 109/71
[2025-01-06 23:34] VITALS: BP 184/70
[2025-01-07] MEDS: BACTRIM DS 800 MG/160 MG 2 TABLET PO ×3 (05:41→20:59)
[2025-01-07 07:02] LABS: Hematocrit 37.4 % (39.0-52.0); Hemoglobin 12.7 g/dL (13.0-18.0); Mean Corpuscular Volume 88.4 fL (80.0-94.0); Mean Platelet Volume 8.8 fL (7.4-10.4); Platelet Count 520 10^3/uL (130-400); Red Blood Cell Count 4.23 10^6/uL (4.70-6.10); Red Cell Dist. Width 15.8 % (11.5-14.5); White Blood Cell Count 4.4 10^3/uL (4.8-10.8)
[2025-01-07 07:34] LABS: ALT (SGPT) 69 U/L (0-50); AST (SGOT) 32 U/L (17-59); Albumin 3.4 g/dl (3.5-5.0); Alkaline Phosphatase 152 U/L (38-126); Blood Urea Nitrogen 18 mg/dl (9-20); Calcium 8.6 mg/dl (8.4-10.2); Carbon Dioxide 21 mmol/L (22-30); Chloride 101 mmol/L (98-107); Estimated Creatinine Clearance 79 ml/min; Glucose 94 mg/dl (70-99); Potassium 4.3 mmol/L (3.5-5.1); Sodium 129 mmol/L (135-145); Total Bilirubin 0.3 mg/dl (0.2-1.3); Total Protein 6.5 g/dl (6.3-8.2); eGFR > 60.00
[2025-01-07] MEDS: BIKTARVY 50-200-25 MG TABLET 1 TABLET PO (08:14)
[2025-01-07] MEDS: PEPCID 40 MG PO (08:14)
[2025-01-07] MEDS: PROTONIX 40 MG PO (08:14)
[2025-01-07] MEDS: ELIQUIS 10 MG PO (08:14)
[2025-01-07] MEDS: DIFLUCAN 200 MG PO (08:14)
[2025-01-07] MEDS: DELTASONE 40 MG PO (08:14)
[2025-01-07 08:46] VITALS: BP 116/88
--- NOTE | 2025-01-07 09:30 | W.PN.HOSP.TC ---
Addendum entered and electronically signed by Shahid Arriaga MD 01/07/25 14:25:
[id number]
Original Note:
Today's Communication/Plan
-
Hemoptysis - improved; Cont Eliquis; F/u pulm outpatient
If worsening hemoptysis, please call 911 and come back to the hospital
ID follow-up appt 01/22/25 at 9:00 am. Hopefully Biktarvy will be available then.
Atripla for now
Continue Bactrim DS 2 tabs po q8 x 21d through 01/18/25, then Bactrim DS 1 tab daily
Continue prednisone 40mg po daily through 01/07/25 then 20mg po daily through 01/17/25, then 10mg qd through 01/22
Continue fluconazole 200mg po daily
Eliquis
Assessment / Plan
Assessment / Plan
# Left lower lobe PE submassive-CT chest PE reviewed and emboli within left lower lobe and segmental pulmonary arteries. Normal venous Doppler. Patient does not want to undergo frequent bladder checks/PTT, changing heparin drip to Lovenox. Patient
was being bridged to warfarin for outpatient therapy although no co-pay for Eliquis, changed patient to be started on Eliquis.
# HIV/AIDS -patient have recent diagnosis in November of HIV with Pneumocystis pneumonia as AIDS defining illness. CD4 count of 27. Patient has been started on Atripla with this has been changed to Biktarvy due to concern of psychiatric side effects
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 Rocephin has been added to regimen as well. Patient
has been afebrile. Patient wanted to discuss with ID that he will do well to get the supply of Biktarvy and a follow-up with ID in the office. Awaiting delivery; ID Discussed with patient regarding dc home and resume the home Atripla until
Biktarvy available. He is agreeable. He states he can tolerate the psychiatric side effects from Atripla temporarily.
# PJP pneumonia -this was diagnosed with bronchoscopy again silver stain. Serology positive as well. Patient apparently may not have taken the Bactrim course that was supposed to be taken from previous admission. ID started patient again on
treatment dose of Bactrim, of which patient will have to finish a 21-day course, see ID note. - Continue Bactrim DS 2 tabs po q8 x 21d through 01/18/25, then Bactrim DS 1 tab daily. Prednisone increased to 40 mg daily. Continue prednisone 40mg po
daily through 01/07/25 then 20mg po daily through 01/17/25, then 10mg qd through 01/22 for IRIS.
#CAP pneumonia- Completed ceftriaxone 01/22
#Hemoptysis, mild
- CT angio 01/07
-Improved
� Etiology most likely large acute pulmonary infarct, secondary to eccentric pulmonary arterial embolic disease in the left lobe;
less likely left lower lobe pneumonia is afebrile, no productive sputum
-F/u Pulm outpt
#Odynophagia�restarted fluconazole; Improved
#RUQ tenderness, B/l Lower back pain - RUQ US and Renal US unremarkable; Most likely MSK and IRIS Supportive care
#Subtle rounded region of mild increased echotexture along the posterior margin of the lateral segment of left lobe of the liver, as described - appears benign fatty infiltration - f/u outpatient
# Abdominal pain/transaminitis -Improved; LFTs. CT abdomen pelvis did not show any structural problems with liver parenchyma. Patient also some constipation and last bowel movement on Wednesday. No clear explanation for the pain. Continue
symptomatic care. monitor with new meds, most likely DILI v HIV; hep panel neg 11/21/24
# Urinary incontinence - no urinary retention on bladder scan. Symptoms described as possible urgency. Questioning if patient have HIV myelopathy causing urinary symptoms.
# Oral candidiasis -patient is maintained on fluconazole.
# Kaposi's sarcoma -patient have diffuse skin lesions in line with diagnosis of Kaposi's sarcoma. This is a clinical diagnosis and not based on skin biopsy result
# Diffuse pulmonary nodules -patient had few pulmonary nodules on CT scan, question to be Kaposi's sarcoma as well. F/u outpatient
# Hyponatremia, 2/2 to HIV/AIDS and Pulm infarct - SIADH - monitor
DVT ppx- Eliquis
More than 30 minutes spent in discharge including
Final examination of the patient
Summarizing hospital stay
Instructions for continuing care to all relevant caregivers
Preparation of discharge records, prescriptions, and referral forms
Total time spent (in minutes): 36
Anticipated Discharge: Today
Subjective/Interval History
-
Date of Service: January 07, 2025
Was coughing up minimal blood - improved; CT imaging with most likely large acute pulmonary infarct
Objective Data
-
Labs:
Laboratory Results
01/07/25
06:39
WBC 4.4 L
Hgb 12.7 L
Hct 37.4 L
Plt Count 520 H
Sodium 129 L
Potassium 4.3
Chloride 101
Carbon Dioxide 21 L
BUN 18
Creatinine 0.9
Glucose 94
Calcium 8.6
Total Bilirubin 0.3
AST 32
ALT 69 H
Alkaline Phosphatase 152 H
Vital Signs:
Vital Signs
Temp Pulse Resp BP Pulse Ox
97.6 F 102 16 116/88 97
01/07/25 08:46 01/07/25 08:46 01/07/25 08:46 01/07/25 08:46 01/07/25 08:46
I&O
01/06/25 01/07/25 01/08/25
06:59 06:59 06:59
Intake Total 1680 / 1680 480 / 480
Balance 1680 / 1680 480 / 480
Review of Systems
-
History Source: Patient
All other systems: Not reviewed unless documented
Physical Exam
-
General: Appears Chronically Ill and Cachectic
HEENT: Negative Oxygen
Respiratory: Clear to Auscultation; Negative Wheezes
Cardiac: Regular Rhythm and S1/S2; Negative Murmur
GI: Soft, Nontender and Nondistended
Skin: Other (diffuse kaposi sarcoma)
Neuro: Awake, Alert and Oriented
Psych: Calm
Data Reviewed
-
CT Scan: Report Reviewed by me
Ultrasound: Report Reviewed by me
Labs: Labs Reviewed by me and Discussed with Patient
--- NOTE | 2025-01-07 12:25 | W.PN.ID1 ---
Date of Service
Date of Service: January 07, 2025
Today's Communication
DC home.
Assessment / Plan
# LLL Acute PE, present on admission
# Hemoptysis (improving)- likely from PE
- Suspect hypercoagulable state from AIDS.
- peripheral vascular US negative
- Repeat CTA chest: Large LLL infarct
- Continue Eliquis
- Follow-up with Pulmonary
# Advanced HIV / AIDS ( dx'd 10/2024)
-CD4 27 (3%), VL >5,000,000
-On Atripla since 12/01/24 (insurance coverage issue)
- Psychiatric effects of Atripla -> DC'ed
- Robust response to ART. VL decreased from 5 x 10^6 to 5 x 10^3 within a month; VL genotype pending
- Repeat CD4 87 (7%). CD4 Will take several months to improve
- Continue Biktarvy 1 tab qd.
- Outpatient application for [employer] Advanced Access Biktarvy has been approved
Awaiting Biktarvy delivery to ID office .
- Discussed with patient regarding dc home and resume the home Atripla 1 tablet qhs, until Biktarvy available.
Pt agreeable. He states he can tolerate the psychiatric side effects from Atripla temporarily.
- He has follow-up appt with me 01/22/25 at 9:00 am. Hopefully Biktarvy will be available then.
[id number] pending. If Biktarvy falls through, will consider abacavir/TDF/3TC based on insurance coverage.
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
# Recent PJP pneumonia 11/10
- 11/16 Bronch: + silver stain, PJP DFA; rare, usual resp silvana, AFB neg to date,
- Possible pt not following correct instructions on abx due to language barrier.
There was a gap between finishing PJP treatment and starting secondary prophylaxis
- CT scan: slight progression of pulm nodules and LLL infiltrate. ?IRIS vs relapse PJP PNA.
- Continue Bactrim DS 2 tabs po q8 x 21d through 01/18/25, then Bactrim DS 1 tab daily
- Monitor K+ and renal function while on bactrim.
# Fevers resolved
-DDX: Immune reconstitution inflammatory syndrome (IRIS) vs relapse PJP PNA vs bacterial PNA, vs other, vs all of the above
- blood cx's x 2 negative to date
- UA neg
-CT a/p unremarkable. LLL infiltrate progressed.
-Unlikely IRIS unmasking OI.
11/16 BAL AFB neg.
11/20 AFb blood cx neg
11/13 Serum CRAG neg, syphilis neg
12/29 repeat serum crypto ag negative
12/29 Repeat AFB blood cx pending
Toxo IgG negative
-Continue prednisone 40mg po daily through 01/07/25 then 20mg po daily through 01/17/25, then 10mg qd through 01/22 for IRIS.
- Completed empiric ceftriaxone (d7 of )
# Recent oral thrush and esophageal candidiasis
- Continue fluconazole 200mg po daily x 14 more days.
# Kaposi's sarcoma
-Increase # of lesions due to IRIS
- Continue ART
Chief Complaint
-: Other (AIDS, PE)
Subjective / Review of Systems
Not spitting as much blood, only a little bit. Eating well.
Vital Signs / Physical Exam
Vital Signs
Vital Signs
Temp Pulse Resp BP Pulse Ox
97.6 F 102 16 116/88 97
01/07/25 08:46 01/07/25 08:46 01/07/25 08:46 01/07/25 08:46 01/07/25 08:46
Physical Exam
Constitutional: No Acute Distress and Comfortable
Eyes: No Conjunctival Hemorrhage and Sclera Anicteric
Oropharyngeal: Negative Thrush
Cardiovascular: Regular Rate and S1/S2
Pulmonary: Clear
Gastrointestinal: Soft, Tender (RUQ mild), Non Distended and Normal Bowel Sounds
Genito-Urinary: Negative CVA Tenderness
Extremities: Negative Edema
Musculoskeletal: Other (RIGHT lower torso mild tenderness)
Neurological: AO x 3
Objective Data
Lab Data
Lab Results
01/07/25 06:39
01/07/25 06:39
PT 21.7 Sec (11.4-14.6) H 12/31/24 06:09
INR 1.87 12/31/24 06:09
APTT Cancelled 12/28/24 19:16
Estimated Creat Clear 79 ml/min 01/07/25 06:39
Lactic Acid 0.6 mmol/L (0.7-2.0) L 12/27/24 12:14
Total Bilirubin 0.3 mg/dl (0.2-1.3) 01/07/25 06:39
AST 32 U/L (17-59) 01/07/25 06:39
ALT 69 U/L (0-50) H 01/07/25 06:39
Alkaline Phosphatase 152 U/L (38-126) H 01/07/25 06:39
Amylase 140 U/L (30-110) H 12/27/24 03:03
Most recent labs reviewed.
Micro Results:
12/27/24 17:01 Blood Culture - Final
Blood/Venous No Growth - Final Report
12/27/24 12:14 Blood Culture - Final
Blood/Venous No Growth - Final Report
12/29/24 07:11 AFB Blood Culture - Preliminary
Blood/Venous
12/29/24 15:20 Legionella Urinary Antigen - Final
Urine Negative for Legionella pneumophila Serogroup 1 antigen.
A negative result does not rule out the possiblity of
Legionella infection due to other serogroups or species of
Legionella. Clinical correlation is recommended.
Streptococcus pneumoniae Antigen (M - Final
Negative for Streptococcus pneumoniae antigen.
A negative result does not exclude infection with
Streptococcus pneumoniae. Clinical correlation is
recommended.
12/26/24 18:44 Influenza Types A & B (MARA) - Final
Nasal Swab Negative for Influenza A & B, NAAT
Negative results must be combined with clinical observations
and patient history.
Nucleic Acid Amplification test (NAAT)performed on the
[employer] platform.
01/06/[address]: LARGE LEFT LOWER LOBE BASILAR AIRSPACE CONSOLIDATION which has increased in size since 12/26/2024. Diagnostic possibilities are (1) a LARGE ACUTE PULMONARY INFARCT or (2) severe left lower lobe pneumonia.
2. Interval decrease in chronic nonocclusive eccentric pulmonary arterial embolic disease in the left lower lobe.
3. Mild subsegmental atelectasis in the right lower lobe.
4. Mild elevation of the left hemidiaphragm.
01/06/25 ABD US: Mild layering, mobile gallbladder sludge. No cholelithiasis. No sonographic evidence of acute cholecystitis. No bile duct dilatation. Subtle rounded region of mild increased echotexture along the posterior margin of the lateral
segment of left lobe of the liver, as described.
01/05/25 CXR: Moderate-sized dense airspace consolidation in the basilar segments of the left lower lobe most consistent with an ACUTE LEFT LOWER LOBE PULMONARY INFARCT secondary to left lower lobe pulmonary arterial embolic disease.Mild airspace
consolidation in the posterior basilar right lower lobe (either acute pulmonary infarct or atelectasis)
12/26/24 CT Chest: Prominent pulmonary emboli within left lower lobe lobar and segmental pulmonary arteries. No overt CT evidence for right heart strain. Scattered tiny bilateral pulmonary nodules, overall slightly progressed from prior. Findings
are most suggestive of infectious/inflammatory etiologies. If the patient is considered high risk, an optional follow-up noncontrast CT chest can be obtained in [address] [facility] Pulmonary Nodule Advisory Board will be notified.
12/27/24 CT a/p with IV and po contrast: No significant acute abnormality identified in the abdomen or pelvis, as described above. Probable left lower lobe pneumonia, progressed. Trace left pleural effusion.
Care Review
Plan reviewed with: Physician (Dr. Arriaga)
--- NOTE | 2025-01-07 13:19 | W.DS.TRANS ---
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
-
Discharge Instructions:
Discharge Diagnosis/Procedures Left lower lobe PE submassive - subsequent
hemoptysis
HIV/AIDS
PJP pneumonia
CAP pneumonia
Odynophagia
transaminitis
Oral candidiasis
Kaposi's sarcoma
Hyponatremia
Activity As tolerated
Blood Work cbc and cmp in 7 days;
Others Tests as per ID and Pulmonary outpatient
Instructions:
Stand-Alone Forms:
Changes to Home Medications: Yes
Discharge Medications:
DC Medications w/original date entered in [employer]
efavirenz 600 mg-emtricitabine 200 mg-tenofovir disoprox 300 mg tablet 1 tab PO HS #30 tabs 11/21/24
apixaban 5 mg tablet (Eliquis) 5 mg PO BID 30 days #60 tabs 01/07/25
famotidine 40 mg tablet 40 mg PO DAILY 30 days #30 tabs 01/07/25
fluconazole 200 mg tablet 200 mg PO DAILY 30 days #30 tabs 01/07/25
pantoprazole 40 mg tablet,delayed release 40 mg PO DAILY 30 days #30 tabs 01/07/25
prednisone 10 mg tablet 10 mg PO DIRECTED 25 days #25 tabs 01/07/25
sulfamethoxazole 800 mg-trimethoprim 160 mg tablet 2 tab PO Q8H 12 days #72 tabs 01/07/25
sulfamethoxazole 800 mg-trimethoprim 160 mg tablet (Bactrim DS) 1 tab PO DAILY 30 days #30 tabs 01/07/25
Home Medication Changes
apixaban 5 mg tablet (Eliquis) 5 mg PO BID 30 days #60 tabs 01/07/25
famotidine 40 mg tablet 40 mg PO DAILY 30 days #30 tabs 01/07/25
fluconazole 200 mg tablet 200 mg PO DAILY 30 days #30 tabs 01/07/25
pantoprazole 40 mg tablet,delayed release 40 mg PO DAILY 30 days #30 tabs 01/07/25
prednisone 10 mg tablet 10 mg PO DIRECTED 25 days #25 tabs 01/07/25
sulfamethoxazole 800 mg-trimethoprim 160 mg tablet 2 tab PO Q8H 12 days #72 tabs 01/07/25
sulfamethoxazole 800 mg-trimethoprim 160 mg tablet (Bactrim DS) 1 tab PO DAILY 30 days #30 tabs 01/07/25
Pending Results: No
[2025-01-07] MEDS: MIRALAX 17 GRAMS PO (13:47)
--- NOTE | 2025-01-07 15:04 | CM ---
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
Plan; Home with spouse no needs.
[2025-01-07 15:18] VITALS: BP 114/80
[2025-01-07 20:00] VITALS: BP 122/71
[2025-01-07] MEDS: ELIQUIS 5 MG PO (20:59)
--- NOTE | 2025-01-07 21:31 | PTCARENOTE ---
Patient discharged home with around 21:30. IV removed prior. HS medications given. RN reviewed discharge instructions with and patient, signed and given copy. Home medication ( 1 bottle) returned to patient from pharmacy ( efavirenz).
== END 2025-01-07 21:30 | disposition home or self-care (01) | DRG 974 ==
LOC: 4 WEST ACU 22:10
PROVIDERS: Emergency Medicine; Hospitalist; ADMITTING PHYSICIAN Internal Medicine; ATTENDING PHYSICIAN Internal Medicine; CONSULT PHYSICIAN Internal Medicine Infectious Disease; EMERGENCY PHYSICIAN Emergency Medicine; OTHER PHYSICIAN Internal Medicine
DX: B20 Human immunodeficiency virus [HIV] disease (principal); E43 Unspecified severe protein-calorie malnutrition; B59 Pneumocystosis; I26.99 Other pulmonary embolism without acute cor pulmonale; J96.01 Acute respiratory failure with hypoxia; R64 Cachexia; Z68.1 Body mass index [BMI] 19.9 or less, adult; E22.2 Syndrome of inappropriate secretion of antidiuretic hormone; F17.210 Nicotine dependence, cigarettes, uncomplicated; J18.9 Pneumonia, unspecified organism; B37.0 Candidal stomatitis; B37.81 Candidal esophagitis; C46.0 Kaposi's sarcoma of skin; Z86.711 Personal history of pulmonary embolism; Z11.52 Encounter for screening for COVID-19
CPT/HCPCS: 71046; 71275; 74177; 76700; 80053; 81003; 82150; 82550; 83605; 83690; 84484; 85025; 85027; 85610; 85730; 86361; 86704; 86705; 86706; 86708; 86777; 86803; 87040; 87116; 87327; 87340; 87449; 87502; 87536; 87811; 87899; 92610; 93005; 93970; 94640; 96374; 97163; 97167; 97530; 97535; 99285; Q9967